=== PATIENT | female | born 1955 | race Caucasian/White ===

== ENCOUNTER 2017-02-08 18:44 | Emergency (ER) | payer OTHER ==
--- NOTE | 2017-02-08 19:00 | ED ---
Lower Extremity Injury HPI - General Chief Complaint: Extremity Injury, Lower Stated Complaint: fall,leg pain Time Seen by Provider: 02/08/17 18:51 Source: patient, EMS, RN notes reviewed Mode of arrival: EMS Limitations: no limitations - History of Present Illness Initial Comments: 61-year-old female presents emergency Department chief complaint of right knee pain. Patient states that she currently states that [facility] and states that 5 days ago she felt 2 pops in her knee and states that she fell her slid down to the ground onto the knee. She states she's been unable to bear any weight on her right knee. Recent did have x-rays that [facility] which showed no acute abnormality. There has been moderate swelling no redness to the site. She states that it felt warm to her left she's had no fever no chills. 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 Patient denies any paresthesias. - Related Data Home Medications Medication Instructions Recorded Confirmed Insulin Glargine [Lantus] 6 unit SQ HS 11/15/14 02/08/17 Calcium Acetate [PhosLo] 667 mg PO DAILY@17011/10/15 02/08/17 Cranberry 425mg 425 mg PO BID 11/10/15 02/08/17 Ferrous Sulfate [Iron (65 MG 325 mg PO DAILY@1700 11/10/15 02/08/17 Elemental)] INSULIN LISPRO (HumaLOG) [humaLOG] 5 units SQ AC-BID@1130,1630 11/10/15 02/08/17 Pravastatin Sodium [Pravachol] 10 mg PO DAILY@199911/10/15 02/08/17 buPROPion SR [Wellbutrin SR] 150 mg PO DAILY 11/10/15 02/08/17 hydrALAZINE HCL [Apresoline] 50 mg PO TID@0500,1300,2100 11/10/15 02/08/17 Estrogens, Conjugated [Premarin] 1.25 mg PO DAILY@199911/19/15 02/08/17 Cholecalciferol [Vitamin D3] 2,000 unit PO DAILY 05/25/16 02/08/17 Escitalopram [Lexapro] 20 mg PO HS 06/17/16 02/08/17 Acetaminophen-Codeine 300-30mg 1 tab PO Q4H PRN 02/08/17 02/08/17 [Tylenol w/codeine #3] Epoetin Jc [Epogen] 2,000 units SQ FR 02/08/17 02/08/17 Estrogens, Conjugated [Premarin] 1.25 mg PO HS 02/08/17 02/08/17 Gabapentin [Neurontin] 300 mg PO DAILY 02/08/17 02/08/17 Loperamide [Imodium] 2 mg PO TID PRN 02/08/17 02/08/17 Melatonin 5 mg PO HS 02/08/17 02/08/17 Nicotine 7Mg/24Hr Patch [Habitrol 1 patch TRANSDERM DAILY 02/08/17 02/08/17 7Mg/24Hr Patch] Ondansetron [Zofran] 4 mg PO Q8H PRN 02/08/17 02/08/17 Previous Rx's Medication Instructions Recorded Clopidogrel [Plavix] 75 mg PO DAILY #30 tab 05/27/14 Metoprolol Tartrate [Lopressor] 50 mg PO BID #60 tab 05/27/14 Isosorbide Mononitrate ER [Imdur] 60 mg PO DAILY #1 tab 11/21/15 Nitroglycerin Sl Tabs [Nitrostat] 0.4 mg SUBLINGUAL Q5M PRN #0 tab 11/21/15 amLODIPine [Norvasc] 5 mg PO DAILY #30 tab 05/26/16 LORazepam [Ativan] 0.5 mg PO Q8H PRN #14 tab 06/25/16 Allergies Allergy/AdvReac Type Severity Reaction Status Date / Time doxycycline calcium Allergy Rash/Hives Verified 02/08/17 19:02 [From Vibramycin] doxycycline hyclate Allergy Rash/Hives Verified 02/08/17 19:02 [From Vibramycin] doxycycline monohydrate Allergy Rash/Hives Verified 02/08/17 19:02 [From Vibramycin] nalbuphine HCl [From Nubain] Allergy Rash/Hives Verified 02/08/17 19:02 oxycodone HCl [From Tylox] Allergy Rash/Hives Verified 02/08/17 19:02 Tetracyclines Allergy Rash/Hives Verified 02/08/17 19:02 Review of Systems ROS Statement: Those systems with pertinent positive or pertinent negative responses have been documented in the HPI. ROS Other: All systems not noted in ROS Statement are negative. Past Medical History Past Medical History: Coronary Artery Disease (CAD), Heart Failure, COPD, CVA/ TIA, Dementia, Diabetes Mellitus, Eye Disorder, Hyperlipidemia, Hypertension, Myocardial Infarction (ND), Osteoarthritis (OA), Renal Disease, Rheumatoid Arthritis (RA), Skin Disorder, Vascular Disorder Additional Past Medical History / Comment(s): UTI/pyelonephritis with sepsis, IDDM type II, CKD stage III, PAD, wound left foot prior to amputation, R foot neuropathy. Last Myocardial Infarction Date:: 1987 History of Any Multi-Drug Resistant Organisms: None Reported Past Surgical History: Cholecystectomy, Heart Catheterization With Stent, Hernia Repair, Hysterectomy, Tubal Ligation Additional Past Surgical History / Comment(s): Abdominal SX. RT EYE REMOVED 2 YEAR AGO, 05-25-14 LT BELOW KNEE AMP Past Anesthesia/Blood Transfusion Reactions: No Reported Reaction Date of Last Stent Placement:: 04/2014 Past Psychological History: Anxiety, Depression Smoking Status: Former smoker Past Alcohol Use History: None Reported Past Drug Use History: None Reported - Past Family History Father Family Medical History: CVA/TIA Mother Family Medical History: COPD General Exam Limitations: no limitations General appearance: alert, in no apparent distress Respiratory exam: Present: normal lung sounds bilaterally. Absent: respiratory distress, wheezes, rales, rhonchi, stridor Cardiovascular Exam: Present: regular rate, normal rhythm, normal heart sounds. Absent: systolic murmur, diastolic murmur, rubs, gallop, clicks Extremities exam: Present: other (Right knee there is moderate swelling no erythema no open lesions or sores. There is no obvious deformity there is a moderate joint effusion noted, no laxity pain with range of motion minimal warmth) Skin exam: Present: warm, dry, intact, normal color. Absent: rash Course Vital Signs 02/08/17 18:47 Temperature 97.3 F L Pulse Rate 53 L Respiratory 20 Rate Blood Pressure 148/64 O2 Sat by Pulse 94 L Oximetry Medical Decision Making - Medical Decision Making 61-year-old female presents emergency department for right knee pain. Patient has joint effusion this may related to a strain or contusion. Patient will be discharged back to [facility] and advised to follow-up with orthopedics for further care. There is no evidence of infection this time. Patient agrees this plan. Disposition Clinical Impression: Right knee pain, Effusion of right knee joint Disposition: HOME SELF-CARE Condition: Stable Instructions: Knee Pain (ED) Additional Instructions: Please return to the Emergency Department if symptoms worsen or any other concerns. Referrals: Jose Nobles DO [Primary Care Provider] - 1-2 days Yasir Yuan MD [STAFF PHYSICIAN] - 1-2 days Time of Disposition: 19:58
--- NOTE | 2017-02-08 19:55 | XR ---
EXAMINATION TYPE: XR knee complete RT DATE OF EXAM: 02/08/2017 COMPARISON: NONE HISTORY: Pain TECHNIQUE: 4 views FINDINGS: The bone mineralization pattern shows evidence of generalized osteopenia and prominent hete rogeneity of attenuation. No focal destructive lesions evident. No fracture or malalignment. The soft tissues reveal fluid in the suprapatellar bursa. In addition, atherosclerotic calcifications are noted throughout the visualized arterial anatomy. IMPRESSION: 1. Skeletal structures: No definite acute bone process, but generalized bone findings. 2. Joints and soft tissues: Suprapatellar effusion and atherosclerosis findings.
[2017-02-08] MEDS ORDERED: HYDROcodone/APAP 7.5-325MG 1 EACH TAB PO ONE (20:01)
[2017-02-08 20:35] VITALS: BP 156/75; PULSE 59; RESP 18; TEMP 97.8
== END 2017-02-08 20:44 | disposition home or self-care (01) ==
LOC: EC 18:44
DX: M25.461 Effusion, right knee (principal); I12.9 Hypertensive chronic kidney disease with stage 1 through stage 4 chronic kidney disease, or unspecified chronic kidney disease; I11.0 Hypertensive heart disease with heart failure; I50.9 Heart failure, unspecified; N18.3 Chronic kidney disease, stage 3 (moderate); E78.5 Hyperlipidemia, unspecified; E11.22 Type 2 diabetes mellitus with diabetic chronic kidney disease; I73.9 Peripheral vascular disease, unspecified; F32.9 Major depressive disorder, single episode, unspecified; F41.9 Anxiety disorder, unspecified; Z87.891 Personal history of nicotine dependence; Z79.4 Long term (current) use of insulin; Z79.899 Other long term (current) drug therapy; Z88.1 Allergy status to other antibiotic agents; Z88.5 Allergy status to narcotic agent; Z88.6 Allergy status to analgesic agent; W01.0XXA Fall on same level from slipping, tripping and stumbling without subsequent striking against object, initial encounter; Y92.121 Bathroom in nursing home as the place of occurrence of the external cause
CPT/HCPCS: 99284

== ENCOUNTER 2017-12-08 19:24 | Emergency (ER) | payer OTHER ==
[2017-12-08 19:28] VITALS: RESP 16; TEMP 98.5
--- NOTE | 2017-12-08 19:43 | ED ---
Chest Pain HPI - General Chief Complaint: Chest Pain Stated Complaint: chest pain Time Seen by Provider: 12/08/17 19:26 Source: patient Mode of arrival: EMS Limitations: no limitations - History of Present Illness Initial Comments: This patient is a 62-year-old woman, with history of previous angina, presenting with chest pain that came on tonight. The patient is resident of [facility]. EMS was called and the patient did receive aspirin and 2 nitroglycerin. The symptoms have resolved by her arrival here and she states she is feeling well. The patient did not have any other anginal type symptoms. MD Complaint: chest pain Onset/Timin -: hour(s) Onset: during rest Pain Location: substernal Pain Radiation: none Severity: moderate Quality: heaviness Consistency: now resolved Improves With: nitroglycerin Worsens With: nothing Treatments Prior to Arrival: aspirin, nitroglycerin - Related Data Home Medications Medication Instructions Recorded Confirmed Insulin Glargine [Lantus] 6 unit SQ HS 11/15/14 12/08/17 Calcium Acetate [PhosLo] 667 mg PO DAILY@17011/10/15 12/08/17 Ferrous Sulfate [Iron (65 MG 325 mg PO DAILY@1700 11/10/15 12/08/17 Elemental)] INSULIN LISPRO (HumaLOG) [humaLOG] 5 units SQ AC-BID@1130,1630 11/10/15 12/08/17 Pravastatin Sodium [Pravachol] 10 mg PO DAILY@199911/10/15 12/08/17 buPROPion SR [Wellbutrin SR] 150 mg PO DAILY 11/10/15 12/08/17 hydrALAZINE HCL [Apresoline] 50 mg PO TID@0500,1300,2100 11/10/15 12/08/17 Cholecalciferol [Vitamin D3] 2,000 unit PO DAILY 05/25/16 12/08/17 Escitalopram [Lexapro] 20 mg PO HS 06/17/16 12/08/17 Acetaminophen-Codeine 300-30mg 1 tab PO Q4H PRN 02/08/17 12/08/17 [Tylenol w/codeine #3] Gabapentin [Neurontin] 300 mg PO DAILY 02/08/17 12/08/17 Loperamide [Imodium] 2 mg PO TID PRN 02/08/17 12/08/17 Melatonin 5 mg PO HS 02/08/17 12/08/17 Ondansetron [Zofran] 4 mg PO Q8H PRN 02/08/17 12/08/17 Cranberry Fruit Extract [Cranberry] 450 mg PO DAILY 12/08/17 12/08/17 Docusate [Colace] 100 mg PO HS 12/08/17 12/08/17 Epoetin Jc [Epogen] 2,000 unit SQ WEEKLY 12/08/17 12/08/17 HYDROmorphone [Dilaudid] 2 mg PO Q6H PRN 12/08/17 12/08/17 LORazepam [Ativan] 0.5 mg PO DAILY 12/08/17 12/08/17 Magnesium Hydroxide [Milk of 400 mg PO 12/08/17 Magnesia] Sennosides [Senna] 8.6 mg PO Q2D 12/08/17 12/08/17 Previous Rx's Medication Instructions Recorded Clopidogrel [Plavix] 75 mg PO DAILY #30 tab 05/27/14 Metoprolol Tartrate [Lopressor] 50 mg PO BID #60 tab 05/27/14 Isosorbide Mononitrate ER [Imdur] 60 mg PO DAILY #1 tab 11/21/15 Nitroglycerin Sl Tabs [Nitrostat] 0.4 mg SUBLINGUAL Q5M PRN #0 tab 11/21/15 amLODIPine [Norvasc] 5 mg PO DAILY #30 tab 05/26/16 Allergies Allergy/AdvReac Type Severity Reaction Status Date / Time doxycycline calcium Allergy Rash/Hives Verified 12/08/17 19:30 [From Vibramycin] doxycycline hyclate Allergy Rash/Hives Verified 12/08/17 19:30 [From Vibramycin] doxycycline monohydrate Allergy Rash/Hives Verified 12/08/17 19:30 [From Vibramycin] nalbuphine HCl [From Nubain] Allergy Rash/Hives Verified 12/08/17 19:30 oxycodone HCl [From Tylox] Allergy Rash/Hives Verified 12/08/17 19:30 Tetracyclines Allergy Rash/Hives Verified 12/08/17 19:30 Review of Systems ROS Statement: Those systems with pertinent positive or pertinent negative responses have been documented in the HPI. ROS Other: All systems not noted in ROS Statement are negative. Constitutional: Denies: fever Respiratory: Denies: cough, dyspnea, wheezes Cardiovascular: Reports: chest pain. Denies: palpitations, orthopnea, edema, syncope Gastrointestinal: Denies: abdominal pain, vomiting Musculoskeletal: Denies: back pain Skin: Denies: rash Neurological: Denies: headache, weakness EKG Findings - EKG Results: EKG: interpreted by ERMD, sinus rhythm (Rate 61 bpm), normal axis, normal QRS, normal ST/T, no acute changes Past Medical History Past Medical History: Coronary Artery Disease (CAD), Heart Failure, COPD, CVA/ TIA, Dementia, Diabetes Mellitus, Eye Disorder, Hyperlipidemia, Hypertension, Myocardial Infarction (MS), Osteoarthritis (OA), Renal Disease, Rheumatoid Arthritis (RA), Skin Disorder, Vascular Disorder Additional Past Medical History / Comment(s): UTI/pyelonephritis with sepsis, IDDM type II, CKD stage III, PAD, wound left foot prior to amputation, R foot neuropathy. Last Myocardial Infarction Date:: 1987 History of Any Multi-Drug Resistant Organisms: None Reported Past Surgical History: Cholecystectomy, Heart Catheterization With Stent, Hernia Repair, Hysterectomy, Tubal Ligation Additional Past Surgical History / Comment(s): Abdominal SX. RT EYE REMOVED 2 YEAR AGO, 05-25-14 LT BELOW KNEE AMP Past Anesthesia/Blood Transfusion Reactions: No Reported Reaction Date of Last Stent Placement:: 04/2014 Past Psychological History: Anxiety, Depression Smoking Status: Former smoker Past Alcohol Use History: None Reported Past Drug Use History: None Reported - Past Family History Father Family Medical History: CVA/TIA Mother Family Medical History: COPD General Exam Limitations: no limitations General appearance: alert, in no apparent distress Head exam: Present: atraumatic, normocephalic ENT exam: Present: normal oropharynx Respiratory exam: Present: normal lung sounds bilaterally. Absent: respiratory distress, wheezes, rales, rhonchi, stridor Cardiovascular Exam: Present: regular rate, normal rhythm, normal heart sounds. Absent: systolic murmur, diastolic murmur, rubs, gallop GI/Abdominal exam: Present: soft. Absent: distended, tenderness, guarding, rebound, mass Extremities exam: Present: normal inspection, normal capillary refill, other ( Below knee amputation ). Absent: pedal edema, calf tenderness Neurological exam: Present: alert, motor sensory deficit Skin exam: Present: warm, dry, intact, normal color. Absent: rash Course Vital Signs 12/08/17 12/08/17 19:25 20:37 Temperature 98.5 F Pulse Rate 61 60 Respiratory 16 16 Rate Blood Pressure 155/72 150/67 O2 Sat by Pulse 96 96 Oximetry Disposition Clinical Impression: Stable angina, Acute renal failure superimposed on stage 3 chronic kidney disease Disposition: HOME SELF-CARE Condition: Fair Instructions: Angina (ED) Additional Instructions: As discussed, your kidney tests must be repeated in 48-72 hours to ensure that there is not any worsening. Is patient prescribed a controlled substance at d/c from ED?: No Referrals: Jose Nobles DO [Primary Care Provider] - 1-2 days
[2017-12-08 19:58] LABS: Basophils % (A) 1 %; Eosinophils # (A) 0.1 k/uL (0-0.7); Eosinophils % (A) 2 %; HCT 28.6 % (34.0-46.0); HGB 9.2 gm/dL (11.4-16.0); Hypochromasia Slight; Lymphocytes # (A) 0.9 k/uL (1.0-4.8); Lymphocytes % (A) 17 %; MCH 27.9 pg (25.0-35.0); MCHC 32.2 g/dL (31.0-37.0); MCV 86.6 fL (80.0-100.0); Mean Platelet Volume 6.7; Monocytes # (A) 0.4 k/uL (0-1.0); Monocytes % (A) 8 %; Neutrophils # (A) 3.7 k/uL (1.3-7.7); Neutrophils % (A) 71 %; Platelet Count 305 k/uL (150-450); Poikilocytosis Slight; RBC 3.31 m/uL (3.80-5.40); RDW 14.8 % (11.5-15.5); WBC 5.2 k/uL (3.8-10.6)
[2017-12-08 20:06] LABS: Partial Thromboplastin Time 24.4 sec (22.0-30.0); Prothrombin Time 9.6 sec (9.0-12.0)
[2017-12-08 20:07] LABS: Albumin 2.9 g/dL (3.5-5.0); Calcium 8.2 mg/dL (8.4-10.2); Magnesium 1.7 mg/dL (1.6-2.3); Total Bilirubin 0.1 mg/dL (0.2-1.3); Total Protein 6.2 g/dL (6.3-8.2)
--- NOTE | 2017-12-08 20:20 | XR ---
EXAMINATION TYPE: XR chest 1V portable DATE OF EXAM: 12/08/2017 COMPARISON: 05/25/2016 HISTORY: Chest pain TECHNIQUE: Single frontal view of the chest is obtained. FINDINGS: There is no focal air space opacity, pleural effusion, or pneumothorax seen. The cardiac silhouette size is enlarged as seen on the prior. The osseous structures are intact. IMPRESSION: No acute cardiopulmonary process.
[2017-12-08] MEDS ORDERED: SODIUM CHLORIDE 0.9% 500 ML IV STA (20:48)
[2017-12-08 21:30] VITALS: BP 147/69; PULSE 63
== END 2017-12-08 21:30 | disposition home or self-care (01) ==
LOC: EC 19:24
DX: I25.119 Atherosclerotic heart disease of native coronary artery with unspecified angina pectoris (principal); I13.0 Hypertensive heart and chronic kidney disease with heart failure and stage 1 through stage 4 chronic kidney disease, or unspecified chronic kidney disease; N18.3 Chronic kidney disease, stage 3 (moderate); I50.9 Heart failure, unspecified; E11.22 Type 2 diabetes mellitus with diabetic chronic kidney disease; E78.5 Hyperlipidemia, unspecified; M06.9 Rheumatoid arthritis, unspecified; E11.40 Type 2 diabetes mellitus with diabetic neuropathy, unspecified; F32.9 Major depressive disorder, single episode, unspecified; F41.9 Anxiety disorder, unspecified; Z87.891 Personal history of nicotine dependence; Z79.4 Long term (current) use of insulin; Z79.899 Other long term (current) drug therapy; Z88.1 Allergy status to other antibiotic agents; Z88.8 Allergy status to other drugs, medicaments and biological substances; Z95.5 Presence of coronary angioplasty implant and graft
CPT/HCPCS: 36415; 71045; 80053; 83735; 84484; 85025; 85610; 85730; 93005; 99285

== ENCOUNTER 2017-12-26 14:36 | Inpatient (IN) | payer OTHER ==
--- NOTE | 2017-12-26 14:56 | ED ---
Recheck HPI - General Chief Complaint: Recheck/Abnormal Lab/Rx Stated Complaint: ABNORMAL LABS Time Seen by Provider: 12/26/17 14:36 Source: patient, RN notes reviewed Mode of arrival: EMS Limitations: no limitations - History of Present Illness Initial Comments: This is a 62-year-old female with a history of multiple medical problems including diabetes depression who apparently has had recent renal insufficiency and was sent in now for markedly elevated BUN and creatinine. BUN was 114 creatinine 6.2. Patient apparently had been off her dialysis and up to this point had refused. She now apparently will get dialysis. No fevers chills nausea vomiting sweats reported the patient's mental status is unknown she is somewhat confused to time she believes is winter and she believes [place] is the Pres. at this time. - Related Data Home Medications Medication Instructions Recorded Confirmed Insulin Glargine [Lantus] 6 unit SQ HS 11/15/14 12/26/17 Calcium Acetate [PhosLo] 667 mg PO DAILY@1700 11/10/15 12/26/17 Ferrous Sulfate [Iron (65 MG 325 mg PO DAILY@1700 11/10/15 12/26/17 Elemental)] INSULIN LISPRO (HumaLOG) [humaLOG] 5 units SQ AC-BID@1130,1630 11/10/15 12/26/17 Pravastatin Sodium [Pravachol] 10 mg PO HS 11/10/15 12/26/17 buPROPion SR [Wellbutrin SR] 150 mg PO DAILY 11/10/15 12/26/17 hydrALAZINE HCL [Apresoline] 50 mg PO TID@0500,1300,2100 11/10/15 12/26/17 Cholecalciferol [Vitamin D3] 2,000 unit PO DAILY 05/25/16 12/26/17 Escitalopram [Lexapro] 20 mg PO HS 06/17/16 12/26/17 Acetaminophen-Codeine 300-30mg 1 tab PO Q4H PRN 02/08/17 12/26/17 [Tylenol w/codeine #3] Gabapentin [Neurontin] 300 mg PO DAILY 02/08/17 12/26/17 Loperamide [Imodium] 2 mg PO TID PRN 02/08/17 12/26/17 Melatonin 5 mg PO HS 02/08/17 12/26/17 Ondansetron [Zofran] 4 mg PO Q8H PRN 02/08/17 12/26/17 Cranberry Fruit Extract [Cranberry] 450 mg PO BID 12/08/17 12/26/17 Docusate [Colace] 100 mg PO HS 12/08/17 12/26/17 Epoetin Jc [Epogen] 2,000 unit SQ FR 12/08/17 12/26/17 HYDROmorphone [Dilaudid] 2 mg PO Q6H PRN 12/08/17 12/26/17 LORazepam [Ativan] 0.5 mg PO DAILY@1600 12/08/17 12/26/17 Magnesium Hydroxide [Milk of 2,400 mg PO DAILY PRN 12/08/17 12/26/17 Magnesia] Sennosides [Senna] 8.6 mg PO Q2D 12/08/17 12/26/17 Cefuroxime Axetil [Ceftin] 500 mg PO DAILY 12/26/17 12/26/17 Promethazine Suppository 12.5 mg RECTAL Q6H PRN 12/26/17 12/26/17 [Phenergan] Previous Rx's Medication Instructions Recorded Clopidogrel [Plavix] 75 mg PO DAILY #30 tab 05/27/14 Metoprolol Tartrate [Lopressor] 50 mg PO BID #60 tab 05/27/14 Isosorbide Mononitrate ER [Imdur] 60 mg PO DAILY #1 tab 11/21/15 Nitroglycerin Sl Tabs [Nitrostat] 0.4 mg SUBLINGUAL Q5M PRN #0 tab 11/21/15 amLODIPine [Norvasc] 5 mg PO DAILY #30 tab 05/26/16 Allergies Allergy/AdvReac Type Severity Reaction Status Date / Time doxycycline calcium Allergy Rash/Hives Verified 12/26/17 14:48 [From Vibramycin] doxycycline hyclate Allergy Rash/Hives Verified 12/26/17 14:48 [From Vibramycin] doxycycline monohydrate Allergy Rash/Hives Verified 12/26/17 14:48 [From Vibramycin] nalbuphine HCl [From Nubain] Allergy Rash/Hives Verified 12/26/17 14:48 oxycodone HCl [From Tylox] Allergy Rash/Hives Verified 12/26/17 14:48 Tetracyclines Allergy Rash/Hives Verified 12/26/17 14:48 Review of Systems ROS Statement: Those systems with pertinent positive or pertinent negative responses have been documented in the HPI. ROS Other: All systems not noted in ROS Statement are negative. Past Medical History Past Medical History: Coronary Artery Disease (CAD), Heart Failure, COPD, CVA/ TIA, Dementia, Diabetes Mellitus, Eye Disorder, Hyperlipidemia, Hypertension, Myocardial Infarction (MS), Osteoarthritis (OA), Renal Disease, Rheumatoid Arthritis (RA), Skin Disorder, Vascular Disorder Additional Past Medical History / Comment(s): UTI/pyelonephritis with sepsis, IDDM type II, CKD stage III, PAD, wound left foot prior to amputation, R foot neuropathy. Last Myocardial Infarction Date:: 1987 History of Any Multi-Drug Resistant Organisms: None Reported Past Surgical History: Cholecystectomy, Heart Catheterization With Stent, Hernia Repair, Hysterectomy, Tubal Ligation Additional Past Surgical History / Comment(s): Abdominal SX. RT EYE REMOVED 2 YEAR AGO, 05-25-14 LT BELOW KNEE AMP Past Anesthesia/Blood Transfusion Reactions: No Reported Reaction Date of Last Stent Placement:: 04/2014 Past Psychological History: Anxiety, Depression Smoking Status: Former smoker Past Alcohol Use History: None Reported Past Drug Use History: None Reported - Past Family History Father Family Medical History: CVA/TIA Mother Family Medical History: COPD General Exam - General Exam Comments Initial Comments: This is a well-developed well-nourished awake alert but confused female Limitations: no limitations General appearance: alert, anxious Eye exam: Present: EOMI, other (Prior to ablation of the right eye) ENT exam: Present: mucous membranes dry Neck exam: Present: normal inspection. Absent: tenderness, meningismus, lymphadenopathy Respiratory exam: Present: normal lung sounds bilaterally. Absent: respiratory distress, wheezes, rales, rhonchi, stridor Cardiovascular Exam: Present: regular rate, normal rhythm, normal heart sounds. Absent: systolic murmur, diastolic murmur, rubs, gallop, clicks GI/Abdominal exam: Present: soft, normal bowel sounds. Absent: distended, tenderness, guarding, rebound, rigid Rectal exam: Present: deferred Extremities exam: Present: full ROM, normal capillary refill, other (Left below the knee amputation is noted). Absent: tenderness Neurological exam: Present: alert, altered, CN II-XII intact Skin exam: Present: warm, dry, intact, normal color Course Vital Signs 12/26/17 14:38 Temperature 97.1 F L Pulse Rate 60 Respiratory 18 Rate Blood Pressure 145/68 O2 Sat by Pulse 96 Oximetry Medical Decision Making - Medical Decision Making I did discuss case Dr. Bailey patient will be admitted for evaluation for dialysis a consult for nephrology as well as for vascular surgery - Lab Data Result diagrams: 12/26/17 14:55 12/26/17 14:55 Lab Results 12/26/17 12/26/17 12/26/17 Range/Units 14:30 14:55 14:55 WBC (3.8-10.6) k/uL RBC (3.80-5.40) m/uL Hgb (11.4-16.0) gm/dL Hct (34.0-46.0) % MCV (80.0-100.0) fL MCH (25.0-35.0) pg MCHC (31.0-37.0) g/dL RDW (11.5-15.5) % Plt Count (150-450) k/uL Neutrophils % % Lymphocytes % % Monocytes % % Eosinophils % % Basophils % % Neutrophils # (1.3-7.7) k/uL Lymphocytes # (1.0-4.8) k/uL Monocytes # (0-1.0) k/uL Eosinophils # (0-0.7) k/uL Basophils # (0-0.2) k/uL Hypochromasia Sodium (137-145) mmol/L Potassium (3.5-5.1) mmol/L Chloride (98-107) mmol/L Carbon Dioxide (22-30) mmol/L Anion Gap mmol/L BUN (7-17) mg/dL Creatinine (0.52-1.04) mg/dL Est GFR (CKD-EPI)AfAm (>60 ml/min/1.73 sqM) Est GFR (CKD-EPI)NonAf (>60 ml/min/1.73 sqM) Glucose (74-99) mg/dL Osmolality 325 H* (280-301) mosm/kg Calcium (8.4-10.2) mg/dL Magnesium (1.6-2.3) mg/dL Total Bilirubin (0.2-1.3) mg/dL AST (14-36) U/L ALT (9-52) U/L Alkaline Phosphatase (38-126) U/L Ammonia 24 (<30) umol/L Total Creatine Kinase (30-135) U/L CK-MB (CK-2) (0.0-2.4) ng/mL CK-MB (CK-2) Rel Index Troponin I (0.000-0.034) ng/mL Total Protein (6.3-8.2) g/dL Albumin (3.5-5.0) g/dL Amylase (30-110) U/L Lipase (23-300) U/L Urine Color Yellow Urine Appearance Turbid H (Clear) Urine pH 6.5 (5.0-8.0) Ur Specific [place] >1.050 H (1.001-1.035) Urine Protein 2+ H (Negative) Urine Glucose (UA) Trace H (Negative) Urine Ketones Negative (Negative) Urine Blood Moderate H (Negative) Urine Nitrite Negative (Negative) Urine Bilirubin Negative (Negative) Urine Urobilinogen <2.0 (<2.0) mg/dL Ur Leukocyte Esterase Large H (Negative) Urine RBC 137 H (0-5) /hpf Urine WBC >182 H (0-5) /hpf Urine WBC Clumps Many H (None) /hpf Ur Squamous Epith Cells 32 H (0-4) /hpf Urine Bacteria Many H (None) /hpf Urine Mucus Many H (None) /hpf 12/26/17 12/26/17 12/26/17 Range/Units 14:55 14:55 14:55 WBC 4.6 (3.8-10.6) k/uL RBC 3.34 L (3.80-5.40) m/uL Hgb 9.2 L (11.4-16.0) gm/dL Hct 28.9 L (34.0-46.0) % MCV 86.5 (80.0-100.0) fL MCH 27.5 (25.0-35.0) pg MCHC 31.7 (31.0-37.0) g/dL RDW 16.0 H (11.5-15.5) % Plt Count 374 (150-450) k/uL Neutrophils % 73 % Lymphocytes % 15 % Monocytes % 7 % Eosinophils % 2 % Basophils % 1 % Neutrophils # 3.3 (1.3-7.7) k/uL Lymphocytes # 0.7 L (1.0-4.8) k/uL Monocytes # 0.3 (0-1.0) k/uL Eosinophils # 0.1 (0-0.7) k/uL Basophils # 0.0 (0-0.2) k/uL Hypochromasia Slight Sodium 137 (137-145) mmol/L Potassium 4.6 (3.5-5.1) mmol/L Chloride 109 H (98-107) mmol/L Carbon Dioxide 12 L (22-30) mmol/L Anion Gap 16 mmol/L BUN 117 H* (7-17) mg/dL Creatinine 5.53 H* (0.52-1.04) mg/dL Est GFR (CKD-EPI)AfAm 9 (>60 ml/min/1.73 sqM) Est GFR (CKD-EPI)NonAf 8 (>60 ml/min/1.73 sqM) Glucose 133 H (74-99) mg/dL Osmolality (280-301) mosm/kg Calcium 8.0 L (8.4-10.2) mg/dL Magnesium 1.8 (1.6-2.3) mg/dL Total Bilirubin 0.2 (0.2-1.3) mg/dL AST 35 (14-36) U/L ALT 37 (9-52) U/L Alkaline Phosphatase 91 (38-126) U/L Ammonia (<30) umol/L Total Creatine Kinase 33 (30-135) U/L CK-MB (CK-2) 0.6 (0.0-2.4) ng/mL CK-MB (CK-2) Rel Index 1.8 Troponin I <0.012 (0.000-0.034) ng/mL Total Protein 5.7 L (6.3-8.2) g/dL Albumin 2.8 L (3.5-5.0) g/dL Amylase 67 (30-110) U/L Lipase 164 (23-300) U/L Urine Color Urine Appearance (Clear) Urine pH (5.0-8.0) Ur Specific [place] (1.001-1.035) Urine Protein (Negative) Urine Glucose (UA) (Negative) Urine Ketones (Negative) Urine Blood (Negative) Urine Nitrite (Negative) Urine Bilirubin (Negative) Urine Urobilinogen (<2.0) mg/dL Ur Leukocyte Esterase (Negative) Urine RBC (0-5) /hpf Urine WBC (0-5) /hpf Urine WBC Clumps (None) /hpf Ur Squamous Epith Cells (0-4) /hpf Urine Bacteria (None) /hpf Urine Mucus (None) /hpf - EKG Data -: EKG Interpreted by Me (Sinus bradycardia rate of 59. Interval 198 QRS duration 94 QT since QTC 47) - Radiology Data Radiology results: report reviewed (I did review the imaging and reports no acute findings.), image reviewed Disposition Clinical Impression: Acute renal failure (ARF), Anemia Disposition: ADMITTED IP TO THIS HOSP Condition: Stable Referrals: Jose Nobles DO [Primary Care Provider] - 1-2 days
[2017-12-26 15:00] LABS: Basophils % (A) 1 %; Eosinophils # (A) 0.1 k/uL (0-0.7); Eosinophils % (A) 2 %; HCT 28.9 % (34.0-46.0); HGB 9.2 gm/dL (11.4-16.0); Hypochromasia Slight; Lymphocytes # (A) 0.7 k/uL (1.0-4.8); Lymphocytes % (A) 15 %; MCH 27.5 pg (25.0-35.0); MCHC 31.7 g/dL (31.0-37.0); MCV 86.5 fL (80.0-100.0); Mean Platelet Volume 6.7; Monocytes # (A) 0.3 k/uL (0-1.0); Monocytes % (A) 7 %; Neutrophils # (A) 3.3 k/uL (1.3-7.7); Neutrophils % (A) 73 %; Platelet Count 374 k/uL (150-450); RBC 3.34 m/uL (3.80-5.40); WBC 4.6 k/uL (3.8-10.6)
[2017-12-26 15:12] LABS: Appearance,Urine Turbid (Clear); Bacteria,Urine Many /hpf; Bilirubin,Urine Negative (Negative); Blood,Urine Moderate (Negative); Color,Urine Yellow; Glucose,Urine (UA) Trace (Negative); Ketones,Urine Negative (Negative); Leukocyte Esterase,Urine Large (Negative); Mucus,Urine Many /hpf; Nitrite,Urine Negative (Negative); PH, Urine 6.5 (5.0-8.0); Protein,Urine 2+ (Negative); RBC,Urine 137 /hpf (0-5); Squamous Epithelial Cell,Urine 32 /hpf (0-4); Urobilinogen,Urine <2.0 mg/dL (<2.0); WBC,Urine >182 /hpf (0-5)
[2017-12-26 15:15] LABS: Specific Gravity,Urine >1.050 (1.001-1.035)
[2017-12-26 15:17] LABS: Albumin 2.8 g/dL (3.5-5.0); Magnesium 1.8 mg/dL (1.6-2.3); Potassium 4.6 mmol/L (3.5-5.1); Total Bilirubin 0.2 mg/dL (0.2-1.3); Total Protein 5.7 g/dL (6.3-8.2)
[2017-12-26 15:25] LABS: Creatine Kinase 33 U/L (30-135)
--- NOTE | 2017-12-26 15:31 | XR ---
EXAMINATION TYPE: XR chest 2V DATE OF EXAM: 12/26/2017 COMPARISON: 12/08/2017 HISTORY: Cough TECHNIQUE: Frontal and lateral views of the chest are obtained. FINDINGS: There is a retrocardiac opacity that is not well visualized on the frontal view. This coul d be exaggerated due to low lung volumes. Chronic right hemidiaphragm elevation is seen. Cardia mucin ous fluid is again enlarged. Mild multilevel degenerative changes of the thoracic spine and acromiocl avicular joints are present. No sizable pneumothorax or pleural effusion. IMPRESSION: Retrocardiac airspace disease that may represent early developing pneumonia although thi s is likely exacerbated by low lung volumes.
[2017-12-26 15:38] LABS: Creatine Kinase MB 0.6 ng/mL (0.0-2.4); Troponin I <0.012 ng/mL (0.000-0.034)
[2017-12-26] MEDS ORDERED: NALOXONE 0.4 MG/ML 1 ML VIAL IV PRN (16:07)
[2017-12-26] MEDS ORDERED: HYDROmorphone 2 MG TAB PO PRN (16:10)
[2017-12-26] MEDS ORDERED: PROMETHAZINE SUPPOSITORY 12.5 MG SUPP RECTAL PRN (16:10)
[2017-12-26] MEDS ORDERED: ONDANSETRON 4 MG TAB PO PRN (16:10)
[2017-12-26] MEDS ORDERED: LOPERAMIDE 2 MG CAP PO PRN (16:10)
[2017-12-26] MEDS ORDERED: NITROGLYCERIN SL TABS 0.4 MG TAB SUBLINGUAL PRN (16:10)
[2017-12-26] MEDS ORDERED: MAGNESIUM HYDROXIDE 2,400 MG/10 ML CUP PO PRN (16:10)
[2017-12-26] MEDS ORDERED: SODIUM CHLORIDE 0.9% 1,000 ML IV SCH (16:15)
[2017-12-26] MEDS: INSULIN ASPART 100 UNIT/ML 1 ML 10 ML VIAL SQ SCH (19:23)
[2017-12-26] MEDS: CALCIUM ACETATE 667 MG CAP PO SCH ×2 (19:24→19:36)
[2017-12-26] MEDS: FERROUS SULFATE 325 MG TAB PO SCH (19:24)
[2017-12-26] MEDS: PRAVASTATIN SODIUM 20 MG TAB PO SCH (19:34)
[2017-12-26] MEDS: METOPROLOL TARTRATE 50 MG TAB PO SCH (19:34)
[2017-12-26] MEDS: hydrALAZINE HCL 50 MG TAB PO SCH (19:35)
[2017-12-26] MEDS: MELATONIN 5 MG TABLET PO SCH (19:35)
[2017-12-26] MEDS: ESCITALOPRAM 20 MG TAB PO SCH (19:35)
[2017-12-26] MEDS: DOCUSATE 100 MG CAP PO SCH (19:35)
[2017-12-26 20:29] LABS: Glucose,Whole Blood 142 mg/dL (75-99)
[2017-12-26] MEDS ORDERED: CRANBERRY FRUIT EXTRACT PO SCH (21:00)
[2017-12-26] MEDS: INSULIN DETEMIR 100 UNIT/ML 10 ML VIAL SQ SCH ×2 (22:06→23:30)
[2017-12-26] MEDS ORDERED: ALPRAZolam 0.25 MG TAB PO PRN (22:58)
[2017-12-26] MEDS ORDERED: ACETAMINOPHEN TAB 325 MG TAB PO PRN (22:58)
[2017-12-26] MEDS ORDERED: CALCIUM CARBONATE 500 MG CHEWABLE PO PRN (22:58)
[2017-12-26] MEDS ORDERED: LACTULOSE 20 GM/30 ML CUP PO PRN (22:58)
[2017-12-26] MEDS: HEPARIN SODIUM,PORCINE 5,000 UNIT/ML 1 ML VIAL SQ SCH (23:30)
--- NOTE | 2017-12-27 02:56 | HP ---
HISTORY AND PHYSICAL DATE OF ADMISSION: December 26, 2017 DATE OF SERVICE: December 26, 2017. PRESENTING COMPLAINT: Worsening renal function. HISTORY OF PRESENTING COMPLAINT: This is a 62-year-old patient of Dr. Nobles, resident of [facility]. Patient is pretty much wheelchair-bound. Chronic stable medical conditions include diabetes, COPD, CHF, left below-knee amputation, peripheral artery disease, hypertension, osteoarthritis, some dementia, depression, coronary artery disease, no vision in the right eye. The patient was sent in because of worsening renal function. The patient has refused dialysis in the past and not acceptable to the same. Denies any nausea, tired. No fever. Decreased appetite, run down and she has been sent in to Nephrology and Dr. Lopez was consulted from the ER. REVIEW OF SYSTEMS: Constitutional: Tired. HEENT: Decreased vision with no vision in the right eye. Respiratory: Some baseline short of breath. Cardiovascular none. Gastrointestinal none. Genitourinary none. Musculoskeletal: Some pain in the different joints. Dermatological, hematologic and lymphatics none. Psychiatry: None. Neurological: No vision in the right eye. PAST HISTORY: Past history of coronary artery disease with stent, congestive heart failure, COPD, dementia, diabetes, hyperlipidemia, no vision in the right eye, hypertension, osteoarthritis, rheumatoid arthritis, skin disorder, CKD stage 3, peripheral artery disease, wound to left foot prior to amputation, right foot neuropathy. PAST SURGICAL HISTORY: Cholecystectomy, cardiac cath with stent, hernia repair, hysterectomy, tubal ligation, right eye removed 2 years ago, left below-knee amputation. PSYCH HISTORY: Anxiety and depression. SOCIAL HISTORY: Lives at [facility]. Uses a wheelchair. The patient smoked 2 packs a day since she was the age of 17 and quit at age of 51, that is 42 years. No alcohol. FAMILY HISTORY: Stroke. HOME MEDICATIONS: 1. Phenergan 12.5 p.o. q.6 p.r.n. 2. Zofran 4 mg q.8h p.r.n. 3. Epogen 2000 units on Fridays. 4. Tylenol 3 one tab q.4h p.r.n. 5. Nitrostat 0.4 sublingual q.5 p.r.n. 6. Milk of magnesia 2500 mg p.o. daily p.r.n. 7. Imodium 2 mg p.o. t.i.d. p.r.n. 8. Dilaudid 2 mg p.o. q.6h p.r.n. 9. Ceftin 500 mg p.o. daily. 10.Hydralazine 50 mg p.o. t.i.d. 11.Lopressor 50 mg p.o. b.i.d. 12.Wellbutrin XR 150 mg p.o. daily. 13.Humalog 5 units subcu a.c. b.i.d. 14.Iron 325 p.o. daily. 15.Cranberry 450 mg p.o. b.i.d. 16.Senna 8.6 p.o. Q 2 days. 17.Pravachol 10 mg q.h.s. 18.Plavix 75 mg p.o. daily. 19.Vitamin D3 2000 units p.o. daily. 20.PhosLo 667 mg p.o. daily 5:00 pm. 21.Melatonin 5 mg q.h.s. 22.Imdur ER 60 mg p.o. daily. 23.Lantus 6 units subcu q.h.s. 24.Lexapro 20 mg q.h.s. 25.Ativan 0.5 p.o. daily 4:00 pm. 26.Neurontin 300 mg p.o. daily. 27.Colace 100 mg p.o. q.h.s. 28.Norvasc 5 mg p.o. daily. ALLERGIES: TO DOXYCYCLINE, NUBAIN, OXYCONTIN, TETRACYCLINE. PHYSICAL EXAMINATION: Temperature 97.3, pulse 63, respirations 16, blood pressure 162/74, pulse ox 96% on room air. GENERAL APPEARANCE: Thin build, lying in bed. EYES: Missing right eye. HEENT: External appearance of nose and ears normal. Oral cavity normal. NECK: JVD not raised. Mass not palpable. RESPIRATORY: Effort normal. LUNGS: Diminished breath sounds. CARDIOVASCULAR: 1st and second sounds normal. No edema. ABDOMEN: Soft, nontender. Liver and spleen not palpable. LYMPHATIC: No lymph nodes palpable in the neck and axilla. PSYCHIATRY: Alert and oriented times three. Mood and affect normal. NEUROLOGICAL: Pupils equal. Cranial nerves grossly intact. Power and sensation grossly intact. INVESTIGATIONS: White count 4.6, hemoglobin 9.2, potassium 4.6, BUN 117, creatinine 5.53. Chest x-ray questionable pneumonia. EKG sinus bradycardia. ASSESSMENT: 1. Acute on chronic kidney disease stage 4, likely from diabetic nephropathy and hypertensive nephrosclerosis worsening, the patient started to get uremic. 2. Diabetes mellitus type 2, chronically on insulin. 3. Chronic obstructive pulmonary disease in an ex-smoker. 4. Congestive heart failure, ejection fraction not known. 5. Left below-knee amputation. 6. Peripheral artery disease. 7. Essential hypertension. 8. Primary osteoarthritis. 9. Mild cognitive impairment from early Alzheimer's dementia. 10.Depression, not otherwise specified. 11.Coronary artery disease, prior history of stent. 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 PLAN: Home medications are resumed. Consultation made to Nephrology and vascular surgery in case an access to be obtained. Care was discussed with the patient. Questions were answered. I did talk to the patient. She does not want to go on to hemodialysis. Copy to Dr. Nobles. WHIT / JEREMYN: [id number] /
[2017-12-27] MEDS: hydrALAZINE HCL 50 MG TAB PO SCH ×3 (05:41→21:32)
[2017-12-27 06:39] LABS: Glucose,Whole Blood 142 mg/dL (75-99)
--- NOTE | 2017-12-27 08:12 | P.NPCON ---
History of Present Illness - Reason for Consult acute renal failure, chronic renal failure - History of Present Illness Reason for consultation: Acute kidney injury on chronic kidney disease History of present illness: Patient is a 62-year-old female seen in renal consultation for acute kidney injury on chronic kidney disease. Patient has chronic kidney disease stage IV secondary to diabetic kidney disease with baseline creatinine in the range of 2.7-3.5. She has not been seen as an outpatient. However she has been seen in the hospital in the past in 2016. Patient had blood work done as an outpatient and was advised to go to the hospital due to worsening renal function. Apparently she had been refusing any forms of renal replacement therapy in the past but is now agreeable. She denies edema. Currently resting in bed. No vomiting or diarrhea. Denies chest pain or shortness of breath. I don't see any NSAIDs at home medications. BUN was 117 and creatinine was 5.53 as of yesterday evening. However prior to admission her creatinine was noted to be elevated at 6.2 from yesterday morning. She was also noted to be acidotic with a bicarbonate level of 12. Hemodynamically stable. Vital signs are stable. General: The patient appeared well nourished and normally developed. HEENT: Head exam is unremarkable. Neck is without jugular venous distension. LUNGS: Lungs are clear to auscultation and percussion. Breath sounds decreased. HEART: Rate and Rhythm are regular. First and second heart sounds normal. No murmurs, rubs or gallops. ABDOMEN: Abdominal exam reveals normal bowel sounds. Non-tender and non- distended. No evidence of peritonitis. EXTREMITITES: No clubbing, cyanosis, or edema. Left BKA noted. Past Medical History Past Medical History: Coronary Artery Disease (CAD), Heart Failure, COPD, CVA/ TIA, Dementia, Diabetes Mellitus, Eye Disorder, Hyperlipidemia, Hypertension, Myocardial Infarction (NM), Osteoarthritis (OA), Renal Disease, Rheumatoid Arthritis (RA), Skin Disorder, Vascular Disorder Additional Past Medical History / Comment(s): UTI/pyelonephritis with sepsis, IDDM type II, CKD stage III, PAD, wound left foot prior to amputation, R foot neuropathy. Last Myocardial Infarction Date:: 1987 History of Any Multi-Drug Resistant Organisms: Other MDRO Past Surgical History: Cholecystectomy, Heart Catheterization With Stent, Hernia Repair, Hysterectomy, Tubal Ligation Additional Past Surgical History / Comment(s): Abdominal SX. RT EYE REMOVED 2 YEAR AGO, 05-25-14 LT BELOW KNEE AMP Past Anesthesia/Blood Transfusion Reactions: Motion Sickness Additional Past Anesthesia/Blood Transfusion Reaction / Comment(s): stated has had blood transfusion in past-no reaction to it Date of Last Stent Placement:: 04/2014 Smoking Status: Former smoker - Past Family History Father Family Medical History: CVA/TIA Mother Family Medical History: COPD Medications and Allergies Home Medications Medication Instructions Recorded Confirmed Type Clopidogrel [Plavix] 75 mg PO DAILY #30 tab 05/27/14 12/26/17 Rx Metoprolol Tartrate [Lopressor] 50 mg PO BID #60 tab 05/27/14 12/26/17 Rx Insulin Glargine [Lantus] 6 unit SQ HS 11/15/14 12/26/17 History Calcium Acetate [PhosLo] 667 mg PO DAILY@1700 11/10/15 12/26/17 History Ferrous Sulfate [Iron (65 MG 325 mg PO DAILY@1700 11/10/15 12/26/17 History Elemental)] INSULIN LISPRO (HumaLOG) [humaLOG] 5 units SQ AC-BID@1130,1630 11/10/15 History Pravastatin Sodium [Pravachol] 10 mg PO HS 11/10/15 12/26/17 History buPROPion SR [Wellbutrin SR] 150 mg PO DAILY 11/10/15 12/26/17 History hydrALAZINE HCL [Apresoline] 50 mg PO TID@0500,1300,2100 11/10/15 12/26/17 History Isosorbide Mononitrate ER [Imdur] 60 mg PO DAILY #1 tab 11/21/15 12/26/17 Rx Nitroglycerin Sl Tabs [Nitrostat] 0.4 mg SUBLINGUAL Q5M PRN #0 tab 11/21/15 Rx Cholecalciferol [Vitamin D3] 2,000 unit PO DAILY 05/25/16 12/26/17 History amLODIPine [Norvasc] 5 mg PO DAILY #30 tab 05/26/16 12/26/17 Rx Escitalopram [Lexapro] 20 mg PO HS 06/17/16 12/26/17 History Acetaminophen-Codeine 300-30mg 1 tab PO Q4H PRN 02/08/17 12/26/17 History [Tylenol w/codeine #3] Gabapentin [Neurontin] 300 mg PO DAILY 02/08/17 12/26/17 History Loperamide [Imodium] 2 mg PO TID PRN 02/08/17 12/26/17 History Melatonin 5 mg PO HS 02/08/17 12/26/17 History Ondansetron [Zofran] 4 mg PO Q8H PRN 02/08/17 12/26/17 History Cranberry Fruit Extract [Cranberry] 450 mg PO BID 12/08/17 12/26/17 History Docusate [Colace] 100 mg PO HS 12/08/17 12/26/17 History Epoetin Jc [Epogen] 2,000 unit SQ FR 12/08/17 12/26/17 History HYDROmorphone [Dilaudid] 2 mg PO Q6H PRN 12/08/17 12/26/17 History LORazepam [Ativan] 0.5 mg PO DAILY@1600 12/08/17 12/26/17 History Magnesium Hydroxide [Milk of 2,400 mg PO DAILY PRN 12/08/17 12/26/17 History Magnesia] Sennosides [Senna] 8.6 mg PO Q2D 12/08/17 12/26/17 History Cefuroxime Axetil [Ceftin] 500 mg PO DAILY 12/26/17 12/26/17 History Promethazine Suppository 12.5 mg RECTAL Q6H PRN 12/26/17 12/26/17 History [Phenergan] Allergies Allergy/AdvReac Type Severity Reaction Status Date / Time doxycycline calcium Allergy Rash/Hives Verified 12/26/17 14:48 [From Vibramycin] doxycycline hyclate Allergy Rash/Hives Verified 12/26/17 14:48 [From Vibramycin] doxycycline monohydrate Allergy Rash/Hives Verified 12/26/17 14:48 [From Vibramycin] nalbuphine HCl [From Nubain] Allergy Rash/Hives Verified 12/26/17 14:48 oxycodone HCl [From Tylox] Allergy Rash/Hives Verified 12/26/17 14:48 Tetracyclines Allergy Rash/Hives Verified 12/26/17 14:48 Physical Exam Vitals: Vital Signs Temp Pulse Pulse Resp BP BP Pulse Ox 12/27/17 04:00 98.5 F 57 L 18 158/67 98 12/27/17 00:00 97.9 F 62 18 152/67 95 12/26/17 20:00 97.7 F 61 18 160/70 94 L 12/26/17 18:32 97.3 F L 63 16 166/74 96 12/26/17 17:25 98.0 F 59 L 18 137/89 12/26/17 17:20 57 L 18 154/75 96 12/26/17 15:47 57 L 18 145/88 96 12/26/17 14:38 97.1 F L 60 18 145/68 96 Intake and Output 12/26/17 12/27/17 12/27/17 22:59 06:59 14:59 Output Total 0 Balance 0 Output: Urine 0 Other: Weight 97 kg Results - Lab Results Most recent lab results Calcium 8.0 mg/dL (8.4-10.2) L 12/26/17 14:55 Magnesium 1.8 mg/dL (1.6-2.3) 12/26/17 14:55 12/26/17 14:55 12/26/17 14:55 Assessment and Plan Plan: Assessment: 1. Acute kidney injury mostly prerenal and has improved since admission. Creatinine was 6.2 yesterday morning was down to 5.5 yesterday evening. Labs from this morning are pending at this time. There may have also been progression of underlying chronic kidney disease. 2. Chronic kidney disease stage IV with baseline creatinine in the range of 2.7 -3.5. Etiology is diabetic kidney disease. Serologic workup from the past has been negative. 3. Metabolic acidosis secondary to chronic kidney disease. 4. Anemia of chronic kidney disease. Return deficiency. 5. Hypertension with chronic kidney disease. Controlled. 6. Chronic kidney disease mineral bone disease maintained on PhosLo. 7. Insulin-dependent diabetes mellitus. 8. Pyuria. Urine culture pending. Plan: Start isotonic sodium bicarbonate drip to be run at 50 mL an hour. Add oral sodium bicarbonate 1300 mg twice daily. Check iron studies. Check urine culture. Check phosphorus level. Encouraged oral intake. Follow-up morning labs and repeat electrolytes in the morning. I did discuss the potential need for renal replacement therapy in the next 24- 48 hours if no improvement in her renal function. She is now agreeable to proceed with hemodialysis if needed. Thank you for the consultation. I will continue to follow the patient with you during her hospital stay.
[2017-12-27 08:20] LABS: Calcium 8.5 mg/dL (8.4-10.2); Phosphorus 7.6 mg/dL (2.5-4.5); Potassium 4.1 mmol/L (3.5-5.1)
[2017-12-27] MEDS: CLOPIDOGREL 75 MG TAB PO SCH (08:36)
[2017-12-27] MEDS: buPROPion SR 150 MG TABLET.ER PO SCH (08:36)
[2017-12-27] MEDS: CHOLECALCIFEROL 1,000 UNIT TAB PO SCH (08:36)
[2017-12-27] MEDS: ISOSORBIDE MONONITRATE ER 60 MG TAB.ER.24H PO SCH (08:36)
[2017-12-27] MEDS: GABAPENTIN 300 MG CAP PO SCH (08:36)
[2017-12-27] MEDS: METOPROLOL TARTRATE 50 MG TAB PO SCH ×2 (08:36→21:32)
[2017-12-27] MEDS: SENNOSIDES 8.6 MG TAB PO SCH (08:36)
[2017-12-27] MEDS: SODIUM BICARBONATE TAB 650 MG TAB PO SCH ×2 (08:37→21:32)
[2017-12-27] MEDS: CEFUROXIME 250 MG TAB PO SCH (08:37)
[2017-12-27] MEDS: HEPARIN SODIUM,PORCINE 5,000 UNIT/ML 1 ML VIAL SQ SCH ×3 (08:37→23:03)
[2017-12-27] MEDS: amLODIPine 5 MG TAB PO SCH (08:37)
[2017-12-27] MEDS ORDERED: DARBEPOETIN ALFA 25 MCG/ML 1 ML VIAL SQ SCH (09:00)
[2017-12-27] MEDS: DEXTROSE 5% IN WATER 1,000 ML with SODIUM BICARB (1 MEQ/ML) 150 ML IV SCH (09:21)
[2017-12-27 11:23] LABS: Glucose,Whole Blood 160 mg/dL (75-99)
[2017-12-27 11:40] LABS: Partial Thromboplastin Time 25.3 sec (22.0-30.0); Prothrombin Time 9.8 sec (9.0-12.0)
[2017-12-27] MEDS ORDERED: IV FLUID CONTINUATION 900 ML IV ONE (12:35)
[2017-12-27] MEDS ORDERED: LIDOCAINE 2% INJ 20 MG/ML (20 ML MDV) ONE (12:37)
[2017-12-27] MEDS ORDERED: MIDAZOLAM 2 MG/2 ML VIAL ONE (12:40)
[2017-12-27] MEDS ORDERED: MIDAZOLAM 2 MG/2 ML VIAL IVP ONE (12:42)
[2017-12-27] MEDS: LIDOCAINE 2% INJ 20 MG/ML SQ ONE ×2 (12:42→12:53)
[2017-12-27] MEDS ORDERED: HEPARIN SODIUM 1,000 UN/ML (10ML VL) ONE (12:56)
[2017-12-27] MEDS ORDERED: HEPARIN SODIUM 1,000 UN/ML (10ML VL) IV ONE (13:08)
[2017-12-27] MEDS: INSULIN ASPART 100 UNIT/ML 1 ML 10 ML VIAL SQ SCH ×2 (15:40→17:09)
[2017-12-27 15:51] LABS: Iron Saturation 17.91 (12.00-45.00)
[2017-12-27 16:45] LABS: Glucose,Whole Blood 126 mg/dL (75-99)
[2017-12-27] MEDS: LORazepam 0.5 MG TAB PO SCH (17:08)
[2017-12-27] MEDS: CALCIUM ACETATE 667 MG CAP PO SCH (17:08)
[2017-12-27] MEDS: FERROUS SULFATE 325 MG TAB PO SCH (17:08)
[2017-12-27 20:50] LABS: Glucose,Whole Blood 139 mg/dL (75-99)
[2017-12-27] MEDS: DOCUSATE 100 MG CAP PO SCH (21:30)
[2017-12-27] MEDS: MELATONIN 5 MG TABLET PO SCH (21:32)
[2017-12-27] MEDS: ESCITALOPRAM 20 MG TAB PO SCH (21:32)
[2017-12-27] MEDS: PRAVASTATIN SODIUM 20 MG TAB PO SCH (21:32)
[2017-12-27] MEDS: INSULIN DETEMIR 100 UNIT/ML 10 ML VIAL SQ SCH (21:34)
[2017-12-27] MEDS: Acetaminophen-Codeine 300-30mg TAB PO PRN (23:07)
--- NOTE | 2017-12-27 23:31 | PN ---
PROGRESS NOTE DATE OF SERVICE: 12/27/2017 PRESENTING COMPLAINT: Worsening renal function. INTERVAL HISTORY: This patient has multiple medical problems, admitted with worsening renal function, today and had a hemodialysis catheter placed in the upper chest wall. Tired. REVIEW OF SYSTEMS: Done for constitutional, cardiovascular, GI, pulmonary; relevant findings as above. CURRENT MEDICATIONS: Reviewed. EXAMINATION: Temperature 98.8, pulse 60, respirations 16, blood pressure 145/67, pulse ox 94% on room air. GENERAL APPEARANCE: Lying in bed, tired-appearing. EYES: Right eye is missing. Left eye is normal. HEENT: External nose and ears normal. Oral cavity normal. NECK: JVD is not raised. Mass not palpable. RESPIRATORY: Effort normal. LUNGS: Decreased breath sounds. CARDIOVASCULAR: First and second sounds normal. No edema. ABDOMEN: Soft, nontender. Liver and spleen not palpable. PSYCHIATRY: Alert and oriented x3. Mood and affect normal. CHEST WALL: Right-sided hemodialysis catheter. INVESTIGATIONS: Potassium 4.1, creatinine 5.82. Accu-Cheks are noted. Iron 36, TIBC 201, ferritin 159. ASSESSMENT: 1. Acute on chronic kidney disease stage 4 from diabetic nephropathy and hypertensive nephrosclerosis, worsening. Patient getting uremic. 2. Placement of right chest wall dialysis catheter. 3. Diabetes mellitus type 2, chronically on insulin. 4. Chronic obstructive pulmonary disease in an ex-smoker. 5. Congestive heart failure, ejection fraction not known. 6. Left below-knee amputation. 7. Peripheral artery disease. 8. Essential hypertension. 9. Primary osteoarthritis. 10.Mild cognitive impairment from early Alzheimer dementia. 11.Depression, not otherwise specified. 12.Coronary artery disease with prior history of stent. 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 14.Severe metabolic acidosis from renal failure. PLAN: Continue medication and treatment plan. Hemodialysis to be commenced as per Nephrology. Bicarb has been added. Other medication and treatment plan is to continue. The patient will be starting dialysis soon. MMODL / IJN: [id number] /
[2017-12-28] MEDS: hydrALAZINE HCL 50 MG TAB PO SCH ×3 (06:05→19:31)
[2017-12-28 06:16] LABS: Glucose,Whole Blood 123 mg/dL (75-99)
[2017-12-28 06:48] LABS: Calcium 8.2 mg/dL (8.4-10.2); Potassium 3.4 mmol/L (3.5-5.1)
[2017-12-28] MEDS: DEXTROSE 5% IN WATER 1,000 ML with SODIUM BICARB (1 MEQ/ML) 150 ML IV SCH (08:18)
[2017-12-28] MEDS: GABAPENTIN 300 MG CAP PO SCH (08:23)
[2017-12-28] MEDS: SODIUM BICARBONATE TAB 650 MG TAB PO SCH ×2 (08:23→19:32)
[2017-12-28] MEDS: amLODIPine 5 MG TAB PO SCH (08:24)
[2017-12-28] MEDS: HEPARIN SODIUM,PORCINE 5,000 UNIT/ML 1 ML VIAL SQ SCH ×3 (08:24→23:55)
[2017-12-28] MEDS: CEFUROXIME 250 MG TAB PO SCH (08:25)
[2017-12-28] MEDS: buPROPion SR 150 MG TABLET.ER PO SCH (08:25)
[2017-12-28] MEDS: CLOPIDOGREL 75 MG TAB PO SCH (08:25)
[2017-12-28] MEDS: METOPROLOL TARTRATE 50 MG TAB PO SCH ×2 (08:26→19:31)
[2017-12-28] MEDS: CHOLECALCIFEROL 1,000 UNIT TAB PO SCH (08:26)
[2017-12-28] MEDS ORDERED: POTASSIUM CHLORIDE ER 20 MEQ TAB.ER PO STA (10:39)
[2017-12-28 11:49] LABS: Glucose,Whole Blood 194 mg/dL (75-99)
[2017-12-28] MEDS: INSULIN ASPART 100 UNIT/ML 1 ML 10 ML VIAL SQ SCH ×2 (12:00→17:33)
[2017-12-28] MEDS: ISOSORBIDE MONONITRATE ER 60 MG TAB.ER.24H PO SCH (12:02)
--- NOTE | 2017-12-28 12:44 | PN ---
PROGRESS NOTE Patient is seen for followup for end-stage renal disease. She is currently seen on dialysis. Patient has been having a lot of urinary incontinence. She has currently had a bowel movement, too, which appears to be loose and watery. PHYSICAL EXAMINATION: On examination, blood pressure was 168/70, heart rate 54 per minute. She is afebrile. EXAMINATION OF THE HEART: S1, S2. EXAMINATION OF LUNGS: Bilateral breath sounds are heard. ABDOMEN: Soft, non-tender. Examination of lower extremities shows left BKA. No edema is noted. DIE POLISHER exam is grossly intact. LABS: Sodium 140, potassium 3.4, BUN 117, serum creatinine 5.6. Iron saturation was at 17.9. ASSESSMENT: 1. Chronic kidney disease, stage IV to V, with element of acute kidney injury, currently on hemodialysis. Patient has good urine output. I am not sure if she will be able to come off of dialysis. She may very well need to continue with renal replacement therapy post discharge. We will assess on a daily basis. She will not be dialyzed tomorrow and we will repeat labs and reassess her on Saturday. 2. Metabolic acidosis secondary to chronic kidney disease and possibly from diarrhea. 3. Hypertension. Blood pressure is slightly elevated. Will reassess after dialysis. 4. Chronic kidney disease mineral bone disease, maintained on PhosLo. 5. Pyuria. Urine culture is pending. Maintained on oral Ceftin. 6. Metabolic acidosis. Expect improvement post dialysis. Continue with the bicarb drip for now. We can likely discontinue that tomorrow. 7. Hypokalemia. Will replace. PLAN: Hemodialysis today. Hold dialysis tomorrow. Repeat labs. Replace potassium. Will likely discontinue the sodium bicarb drip tomorrow. MMODL / IJN: [id number] /
[2017-12-28] MEDS: DOCUSATE 100 MG CAP PO SCH (15:13)
[2017-12-28] MEDS: FERROUS SULFATE 325 MG TAB PO SCH (15:17)
[2017-12-28] MEDS: LORazepam 0.5 MG TAB PO SCH (15:18)
[2017-12-28] MEDS: CALCIUM ACETATE 667 MG CAP PO SCH (15:18)
[2017-12-28 16:52] LABS: Glucose,Whole Blood 156 mg/dL (75-99)
[2017-12-28] MEDS: MELATONIN 5 MG TABLET PO SCH (19:31)
[2017-12-28] MEDS: ESCITALOPRAM 20 MG TAB PO SCH (19:31)
[2017-12-28] MEDS: PRAVASTATIN SODIUM 20 MG TAB PO SCH (19:32)
[2017-12-28] MEDS: Acetaminophen-Codeine 300-30mg TAB PO PRN (19:39)
[2017-12-28] MEDS: ONDANSETRON 4 MG/2 ML VIAL IVP PRN (20:29)
[2017-12-28 21:04] LABS: Glucose,Whole Blood 171 mg/dL (75-99)
[2017-12-28] MEDS: INSULIN DETEMIR 100 UNIT/ML 10 ML VIAL SQ SCH (21:07)
[2017-12-29] MEDS: ONDANSETRON 4 MG/2 ML VIAL IVP PRN ×2 (03:33→23:06)
[2017-12-29] MEDS: hydrALAZINE HCL 50 MG TAB PO SCH ×3 (05:17→19:49)
[2017-12-29] MEDS: DEXTROSE 5% IN WATER 1,000 ML with SODIUM BICARB (1 MEQ/ML) 150 ML IV SCH (05:19)
[2017-12-29 06:06] LABS: Glucose,Whole Blood 165 mg/dL (75-99)
[2017-12-29 06:23] LABS: Albumin 2.9 g/dL (3.5-5.0); Calcium 8.1 mg/dL (8.4-10.2); Potassium 3.8 mmol/L (3.5-5.1); Total Bilirubin 0.2 mg/dL (0.2-1.3)
[2017-12-29] MEDS: DOCUSATE 100 MG CAP PO SCH (08:35)
[2017-12-29] MEDS: SENNOSIDES 8.6 MG TAB PO SCH (08:35)
[2017-12-29] MEDS: HEPARIN SODIUM,PORCINE 5,000 UNIT/ML 1 ML VIAL SQ SCH ×3 (08:44→23:06)
[2017-12-29] MEDS: CEFUROXIME 250 MG TAB PO SCH (08:44)
[2017-12-29] MEDS: ISOSORBIDE MONONITRATE ER 60 MG TAB.ER.24H PO SCH (08:44)
[2017-12-29] MEDS: SODIUM BICARBONATE TAB 650 MG TAB PO SCH ×2 (08:45→21:04)
[2017-12-29] MEDS: FERROUS SULFATE 325 MG TAB PO SCH (08:45)
[2017-12-29] MEDS: CLOPIDOGREL 75 MG TAB PO SCH (08:45)
[2017-12-29] MEDS: buPROPion SR 150 MG TABLET.ER PO SCH (08:46)
[2017-12-29] MEDS: amLODIPine 5 MG TAB PO SCH (08:46)
[2017-12-29] MEDS: CHOLECALCIFEROL 1,000 UNIT TAB PO SCH (08:46)
[2017-12-29] MEDS: GABAPENTIN 300 MG CAP PO SCH (08:46)
[2017-12-29] MEDS: METOPROLOL TARTRATE 50 MG TAB PO SCH ×2 (08:47→19:49)
[2017-12-29 10:21] VITALS: RESP 18
[2017-12-29 12:07] LABS: Glucose,Whole Blood 185 mg/dL (75-99)
[2017-12-29] MEDS: INSULIN ASPART 100 UNIT/ML 1 ML 10 ML VIAL SQ SCH ×2 (12:21→17:13)
--- NOTE | 2017-12-29 14:31 | PN ---
PROGRESS NOTE DATE OF SURGERY: 12/28/17 PRESENTING COMPLAINT: Renal failure. INTERVAL HISTORY: The patient is seen by me yesterday. Admitted with severe renal failure, dialysis catheter was placed. Patient was hemodialyzed. The patient is feeling better. Breathing is stable. Did tolerate some diet. Does feel tired. REVIEW OF SYSTEMS: Done for constitutional, cardiovascular, GI, pulmonary, relevant findings as above. CURRENT MEDICATIONS: Reviewed. EXAMINATION: Temperature 97.9, pulse 62, respiration 16, blood pressure 135/61, pulse ox 93% on room air. GENERAL APPEARANCE: Sitting up in bed, awake. EYES: Right eye is missing. Left eye is normal. HEENT: External appearance of nose and ears normal. Oral cavity normal. NECK: JVD unable to assess. Mass not palpable. RESPIRATORY: Effort normal. LUNGS: Decreased breath sounds. CARDIOVASCULAR: 1st and second sounds normal. No edema. ABDOMEN: Soft, nontender. Liver and spleen not palpable. PSYCHIATRY: Alert and oriented x3. Mood and affect normal. CHEST: Wall right chest wall upper dialysis catheter in place. INVESTIGATIONS: Potassium 3.4, BUN 117, creatinine 5.60. ASSESSMENT: 1. Acute on chronic kidney disease stage 4 from diabetic nephropathy and hypertensive nephrosclerosis, worsening. The patient's uric symptoms started on hemodialysis. 2. Right chest wall hemodialysis catheter. 3. Diabetes mellitus type 2, chronically on insulin. 4. Chronic obstructive pulmonary disease in an ex-smoker. 5. Congestive heart failure, chronic. Ejection fraction not known. 6. Left below-knee amputation. 7. Peripheral artery disease chronic. 8. Essential hypertension. 9. Primary osteoarthritis. 10.Mild cognitive impairment from early Alzheimer's dementia. 11.Depression, not otherwise specified. 12.Coronary artery disease with prior history of stent. 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 14.Severe metabolic acidosis renal failure. PLAN: Patient was dialyzed again today, possibly not tomorrow. May get dialyzed on Saturday. Care was discussed the patient. MMODL / IJN: [id number] /
--- NOTE | 2017-12-29 14:40 | PN ---
PROGRESS NOTE DATE OF SERVICE: December 29, 2017. PRESENTING COMPLAINT: Renal failure. INTERVAL HISTORY: Patient presented with worsening renal failure, started on hemodialysis, was dialyzed yesterday. Breathing is stable. Tolerating a diet. Resting in bed. REVIEW OF SYSTEMS: Done for constitutional, cardiovascular, GI, pulmonary, relevant findings as above. CURRENT MEDICATIONS: Reviewed. PHYSICAL EXAMINATION: On examination temperature 97.5, pulse 72, respiratory 18, blood pressure 115/69, pulse ox 94% on room air. GENERAL APPEARANCE: Lying in bed comfortable. EYES: Right eye is missing. Left eye is normal. HEENT: External appearance of nose and ears normal. Oral cavity normal. NECK: JVD not raised. Mass not palpable. RESPIRATORY: Effort normal. LUNGS: Decreased breath sounds. CARDIOVASCULAR: 1st and 2nd sounds normal. No edema. ABDOMEN: Soft, nontender. Liver and spleen not palpable. PSYCHIATRY: Alert and oriented times three. Mood and affect normal. EXTREMITIES: Left below-knee amputation. INVESTIGATIONS: Potassium 3.2, BUN 75, creatinine 3.60. Accu-Cheks are noted. ASSESSMENT: 1. Acute on chronic congestive heart failure. Stage IV from diabetic nephropathy and hypertensive nephrosclerosis, worsening. The patient is started on hemodialysis. 2. Right chest wall hemodialysis catheter. 3. Diabetes mellitus type 2, chronically on insulin. 4. Chronic obstructive pulmonary disease in an ex-smoker. 5. Congestive heart failure, ejection fraction not known. 6. Left below-knee amputation. 7. Peripheral artery disease. 8. Essential hypertension. 9. Primary osteoarthritis. 10.Mild cognitive impairment from early Alzheimer's dementia. 11.Depression, not otherwise specified. 12.Coronary artery disease with prior history of stent. 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 14.Severe metabolic acidosis from renal failure. PLAN: Continue current medication and treatment plan. The patient can go back to rehab when okay with Nephrology. MMODL / IJN: [id number] /
--- NOTE | 2017-12-29 15:13 | PN ---
PROGRESS NOTE Patient is seen for followup for acute kidney injury on top of chronic kidney disease. The patient had her first treatment of hemodialysis yesterday which she tolerated well. She continues to have good urine output. Her creatinine remains elevated, it is at 3.6, which is better than 5.53 on initial admission. Previously her creatinine in September was about 3.5-3.3 mg/dL. No significant complaints today. PHYSICAL EXAMINATION: Blood pressure is 146/62 this morning, heart rate 71 per minute. Patient is afebrile. Examination of the heart: S1, S2. Examination lungs: Bilateral breath sounds are heard. Abdomen is soft, nontender. Examination lower extremities shows no evidence of edema. MANAGER PRODUCTION exam is grossly intact. LABS SHOW: Sodium 143, potassium 3.8, chloride 104, BUN 75, serum creatinine 3.6 mg/dL. Albumin 2.9. ASSESSMENT: 1. Acute kidney injury on top of chronic kidney disease, started on hemodialysis. We will repeat renal profile again tomorrow and we need to decide if the patient will need to continue with dialysis or she can come off. 2. Intravascular volume depletion, currently improved. 3. Metabolic acidosis, now resolved. I will discontinue the IV sodium bicarb. 4. Urinary tract infection with urine culture growing gram-negative bacilli, maintained on Ceftin. 5. Hypertension, currently controlled. 6. Chronic kidney disease bone mineral disorder maintained on PhosLo. Plan is DC IV bicarb. Encourage increased oral intake. Continue with the Procrit and repeat labs in a.m. to decide if the patient will need to continue with dialysis or she can come off. MMODL / IJN: [id number] /
[2017-12-29] MEDS: SODIUM CHLORIDE 0.9% 1,000 ML IV SCH (15:27)
[2017-12-29] MEDS: CALCIUM ACETATE 667 MG CAP PO SCH (15:28)
[2017-12-29] MEDS: LORazepam 0.5 MG TAB PO SCH (15:31)
[2017-12-29 17:03] LABS: Glucose,Whole Blood 112 mg/dL (75-99)
[2017-12-29] MEDS: PRAVASTATIN SODIUM 20 MG TAB PO SCH (19:49)
[2017-12-29] MEDS: MELATONIN 5 MG TABLET PO SCH (19:49)
[2017-12-29] MEDS: Acetaminophen-Codeine 300-30mg TAB PO PRN (19:49)
[2017-12-29] MEDS: ESCITALOPRAM 20 MG TAB PO SCH (19:49)
[2017-12-29 20:43] LABS: Glucose,Whole Blood 154 mg/dL (75-99)
[2017-12-29] MEDS: INSULIN DETEMIR 100 UNIT/ML 10 ML VIAL SQ SCH (21:05)
[2017-12-30] MEDS: hydrALAZINE HCL 50 MG TAB PO SCH ×3 (04:54→21:29)
[2017-12-30 05:54] LABS: Glucose,Whole Blood 136 mg/dL (75-99)
[2017-12-30 06:35] LABS: Calcium 8.3 mg/dL (8.4-10.2); Potassium 3.8 mmol/L (3.5-5.1)
[2017-12-30] MEDS: SODIUM BICARBONATE TAB 650 MG TAB PO SCH ×2 (07:58→21:31)
[2017-12-30] MEDS: METOPROLOL TARTRATE 50 MG TAB PO SCH ×2 (07:58→21:30)
[2017-12-30] MEDS: CLOPIDOGREL 75 MG TAB PO SCH (07:58)
[2017-12-30] MEDS: HEPARIN SODIUM,PORCINE 5,000 UNIT/ML 1 ML VIAL SQ SCH ×3 (07:58→22:59)
[2017-12-30] MEDS: GABAPENTIN 300 MG CAP PO SCH (07:59)
[2017-12-30] MEDS: CEFUROXIME 250 MG TAB PO SCH (07:59)
[2017-12-30] MEDS: buPROPion SR 150 MG TABLET.ER PO SCH (07:59)
[2017-12-30] MEDS: CHOLECALCIFEROL 1,000 UNIT TAB PO SCH (07:59)
[2017-12-30] MEDS: amLODIPine 5 MG TAB PO SCH (07:59)
[2017-12-30] MEDS: ISOSORBIDE MONONITRATE ER 60 MG TAB.ER.24H PO SCH (07:59)
[2017-12-30] MEDS: SODIUM CHLORIDE 0.9% 1,000 ML IV SCH (11:08)
[2017-12-30 11:34] LABS: Glucose,Whole Blood 163 mg/dL (75-99)
[2017-12-30] MEDS: INSULIN ASPART 100 UNIT/ML 1 ML 10 ML VIAL SQ SCH ×2 (11:57→16:47)
--- NOTE | 2017-12-30 15:44 | PN ---
PROGRESS NOTE Patient is seen for followup for CKD. Currently she has end-stage renal disease. Patient received her first treatment of hemodialysis on Saturday. She did quite well. Her serum creatinine has improved but remains at about 3.6. Given the patient's history of noncompliance and significant uremia and metabolic acidosis at the time of admission, patient will continue with hemodialysis for now. We can monitor her renal function as outpatient in case there is further recovery. On examination today, blood pressure was 154/67, heart rate 72 per minute. Patient is afebrile. EXAMINATION OF THE HEART: S1, S2. EXAMINATION OF LUNGS: Bilateral breath sounds are heard. ABDOMEN: Soft, non-tender. Examination of lower extremities shows no evidence of edema. FILM AND VIDEO GRAPHICS DESIGNER exam is grossly intact. Labs show sodium 141, potassium 3.8, BUN 72, serum creatinine 3.6. ASSESSMENT: 1. Chronic kidney disease, currently hemodialysis-dependent. Patient has actually end- stage renal disease, as we will continue with renal replacement therapy. Her creatinine remains at 3.6. However, given her history of noncompliance and significant deterioration recently, it is advisable that she continues with renal replacement therapy. Patient will be scheduled for hemodialysis today and she will be set up for outpatient dialysis. 2. Severe metabolic acidosis, currently improved. 3. Intravascular volume depletion, also now improved. 4. Pseudomonas urinary tract infection, also with methicillin-resistant Staphylococcus aeruginosa urinary tract infection, maintained on oral Ceftin. Patient will need a few doses of vancomycin for the MRSA urinary tract infection. Both the organisms are more than 100,000 colonies. MMODL / IJN: [id number] /
[2017-12-30 16:08] LABS: Glucose,Whole Blood 160 mg/dL (75-99)
[2017-12-30] MEDS: FERROUS SULFATE 325 MG TAB PO SCH (16:47)
[2017-12-30] MEDS: LORazepam 0.5 MG TAB PO SCH (16:47)
--- NOTE | 2017-12-30 17:50 | PN ---
PROGRESS NOTE DATE OF SERVICE: December 30, 2017. PRESENTING COMPLAINT: Renal failure. INTERVAL HISTORY: This patient presented with worsening renal failure, started on hemodialysis. Continues to improve. Patient due for dialysis today. Tolerating a diet. Patient is blind in the right eye. REVIEW OF SYSTEMS: Done for constitutional, cardiovascular, GI, pulmonary and relevant findings as above. CURRENT MEDICATIONS: Reviewed. EXAMINATION: Temperature 97.4, pulse 72, respirations 18, blood pressure 174/77, pulse ox 98% on room air. GENERAL APPEARANCE: Lying in bed awake. EYES: Right eye is missing. Left eye is normal. HEENT: External appearance of nose and ears normal. Oral cavity normal. NECK: JVD not raised. Mass not palpable. RESPIRATORY: Effort increased. LUNGS: Decreased breath sounds. CARDIOVASCULAR: 1st and second sounds normal. No edema. ABDOMEN: Soft, nontender. Liver and spleen not palpable. PSYCHIATRY: Alert and oriented x3. Mood and affect normal. EXTREMITIES: Left below-knee amputation. INVESTIGATIONS: BUN 32, creatinine 3.6. ASSESSMENT: 1. Acute on chronic renal renal failure stage 4 from diabetic nephropathy and hypertensive nephrosclerosis. The patient is now started on hemodialysis. 2. Right chest wall hemodialysis catheter placed. 3. Diabetes mellitus type 2, chronically on insulin. 4. Chronic obstructive pulmonary disease in an ex-smoker. 5. Congestive heart failure ejection fraction not known. 6. Left below-knee amputation. 7. Peripheral artery disease. 8. Essential hypertension. 9. Primary osteoarthritis. 10.Mild cognitive impairment from early Alzheimer's dementia. 11.Depression, not otherwise specified. 12.Coronary artery disease with prior history of stent. 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 14.Severe metabolic acidosis from renal failure. PLAN: Discussed with Dr. Wilkerson. The patient is doing better. Continue with dialysis treatment. They are looking for placement. Other medications to continue. MMODL / IJN: [id number] /
[2017-12-30 20:43] LABS: Hepatitis A Antibody IgM Non-Reactive (Non-Reactive); Hepatitis B Core IgM Non-Reactive (Non-Reactive)
[2017-12-30 21:05] LABS: Glucose,Whole Blood 142 mg/dL (75-99)
[2017-12-30] MEDS: CALCIUM ACETATE 667 MG CAP PO SCH (21:29)
[2017-12-30] MEDS: ESCITALOPRAM 20 MG TAB PO SCH (21:29)
[2017-12-30] MEDS: DOCUSATE 100 MG CAP PO SCH ×2 (21:29→21:35)
[2017-12-30] MEDS: PRAVASTATIN SODIUM 20 MG TAB PO SCH (21:30)
[2017-12-30] MEDS: MELATONIN 5 MG TABLET PO SCH (21:30)
[2017-12-30] MEDS: INSULIN DETEMIR 100 UNIT/ML 10 ML VIAL SQ SCH (21:31)
[2017-12-30] MEDS: Acetaminophen-Codeine 300-30mg TAB PO PRN (21:32)
[2017-12-31] MEDS: hydrALAZINE HCL 50 MG TAB PO SCH ×2 (05:39→12:29)
[2017-12-31] MEDS: SODIUM CHLORIDE 0.9% 1,000 ML IV SCH (05:40)
[2017-12-31 06:16] LABS: Glucose,Whole Blood 146 mg/dL (75-99)
[2017-12-31] MEDS: SODIUM BICARBONATE TAB 650 MG TAB PO SCH (08:21)
[2017-12-31] MEDS: METOPROLOL TARTRATE 50 MG TAB PO SCH (08:21)
[2017-12-31] MEDS: ISOSORBIDE MONONITRATE ER 60 MG TAB.ER.24H PO SCH (08:21)
[2017-12-31] MEDS: GABAPENTIN 300 MG CAP PO SCH (08:21)
[2017-12-31] MEDS: CLOPIDOGREL 75 MG TAB PO SCH (08:21)
[2017-12-31] MEDS: buPROPion SR 150 MG TABLET.ER PO SCH (08:22)
[2017-12-31] MEDS: amLODIPine 5 MG TAB PO SCH (08:22)
[2017-12-31] MEDS: SENNOSIDES 8.6 MG TAB PO SCH (08:22)
[2017-12-31] MEDS: CEFUROXIME 250 MG TAB PO SCH (08:22)
[2017-12-31] MEDS: CHOLECALCIFEROL 1,000 UNIT TAB PO SCH (08:22)
[2017-12-31] MEDS: HEPARIN SODIUM,PORCINE 5,000 UNIT/ML 1 ML VIAL SQ SCH ×2 (08:22→16:35)
[2017-12-31 08:33] VITALS: PULSE 63
[2017-12-31 12:07] LABS: Glucose,Whole Blood 211 mg/dL (75-99)
[2017-12-31] MEDS: INSULIN ASPART 100 UNIT/ML 1 ML 10 ML VIAL SQ SCH ×2 (12:29→16:35)
[2017-12-31 13:09] LABS: Hepatitis B Surface AB- Quant 3.5 mIU/mL
[2017-12-31 13:29] VITALS: BP 134/68; TEMP 98.9
[2017-12-31] MEDS ORDERED: LEVOFLOXACIN 500 MG TAB PO SCH (14:00)
[2017-12-31] MEDS ORDERED: VANCOMYCIN 1,500 MG in SODIUM CHLORIDE 0.9% 250 ML IVPB STA (14:04)
--- NOTE | 2017-12-31 14:42 | DS ---
DISCHARGE SUMMARY DATE OF ADMISSION: 12/26/17 DATE OF DISCHARGE: 12/31/17. FINAL DIAGNOSES: 1. Acute on chronic renal failure stage IV from diabetic nephropathy and hypertensive nephrosclerosis, started on hemodialysis. 2. Right chest wall hemodialysis catheter placed by Dr. Lopez. 3. Diabetes mellitus type 2, chronically on insulin. 4. Chronic obstructive pulmonary disease in an ex-smoker. 5. Chronic congestive heart failure. Ejection fraction not known. 6. Left below-knee amputation. 7. Peripheral artery disease. 8. Essential hypertension. 9. Primary osteoarthritis. 10.Mild cognitive impairment from Alzheimer's dementia, early. 11.Depression, not otherwise specified. 12.Coronary artery disease with prior history of stent. 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 14.Severe metabolic acidosis from renal failure. 15.Acute urinary tract infection from Pseudomonas aeruginosa and possible MRSA. HOSPITAL COURSE: This patient not did not want dialysis before presented with worsening uremic symptoms of renal failure. Finally agreed for hemodialysis. Right upper chest wall dialysis catheter was placed. Patient was started on hemodialysis. Further vein mapping will be done by Dr. Lopez as an outpatient. The patient's urine did grow Pseudomonas and MRSA for which patient be given will be getting a 2 week course of vancomycin and Levaquin. The patient's vancomycin can be dosed with hemodialysis. I discussed with Dr. Wilkerson today and discussed with the patient. On examination, patient is blind in the right eye. Lungs: Decreased breath sounds. Abdomen: Soft, nontender. Psych: Patient is able to carryout a conversation. DISCHARGE MEDICATIONS: 1. Plavix 75 mg a day. 2. Lopressor 50 mg p.o. b.i.d. 3. Lantus 60 units subcu q.h.s. 4. PhosLo 667 mg p.o. daily at 5:00 pm. 5. Iron 325 p.o. daily. 6. Humalog 5 units subcu a.c. b.i.d. 7. Pravachol 10 mg p.o. q.h.s. 8. Wellbutrin SR 150 mg p.o. daily. 9. Hydralazine 50 mg p.o. t.i.d. 10.Imdur ER 60 mg p.o. daily. 11.Nitrostat 0.4 sublingual q.5 p.r.n. 12.Vitamin D3 2000 units p.o. daily. 13.Norvasc 5 mg p.o. daily. 14.Lexapro 20 mg p.o. at bedtime. 15.Neurontin 300 mg p.o. daily. 16.Imodium 2 mg p.o. t.i.d. p.r.n. 17.Melatonin 5 mg p.o. q.h.s. 18.Zofran 4 mg q.8h p.r.n. 19.Cranberry 450 mg p.o. b.i.d. 20.Epogen 2000 units every Saturday subcu. 21.Milk of magnesia 2400 mg p.o. daily p.r.n. 22.Senna 8.6 mg p.o. 2 days. 23.Phenergan 12.5 rectal q.6h p.r.n. 24.Dilaudid 2 mg q.6h p.r.n. 25.Ativan 0.5 p.o. daily at 4:00 pm. 26.Levaquin 500 mg p.o. every 48 hours for a total of 14 days, that is 7 tablets. 27.Sodium bicarb 30 mg p.o. b.i.d. 28.Vancomycin, 1st dose given today to be PE given with each hemodialysis. Vancomycin for a total of 2 weeks. DISPOSITION: [facility]. FOLLOWUP: Follow up with Dr. Lopez on 01/16/[address] Nobles/Dr. Yoon at [facility] and patient to be on a hemodialysis schedule Saturday, Saturday and Saturday. Discharge planning more than 35 minutes. MMODL / IJN: [id number] /
[2017-12-31 16:32] LABS: Glucose,Whole Blood 162 mg/dL (75-99)
[2017-12-31] MEDS: LORazepam 0.5 MG TAB PO SCH (16:35)
[2017-12-31] MEDS: FERROUS SULFATE 325 MG TAB PO SCH (16:35)
[2017-12-31] MEDS: CALCIUM ACETATE 667 MG CAP PO SCH (16:35)
--- NOTE | 2017-12-31 19:15 | DS ---
DISCHARGE SUMMARY DATE OF ADMISSION: 12/26/2017. DATE OF DISCHARGE: 12/31/2017 ADDENDUM: The patient's antibiotics have been adjusted to as follows: Vancomycin 1 g with hemodialysis Saturday, Saturday and Saturday for a total of 2 weeks and Fortaz 1 g with hemodialysis Saturday, Saturday and Saturday for next 2 weeks. MMODL / IJN: [id number] /
--- NOTE | 2017-12-31 22:45 | PN ---
PROGRESS NOTE Patient is seen for followup for end-stage renal disease. Urine culture came back positive for MRSA and pseudomonas. Patient is currently receiving antibiotics. She has a chair time at the [facility]. On examination, patient is comfortable. Blood pressure is this morning 124/74, heart rate 63 per minute. Patient is afebrile. EXAMINATION OF THE HEART: S1, S2. EXAMINATION OF LUNGS: Bilateral breath sounds are heard. ABDOMEN: Soft, non-tender. Examination of lower extremities shows no evidence of edema. MOLECULAR PHYSICIST exam is grossly intact. Patient is moving all 4 extremities. Labs show sodium of 141, potassium 3.8, chloride 101, BUN 72, serum creatinine 3.6. ASSESSMENT: 1. Chronic kidney disease, stage IV to V, currently end-stage renal disease, started on hemodialysis. Patient will start at the [facility] from tomorrow. She needs to have an appointment for vein mapping set prior to discharge. 2. Methicillin-resistant Staphylococcus aeruginosa and pseudomonas urinary tract infection, maintained on antibiotics. Patient will receive antibiotics as outpatient if it can be arranged through the [facility]. 3. Anemia of chronic disease, maintained on Aranesp. PLAN: Continue hemodialysis as outpatient. Will monitor patient's renal function as outpatient for any significant recovery. However, I doubt it. MMODL / IJN: [id number] /
--- NOTE | 2018-01-09 17:33 | PCN ---
PROCEDURE NOTE PREOP DIAGNOSIS: Acute on chronic failure. PROCEDURE PERFORMED: Ultrasound-guided 23 cm dialysis catheter. ANESTHESIA: Under conscious sedation. SEDATION: Sedation time is 29 minutes. DESCRIPTION OF PROCEDURE: The patient was brought to the laborer powerhouse. Right side of the neck and chest was prepped and drapes applied in the usual sterile manner. 1% lidocaine was infiltrated into the neck and chest area. Ultrasound-guided micropuncture into the right internal jugular vein. Micropuncture guide was passed and 4-[place] dilator passed on the top of the guidewire. Then a tunnel was created. Through the tunnel we brought 23 cm dialysis catheter. guide was passed under fluoroscopy control, which was parked in the inferior vena cava. The dilator was advanced on the top of the guidewire. Then, sheath was advanced. Through the sheath, we introduced the dialysis catheter. Tip of the catheter in superior vena cava atrium, flushed with heparin saline and hep-locked. Incision was closed with Vicryl and nylon. Dressing applied. Patient tolerated the procedure well. MMODL / IJN: [id number] /
--- NOTE | 2018-01-09 17:39 | CONS ---
CONSULTATION The patient was seen on consultation. 1. History of acute chronic kidney disease, stage IV. 2. Diabetes mellitus on insulin. 3. Chronic obstructive pulmonary disease. 4. Congestive heart failure. 5. Left below-knee amputation. 6. Essential hypertension. I was consulted for placement of the dialysis catheter. PAST HISTORY: History of coronary artery disease with stent, congestive heart failure, COPD, dementia, diabetes mellitus, hyperlipidemia. SOCIAL HISTORY: Lives at [facility]. SURGICAL HISTORY: Cholecystectomy, cardiac cath with stent placement, hernia repair, hysterectomy, left below knee amputation. EXAMINATION: Patient was seen. Neck is supple. Trachea central. Chest with a few crackles at lung bases. First and second sounds normal. Abdomen is soft. Femorals are 1+. Amputation site is healing. PLAN: Placement of the dialysis catheter. Risks and complications of bleeding, infection and thrombosis have been discussed. MMODL / JEREMYN: [id number] /
== END 2017-12-31 18:13 | DRG 674 ==
LOC: EC 14:36 → 6SEL 16:07
PROVIDERS: ADMIT Hospitalist; ATTEND Hospitalist
PROC: 0JHD3XZ Insertion of Tunneled Vascular Access Device into Right Upper Arm Subcutaneous Tissue and Fascia, Percutaneous Approach (ICD-10-PCS; 2017-12-26)
PROC: 02HV33Z Insertion of Infusion Device into Superior Vena Cava, Percutaneous Approach (ICD-10-PCS; 2017-12-26)
PROC: 5A1D70Z Performance of Urinary Filtration, Intermittent, Less than 6 Hours Per Day (ICD-10-PCS; principal; 2017-12-28)
DX: N17.9 Acute kidney failure, unspecified (principal); E87.2 Acidosis; I13.2 Hypertensive heart and chronic kidney disease with heart failure and with stage 5 chronic kidney disease, or end stage renal disease; N39.0 Urinary tract infection, site not specified; E11.22 Type 2 diabetes mellitus with diabetic chronic kidney disease; E11.51 Type 2 diabetes mellitus with diabetic peripheral angiopathy without gangrene; I50.9 Heart failure, unspecified; E11.41 Type 2 diabetes mellitus with diabetic mononeuropathy; F02.80 Dementia in other diseases classified elsewhere, unspecified severity, without behavioral disturbance, psychotic disturbance, mood disturbance, and anxiety; G30.9 Alzheimer's disease, unspecified; B96.5 Pseudomonas (aeruginosa) (mallei) (pseudomallei) as the cause of diseases classified elsewhere; D63.1 Anemia in chronic kidney disease; E78.5 Hyperlipidemia, unspecified; E86.9 Volume depletion, unspecified; E87.6 Hypokalemia; F32.9 Major depressive disorder, single episode, unspecified; H54.61 Unqualified visual loss, right eye, normal vision left eye; I25.10 Atherosclerotic heart disease of native coronary artery without angina pectoris; I25.2 Old myocardial infarction; J44.9 Chronic obstructive pulmonary disease, unspecified; M06.9 Rheumatoid arthritis, unspecified; M19.91 Primary osteoarthritis, unspecified site; N18.6 End stage renal disease; R32 Unspecified urinary incontinence; F41.9 Anxiety disorder, unspecified; B95.62 Methicillin resistant Staphylococcus aureus infection as the cause of diseases classified elsewhere; Z79.02 Long term (current) use of antithrombotics/antiplatelets; Z79.4 Long term (current) use of insulin; Z79.899 Other long term (current) drug therapy; Z88.1 Allergy status to other antibiotic agents; Z88.5 Allergy status to narcotic agent; Z88.8 Allergy status to other drugs, medicaments and biological substances; Z99.3 Dependence on wheelchair; Z91.19 Patient's noncompliance with other medical treatment and regimen; Z90.710 Acquired absence of both cervix and uterus; Z90.01 Acquired absence of eye; Z89.512 Acquired absence of left leg below knee; Z87.891 Personal history of nicotine dependence; Z86.73 Personal history of transient ischemic attack (TIA), and cerebral infarction without residual deficits; Z87.440 Personal history of urinary (tract) infections; Z95.5 Presence of coronary angioplasty implant and graft; Z90.49 Acquired absence of other specified parts of digestive tract; Z82.3 Family history of stroke; Z82.5 Family history of asthma and other chronic lower respiratory diseases
CPT/HCPCS: 36415; 36558; 71046; 76937; 77001; 80048; 80053; 80074; 81001; 82140; 82150; 82550; 82553; 82728; 83540; 83550; 83690; 83735; 83930; 84100; 84484; 85025; 85610; 85730; 86706; 87077; 87086; 87186; 90935; 93005; 99285

== ENCOUNTER 2017-12-31 19:48 | Emergency (ER) | payer OTHER ==
[2017-12-31 19:56] VITALS: BP 154/73; PULSE 65; RESP 18; TEMP 98.1
--- NOTE | 2017-12-31 20:25 | ED ---
Wound/Laceration HPI - General Chief Complaint: Wound/Laceration Stated Complaint: LAC Time Seen by Provider: 12/31/17 20:16 Source: EMS Mode of arrival: EMS Limitations: no limitations - History of Present Illness Initial Comments: This is a 62-year-old female who presents to the emergency department with chief complaint of right foot laceration. Patient was recently brought back to [facility] after being hospitalized. She states that she was being helped into bed and hit her right foot on something. She sustained lacerations to the bottom of her foot. She denies any other injuries or trauma. Denies fevers or chills, chest pain or shortness of breath, numbness or tingling. - Related Data Home Medications Medication Instructions Recorded Confirmed Insulin Glargine [Lantus] 6 unit SQ HS 11/15/14 12/26/17 Calcium Acetate [PhosLo] 667 mg PO DAILY@1700 11/10/15 12/26/17 Ferrous Sulfate [Iron (65 MG 325 mg PO DAILY@1700 11/10/15 12/26/17 Elemental)] INSULIN LISPRO (HumaLOG) [humaLOG] 5 units SQ AC-BID@1130,1630 11/10/15 12/26/17 Pravastatin Sodium [Pravachol] 10 mg PO HS 11/10/15 12/26/17 buPROPion SR [Wellbutrin SR] 150 mg PO DAILY 11/10/15 12/26/17 hydrALAZINE HCL [Apresoline] 50 mg PO TID@0500,1300,2100 11/10/15 12/26/17 Cholecalciferol [Vitamin D3] 2,000 unit PO DAILY 05/25/16 12/26/17 Escitalopram [Lexapro] 20 mg PO HS 06/17/16 12/26/17 Gabapentin [Neurontin] 300 mg PO DAILY 02/08/17 12/26/17 Loperamide [Imodium] 2 mg PO TID PRN 02/08/17 12/26/17 Melatonin 5 mg PO HS 02/08/17 12/26/17 Ondansetron [Zofran] 4 mg PO Q8H PRN 02/08/17 12/26/17 Cranberry Fruit Extract [Cranberry] 450 mg PO BID 12/08/17 12/26/17 Epoetin Jc [Epogen] 2,000 unit SQ FR 12/08/17 12/26/17 Magnesium Hydroxide [Milk of 2,400 mg PO DAILY PRN 12/08/17 12/26/17 Magnesia] Sennosides [Senna] 8.6 mg PO Q2D 12/08/17 12/26/17 Promethazine Suppository 12.5 mg RECTAL Q6H PRN 12/26/17 12/26/17 [Phenergan] Previous Rx's Medication Instructions Recorded Clopidogrel [Plavix] 75 mg PO DAILY #30 tab 05/27/14 Metoprolol Tartrate [Lopressor] 50 mg PO BID #60 tab 05/27/14 Isosorbide Mononitrate ER [Imdur] 60 mg PO DAILY #1 tab 11/21/15 Nitroglycerin Sl Tabs [Nitrostat] 0.4 mg SUBLINGUAL Q5M PRN #0 tab 11/21/15 amLODIPine [Norvasc] 5 mg PO DAILY #30 tab 05/26/16 Acetaminophen-Codeine 300-30mg 1 tab PO Q4H PRN #10 tab 12/31/17 [Tylenol w/codeine #3] Cephalexin [Keflex] 500 mg PO Q12HR #20 cap 12/31/17 HYDROmorphone [Dilaudid] 2 mg PO Q6H PRN #10 tab 12/31/17 LORazepam [Ativan] 0.5 mg PO DAILY@1600 #3 tab 12/31/17 Sodium Bicarbonate Tab 1,300 mg PO BID tab 12/31/17 Allergies Allergy/AdvReac Type Severity Reaction Status Date / Time doxycycline calcium Allergy Rash/Hives Verified 12/31/17 19:56 [From Vibramycin] doxycycline hyclate Allergy Rash/Hives Verified 12/31/17 19:56 [From Vibramycin] doxycycline monohydrate Allergy Rash/Hives Verified 12/31/17 19:56 [From Vibramycin] nalbuphine HCl [From Nubain] Allergy Rash/Hives Verified 12/31/17 19:56 oxycodone HCl [From Tylox] Allergy Rash/Hives Verified 12/31/17 19:56 Tetracyclines Allergy Rash/Hives Verified 12/31/17 19:56 Review of Systems ROS Statement: Those systems with pertinent positive or pertinent negative responses have been documented in the HPI. ROS Other: All systems not noted in ROS Statement are negative. Past Medical History Past Medical History: Coronary Artery Disease (CAD), Heart Failure, COPD, CVA/ TIA, Dementia, Diabetes Mellitus, Eye Disorder, Hyperlipidemia, Hypertension, Myocardial Infarction (SD), Osteoarthritis (OA), Renal Disease, Rheumatoid Arthritis (RA), Skin Disorder, Vascular Disorder Additional Past Medical History / Comment(s): UTI/pyelonephritis with sepsis, IDDM type II, CKD stage III, PAD, wound left foot prior to amputation, R foot neuropathy. Last Myocardial Infarction Date:: 1987 History of Any Multi-Drug Resistant Organisms: MRSA, Other MDRO Date of last positivie culture/infection: 12/26/17 MDRO Source:: MRSA URINE Past Surgical History: Cholecystectomy, Heart Catheterization With Stent, Hernia Repair, Hysterectomy, Tubal Ligation Additional Past Surgical History / Comment(s): Abdominal SX. RT EYE REMOVED 2 YEAR AGO, 10--14 LT BELOW KNEE AMP Past Anesthesia/Blood Transfusion Reactions: Motion Sickness Additional Past Anesthesia/Blood Transfusion Reaction / Comment(s): stated has had blood transfusion in past-no reaction to it Date of Last Stent Placement:: 04/2014 Past Psychological History: Anxiety, Depression Smoking Status: Former smoker Past Alcohol Use History: None Reported Past Drug Use History: None Reported - Past Family History Father Family Medical History: CVA/TIA Mother Family Medical History: COPD General Exam - General Exam Comments Initial Comments: General: Awake and alert, well-developed; in no apparent distress. Lying comfortably on ED stretcher. HEENT: Head atraumatic, normocephalic. Pupils are equal, round and reactive to light. Extraocular movements intact. Oropharynx moist without erythema or exudate. Neck: Supple. Normal ROM. Cardiovascular: Regular rate and rhythm. No murmurs, rubs or gallops. Chest symmetrical. Respiratory: Lungs clear to auscultation bilaterally. No wheezes, rales or rhonchi. Normal respiratory effort with no use of accessory muscles. Musculoskeletal: Normal range of motion toes of the right foot. Sensation is intact. Pedal pulses are 2+ equal and palpable bilaterally. Skin: [place], warm and dry. Approximately 2 cm linear laceration at the base plantar surface right fifth toe. Approximately 1 cm linear laceration at the base plantar surface of the right fourth toe. Neurological: Alert and oriented x3. CN II-XII grossly intact. Speech is fluent and answers are appropriate. No focal neuro deficits. Psychiatric: Normal mood and affect. No overt signs of depression or anxiety noted. Limitations: no limitations Course Vital Signs 12/31/17 19:53 Temperature 98.1 F Pulse Rate 65 Respiratory 18 Rate Blood Pressure 154/73 O2 Sat by Pulse 95 Oximetry Procedures - Laceration Laceration #1 Consent Obtained: verbal consent Indication: laceration Site: foot (right 5th toe) Size (cm): 2 Description: linear Anesthetic Used: lidocaine 1% Anesthesia Technique: local infiltration Amount (mls): 1 Pre-repair: wound explored, irrigated extensively, deep structures intact Type of Sutures: nylon Size of Sutures: 5-0 Number of Sutures: 5 Technique: simple, interrupted Patient Tolerated Procedure: well, no complications Laceration #2 Consent Obtained: verbal consent Indication: laceration Site: foot (right 4th toe) Size (cm): 1 Description: linear Depth: simple, single layer Anesthetic Used: lidocaine 1% Anesthesia Technique: local infiltration Amount (mls): 1 Pre-repair: wound explored, irrigated extensively, deep structures intact Type of Sutures: nylon Size of Sutures: 5-0 Number of Sutures: 3 Technique: simple, interrupted Patient Tolerated Procedure: well, no complications Medical Decision Making - Medical Decision Making This is a 62-year-old female who presents to the emergency department with chief complaint of right foot injury. Patient sustained 2 lacerations to the base of toes 4 and 5 on her right foot. X-ray was obtained which revealed no acute osseous abnormalities. Wounds were thoroughly cleansed with Betadine and sterile water. 8 sutures were placed in total and patient tolerated well without complication. She is neurovascularly intact. Recommended daily wound checks and dressing changes. She will be started on Keflex. Patient is in no acute distress and will be discharged home at this time. All questions answered. Recommended removal of sutures in 14 days. - Radiology Data Radiology results: report reviewed, image reviewed X-ray right foot impression: No acute osseous abnormality is identified, diffuse soft tissue swelling greater at the third and fourth digits. Osteopenia. Disposition Clinical Impression: Laceration Disposition: HOME SELF-CARE Condition: Good Instructions: Laceration (ED) Additional Instructions: Please have sutures removed in 10-14 days. Please take medications as prescribed. Please do daily wound checks and dressing changes. Please follow up with primary care provider within 1-2 days. Return to emergency department if symptoms should worsen or any concerns arise. Prescriptions: Cephalexin [Keflex] 500 mg PO Q12HR #20 cap Is patient prescribed a controlled substance at d/c from ED?: No Referrals: Jose Nobles DO [Primary Care Provider] - 1-2 days Time of Disposition: 21:28
--- NOTE | 2017-12-31 20:45 | XR ---
EXAMINATION TYPE: XR foot limited RT DATE OF EXAM: 12/31/2017 COMPARISON: NONE HISTORY: Laceration base of toes TECHNIQUE: 2 view right foot FINDINGS: Structures are osteopenic. There are hammertoes present. Mild hallux valgus deformity is pr esent. No acute osseous abnormality is evident. Soft tissue swelling appears to be over the the distal digit s predominantly at the third and fourth digits. IMPRESSION: 1. No acute osseous abnormality is identified. 2. Diffuse soft tissue swelling greater at the third and fourth digits. 3. Osteopenia
== END 2017-12-31 22:20 | disposition home or self-care (01) ==
LOC: EEVIPCON 19:48 → EC 19:48
DX: S91.114A Laceration without foreign body of right lesser toe(s) without damage to nail, initial encounter (principal); M85.871 Other specified disorders of bone density and structure, right ankle and foot; E78.5 Hyperlipidemia, unspecified; I11.0 Hypertensive heart disease with heart failure; I50.9 Heart failure, unspecified; I25.10 Atherosclerotic heart disease of native coronary artery without angina pectoris; E11.42 Type 2 diabetes mellitus with diabetic polyneuropathy; F32.9 Major depressive disorder, single episode, unspecified; F41.9 Anxiety disorder, unspecified; Z87.891 Personal history of nicotine dependence; Z79.4 Long term (current) use of insulin; Z79.899 Other long term (current) drug therapy; Z88.1 Allergy status to other antibiotic agents; Z88.5 Allergy status to narcotic agent; Z86.14 Personal history of Methicillin resistant Staphylococcus aureus infection
CPT/HCPCS: 12002; 36415; 86701; 86704; 86803; 99283

== ENCOUNTER 2018-01-27 06:48 | Inpatient (IN) | payer OTHER ==
[2018-01-27] MEDS ORDERED: SODIUM CHLORIDE 0.9% 1,000 ML IV ONE (06:55)
[2018-01-27] MEDS ORDERED: METOCLOPRAMIDE 5 MG/ML 2 ML VIAL IVP STA (07:16)
--- NOTE | 2018-01-27 07:23 | ED ---
Altered Mental Status HPI - General Stated Complaint: Altered Mental Status Time Seen by Provider: 01/27/18 07:00 Source: EMS, RN notes reviewed, old records reviewed Mode of arrival: EMS - History of Present Illness Initial Comments: This is a 62-year-old female with a history of multiple medical problems including hypertension dialysis renal failure with dialysis UTI anemia COPD who was sent in from a local [facility] because of altered mental status. She was found apparently to have a glucose of 40 this morning when she was being picked up for dialysis and she was given glucose as well as Zofran due to episodes of retching. Patient normally apparently is awake alert oriented 4 she was minimally responsive except to physical stimulus initially. She was brought to the emergency department she continues to have retching she had multiple doses of Zofran. Patient herself is a poor historian. Report is limited at this time. She did seem more arousable after IV glucose. She was incontinent of stool shortly after arrival. MD Complaint: altered mental status, other - Related Data Home Medications Medication Instructions Recorded Confirmed Insulin Glargine [Lantus] 50 unit SQ HS 11/15/14 01/27/18 Calcium Acetate [PhosLo] 667 mg PO DAILY 11/10/15 01/27/18 INSULIN LISPRO (HumaLOG) [humaLOG] 5 units SQ AC-BID 11/10/15 01/27/18 Pravastatin Sodium [Pravachol] 10 mg PO HS 11/10/15 01/27/18 hydrALAZINE HCL [Apresoline] 50 mg PO TID 11/10/15 01/27/18 Cholecalciferol [Vitamin D3] 2,000 unit PO DAILY 05/25/16 01/27/18 Escitalopram [Lexapro] 20 mg PO DAILY 06/17/16 01/27/18 Gabapentin [Neurontin] 300 mg PO TID 02/08/17 01/27/18 Loperamide [Imodium] 2 mg PO TID PRN 02/08/17 01/27/18 Melatonin 5 mg PO HS 02/08/17 01/27/18 Ondansetron [Zofran] 4 mg PO Q8H PRN 02/08/17 01/27/18 Magnesium Hydroxide [Milk of 2,400 mg PO DAILY PRN 12/08/17 01/27/18 Magnesia] Sennosides [Senna] 8.6 mg PO Q48H 12/08/17 01/27/18 Acetaminophen-Codeine 300-30mg 1 tab PO Q4-6H PRN 01/27/18 01/27/18 [Tylenol w/codeine #3] Clopidogrel [Plavix] 75 mg PO HS 01/27/18 01/27/18 Cranberry Fruit Concentrate 450 mg PO HS 01/27/18 01/27/18 [Cranberry] Docusate [Colace] 100 mg PO DAILY PRN 01/27/18 01/27/18 Menthol [Biofreeze] 1 applic TOPICAL Q8H PRN 01/27/18 01/27/18 Promethazine HCl 12.5 mg PO Q6H PRN 01/27/18 01/27/18 Sodium Bicarbonate Tab 650 mg PO BID 01/27/18 01/27/18 buPROPion [Wellbutrin] 150 mg PO DAILY 01/27/18 01/27/18 Previous Rx's Medication Instructions Recorded Metoprolol Tartrate [Lopressor] 50 mg PO BID #60 tab 05/27/14 Isosorbide Mononitrate ER [Imdur] 60 mg PO DAILY #1 tab 11/21/15 Nitroglycerin Sl Tabs [Nitrostat] 0.4 mg SUBLINGUAL Q5M PRN #0 tab 11/21/15 amLODIPine [Norvasc] 5 mg PO DAILY #30 tab 05/26/16 HYDROmorphone [Dilaudid] 2 mg PO Q6H PRN #10 tab 12/31/17 Allergies Allergy/AdvReac Type Severity Reaction Status Date / Time doxycycline calcium Allergy Rash/Hives Verified 01/27/18 08:02 [From Vibramycin] doxycycline hyclate Allergy Rash/Hives Verified 01/27/18 08:02 [From Vibramycin] doxycycline monohydrate Allergy Rash/Hives Verified 01/27/18 08:02 [From Vibramycin] nalbuphine HCl [From Nubain] Allergy Rash/Hives Verified 01/27/18 08:02 oxycodone HCl [From Tylox] Allergy Rash/Hives Verified 01/27/18 08:02 Tetracyclines Allergy Rash/Hives Verified 01/27/18 08:02 Review of Systems ROS Statement: Those systems with pertinent positive or pertinent negative responses have been documented in the HPI. ROS Other: All systems not noted in ROS Statement are negative. 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 Last Myocardial Infarction Date:: 1987 History of Any Multi-Drug Resistant Organisms: ESBL, MRSA Date of last positivie culture/infection: 01/09/18 ESBL 12/26/17 MRSA MDRO Source:: ESBL URINE/ MRSA URINE Past Surgical History: Cholecystectomy, Heart Catheterization With Stent, Hernia Repair, Hysterectomy, Tubal Ligation Additional Past Surgical History / Comment(s): Abdominal SX. RT EYE REMOVED 2 YEAR AGO, 05-25-14 LT BELOW KNEE AMP Past Anesthesia/Blood Transfusion Reactions: Motion Sickness Additional Past Anesthesia/Blood Transfusion Reaction / Comment(s): stated has had blood transfusion in past-no reaction to it Date of Last Stent Placement:: 04/2014 Past Psychological History: Anxiety, Depression Smoking Status: Former smoker Past Alcohol Use History: None Reported Past Drug Use History: None Reported - Past Family History Father Family Medical History: CVA/TIA Mother Family Medical History: COPD General Exam - General Exam Comments Initial Comments: This is a well-developed elderly-appearing female who was only verbal and active with physical stimulation she does voice "help me" Limitations: altered mental status, physical limitation General appearance: lethargic Head exam: Present: atraumatic, normocephalic, normal inspection Eye exam: Present: normal appearance, PERRL, EOMI. Absent: scleral icterus, conjunctival injection, periorbital swelling ENT exam: Present: mucous membranes dry Neck exam: Present: normal inspection. Absent: tenderness, meningismus, lymphadenopathy Respiratory exam: Present: decreased breath sounds, other (Dialysis catheter noted in the right upper chest) Cardiovascular Exam: Present: regular rate, normal rhythm, normal heart sounds. Absent: systolic murmur, diastolic murmur, rubs, gallop, clicks GI/Abdominal exam: Present: distended, other (Distended firm abdomen no overt tenderness palpation.) Rectal exam: Present: normal inspection, other (Brown stool present it was tested for heme and that test is pending) External exam: Present: normal external exam Extremities exam: Present: full ROM, normal capillary refill, other ((Below-the- knee amputation) Back exam: Present: normal inspection Neurological exam: Present: altered, CN II-XII intact Psychiatric exam: Present: anxious Skin exam: Present: dry, intact Course Vital Signs 01/27/18 01/27/18 01/27/18 07:01 07:38 07:39 Temperature 94.6 F L Pulse Rate 61 68 65 Respiratory 18 26 H Rate Blood Pressure 161/79 150/88 O2 Sat by Pulse 93 L 88 L Oximetry 01/27/18 01/27/18 01/27/18 07:49 08:10 09:04 Temperature 97.3 F L Pulse Rate 68 73 74 Respiratory 24 18 Rate Blood Pressure 171/99 163/95 O2 Sat by Pulse 93 L 94 L Oximetry - Reevaluation(s) Reevaluation #1: 01/27/18 09:33 The patient did respond favorably with the updraft treatment she still has some nausea and vomiting which did improve after emesis and switching to Reglan. Medical Decision Making - Medical Decision Making Patient did require supplemental oxygen as well as updraft treatment. She will be admitted her blood sugar has min maintaining an adequate range at this time. - Lab Data Result diagrams: 01/27/18 06:56 01/27/18 06:56 Lab Results 01/27/18 01/27/18 01/27/18 Range/Units 06:54 06:56 06:56 WBC (3.8-10.6) k/uL RBC (3.80-5.40) m/uL Hgb (11.4-16.0) gm/dL Hct (34.0-46.0) % MCV (80.0-100.0) fL MCH (25.0-35.0) pg MCHC (31.0-37.0) g/dL RDW (11.5-15.5) % Plt Count (150-450) k/uL Neutrophils % % Lymphocytes % % Monocytes % % Eosinophils % % Basophils % % Neutrophils # (1.3-7.7) k/uL Lymphocytes # (1.0-4.8) k/uL Monocytes # (0-1.0) k/uL Eosinophils # (0-0.7) k/uL Basophils # (0-0.2) k/uL Hypochromasia PT (9.0-12.0) sec INR (<1.2) APTT (22.0-30.0) sec Sodium (137-145) mmol/L Potassium (3.5-5.1) mmol/L Chloride (98-107) mmol/L Carbon Dioxide (22-30) mmol/L Anion Gap mmol/L BUN (7-17) mg/dL Creatinine (0.52-1.04) mg/dL Est GFR (CKD-EPI)AfAm (>60 ml/min/1.73 sqM) Est GFR (CKD-EPI)NonAf (>60 ml/min/1.73 sqM) Glucose (74-99) mg/dL POC Glucose (mg/dL) 61 L (75-99) mg/dL POC Glu Balance Wheel Facer ID Beatrice, Janae Calcium (8.4-10.2) mg/dL Magnesium (1.6-2.3) mg/dL Total Bilirubin (0.2-1.3) mg/dL AST (14-36) U/L ALT (9-52) U/L Alkaline Phosphatase (38-126) U/L Total Creatine Kinase 59 (30-135) U/L CK-MB (CK-2) 0.7 (0.0-2.4) ng/mL CK-MB (CK-2) Rel Index 1.2 Troponin I <0.012 (0.000-0.034) ng/mL Total Protein (6.3-8.2) g/dL Albumin (3.5-5.0) g/dL Urine Color Urine Appearance (Clear) Urine pH (5.0-8.0) Ur Specific Point Clear (1.001-1.035) Urine Protein (Negative) Urine Glucose (UA) (Negative) Urine Ketones (Negative) Urine Blood (Negative) Urine Nitrite (Negative) Urine Bilirubin (Negative) Urine Urobilinogen (<2.0) mg/dL Ur Leukocyte Esterase (Negative) Urine RBC (0-5) /hpf Urine WBC (0-5) /hpf Urine WBC Clumps (None) /hpf Ur Squamous Epith Cells (0-4) /hpf Ur Transition Epith Cell (0-1) /hpf Amorphous Sediment (None) /hpf Urine Bacteria (None) /hpf Hyaline Casts (0-2) /lpf Stool Occult Blood (Negative) Urine Opiates Screen (NotDetected) Ur Oxycodone Screen (NotDetected) Urine Methadone Screen (NotDetected) Ur Propoxyphene Screen (NotDetected) Ur Barbiturates Screen (NotDetected) U Tricyclic Antidepress (NotDetected) Ur Phencyclidine Scrn (NotDetected) Ur Amphetamines Screen (NotDetected) U Methamphetamines Scrn (NotDetected) U Benzodiazepines Scrn (NotDetected) Urine Cocaine Screen (NotDetected) U Marijuana (THC) Screen (NotDetected) Blood Type A Positive Blood Type Recheck No Antibody Screen NEGATIVE Spec Expiration Date 01/30/2018 - 235501/27/18 01/27/18 01/27/18 Range/Units 06:56 06:56 06:56 WBC 9.4 (3.8-10.6) k/uL RBC 3.57 L (3.80-5.40) m/uL Hgb 10.1 L (11.4-16.0) gm/dL Hct 32.4 L (34.0-46.0) % MCV 90.7 (80.0-100.0) fL MCH 28.3 (25.0-35.0) pg MCHC 31.2 (31.0-37.0) g/dL RDW 15.7 H (11.5-15.5) % Plt Count 287 (150-450) k/uL Neutrophils % 84 % Lymphocytes % 10 % Monocytes % 4 % Eosinophils % 0 % Basophils % 0 % Neutrophils # 7.9 H (1.3-7.7) k/uL Lymphocytes # 0.9 L (1.0-4.8) k/uL Monocytes # 0.4 (0-1.0) k/uL Eosinophils # 0.0 (0-0.7) k/uL Basophils # 0.0 (0-0.2) k/uL Hypochromasia Slight PT 9.5 (9.0-12.0) sec INR 1.0 (<1.2) APTT 22.0 (22.0-30.0) sec Sodium 143 (137-145) mmol/L Potassium 5.0 (3.5-5.1) mmol/L Chloride 105 (98-107) mmol/L Carbon Dioxide 25 (22-30) mmol/L Anion Gap 13 mmol/L BUN 66 H (7-17) mg/dL Creatinine 3.61 H (0.52-1.04) mg/dL Est GFR (CKD-EPI)AfAm 15 (>60 ml/min/1.73 sqM) Est GFR (CKD-EPI)NonAf 13 (>60 ml/min/1.73 sqM) Glucose 66 L (74-99) mg/dL POC Glucose (mg/dL) (75-99) mg/dL POC Glu Balance Wheel Facer ID Calcium 9.2 (8.4-10.2) mg/dL Magnesium 2.2 (1.6-2.3) mg/dL Total Bilirubin 0.3 (0.2-1.3) mg/dL AST 34 (14-36) U/L ALT 34 (9-52) U/L Alkaline Phosphatase 65 (38-126) U/L Total Creatine Kinase (30-135) U/L CK-MB (CK-2) (0.0-2.4) ng/mL CK-MB (CK-2) Rel Index Troponin I (0.000-0.034) ng/mL Total Protein 6.6 (6.3-8.2) g/dL Albumin 3.4 L (3.5-5.0) g/dL Urine Color Urine Appearance (Clear) Urine pH (5.0-8.0) Ur Specific Point Clear (1.001-1.035) Urine Protein (Negative) Urine Glucose (UA) (Negative) Urine Ketones (Negative) Urine Blood (Negative) Urine Nitrite (Negative) Urine Bilirubin (Negative) Urine Urobilinogen (<2.0) mg/dL Ur Leukocyte Esterase (Negative) Urine RBC (0-5) /hpf Urine WBC (0-5) /hpf Urine WBC Clumps (None) /hpf Ur Squamous Epith Cells (0-4) /hpf Ur Transition Epith Cell (0-1) /hpf Amorphous Sediment (None) /hpf Urine Bacteria (None) /hpf Hyaline Casts (0-2) /lpf Stool Occult Blood (Negative) Urine Opiates Screen (NotDetected) Ur Oxycodone Screen (NotDetected) Urine Methadone Screen (NotDetected) Ur Propoxyphene Screen (NotDetected) Ur Barbiturates Screen (NotDetected) U Tricyclic Antidepress (NotDetected) Ur Phencyclidine Scrn (NotDetected) Ur Amphetamines Screen (NotDetected) U Methamphetamines Scrn (NotDetected) U Benzodiazepines Scrn (NotDetected) Urine Cocaine Screen (NotDetected) U Marijuana (THC) Screen (NotDetected) Blood Type Blood Type Recheck Antibody Screen Spec Expiration Date 01/27/18 01/27/18 01/27/18 Range/Units 07:09 08:08 08:31 WBC (3.8-10.6) k/uL RBC (3.80-5.40) m/uL Hgb (11.4-16.0) gm/dL Hct (34.0-46.0) % MCV (80.0-100.0) fL MCH (25.0-35.0) pg MCHC (31.0-37.0) g/dL RDW (11.5-15.5) % Plt Count (150-450) k/uL Neutrophils % % Lymphocytes % % Monocytes % % Eosinophils % % Basophils % % Neutrophils # (1.3-7.7) k/uL Lymphocytes # (1.0-4.8) k/uL Monocytes # (0-1.0) k/uL Eosinophils # (0-0.7) k/uL Basophils # (0-0.2) k/uL Hypochromasia PT (9.0-12.0) sec INR (<1.2) APTT (22.0-30.0) sec Sodium (137-145) mmol/L Potassium (3.5-5.1) mmol/L Chloride (98-107) mmol/L Carbon Dioxide (22-30) mmol/L Anion Gap mmol/L BUN (7-17) mg/dL Creatinine (0.52-1.04) mg/dL Est GFR (CKD-EPI)AfAm (>60 ml/min/1.73 sqM) Est GFR (CKD-EPI)NonAf (>60 ml/min/1.73 sqM) Glucose (74-99) mg/dL POC Glucose (mg/dL) 147 H 98 (75-99) mg/dL POC Glu Balance Wheel Facer ID Janae Barron Katie Calcium (8.4-10.2) mg/dL Magnesium (1.6-2.3) mg/dL Total Bilirubin (0.2-1.3) mg/dL AST (14-36) U/L ALT (9-52) U/L Alkaline Phosphatase (38-126) U/L Total Creatine Kinase (30-135) U/L CK-MB (CK-2) (0.0-2.4) ng/mL CK-MB (CK-2) Rel Index Troponin I (0.000-0.034) ng/mL Total Protein (6.3-8.2) g/dL Albumin (3.5-5.0) g/dL Urine Color Yellow Urine Appearance Turbid H (Clear) Urine pH 8.0 (5.0-8.0) Ur Specific [place] 1.009 (1.001-1.035) Urine Protein 3+ H (Negative) Urine Glucose (UA) Trace H (Negative) Urine Ketones Negative (Negative) Urine Blood Small H (Negative) Urine Nitrite Negative (Negative) Urine Bilirubin Negative (Negative) Urine Urobilinogen <2.0 (<2.0) mg/dL Ur Leukocyte Esterase Large H (Negative) Urine RBC 49 H (0-5) /hpf Urine WBC >182 H (0-5) /hpf Urine WBC Clumps Occasional H (None) /hpf Ur Squamous Epith Cells 8 H (0-4) /hpf Ur Transition Epith Cell 1 (0-1) /hpf Amorphous Sediment Occasional H (None) /hpf Urine Bacteria Rare H (None) /hpf Hyaline Casts 17 H (0-2) /lpf Stool Occult Blood (Negative) Urine Opiates Screen Not Detected (NotDetected) Ur Oxycodone Screen Not Detected (NotDetected) Urine Methadone Screen Not Detected (NotDetected) Ur Propoxyphene Screen Not Detected (NotDetected) Ur Barbiturates Screen Not Detected (NotDetected) U Tricyclic Antidepress Not Detected (NotDetected) Ur Phencyclidine Scrn Not Detected (NotDetected) Ur Amphetamines Screen Not Detected (NotDetected) U Methamphetamines Scrn Not Detected (NotDetected) U Benzodiazepines Scrn Not Detected (NotDetected) Urine Cocaine Screen Not Detected (NotDetected) U Marijuana (THC) Screen Not Detected (NotDetected) Blood Type Blood Type Recheck Antibody Screen Spec Expiration Date 01/27/18 01/27/18 Range/Units 08:56 Unknown WBC (3.8-10.6) k/uL RBC (3.80-5.40) m/uL Hgb (11.4-16.0) gm/dL Hct (34.0-46.0) % MCV (80.0-100.0) fL MCH (25.0-35.0) pg MCHC (31.0-37.0) g/dL RDW (11.5-15.5) % Plt Count (150-450) k/uL Neutrophils % % Lymphocytes % % Monocytes % % Eosinophils % % Basophils % % Neutrophils # (1.3-7.7) k/uL Lymphocytes # (1.0-4.8) k/uL Monocytes # (0-1.0) k/uL Eosinophils # (0-0.7) k/uL Basophils # (0-0.2) k/uL Hypochromasia PT (9.0-12.0) sec INR (<1.2) APTT (22.0-30.0) sec Sodium (137-145) mmol/L Potassium (3.5-5.1) mmol/L Chloride (98-107) mmol/L Carbon Dioxide (22-30) mmol/L Anion Gap mmol/L BUN (7-17) mg/dL Creatinine (0.52-1.04) mg/dL Est GFR (CKD-EPI)AfAm (>60 ml/min/1.73 sqM) Est GFR (CKD-EPI)NonAf (>60 ml/min/1.73 sqM) Glucose (74-99) mg/dL POC Glucose (mg/dL) 80 (75-99) mg/dL POC Glu Balance Wheel Facer ID JhonathanAnai castano Calcium (8.4-10.2) mg/dL Magnesium (1.6-2.3) mg/dL Total Bilirubin (0.2-1.3) mg/dL AST (14-36) U/L ALT (9-52) U/L Alkaline Phosphatase (38-126) U/L Total Creatine Kinase (30-135) U/L CK-MB (CK-2) (0.0-2.4) ng/mL CK-MB (CK-2) Rel Index Troponin I (0.000-0.034) ng/mL Total Protein (6.3-8.2) g/dL Albumin (3.5-5.0) g/dL Urine Color Urine Appearance (Clear) Urine pH (5.0-8.0) Ur Specific Point Clear (1.001-1.035) Urine Protein (Negative) Urine Glucose (UA) (Negative) Urine Ketones (Negative) Urine Blood (Negative) Urine Nitrite (Negative) Urine Bilirubin (Negative) Urine Urobilinogen (<2.0) mg/dL Ur Leukocyte Esterase (Negative) Urine RBC (0-5) /hpf Urine WBC (0-5) /hpf Urine WBC Clumps (None) /hpf Ur Squamous Epith Cells (0-4) /hpf Ur Transition Epith Cell (0-1) /hpf Amorphous Sediment (None) /hpf Urine Bacteria (None) /hpf Hyaline Casts (0-2) /lpf Stool Occult Blood Negative (Negative) Urine Opiates Screen (NotDetected) Ur Oxycodone Screen (NotDetected) Urine Methadone Screen (NotDetected) Ur Propoxyphene Screen (NotDetected) Ur Barbiturates Screen (NotDetected) U Tricyclic Antidepress (NotDetected) Ur Phencyclidine Scrn (NotDetected) Ur Amphetamines Screen (NotDetected) U Methamphetamines Scrn (NotDetected) U Benzodiazepines Scrn (NotDetected) Urine Cocaine Screen (NotDetected) U Marijuana (THC) Screen (NotDetected) Blood Type Blood Type Recheck Antibody Screen Spec Expiration Date - EKG Data -: EKG Interpreted by Me EKG shows normal: sinus rhythm (Sinus rhythm rate 60. A 190 QRS duration 88 QT since QTC 51/5 way prolonged QT and some artifact is present) - Radiology Data Radiology results: report reviewed (I did review the imaging and reports. X- ray showed evidence of interval pulmonary vascular congestion and early interstitial edema CT the brain showed atrophy and left maxillary sinusitis findings CT abdomen pelvis showed pulmonary edema and chronic pneumonia also evidence of cystitis UTI findings also some evidence of enteritis.), image reviewed Critical Care Time Critical Care Time: Yes Critical Care Time: 35 minutes of critical care time which includes initial history physical labs x- rays review of old charting. Multiple re-evaluations patient response to therapy discussion with the admitting physician admission orders documentation the above Disposition Clinical Impression: Pulmonary edema, Chronic renal failure syndrome, Hypoglycemia, Hypoxemia, COPD exacerbation Disposition: ADMITTED IP TO THIS HOSP Condition: Stable Referrals: Jose Nobles DO [Primary Care Provider] - 1-2 days
[2018-01-27] MEDS ORDERED: IPRATROPIUM-ALBUTEROL 3 ML NEB INHALATION STA (07:34)
[2018-01-27 07:35] LABS: Glucose,Whole Blood 147 mg/dL (75-99)
[2018-01-27 07:35] LABS: Glucose,Whole Blood 61 mg/dL (75-99)
[2018-01-27 07:48] LABS: Basophils % (A) 0 %; Eosinophils % (A) 0 %; HCT 32.4 % (34.0-46.0); HGB 10.1 gm/dL (11.4-16.0); Hypochromasia Slight; Lymphocytes # (A) 0.9 k/uL (1.0-4.8); Lymphocytes % (A) 10 %; MCH 28.3 pg (25.0-35.0); MCHC 31.2 g/dL (31.0-37.0); MCV 90.7 fL (80.0-100.0); Mean Platelet Volume 6.6; Monocytes # (A) 0.4 k/uL (0-1.0); Monocytes % (A) 4 %; Neutrophils # (A) 7.9 k/uL (1.3-7.7); Neutrophils % (A) 84 %; Platelet Count 287 k/uL (150-450); RBC 3.57 m/uL (3.80-5.40); RDW 15.7 % (11.5-15.5); WBC 9.4 k/uL (3.8-10.6)
[2018-01-27 07:53] LABS: Albumin 3.4 g/dL (3.5-5.0); Calcium 9.2 mg/dL (8.4-10.2); Magnesium 2.2 mg/dL (1.6-2.3); Total Bilirubin 0.3 mg/dL (0.2-1.3); Total Protein 6.6 g/dL (6.3-8.2)
[2018-01-27 07:58] LABS: Prothrombin Time 9.5 sec (9.0-12.0)
[2018-01-27 08:10] LABS: Glucose,Whole Blood 98 mg/dL (75-99)
[2018-01-27 08:12] LABS: Creatine Kinase 59 U/L (30-135)
--- NOTE | 2018-01-27 08:23 | CT ---
EXAMINATION TYPE: CT brain wo con DATE OF EXAM: 01/27/2018 COMPARISON: Prior CT brain 04/12/2014 HISTORY: altered mental status CT DLP: 1177 mGycm Automated exposure control for dose reduction was used. Helical acquisition through the brain FINDINGS: Periventricular white matter shows patchy low attenuation, evidence of chronic ischemic change again noted. There is no hemorrhage or hydrocephalus. Cerebral vascular calcifications are present. Cortica l atrophy. Prosthesis present in the right orbit. The calvarium is intact. Air-fluid level present in the left maxillary sinus. IMPRESSION: AGE-RELATED CHANGES OF ATROPHY AND PROBABLE CHRONIC SMALL VESSEL ISCHEMIA. CORRELATE FOR LEFT MAXILLA RY SINUSITIS.
--- NOTE | 2018-01-27 08:23 | XR ---
EXAMINATION TYPE: XR chest 1V DATE OF EXAM: 01/27/2018 COMPARISON: 12/27/2019 HISTORY: 62 year-old female altered mental status, confusion TECHNIQUE: Single frontal view of the chest is obtained. FINDINGS: Heart borderline to mildly enlarged. Low lung volumes. Diffuse interstitial densities are present thr oughout with a patchy appearance right mid and lower lung. No significant pleural effusion on the fro ntal view. Right-sided double-lumen hemodialysis catheter with tips in the upper right atrium. IMPRESSION: Interval development of pulmonary vascular congestion and early interstitial edema.
[2018-01-27 08:24] LABS: Creatine Kinase MB 0.7 ng/mL (0.0-2.4); Troponin I <0.012 ng/mL (0.000-0.034)
[2018-01-27 08:43] LABS: Amorphous Sediment,Urine Occasional /hpf; Appearance,Urine Turbid (Clear); Bacteria,Urine Rare /hpf; Bilirubin,Urine Negative (Negative); Blood,Urine Small (Negative); Color,Urine Yellow; Glucose,Urine (UA) Trace (Negative); Hyaline Casts,Urine 17 /lpf (0-2); Ketones,Urine Negative (Negative); Leukocyte Esterase,Urine Large (Negative); Nitrite,Urine Negative (Negative); Protein,Urine 3+ (Negative); RBC,Urine 49 /hpf (0-5); Specific Gravity,Urine 1.009 (1.001-1.035); Squamous Epithelial Cell,Urine 8 /hpf (0-4); Transitional Epi Cells,Urine 1 /hpf (0-1); Urobilinogen,Urine <2.0 mg/dL (<2.0); WBC,Urine >182 /hpf (0-5)
[2018-01-27 08:50] LABS: Amphetamine Screen,Urine Not Detected (NotDetected); Benzodiazepines Screen,Urine Not Detected (NotDetected); Cocaine Screen,Urine Not Detected (NotDetected); Methadone Screen, Urine Not Detected (NotDetected); Opiate Screen,Urine Not Detected (NotDetected); Phencyclidine Screen,Urine Not Detected (NotDetected); Tricyclic Antidepressant,Urine Not Detected (NotDetected); Urn Cannabinoid Scrn Not Detected (NotDetected)
[2018-01-27 08:51] LABS: Barbiturate Screen,Urine Not Detected (NotDetected); Oxycodone Screen, Urine Not Detected (NotDetected)
--- NOTE | 2018-01-27 08:53 | CT ---
EXAMINATION TYPE: CT abdomen pelvis wo con DATE OF EXAM: 01/27/2018 COMPARISON: CT 11/13/2015 and chest x-ray 01/27/2018 HISTORY: nausea, vomiting CT DLP: 1382 mGycm Automated exposure control for dose reduction was used. TECHNIQUE: Helical acquisition of images from the lung bases through the pelvis. FINDINGS: Lack of intravenous contrast could compromise sensitivity. LUNG BASES: There are groundglass opacity, air bronchograms present at the lung bases, correlate for possible pneumonia, pulmonary edema. AORTA: No significant abnormality is evident, the heart is enlarged, there are coronary artery calci fications. LIVER/GB: No evident liver mass on this noncontrast exam, gallbladder is not seen, prominence of the biliary system likely due to postcholecystectomy change PANCREAS: No significant abnormality is seen. SPLEEN: Extensive splenic artery calcifications are present. ADRENALS: Small nodular density associated with the left adrenal gland measures 12 mm and may represe nt adenoma, stable and likely benign. KIDNEYS: There are vascular calcifications present bilaterally, suspect cortical thinning compatible with medical renal disease, extrarenal pelves are present bilaterally, there is perirenal, periureter al stranding present possibly due to patient's underlying renal failure. REPRODUCTIVE ORGANS: Uterus and ovaries are not seen.. URINARY BLADDER: Bladder wall thickening is noted, correlate for possible cystitis. BOWEL: No evident bowel obstruction. There are some air-filled loops of small bowel present, some qu estionable small bowel wall thickening, correlate for possible enteritis. FREE AIR: No Free Air is visible. ASCITES: None visible. PELVIC ADENOPATHY: None visualized. RETROPERITONEAL ADENOPATHY: No Retroperitoneal Adenopathy visible. OSSEOUS STRUCTURES: Bilateral spondylolysis at L5 with anterolisthesis grade 1 L5-S1 noted. There is loss of disc height, associated spondylosis.. IMPRESSION: CORRELATE FOR PULMONARY EDEMA, PNEUMONIA, CYSTITIS AND URINARY TRACT INFECTION. POSTOP CHANGES. FINDI NGS COMPATIBLE WITH RENAL FAILURE. CONSIDER ENTERITIS. NONCONTRAST EXAM.
[2018-01-27 08:59] LABS: Glucose,Whole Blood 80 mg/dL (75-99)
[2018-01-27] MEDS ORDERED: NITROGLYCERIN SL TABS 0.4 MG TAB SUBLINGUAL PRN (09:38)
[2018-01-27] MEDS ORDERED: cefTRIAXone IN SWFI 1,000 MG/10 ML SYRINGE IVP STA (09:38)
[2018-01-27] MEDS ORDERED: FUROSEMIDE 10 MG/ML 4 ML VIAL IV STA (09:40)
--- NOTE | 2018-01-27 09:41 | ED ---
Medical Decision Making - Lab Data Result diagrams: 01/27/18 06:56 01/27/18 06:56 Lab Results 01/27/18 01/27/18 01/27/18 Range/Units 06:54 06:56 06:56 WBC (3.8-10.6) k/uL RBC (3.80-5.40) m/uL Hgb (11.4-16.0) gm/dL Hct (34.0-46.0) % MCV (80.0-100.0) fL MCH (25.0-35.0) pg MCHC (31.0-37.0) g/dL RDW (11.5-15.5) % Plt Count (150-450) k/uL Neutrophils % % Lymphocytes % % Monocytes % % Eosinophils % % Basophils % % Neutrophils # (1.3-7.7) k/uL Lymphocytes # (1.0-4.8) k/uL Monocytes # (0-1.0) k/uL Eosinophils # (0-0.7) k/uL Basophils # (0-0.2) k/uL Hypochromasia PT (9.0-12.0) sec INR (<1.2) APTT (22.0-30.0) sec Sodium (137-145) mmol/L Potassium (3.5-5.1) mmol/L Chloride (98-107) mmol/L Carbon Dioxide (22-30) mmol/L Anion Gap mmol/L BUN (7-17) mg/dL Creatinine (0.52-1.04) mg/dL Est GFR (CKD-EPI)AfAm (>60 ml/min/1.73 sqM) Est GFR (CKD-EPI)NonAf (>60 ml/min/1.73 sqM) Glucose (74-99) mg/dL POC Glucose (mg/dL) 61 L (75-99) mg/dL POC Glu Machine Rigger ID Janae Barron Calcium (8.4-10.2) mg/dL Magnesium (1.6-2.3) mg/dL Total Bilirubin (0.2-1.3) mg/dL AST (14-36) U/L ALT (9-52) U/L Alkaline Phosphatase (38-126) U/L Total Creatine Kinase 59 (30-135) U/L CK-MB (CK-2) 0.7 (0.0-2.4) ng/mL CK-MB (CK-2) Rel Index 1.2 Troponin I <0.012 (0.000-0.034) ng/mL Total Protein (6.3-8.2) g/dL Albumin (3.5-5.0) g/dL Urine Color Urine Appearance (Clear) Urine pH (5.0-8.0) Ur Specific [place] (1.001-1.035) Urine Protein (Negative) Urine Glucose (UA) (Negative) Urine Ketones (Negative) Urine Blood (Negative) Urine Nitrite (Negative) Urine Bilirubin (Negative) Urine Urobilinogen (<2.0) mg/dL Ur Leukocyte Esterase (Negative) Urine RBC (0-5) /hpf Urine WBC (0-5) /hpf Urine WBC Clumps (None) /hpf Ur Squamous Epith Cells (0-4) /hpf Ur Transition Epith Cell (0-1) /hpf Amorphous Sediment (None) /hpf Urine Bacteria (None) /hpf Hyaline Casts (0-2) /lpf Stool Occult Blood (Negative) Urine Opiates Screen (NotDetected) Ur Oxycodone Screen (NotDetected) Urine Methadone Screen (NotDetected) Ur Propoxyphene Screen (NotDetected) Ur Barbiturates Screen (NotDetected) U Tricyclic Antidepress (NotDetected) Ur Phencyclidine Scrn (NotDetected) Ur Amphetamines Screen (NotDetected) U Methamphetamines Scrn (NotDetected) U Benzodiazepines Scrn (NotDetected) Urine Cocaine Screen (NotDetected) U Marijuana (THC) Screen (NotDetected) Blood Type A Positive Blood Type Recheck No Antibody Screen NEGATIVE Spec Expiration Date 01/30/2018 - 235501/27/18 01/27/18 01/27/18 Range/Units 06:56 06:56 06:56 WBC 9.4 (3.8-10.6) k/uL RBC 3.57 L (3.80-5.40) m/uL Hgb 10.1 L (11.4-16.0) gm/dL Hct 32.4 L (34.0-46.0) % MCV 90.7 (80.0-100.0) fL MCH 28.3 (25.0-35.0) pg MCHC 31.2 (31.0-37.0) g/dL RDW 15.7 H (11.5-15.5) % Plt Count 287 (150-450) k/uL Neutrophils % 84 % Lymphocytes % 10 % Monocytes % 4 % Eosinophils % 0 % Basophils % 0 % Neutrophils # 7.9 H (1.3-7.7) k/uL Lymphocytes # 0.9 L (1.0-4.8) k/uL Monocytes # 0.4 (0-1.0) k/uL Eosinophils # 0.0 (0-0.7) k/uL Basophils # 0.0 (0-0.2) k/uL Hypochromasia Slight PT 9.5 (9.0-12.0) sec INR 1.0 (<1.2) APTT 22.0 (22.0-30.0) sec Sodium 143 (137-145) mmol/L Potassium 5.0 (3.5-5.1) mmol/L Chloride 105 (98-107) mmol/L Carbon Dioxide 25 (22-30) mmol/L Anion Gap 13 mmol/L BUN 66 H (7-17) mg/dL Creatinine 3.61 H (0.52-1.04) mg/dL Est GFR (CKD-EPI)AfAm 15 (>60 ml/min/1.73 sqM) Est GFR (CKD-EPI)NonAf 13 (>60 ml/min/1.73 sqM) Glucose 66 L (74-99) mg/dL POC Glucose (mg/dL) (75-99) mg/dL POC Glu Machine Rigger ID Calcium 9.2 (8.4-10.2) mg/dL Magnesium 2.2 (1.6-2.3) mg/dL Total Bilirubin 0.3 (0.2-1.3) mg/dL AST 34 (14-36) U/L ALT 34 (9-52) U/L Alkaline Phosphatase 65 (38-126) U/L Total Creatine Kinase (30-135) U/L CK-MB (CK-2) (0.0-2.4) ng/mL CK-MB (CK-2) Rel Index Troponin I (0.000-0.034) ng/mL Total Protein 6.6 (6.3-8.2) g/dL Albumin 3.4 L (3.5-5.0) g/dL Urine Color Urine Appearance (Clear) Urine pH (5.0-8.0) Ur Specific [place] (1.001-1.035) Urine Protein (Negative) Urine Glucose (UA) (Negative) Urine Ketones (Negative) Urine Blood (Negative) Urine Nitrite (Negative) Urine Bilirubin (Negative) Urine Urobilinogen (<2.0) mg/dL Ur Leukocyte Esterase (Negative) Urine RBC (0-5) /hpf Urine WBC (0-5) /hpf Urine WBC Clumps (None) /hpf Ur Squamous Epith Cells (0-4) /hpf Ur Transition Epith Cell (0-1) /hpf Amorphous Sediment (None) /hpf Urine Bacteria (None) /hpf Hyaline Casts (0-2) /lpf Stool Occult Blood (Negative) Urine Opiates Screen (NotDetected) Ur Oxycodone Screen (NotDetected) Urine Methadone Screen (NotDetected) Ur Propoxyphene Screen (NotDetected) Ur Barbiturates Screen (NotDetected) U Tricyclic Antidepress (NotDetected) Ur Phencyclidine Scrn (NotDetected) Ur Amphetamines Screen (NotDetected) U Methamphetamines Scrn (NotDetected) U Benzodiazepines Scrn (NotDetected) Urine Cocaine Screen (NotDetected) U Marijuana (THC) Screen (NotDetected) Blood Type Blood Type Recheck Antibody Screen Spec Expiration Date 01/27/18 01/27/18 01/27/18 Range/Units 07:09 08:08 08:31 WBC (3.8-10.6) k/uL RBC (3.80-5.40) m/uL Hgb (11.4-16.0) gm/dL Hct (34.0-46.0) % MCV (80.0-100.0) fL MCH (25.0-35.0) pg MCHC (31.0-37.0) g/dL RDW (11.5-15.5) % Plt Count (150-450) k/uL Neutrophils % % Lymphocytes % % Monocytes % % Eosinophils % % Basophils % % Neutrophils # (1.3-7.7) k/uL Lymphocytes # (1.0-4.8) k/uL Monocytes # (0-1.0) k/uL Eosinophils # (0-0.7) k/uL Basophils # (0-0.2) k/uL Hypochromasia PT (9.0-12.0) sec INR (<1.2) APTT (22.0-30.0) sec Sodium (137-145) mmol/L Potassium (3.5-5.1) mmol/L Chloride (98-107) mmol/L Carbon Dioxide (22-30) mmol/L Anion Gap mmol/L BUN (7-17) mg/dL Creatinine (0.52-1.04) mg/dL Est GFR (CKD-EPI)AfAm (>60 ml/min/1.73 sqM) Est GFR (CKD-EPI)NonAf (>60 ml/min/1.73 sqM) Glucose (74-99) mg/dL POC Glucose (mg/dL) 147 H 98 (75-99) mg/dL POC Glu Machine Rigger ID Beatrice Janaehussein Cotter Anai Calcium (8.4-10.2) mg/dL Magnesium (1.6-2.3) mg/dL Total Bilirubin (0.2-1.3) mg/dL AST (14-36) U/L ALT (9-52) U/L Alkaline Phosphatase (38-126) U/L Total Creatine Kinase (30-135) U/L CK-MB (CK-2) (0.0-2.4) ng/mL CK-MB (CK-2) Rel Index Troponin I (0.000-0.034) ng/mL Total Protein (6.3-8.2) g/dL Albumin (3.5-5.0) g/dL Urine Color Yellow Urine Appearance Turbid H (Clear) Urine pH 8.0 (5.0-8.0) Ur Specific [place] 1.009 (1.001-1.035) Urine Protein 3+ H (Negative) Urine Glucose (UA) Trace H (Negative) Urine Ketones Negative (Negative) Urine Blood Small H (Negative) Urine Nitrite Negative (Negative) Urine Bilirubin Negative (Negative) Urine Urobilinogen <2.0 (<2.0) mg/dL Ur Leukocyte Esterase Large H (Negative) Urine RBC 49 H (0-5) /hpf Urine WBC >182 H (0-5) /hpf Urine WBC Clumps Occasional H (None) /hpf Ur Squamous Epith Cells 8 H (0-4) /hpf Ur Transition Epith Cell 1 (0-1) /hpf Amorphous Sediment Occasional H (None) /hpf Urine Bacteria Rare H (None) /hpf Hyaline Casts 17 H (0-2) /lpf Stool Occult Blood (Negative) Urine Opiates Screen Not Detected (NotDetected) Ur Oxycodone Screen Not Detected (NotDetected) Urine Methadone Screen Not Detected (NotDetected) Ur Propoxyphene Screen Not Detected (NotDetected) Ur Barbiturates Screen Not Detected (NotDetected) U Tricyclic Antidepress Not Detected (NotDetected) Ur Phencyclidine Scrn Not Detected (NotDetected) Ur Amphetamines Screen Not Detected (NotDetected) U Methamphetamines Scrn Not Detected (NotDetected) U Benzodiazepines Scrn Not Detected (NotDetected) Urine Cocaine Screen Not Detected (NotDetected) U Marijuana (THC) Screen Not Detected (NotDetected) Blood Type Blood Type Recheck Antibody Screen Spec Expiration Date 01/27/18 01/27/18 Range/Units 08:56 Unknown WBC (3.8-10.6) k/uL RBC (3.80-5.40) m/uL Hgb (11.4-16.0) gm/dL Hct (34.0-46.0) % MCV (80.0-100.0) fL MCH (25.0-35.0) pg MCHC (31.0-37.0) g/dL RDW (11.5-15.5) % Plt Count (150-450) k/uL Neutrophils % % Lymphocytes % % Monocytes % % Eosinophils % % Basophils % % Neutrophils # (1.3-7.7) k/uL Lymphocytes # (1.0-4.8) k/uL Monocytes # (0-1.0) k/uL Eosinophils # (0-0.7) k/uL Basophils # (0-0.2) k/uL Hypochromasia PT (9.0-12.0) sec INR (<1.2) APTT (22.0-30.0) sec Sodium (137-145) mmol/L Potassium (3.5-5.1) mmol/L Chloride (98-107) mmol/L Carbon Dioxide (22-30) mmol/L Anion Gap mmol/L BUN (7-17) mg/dL Creatinine (0.52-1.04) mg/dL Est GFR (CKD-EPI)AfAm (>60 ml/min/1.73 sqM) Est GFR (CKD-EPI)NonAf (>60 ml/min/1.73 sqM) Glucose (74-99) mg/dL POC Glucose (mg/dL) 80 (75-99) mg/dL POC Glu Machine Rigger ID Anai Cotter Calcium (8.4-10.2) mg/dL Magnesium (1.6-2.3) mg/dL Total Bilirubin (0.2-1.3) mg/dL AST (14-36) U/L ALT (9-52) U/L Alkaline Phosphatase (38-126) U/L Total Creatine Kinase (30-135) U/L CK-MB (CK-2) (0.0-2.4) ng/mL CK-MB (CK-2) Rel Index Troponin I (0.000-0.034) ng/mL Total Protein (6.3-8.2) g/dL Albumin (3.5-5.0) g/dL Urine Color Urine Appearance (Clear) Urine pH (5.0-8.0) Ur Specific [place] (1.001-1.035) Urine Protein (Negative) Urine Glucose (UA) (Negative) Urine Ketones (Negative) Urine Blood (Negative) Urine Nitrite (Negative) Urine Bilirubin (Negative) Urine Urobilinogen (<2.0) mg/dL Ur Leukocyte Esterase (Negative) Urine RBC (0-5) /hpf Urine WBC (0-5) /hpf Urine WBC Clumps (None) /hpf Ur Squamous Epith Cells (0-4) /hpf Ur Transition Epith Cell (0-1) /hpf Amorphous Sediment (None) /hpf Urine Bacteria (None) /hpf Hyaline Casts (0-2) /lpf Stool Occult Blood Negative (Negative) Urine Opiates Screen (NotDetected) Ur Oxycodone Screen (NotDetected) Urine Methadone Screen (NotDetected) Ur Propoxyphene Screen (NotDetected) Ur Barbiturates Screen (NotDetected) U Tricyclic Antidepress (NotDetected) Ur Phencyclidine Scrn (NotDetected) Ur Amphetamines Screen (NotDetected) U Methamphetamines Scrn (NotDetected) U Benzodiazepines Scrn (NotDetected) Urine Cocaine Screen (NotDetected) U Marijuana (THC) Screen (NotDetected) Blood Type Blood Type Recheck Antibody Screen Spec Expiration Date Disposition Clinical Impression: Pulmonary edema, Chronic renal failure syndrome, Hypoglycemia, Hypoxemia, COPD exacerbation, Enteritis, Cystitis Disposition: ADMITTED IP TO THIS [facility] Condition: Stable Referrals: Jose Nobles DO [Primary Care Provider] - 1-2 days
[2018-01-27 10:55] LABS: Glucose,Whole Blood 66 mg/dL (75-99)
[2018-01-27] MEDS ORDERED: DEXTROSE 10% IN WATER 1,000 ML with SODIUM CHLORIDE 2.5MEQ/ML VIAL 77 MEQ IV ONE (10:59)
[2018-01-27] MEDS ORDERED: DEXTROSE 50%-WATER 50 ML SYRINGE IVP STA (11:03)
[2018-01-27 11:52] LABS: Glucose,Whole Blood 118 mg/dL (75-99)
[2018-01-27] MEDS: SODIUM CHLORIDE 0.9% 1,000 ML IV SCH ×2 (13:17→21:01)
[2018-01-27] MEDS ORDERED: ACETAMINOPHEN IV (For NPO) 1,000 MG in EMPTY BAG 1 BAG IVPB STA (13:18)
[2018-01-27 13:27] LABS: Glucose,Whole Blood 82 mg/dL (75-99)
[2018-01-27] MEDS ORDERED: fentaNYL (PF) 50 MCG/ML 2 ML AMP IV STA (15:16)
[2018-01-27 16:07] LABS: Glucose,Whole Blood 81 mg/dL (75-99)
[2018-01-27] MEDS: FUROSEMIDE 40 MG TAB PO SCH ×2 (16:33→23:09)
[2018-01-27] MEDS: HEPARIN SODIUM,PORCINE 5,000 UNIT/ML 1 ML VIAL SQ SCH ×2 (17:01→23:09)
[2018-01-27 18:23] LABS: Glucose,Whole Blood 117 mg/dL (75-99)
[2018-01-27 20:38] LABS: Glucose,Whole Blood 134 mg/dL (75-99)
[2018-01-27] MEDS ORDERED: LOPERAMIDE 2 MG CAP PO PRN (23:08)
[2018-01-27] MEDS ORDERED: PROMETHAZINE 25 MG TAB PO PRN (23:08)
[2018-01-27] MEDS: Acetaminophen-Codeine 300-30mg TAB PO PRN (23:25)
[2018-01-27] MEDS: CLOPIDOGREL 75 MG TAB PO SCH (23:25)
[2018-01-27] MEDS: SENNOSIDES 8.6 MG TAB PO SCH (23:30)
[2018-01-27] MEDS: METOPROLOL TARTRATE 50 MG TAB PO SCH (23:31)
[2018-01-27 23:43] LABS: Glucose,Whole Blood 116 mg/dL (75-99)
[2018-01-28] MEDS: MELATONIN 5 MG TABLET PO SCH ×2 (00:21→21:18)
[2018-01-28 02:40] LABS: Glucose,Whole Blood 105 mg/dL (75-99)
[2018-01-28 04:05] LABS: Glucose,Whole Blood 116 mg/dL (75-99)
[2018-01-28] MEDS: INSULIN ASPART 100 UNIT/ML 1 ML 10 ML VIAL SQ SCH ×2 (04:41→17:26)
[2018-01-28] MEDS: SODIUM CHLORIDE 0.9% 1,000 ML IV SCH (04:41)
[2018-01-28] MEDS: Acetaminophen-Codeine 300-30mg TAB PO PRN ×2 (04:53→21:20)
--- NOTE | 2018-01-28 05:50 | HP ---
HISTORY AND PHYSICAL DATE OF ADMISSION: 01/27/2018 PRESENTING COMPLAINT: Lethargic. HISTORY OF PRESENTING COMPLAINT: This is a 62-year-old patient, well known to me from prior admissions. Patient's chronic stable medical conditions include end-stage kidney disease on hemodialysis, COPD, chronic congestive heart failure, EF not known, left below-knee amputation, peripheral arterial disease, hypertension, osteoarthritis, mild cognitive impairment, depression, coronary artery disease, absent right eye. The patient is brought into the ER feeling tired, lethargic. The patient's sugars was down to 40. The patient was started on a D10 drip. The patient did have dialysis yesterday. The patient really refused to eat any food. When I interviewed the patient this evening, the patient is following commands but not really answering questions. She did speak a bit with nurse earlier today, but refused any food. Denies any pain. Just seems rather tired. REVIEW OF SYSTEMS: Review of systems unable to obtain as the patient is not really answering questions. PAST MEDICAL HISTORY: Coronary artery disease with stent, congestive heart failure, COPD, dementia, diabetes, hyperlipidemia, absent right eye, hypertension, osteoarthritis, rheumatoid arthritis, skin disorder, end-stage kidney disease on hemodialysis, peripheral arterial disease, left below-knee amputation, right foot neuropathy. PAST SURGICAL HISTORY: Cholecystectomy, cardiac cath with stent, hernia repair, hysterectomy, tubal ligation, right eye removed 2 years ago, left below-knee amputation. PSYCH HISTORY: Anxiety, depression. SOCIAL HISTORY: The patient is a resident of [facility]. Baseline uses a wheelchair. The patient smoked for about 42 years, 2 packs a day, stopped about 11 years ago. ALLERGIES: Allergies to DOXYCYCLINE, NUBAIN, OXYCODONE, TETRACYCLINE. PHYSICAL EXAMINATION: On examination vital signs: Temperature 101.1, pulse 77, respiration 20, blood pressure 159/79, pulse ox 98% on partial non-rebreather. GENERAL APPEARANCE: Lying in bed, does follow commands, but keeps her eyes closed. HEENT: Absent right eye. Normal left eye. HENT: External appearance of nose and ears normal. Oral cavity dry mucous membrane. NECK: JVD unable to assess. Mass not palpable. RESPIRATORY: Effort normal. LUNGS: Diminished breath sounds. CARDIOVASCULAR: First and second sounds normal. No edema. ABDOMEN: Slightly distended, soft. Liver and spleen not palpable. LYMPHATIC: No lymph node palpable in the neck or axillae. PSYCHIATRY: Patient does follow some commands, but not really answering questions. NEUROLOGICAL: Absent right eye. No facial asymmetry. Did follow some simple commands. EXTREMITIES: Left below-knee amputation. INVESTIGATIONS: UA positive for leukocyte esterase. White count 9.4, hemoglobin 10.1. Potassium 5. BUN 66, creatinine 3.61. Accu-Cheks on the blood meter was 66. ASSESSMENT: 1. Severe hypoglycemic in a patient who is on insulin, given that patient recently went on hemodialysis maybe the insulin requirement has gone down. 2. End-stage kidney disease on hemodialysis. 3. Diabetes mellitus type 2, chronically on insulin. 4. Chronic obstructive pulmonary disease in an ex-smoker. 5. Chronic congestive heart failure, ejection fraction not known. 6. Left below-knee amputation. 7. Peripheral arterial disease. 8. Essential hypertension. 9. Primary osteoarthritis. 10.Mild cognitive impairment from Alzheimer's dementia early. 11.Acute metabolic encephalopathy from hypoglycemia. 12.Depression, not otherwise specified. 13.Coronary artery disease with prior history of stent. 14.Absent right eye. 15.Possible pneumonia suspect gram-negative for organism. The patient did have fever that could be precipitating her admission. PLAN: Nephrology was consulted. To continue with hemodialysis. Patient was put on hypoglycemic protocol including a D10. Hence because patient is not eating got to keep a close eye on the sugars. The patient's Lantus supposed to be held off for right now. Other home medications will be resumed. Will maintain aspiration precautions. The patient did have a chest x-ray that did show some pulmonary edema. CT scan of the brain showed some age-related atrophic changes and CT scan of the abdomen and pelvis showed questionable pneumonia. Will add ceftriaxone. Prognosis is guarded. The patient has got multiple medical problems. MMODL / IJN: [id number] /
[2018-01-28 06:00] LABS: Glucose,Whole Blood 106 mg/dL (75-99)
[2018-01-28 06:39] LABS: Potassium 4.2 mmol/L (3.5-5.1)
[2018-01-28 07:53] LABS: Basophils % (A) 0 %; Eosinophils # (A) 0.1 k/uL (0-0.7); Eosinophils % (A) 1 %; HCT 24.8 % (34.0-46.0); Hypochromasia Moderate; Lymphocytes # (A) 1.5 k/uL (1.0-4.8); Lymphocytes % (A) 12 %; MCH 28.5 pg (25.0-35.0); MCHC 31.3 g/dL (31.0-37.0); Mean Platelet Volume 7.1; Monocytes # (A) 0.5 k/uL (0-1.0); Monocytes % (A) 4 %; Neutrophils # (A) 10.3 k/uL (1.3-7.7); Neutrophils % (A) 83 %; Platelet Count 200 k/uL (150-450); RBC 2.73 m/uL (3.80-5.40); RDW 15.8 % (11.5-15.5); WBC 12.4 k/uL (3.8-10.6)
[2018-01-28 08:08] LABS: HGB 7.8 gm/dL (11.4-16.0)
[2018-01-28] MEDS: HEPARIN SODIUM,PORCINE 5,000 UNIT/ML 1 ML VIAL SQ SCH ×3 (08:55→23:02)
[2018-01-28] MEDS: GABAPENTIN 300 MG CAP PO SCH ×3 (08:55→21:19)
[2018-01-28] MEDS: buPROPion 75 MG TAB PO SCH (08:55)
[2018-01-28] MEDS: SODIUM BICARBONATE TAB 650 MG TAB PO SCH ×2 (08:55→21:19)
[2018-01-28] MEDS: hydrALAZINE HCL 50 MG TAB PO SCH ×3 (08:55→21:19)
[2018-01-28] MEDS: ESCITALOPRAM 20 MG TAB PO SCH (08:56)
[2018-01-28] MEDS: amLODIPine 5 MG TAB PO SCH (08:56)
[2018-01-28] MEDS: FUROSEMIDE 40 MG TAB PO SCH ×2 (08:56→16:45)
[2018-01-28] MEDS: ISOSORBIDE MONONITRATE ER 60 MG TAB.ER.24H PO SCH (08:56)
[2018-01-28] MEDS: METOPROLOL TARTRATE 50 MG TAB PO SCH ×2 (08:56→21:16)
[2018-01-28] MEDS: cefTRIAXone IN SWFI 1,000 MG/10 ML SYRINGE IVP SCH (08:57)
[2018-01-28] MEDS ORDERED: CALCIUM ACETATE 667 MG CAP PO SCH (09:00)
[2018-01-28 11:26] VITALS: BMI 35.3
[2018-01-28 11:35] LABS: Glucose,Whole Blood 163 mg/dL (75-99)
[2018-01-28] MEDS ORDERED: SODIUM FERRIC GLUCONAT-SUCROSE 125 MG in SODIUM CHLORIDE 0.9% 100 ML IVPB ONE (11:47)
[2018-01-28] MEDS ORDERED: DARBEPOETIN ALFA 40 MCG/0.4 ML SYRINGE SQ SCH (12:00)
--- NOTE | 2018-01-28 13:03 | CONS ---
CONSULTATION DATE OF SERVICE: 01/28/2018. REASON FOR CONSULT: End-stage renal disease. HISTORY OF PRESENT ILLNESS: The patient is a 62-year-old female who was admitted to the hospital with complaints of shortness of breath and weakness. She was found to be in CHF and pulmonary edema. The patient was dialyzed last night. She is currently feeling better. She was also found to be hypoglycemic with blood sugar of around 40. The patient has been maintained on D10. She is currently eating and her blood sugars have improved. PAST MEDICAL HISTORY: End-stage renal disease recently started on hemodialysis currently on a Saturday, Saturday, Saturday schedule, hypertension, type 2 diabetes, osteoarthritis, diabetic neuropathy, COPD, history of CVA/TIA. History of dementia, coronary artery disease, hyperlipidemia, history of [place], history of rheumatoid arthritis, pyelonephritis, peripheral vascular disease. PAST SURGICAL HISTORY: Wound of left foot on the left side, cardiac catheterization, hernia repair, cholecystectomy, tubal ligation, hysterectomy, right eye was removed, the patient has had abdominal surgery. SOCIAL HISTORY: The patient is a former smoker. No history of drug abuse or alcohol abuse. MEDICATIONS: Medications at home prior to admission include: 1. Wellbutrin. 2. Sodium bicarb. 3. Biofreeze. 4. Plavix. 5. Magnesium. 6. Zofran. 7. Imodium. 8. Neurontin. 9. Lexapro. 10.Vitamin D3. 11.Insulin. 12.PhosLo. 13.Pravachol. 14.Hydralazine. EXAMINATION: Patient is comfortable, awake, not in any acute distress. Blood pressure is 109/49, heart rate 69 per minute. She is afebrile. Examination of the heart S1, S2. Examination lungs, bilateral breath sounds are heard. Abdomen is soft, nontender. Exam of lower extremities shows no significant edema. PHARMACEUTICAL LABORATORY TECHNICIAN exam is grossly intact. LABS: Sodium of 138, potassium 4.2, chloride 100, CO2 of 27. Hemoglobin was 7.8 g/dL. Occult blood in the stool was negative. ASSESSMENT: 1. End-stage renal disease, on hemodialysis on a Saturday, Saturday, Saturday schedule. The patient was dialyzed last night. We will dialyze her again tomorrow. 2. Anemia with no active bleeding noted. Stool for occult blood was negative. Patient is maintained on Aranesp. She did have iron studies done on 12/27/2017, which not did not reveal severe iron deficiency. Iron saturation was at 17%. I will give her 1 dose of IV iron as well. 3. Fluid overload, currently improved post dialysis. PLAN: IV iron x1. Start Aranesp and hemodialysis in a.m. Thank you for this consultation. We will continue to follow the patient with you during the hospitalization. MMODL / IJN: [id number] /
[2018-01-28 16:37] LABS: Glucose,Whole Blood 150 mg/dL (75-99)
[2018-01-28] MEDS ORDERED: LACTULOSE 20 GM/30 ML CUP PO ONE (18:27)
[2018-01-28 20:08] VITALS: RESP 18
[2018-01-28] MEDS ORDERED: INSULIN DETEMIR 100 UNIT/ML 10 ML VIAL SQ SCH (21:00)
[2018-01-28 21:06] LABS: Glucose,Whole Blood 199 mg/dL (75-99)
[2018-01-28] MEDS: CLOPIDOGREL 75 MG TAB PO SCH (21:16)
[2018-01-28] MEDS: PRAVASTATIN SODIUM 20 MG TAB PO SCH (21:16)
--- NOTE | 2018-01-28 21:48 | PN ---
PROGRESS NOTE DATE OF SERVICE: 01/28/2018 PRESENTING COMPLAINT: Tired. INTERVAL HISTORY: This patient presented with fluid overload and severe hypoglycemia. The patient is doing much better, awake, did tolerate her meals. Hemodialysis per Nephrology. Has not had a bowel movement in 3-4 days. REVIEW OF SYSTEMS: Done for constitutional, cardiovascular, GI, pulmonary; relevant findings as above. CURRENT MEDICATIONS: Reviewed. The patient's Lantus had been held off. EXAMINATION: Temperature 98.9, pulse 80, respirations 18, blood pressure 141/71, pulse ox 100% on oxygen. GENERAL APPEARANCE: Lying in bed, awake. EYES: Right eye is absent. Left pupil is normal. HEENT: External nose and ears normal. Oral cavity normal. NECK: JVD unable to assess. Mass not palpable. RESPIRATORY: Effort increased. LUNGS: Decreased breath sounds. CARDIOVASCULAR: First and second sounds normal. No edema. ABDOMEN: Slightly distended, soft. Liver, spleen not palpable. PSYCHIATRY: Alert, oriented x3. Mood and affect normal. NEUROLOGICAL: Absent right eye. Otherwise, grossly intact. EXTREMITIES: Left below-knee amputation. INVESTIGATIONS: White count 12.4, hemoglobin 7.8. Potassium 4.2. Accu-Cheks are noted. ASSESSMENT: 1. Severe hypoglycemia in a patient who is on insulin, may have decreased requirement because of hemodialysis. 2. End-stage kidney disease on hemodialysis. 3. Diabetes mellitus type 2, uncontrolled from hypoglycemia, chronically on insulin. 4. Chronic obstructive pulmonary disease in an ex-smoker. 5. Chronic congestive heart failure, EF not known. 6. Left below-knee amputation. 7. Peripheral artery disease. 8. Essential hypertension. 9. Primary osteoarthritis. 10.Mild cognitive impairment from Alzheimer dementia, early. 11.Acute metabolic encephalopathy, multifactorial. 12.Depression, not otherwise specified. 13.Coronary artery disease with prior history of stent. 14.Absent right eye. 15.Possible pneumonia, suspect gram-negative organism. PLAN: Patient critically overall doing better. The patient is status post hypoglycemic protocol. Sugars are doing much better. Will decrease patient's Lantus to 20 units and will continue with sliding scale dialysis schedule per Dr. Wilkerson. The patient to be continued on ceftriaxone for 1 more day. MMODL / IJN: [id number] /
[2018-01-29 02:37] LABS: Glucose,Whole Blood 176 mg/dL (75-99)
[2018-01-29 06:19] LABS: Glucose,Whole Blood 158 mg/dL (75-99)
[2018-01-29] MEDS: INSULIN ASPART 100 UNIT/ML 1 ML 10 ML VIAL SQ SCH ×2 (07:00→17:46)
[2018-01-29 11:56] LABS: Glucose,Whole Blood 117 mg/dL (75-99)
--- NOTE | 2018-01-29 12:22 | PN ---
PROGRESS NOTE Patient is seen for followup for end-stage renal disease. She was admitted to the hospital with fluid overload and hypoglycemia. The patient will be dialyzed today. EXAMINATION: Blood pressure is 136/66, heart rate 67 per minute. She is afebrile. HEART: S1, S2. LUNGS: Bilateral breath sounds are heard. Abdomen is soft, nontender. Lower extremities show trace edema bilaterally. MEDICAL STAFF SERVICES COORDINATOR is grossly intact. LABS: Not available from today. Yesterday, potassium was 4.2. Hemoglobin 7.8 g/dL. ASSESSMENT: 1. End-stage renal disease, on hemodialysis on a Saturday, Saturday, Saturday schedule. The patient will be dialyzed today. 2. Fluid overload, currently improved since admission. We will try again for about 3 L today. 3. Anemia with no active bleeding noted. The patient is maintained on Aranesp. 4. Hypoglycemia on initial admission, currently improved. 5. Hypertension. Continue current antihypertensive medications. Plan is to discontinue oral sodium bicarb. Continue with Aranesp and hemodialysis today. Patient can possibly be discharged today after dialysis. MMODL / IJN: [id number] /
[2018-01-29] MEDS: ISOSORBIDE MONONITRATE ER 60 MG TAB.ER.24H PO SCH (12:37)
[2018-01-29] MEDS: HEPARIN SODIUM,PORCINE 5,000 UNIT/ML 1 ML VIAL SQ SCH ×3 (12:37→23:43)
[2018-01-29] MEDS: buPROPion 75 MG TAB PO SCH (12:38)
[2018-01-29] MEDS: hydrALAZINE HCL 50 MG TAB PO SCH ×3 (12:39→20:19)
[2018-01-29] MEDS: METOPROLOL TARTRATE 50 MG TAB PO SCH ×2 (12:40→20:18)
[2018-01-29] MEDS: CALCIUM ACETATE 667 MG CAP PO SCH ×2 (12:40→17:45)
[2018-01-29] MEDS: GABAPENTIN 300 MG CAP PO SCH ×3 (12:41→20:19)
[2018-01-29] MEDS: ESCITALOPRAM 20 MG TAB PO SCH (12:41)
[2018-01-29] MEDS: amLODIPine 5 MG TAB PO SCH (12:41)
[2018-01-29] MEDS: Acetaminophen-Codeine 300-30mg TAB PO PRN (12:46)
[2018-01-29] MEDS: cefTRIAXone IN SWFI 1,000 MG/10 ML SYRINGE IVP SCH (12:50)
[2018-01-29] MEDS ORDERED: MAGNESIUM CITRATE 296 ML BOTTLE PO ONE (15:37)
[2018-01-29 16:51] LABS: Glucose,Whole Blood 177 mg/dL (75-99)
--- NOTE | 2018-01-29 19:40 | PN ---
PROGRESS NOTE DATE OF SERVICE: 01/29/18. PRESENTING COMPLAINT: Tired. INTERVAL HISTORY: This patient presented with fluid overloaded and severe hypoglycemia. Doing much better. Tolerating a diet. Hemodialysis today. The patient did not respond to the laxative yesterday. REVIEW OF SYSTEMS: Done for constitutional, cardiovascular, GI, pulmonary; relevant findings as above. CURRENT MEDICATIONS: Reviewed. EXAMINATION: Temperature 98.8, pulse 65, respiratory 18, blood pressure 160/82, pulse ox 100% on 5 L. GENERAL APPEARANCE: Lying in bed, awake. EYES: Right eye is absent. Left pupil is normal. HEENT: External appearance of nose and ears normal. Oral cavity normal. NECK: JVD not raised. Mass not palpable. RESPIRATORY: Effort normal. Lungs, decreased breath sounds. CARDIOVASCULAR: First and second sounds, no edema. ABDOMEN: Soft, nontender. Liver and spleen not palpable. PSYCHIATRY: Alert and oriented x3. Mood and affect normal. INVESTIGATIONS: Accu-Cheks are noted. ASSESSMENT: 1. Severe hypoglycemia in patient on insulin, has decreased requirement because of hemodialysis. 2. End-stage kidney disease on hemodialysis to be done today. 3. Diabetes mellitus type 2, uncontrolled from hypoglycemia chronically on insulin. 4. Chronic obstructive pulmonary disease in an ex-smoker. 5. Chronic congestive heart failure, EF not known. 6. Left below-knee amputation. 7. Peripheral artery disease. 8. Essential hypertension. 9. Primary osteoarthritis. 10.Mild cognitive impairment from Alzheimer's dementia early. 11.Acute metabolic encephalopathy, multifactorial, resolved. 12.Depression, not otherwise specified. 13.Coronary artery disease with a history of stent. 14.Absent right eye. 15.Possible pneumonia suspect gram-negative organism, doing better. PLAN: Will give the patient an enema today. The patient is doing better on the reduced dose of Lantus. Will add some with Humalog with meals. The patient's NovoLog with meals will be continued. Care was discussed with the patient. MMODL / IJN: [id number] /
[2018-01-29] MEDS: MELATONIN 5 MG TABLET PO SCH (20:18)
[2018-01-29] MEDS: PRAVASTATIN SODIUM 20 MG TAB PO SCH (20:19)
[2018-01-29] MEDS: CLOPIDOGREL 75 MG TAB PO SCH (20:19)
[2018-01-29] MEDS ORDERED: INSULIN DETEMIR 100 UNIT/ML 10 ML VIAL SQ SCH (21:00)
[2018-01-29 21:03] LABS: Glucose,Whole Blood 165 mg/dL (75-99)
[2018-01-29] MEDS: SENNOSIDES 8.6 MG TAB PO SCH (21:22)
[2018-01-30 04:00] LABS: Glucose,Whole Blood 160 mg/dL (75-99)
[2018-01-30 06:31] LABS: Glucose,Whole Blood 157 mg/dL (75-99)
[2018-01-30] MEDS: CALCIUM ACETATE 667 MG CAP PO SCH ×2 (06:32→12:41)
[2018-01-30] MEDS: INSULIN ASPART 100 UNIT/ML 1 ML 10 ML VIAL SQ SCH ×2 (06:56→12:40)
[2018-01-30] MEDS: GABAPENTIN 300 MG CAP PO SCH (08:38)
[2018-01-30] MEDS: METOPROLOL TARTRATE 50 MG TAB PO SCH (08:38)
[2018-01-30] MEDS: buPROPion 75 MG TAB PO SCH (08:38)
[2018-01-30] MEDS: HEPARIN SODIUM,PORCINE 5,000 UNIT/ML 1 ML VIAL SQ SCH (08:38)
[2018-01-30] MEDS: ESCITALOPRAM 20 MG TAB PO SCH (08:39)
[2018-01-30] MEDS: ISOSORBIDE MONONITRATE ER 60 MG TAB.ER.24H PO SCH (08:40)
[2018-01-30] MEDS: hydrALAZINE HCL 50 MG TAB PO SCH (08:40)
[2018-01-30] MEDS: amLODIPine 5 MG TAB PO SCH (08:40)
--- NOTE | 2018-01-30 09:44 | P.PN ---
Subjective Patient is seen in follow-up for end-stage renal disease. She is maintained on hemodialysis on a Saturday schedule via right chest permacath. Patient tolerated hemodialysis well yesterday. Her blood sugars are stable. Currently resting in bed. No active complaints at this time. Vital signs are stable. General: The patient appeared well nourished and normally developed. HEENT: Head exam is unremarkable. Neck is without jugular venous distension. LUNGS: Lungs are clear to auscultation and percussion. Breath sounds decreased. HEART: Rate and Rhythm are regular. First and second heart sounds normal. No murmurs, rubs or gallops. ABDOMEN: Abdominal exam reveals normal bowel sounds. Non-tender and non- distended. No evidence of peritonitis. EXTREMITITES: No clubbing, cyanosis, or edema. Left [id number] habitation noted. Objective - Vital Signs Vital signs: Vital Signs Temp 98.5 F 01/30/18 04:00 Pulse 70 01/30/18 04:00 Resp 18 01/30/18 04:00 BP 132/77 01/30/18 04:00 Pulse Ox 95 01/30/18 04:00 Intake & Output 01/29/18 01/30/18 01/30/18 18:59 06:59 18:59 Intake Total 900 Output Total 500 775 Balance 400 -775 Weight 93 kg Intake: Oral 900 Output: Urine 500 775 Other: Voiding Method Indwelling Catheter Indwelling Catheter - Labs CBC & Chem 7: 01/28/18 05:52 01/28/18 05:52 Labs: Abnormal Lab Results - Last 24 Hours (Table) 01/29/18 01/29/18 01/29/18 Range/Units 11:54 16:26 21:00 POC Glucose (mg/dL) 117 H 177 H 165 H (75-99) mg/dL 01/30/18 01/30/18 Range/Units 03:59 06:30 POC Glucose (mg/dL) 160 H 157 H (75-99) mg/dL Microbiology - Last 24 Hours (Table) 01/27/18 13:38 Blood Culture - Preliminary Blood No Growth after 48 hours Assessment and Plan Plan: Assessment: 1. End-stage renal disease maintained on hemodialysis on a Saturday schedule via right chest permacath. 2. Volume overload. Improved postdialysis. 3. Anemia of chronic kidney disease maintained on Aranesp. 4. Hypoglycemia, resolved. Insulin dose adjusted. 5. Insulin-dependent diabetes mellitus. 6. Chronic kidney disease mineral bone disease maintained on PhosLo. 7. Hypertension with chronic kidney disease. Controlled. Plan: Hemodialysis tomorrow. Anticipate discharge soon.
[2018-01-30 11:46] LABS: Glucose,Whole Blood 191 mg/dL (75-99)
[2018-01-30] MEDS: cefTRIAXone IN SWFI 1,000 MG/10 ML SYRINGE IVP SCH (12:44)
--- NOTE | 2018-01-30 15:29 | DS ---
DISCHARGE SUMMARY DATE OF ADMISSION: 01/27/2018 DATE OF DISCHARGE: 01/30/2018 FINAL DIAGNOSES: 1. Possible pneumonia, suspect gram-negative organism present on admission. 2. Severe hypoglycemia secondary to insulin in the patient with renal disease. 3. End-stage kidney disease, on hemodialysis. 4. Diabetes mellitus type 2, uncontrolled from hypoglycemia chronically on insulin. 5. Chronic obstructive pulmonary disease in an ex-smoker. 6. Chronic congestive heart failure, ejection fraction not known. 7. Left below-knee amputation. 8. Peripheral artery disease. 9. Essential hypertension. 10.Primary osteoarthritis. 11.Mild cognitive impairment from Alzheimer's dementia, early. 12.Acute metabolic encephalopathy, multifactorial, resolved. 13.Depression, not otherwise specified. 14.Coronary artery disease with a history of stent. 15.Absent right eye next. 16.Patient has a legal guardian, Chanel. CONSULTATION: Dr. Wilkerson from Nephrology. HOSPITAL COURSE: This patient appeared tired, lethargic, short of breath, found to be in fluid overload, did respond to hemodialysis. Also found to have pneumonia, given IV antibiotics, now switched to Ceftin. Patient is also on hemodialysis on hefty dose of Neurontin, the dose has been cut back. Patient doing really well. Patient has been given an enema this afternoon to have a bowel movement. On examination: PSYCH: AO x3. Patient has got an absent right eye. Decreased breath sounds. ABDOMEN: Soft, nontender. I discussed with the case manger today. DISCHARGE MEDICATIONS: 1. Lopressor 50 mg p.o. b.i.d. 2. PhosLo 667 mg p.o. daily. 3. Pravachol 10 mg p.o. q.h.s. 4. Hydralazine 50 mg t.i.d. 5. Imdur ER 60 mg a day. 6. Nitrostat 0.4 sublingual q.5 p.r.n. 7. Vitamin D3 two thousand units p.o. daily. 8. Norvasc 5 mg p.o. daily. 9. Lexapro 20 mg p.o. daily. 10.Melatonin 5 mg q.h.s. 11.Zofran 4 mg q.8 hours p.r.n. 12.Milk of magnesia 2400 mg p.o. daily p.r.n. 13.Senna 8.6 mg p.o. q.48 hours. 14.Plavix 75 mg q.h.s. 15.Cranberry 450 mg q.h.s. 16.Biofreeze 1 application topical q.8 p.r.n. 17.Promethazine 12.5 p.o. q.6 p.r.n. 18.Sodium bicarb 650 mg p.o. b.i.d. 19.Wellbutrin 150 mg p.o. daily. 20.Tylenol No. 3 one tab q.4 to 6 p.r.n. 21.Ceftin 500 mg q.48 hours, total of 3 tablets given after next hemodialysis. 22. 40 mcg subcu every 7 days. 23.Neurontin 300 mg q.h.s., new dose. 24.Dilaudid 2 mg q.6 p.r.n. 25.Humalog 6 units subcu a.c. t.i.d., new dose. 26.Lantus 26 units subcu q.h.s., new dose. 27.Accu-Cheks q.a.c. and at bedtime. 28.Metamucil 1 packet daily. 29.Discontinued medications include Imodium and Colace. [facility] planning more than 35 minutes including discussion with the patient. MMMINE / TYLOR: [id number] /
[2018-01-30 15:35] VITALS: BP 165/72; PULSE 65; TEMP 98.9
== END 2018-01-30 17:00 | DRG 637 ==
LOC: EC 06:48 → 6SEL 09:37
PROVIDERS: ADMIT Hospitalist; ATTEND Hospitalist
PROC: 5A1D70Z Performance of Urinary Filtration, Intermittent, Less than 6 Hours Per Day (ICD-10-PCS; principal; 2018-01-28)
DX: E11.649 Type 2 diabetes mellitus with hypoglycemia without coma (principal); G93.41 Metabolic encephalopathy; J15.6 Pneumonia due to other Gram-negative bacteria; I13.2 Hypertensive heart and chronic kidney disease with heart failure and with stage 5 chronic kidney disease, or end stage renal disease; J44.0 Chronic obstructive pulmonary disease with (acute) lower respiratory infection; E11.22 Type 2 diabetes mellitus with diabetic chronic kidney disease; N18.6 End stage renal disease; I50.9 Heart failure, unspecified; G30.9 Alzheimer's disease, unspecified; F02.80 Dementia in other diseases classified elsewhere, unspecified severity, without behavioral disturbance, psychotic disturbance, mood disturbance, and anxiety; F32.9 Major depressive disorder, single episode, unspecified; I25.10 Atherosclerotic heart disease of native coronary artery without angina pectoris; E11.40 Type 2 diabetes mellitus with diabetic neuropathy, unspecified; M06.9 Rheumatoid arthritis, unspecified; M19.91 Primary osteoarthritis, unspecified site; E11.41 Type 2 diabetes mellitus with diabetic mononeuropathy; D63.1 Anemia in chronic kidney disease; E11.51 Type 2 diabetes mellitus with diabetic peripheral angiopathy without gangrene; E16.0 Drug-induced hypoglycemia without coma; T38.3X5A Adverse effect of insulin and oral hypoglycemic [antidiabetic] drugs, initial encounter; E78.5 Hyperlipidemia, unspecified; Z99.2 Dependence on renal dialysis; Z79.4 Long term (current) use of insulin; Z89.512 Acquired absence of left leg below knee; Z95.5 Presence of coronary angioplasty implant and graft; I25.2 Old myocardial infarction; Z90.710 Acquired absence of both cervix and uterus; Z90.01 Acquired absence of eye; Z87.891 Personal history of nicotine dependence; Z86.73 Personal history of transient ischemic attack (TIA), and cerebral infarction without residual deficits; Z82.5 Family history of asthma and other chronic lower respiratory diseases
CPT/HCPCS: 36415; 70450; 71045; 74176; 80048; 80053; 80306; 81001; 82272; 82550; 82553; 83036; 83605; 83735; 84484; 85025; 85610; 85730; 86850; 86900; 86901; 87040; 90935; 93005; 94640; 94760; 96361; 96365; 96372; 96375; 99291

== ENCOUNTER 2018-02-21 09:37 | Observation (INO) | payer OTHER ==
[2018-02-21 10:18] LABS: Anisocytosis Slight; Basophils % (A) 1 %; Eosinophils # (A) 0.1 k/uL (0-0.7); Eosinophils % (A) 2 %; HCT 30.8 % (34.0-46.0); Hypochromasia Slight; Lymphocytes # (A) 0.9 k/uL (1.0-4.8); Lymphocytes % (A) 20 %; MCH 27.9 pg (25.0-35.0); MCV 89.9 fL (80.0-100.0); Mean Platelet Volume 6.4; Monocytes # (A) 0.3 k/uL (0-1.0); Monocytes % (A) 7 %; Neutrophils # (A) 2.9 k/uL (1.3-7.7); Neutrophils % (A) 69 %; Platelet Count 289 k/uL (150-450); RBC 3.43 m/uL (3.80-5.40); RDW 16.1 % (11.5-15.5); WBC 4.3 k/uL (3.8-10.6)
--- NOTE | 2018-02-21 10:18 | ED ---
General Adult HPI - General Chief complaint: Chest Pain Stated complaint: Chest Pain Time Seen by Provider: 02/21/18 09:40 Source: patient, RN notes reviewed, old records reviewed Mode of arrival: EMS Limitations: no limitations - History of Present Illness Initial comments: 62-year-old female presented for evaluation of chest pain. Patient has history of diabetes, end-stage renal disease currently on hemodialysis through a right chest wall permacath. She was at dialysis this morning when her chest pain developed. Describes it as central chest pressure. This is resolved at the time my evaluation. Patient denies nausea or vomiting. Denies diaphoresis. Denies any radiating symptoms. Patient has right BKA, she has lost her right eye secondary to diabetes. - Related Data Home Medications Medication Instructions Recorded Confirmed Calcium Acetate [PhosLo] 667 mg PO DAILY 11/10/15 02/21/18 Pravastatin Sodium [Pravachol] 10 mg PO HS 11/10/15 02/21/18 hydrALAZINE HCL [Apresoline] 50 mg PO TID 11/10/15 02/21/18 Cholecalciferol [Vitamin D3] 2,000 unit PO DAILY 05/25/16 02/21/18 Escitalopram [Lexapro] 20 mg PO DAILY 06/17/16 02/21/18 Melatonin 5 mg PO HS 02/08/17 02/21/18 Ondansetron [Zofran] 4 mg PO Q8H PRN 02/08/17 02/21/18 Sennosides [Senna] 8.6 mg PO Q48H 12/08/17 02/21/18 Clopidogrel [Plavix] 75 mg PO HS 01/27/18 02/21/18 Cranberry Fruit Concentrate 450 mg PO HS 01/27/18 02/21/18 [Cranberry] Menthol [Biofreeze] 1 applic TOPICAL Q8H PRN 01/27/18 02/21/18 Promethazine HCl 12.5 mg PO Q6H PRN 01/27/18 02/21/18 Sodium Bicarbonate Tab 650 mg PO BID 01/27/18 02/21/18 buPROPion [Wellbutrin] 150 mg PO DAILY 01/27/18 02/21/18 Magnesium Hydroxide [Milk of 2,400 mg PO HS PRN 02/21/18 02/21/18 Magnesia] Yuclexbx-Qkttbdlylf-Diyb Oint 1 applic TOPICAL BID 02/21/18 02/21/18 [Triple Antibiotic Ointment] Previous Rx's Medication Instructions Recorded Metoprolol Tartrate [Lopressor] 50 mg PO BID #60 tab 05/27/14 Isosorbide Mononitrate ER [Imdur] 60 mg PO DAILY #1 tab 11/21/15 Nitroglycerin Sl Tabs [Nitrostat] 0.4 mg SUBLINGUAL Q5M PRN #0 tab 11/21/15 amLODIPine [Norvasc] 5 mg PO DAILY #30 tab 05/26/16 Acetaminophen-Codeine 300-30mg 1 tab PO Q4-6H PRN #10 tab 01/30/18 [Tylenol w/codeine #3] Darbepoetin Jc [Aranesp] 40 mcg SQ Q7D syringe 01/30/18 Gabapentin [Neurontin] 300 mg PO HS #0 01/30/18 HYDROmorphone [Dilaudid] 2 mg PO Q6H PRN #10 tab 01/30/18 INSULIN LISPRO (HumaLOG) [humaLOG] 6 units SQ AC-TID #0 01/30/18 Insulin Glargine [Lantus] 26 unit SQ HS #0 01/30/18 Allergies Allergy/AdvReac Type Severity Reaction Status Date / Time doxycycline calcium Allergy Rash/Hives Verified 02/21/18 10:24 [From Vibramycin] doxycycline hyclate Allergy Rash/Hives Verified 01/27/18 08:02 [From Vibramycin] doxycycline monohydrate Allergy Rash/Hives Verified 02/21/18 10:24 [From Vibramycin] nalbuphine HCl [From Nubain] Allergy Rash/Hives Verified 02/21/18 10:24 oxycodone HCl [From Tylox] Allergy Rash/Hives Verified 02/21/18 10:24 Tetracyclines Allergy Rash/Hives Verified 02/21/18 10:24 Review of Systems ROS Statement: Those systems with pertinent positive or pertinent negative responses have been documented in the HPI. ROS Other: All systems not noted in ROS Statement are negative. Past Medical History Past Medical History: Coronary Artery Disease (CAD), Heart Failure, COPD, CVA/ TIA, Dementia, Diabetes Mellitus, Eye Disorder, Hyperlipidemia, Hypertension, Myocardial Infarction ([place]), Osteoarthritis (OA), Renal Disease, Rheumatoid Arthritis (RA), Skin Disorder, Vascular Disorder Additional Past Medical History / Comment(s): UTI/pyelonephritis with sepsis, IDDM type II,hx of falls CKD stage III, PAD, 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 Last Myocardial Infarction Date:: 1987 History of Any Multi-Drug Resistant Organisms: ESBL, MRSA Date of last positivie culture/infection: 01/09/18 ESBL 12/26/17 MRSA MDRO Source:: ESBL URINE/ MRSA URINE Past Surgical History: Cholecystectomy, Heart Catheterization With Stent, Hernia Repair, Hysterectomy, Tubal Ligation Additional Past Surgical History / Comment(s): Abdominal SX. RT EYE REMOVED 2 YEAR AGO, 05-25-14 LT BELOW KNEE AMP Past Anesthesia/Blood Transfusion Reactions: Motion Sickness Additional Past Anesthesia/Blood Transfusion Reaction / Comment(s): stated has had blood transfusion in past-no reaction to it Date of Last Stent Placement:: 04/2014 Past Psychological History: Anxiety, Depression Smoking Status: Former smoker - Past Family History Father Family Medical History: CVA/TIA Mother Family Medical History: COPD General Exam Limitations: no limitations General appearance: alert, in no apparent distress Head exam: Present: atraumatic, normocephalic Eye exam: Present: other (Left eye normal limits, right eye absent) Neck exam: Present: normal inspection. Absent: tenderness Respiratory exam: Present: normal lung sounds bilaterally. Absent: respiratory distress, wheezes Cardiovascular Exam: Present: regular rate, normal rhythm GI/Abdominal exam: Present: soft. Absent: distended, tenderness Extremities exam: Present: other (Left BKA) Neurological exam: Present: alert, oriented X3 Psychiatric exam: Present: normal affect, normal mood Skin exam: Present: warm, dry, intact. Absent: cyanosis, diaphoretic Course Vital Signs 02/21/18 02/21/18 02/21/18 09:47 10:54 12:23 Temperature 98.0 F 97.9 F Pulse Rate 59 L 60 59 L Respiratory 18 16 18 Rate Blood Pressure 142/64 181/73 176/78 O2 Sat by Pulse 98 99 98 Oximetry - Reevaluation(s) Reevaluation #1: 02/21/18 13:01 Patient remains chest pain-free while in the emergency department. EKG Findings - EKG Comments: EKG Findings:: EKG: Sinus bradycardia, prolonged QT, rate of 59, TN interval 180 , QRS duration 100, QTC 508, there is no ST segment elevation or depression Medical Decision Making - Medical Decision Making 62-year-old female presenting with chest pain while at dialysis. Patient is chest pain-free at the time my evaluation. EKG shows no definitive signs of ischemia, there is prolonged QT. Chest x-ray negative for acute cardiopulmonary disease, there is improved aeration compared to previous chest x -ray. Hemoglobin stable and improved from previous at 9.6. Creatinine 1.83, troponin is negative. Patient will be placed in observation for serial cardiac enzymes and cardiology consultation. - Lab Data Result diagrams: 02/21/18 09:55 02/21/18 09:55 Lab Results 02/21/18 02/21/18 02/21/18 Range/Units 09:55 09:55 09:55 WBC 4.3 (3.8-10.6) k/uL RBC 3.43 L (3.80-5.40) m/uL Hgb 9.6 L D (11.4-16.0) gm/dL Hct 30.8 L (34.0-46.0) % MCV 89.9 (80.0-100.0) fL MCH 27.9 (25.0-35.0) pg MCHC 31.0 (31.0-37.0) g/dL RDW 16.1 H (11.5-15.5) % Plt Count 289 (150-450) k/uL Neutrophils % 69 % Lymphocytes % 20 % Monocytes % 7 % Eosinophils % 2 % Basophils % 1 % Neutrophils # 2.9 (1.3-7.7) k/uL Lymphocytes # 0.9 L (1.0-4.8) k/uL Monocytes # 0.3 (0-1.0) k/uL Eosinophils # 0.1 (0-0.7) k/uL Basophils # 0.0 (0-0.2) k/uL Hypochromasia Slight Anisocytosis Slight PT (9.0-12.0) sec INR (<1.2) APTT (22.0-30.0) sec Sodium 136 L (137-145) mmol/L Potassium 4.0 (3.5-5.1) mmol/L Chloride 97 L (98-107) mmol/L Carbon Dioxide 27 (22-30) mmol/L Anion Gap 12 mmol/L BUN 23 H (7-17) mg/dL Creatinine 1.83 H (0.52-1.04) mg/dL Est GFR (CKD-EPI)AfAm 34 (>60 ml/min/1.73 sqM) Est GFR (CKD-EPI)NonAf 29 (>60 ml/min/1.73 sqM) Glucose 155 H (74-99) mg/dL Calcium 8.6 (8.4-10.2) mg/dL Magnesium 2.0 (1.6-2.3) mg/dL Total Bilirubin 0.5 (0.2-1.3) mg/dL AST 30 (14-36) U/L ALT 26 (9-52) U/L Alkaline Phosphatase 91 (38-126) U/L Total Creatine Kinase 40 (30-135) U/L CK-MB (CK-2) 0.5 (0.0-2.4) ng/mL CK-MB (CK-2) Rel Index 1.3 Troponin I <0.012 (0.000-0.034) ng/mL Total Protein 6.8 (6.3-8.2) g/dL Albumin 3.6 (3.5-5.0) g/dL 02/21/18 Range/Units 09:55 WBC (3.8-10.6) k/uL RBC (3.80-5.40) m/uL Hgb (11.4-16.0) gm/dL Hct (34.0-46.0) % MCV (80.0-100.0) fL MCH (25.0-35.0) pg MCHC (31.0-37.0) g/dL RDW (11.5-15.5) % Plt Count (150-450) k/uL Neutrophils % % Lymphocytes % % Monocytes % % Eosinophils % % Basophils % % Neutrophils # (1.3-7.7) k/uL Lymphocytes # (1.0-4.8) k/uL Monocytes # (0-1.0) k/uL Eosinophils # (0-0.7) k/uL Basophils # (0-0.2) k/uL Hypochromasia Anisocytosis PT 9.9 (9.0-12.0) sec INR 1.0 (<1.2) APTT 61.2 H (22.0-30.0) sec Sodium (137-145) mmol/L Potassium (3.5-5.1) mmol/L Chloride (98-107) mmol/L Carbon Dioxide (22-30) mmol/L Anion Gap mmol/L BUN (7-17) mg/dL Creatinine (0.52-1.04) mg/dL Est GFR (CKD-EPI)AfAm (>60 ml/min/1.73 sqM) Est GFR (CKD-EPI)NonAf (>60 ml/min/1.73 sqM) Glucose (74-99) mg/dL Calcium (8.4-10.2) mg/dL Magnesium (1.6-2.3) mg/dL Total Bilirubin (0.2-1.3) mg/dL AST (14-36) U/L ALT (9-52) U/L Alkaline Phosphatase (38-126) U/L Total Creatine Kinase (30-135) U/L CK-MB (CK-2) (0.0-2.4) ng/mL CK-MB (CK-2) Rel Index Troponin I (0.000-0.034) ng/mL Total Protein (6.3-8.2) g/dL Albumin (3.5-5.0) g/dL Disposition Clinical Impression: Chest pain Disposition: ADMITTED IP TO THIS [facility] Condition: Stable Is patient prescribed a controlled substance at d/c from ED?: No Referrals: Jose Nobles DO [Primary Care Provider] - 1-2 days Decision to Admit Reason: Admit from EC Decision Date: 02/21/18 Decision Time: 12:30
[2018-02-21 10:27] LABS: HGB 9.6 gm/dL (11.4-16.0)
--- NOTE | 2018-02-21 10:30 | XR ---
EXAMINATION TYPE: XR chest 2V DATE OF EXAM: 02/21/2018 COMPARISON: 01/27/2018 HISTORY: Midsternal chest pain TECHNIQUE: Frontal and lateral views of the chest are obtained. FINDINGS: There is improved aeration of the lungs in comparison to the prior exam. Dual-lumen right-s ided hemodialysis catheter terminates in the high right atrium. There is chronic elevation of the rig ht hemidiaphragm. There is no focal air space opacity, pleural effusion, or pneumothorax seen. The c ardiac silhouette size is within normal limits. The osseous structures are intact. There is mild os seous demineralization and acromioclavicular arthropathy. IMPRESSION: No acute cardiopulmonary process. Improved aeration of the chest in comparison to the pr ior. Chronic right hemidiaphragm elevation.
[2018-02-21 10:36] LABS: Albumin 3.6 g/dL (3.5-5.0); Calcium 8.6 mg/dL (8.4-10.2); Total Bilirubin 0.5 mg/dL (0.2-1.3); Total Protein 6.8 g/dL (6.3-8.2)
[2018-02-21 10:38] LABS: Prothrombin Time 9.9 sec (9.0-12.0)
[2018-02-21 10:46] LABS: Creatine Kinase 40 U/L (30-135)
[2018-02-21 10:59] LABS: Creatine Kinase MB 0.5 ng/mL (0.0-2.4); Troponin I <0.012 ng/mL (0.000-0.034)
[2018-02-21] MEDS ORDERED: ASPIRIN 325 MG TAB PO STA (12:24)
[2018-02-21 12:38] LABS: Partial Thromboplastin Time 61.2 sec (22.0-30.0)
[2018-02-21] MEDS ORDERED: NALOXONE 0.4 MG/ML 1 ML VIAL IV PRN (12:58)
[2018-02-21] MEDS ORDERED: ACETAMINOPHEN TAB 325 MG TAB PO PRN (12:58)
[2018-02-21] MEDS ORDERED: HYDROmorphone 2 MG TAB PO PRN (12:59)
[2018-02-21] MEDS ORDERED: NITROGLYCERIN SL TABS 0.4 MG TAB SUBLINGUAL PRN (12:59)
--- NOTE | 2018-02-21 14:28 | CONS ---
CONSULTATION Mrs. Delgadillo is a 62-year-old female with known history of end-stage renal disease, on hemodialysis for the last month or so, history of diabetes, below left knee amputation who presented with symptoms of chest discomfort. The discomfort occurred in dialysis. She is pain-free at the time of my evaluation. The patient is not sure if she had any prior cardiac history. Reviewing the old records, she was in the hospital in 2016. At that time had a stress echocardiogram that revealed no evidence of inducible ischemia. There is a questionable history of prior stent, although I am not quite sure when and the patient could not tell me. 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 She denies any change in her breathing. She denies any dizziness or palpitation. No syncope. She has stopped smoking 6 months ago. Her coronary risk factors are remarkable for the prior history of smoking. She is hypertensive, hyperlipidemic and diabetic. MEDICATION: Her medications at home include hydralazine 50 mg 3 times a day, amlodipine 5 mg daily, sodium bicarb, pravastatin 10 mg daily, metoprolol tartrate 50 mg twice a day, isosorbide mononitrate 60 mg daily, insulin, Plavix 75 mg daily. REVIEW OF SYSTEMS: RESPIRATORY SYSTEM: She has no recent wheezing. She has history of bronchitis. Prior history of smoking. GI SYSTEM: No recent GI bleed. No peptic ulcer disease. SYSTEM: She is status post dialysis. NERVOUS SYSTEM: No history of seizure. She has lost her right eye for diabetes. PHYSICAL EXAMINATION: A 62-year-old female who appears older than stated age. No apparent distress. Blood pressure 156/60 with the heart rate in the 60s. HEAD: Normocephalic. With loss of the right eye. NECK: Good carotid upstroke. No bruit. LUNGS: Clear to auscultation. HEART: Regular rate and rhythm. S1, S2. No S3 with systolic ejection murmur, no diastolic murmur. ABDOMEN: Soft, nontender. Positive bowel sounds. No organomegaly. EXTREMITIES: Status post left BKA and no edema on the right side. Decreased distal pulses. LAB DATA: Lab data revealed a hemoglobin 9.6. BUN and creatinine 23 and 1.83. Troponin of less than 0.012. EKG reveals sinus mechanism, rate 59, normal axis and intervals. No acute changes. IMPRESSION: 1. Chest discomfort of unclear etiology. On examination, patient had some reproducible chest pain by palpation which is suggestive of a noncardiac etiology. 2. History of end-stage renal disease, on hemodialysis. 3. Hypertension. 4. Hyperlipidemia. 5. Diabetes mellitus. 6. Peripheral vascular disease. 7. Prior history of smoking. RECOMMENDATION: From the cardiac standpoint, we will obtain echocardiogram with Doppler. We will follow her cardiac enzymes and depending on her findings, further recommendation will be made. Thank you for this consult. We will follow with you. MMODL / IJN: [id number] /
[2018-02-21] MEDS ORDERED: Acetaminophen-Codeine 300-30mg TAB PO PRN (15:42)
[2018-02-21] MEDS ORDERED: PROMETHAZINE 25 MG TAB PO PRN (15:42)
[2018-02-21] MEDS ORDERED: ONDANSETRON 4 MG TAB PO PRN (15:42)
[2018-02-21] MEDS ORDERED: MAGNESIUM HYDROXIDE 2,400 MG/10 ML CUP PO PRN (15:42)
[2018-02-21] MEDS ORDERED: TEMAZEPAM 15 MG CAP PO PRN (15:43)
[2018-02-21] MEDS ORDERED: ALPRAZolam 0.25 MG TAB PO PRN (15:43)
[2018-02-21] MEDS ORDERED: SENNOSIDES 8.6 MG TAB PO SCH (16:00)
[2018-02-21] MEDS ORDERED: METHYL SALICYLATE/MENTHOL CREAM 5 OZ TOPICAL PRN (16:00)
[2018-02-21] MEDS ORDERED: DARBEPOETIN ALFA 40 MCG/0.4 ML SYRINGE SQ SCH (16:00)
[2018-02-21 16:53] LABS: Glucose,Whole Blood 217 mg/dL (75-99)
[2018-02-21] MEDS: hydrALAZINE HCL 50 MG TAB PO SCH ×2 (17:05→20:40)
[2018-02-21] MEDS: ATORVASTATIN 40 MG TAB PO SCH (17:05)
[2018-02-21] MEDS: INSULIN ASPART 100 UNIT/ML 1 ML 10 ML VIAL SQ SCH ×2 (17:45→22:18)
--- NOTE | 2018-02-21 17:45 | ECHOF ---
Referral Reason:cp MEASUREMENTS -------- HEIGHT: 180.3 cm WEIGHT: 90.7 kg BP: 156/68 RVIDd: 2.8 cm (< 3.3) IVSd: 1.4 cm (0.6 - 1.1) LVIDd: 4.5 cm (3.9 - 5.3) LVPWd: 1.4 cm (0.6 - 1.1) IVSs: 2.0 cm LVIDs: 3.1 cm LVPWs: 1.8 cm LA Diam: 4.1 cm (2.7 - 3.8) LAESV Index (A-L): 28.69 ml/m Ao Diam: 3.0 cm (2.0 - 3.7) AV Cusp: 2.1 cm (1.5 - 2.6) MV EXCURSION: 13.189 mm (> 18.000) MV EF SLOPE: 25 mm/s (70 - 150) EPSS: 0.8 cm MV E Ino: 0.96 m/s MV DecT: 317 ms MV A Ino: 1.18 m/s MV E/A Ratio: 0.82 FINDINGS -------- Sinus rhythm. This was a technically adequate study. The left ventricular size is normal. There is moderate concentric left ventricular hypertrophy. O verall left ventricular systolic function is mild-moderately impaired with, an EF between 40 - 45 %. The right ventricle is normal in size. The right atrium is normal in size. There is mild aortic valve sclerosis. The mitral valve leaflets are mildly thickened. Mild mitral annular calcification present. The tricuspid valve appears structurally normal. There is no pulmonic regurgitation present. The aortic root size is normal. IVC Not well visulized. There is a moderate pericardial effusion located near the left ventricle. CONCLUSIONS -------- 1. Sinus rhythm. 2. This was a technically adequate study. 3. The left ventricular size is normal. 4. There is moderate concentric left ventricular hypertrophy. 5. Overall left ventricular systolic function is mild-moderately impaired with, an EF between 40 - 45 %. 6. The right ventricle is normal in size. 7. The right atrium is normal in size. 8. There is mild aortic valve sclerosis. 9. The mitral valve leaflets are mildly thickened. 10. Mild mitral annular calcification present. 11. The tricuspid valve appears structurally normal. 12. There is no pulmonic regurgitation present. 13. The aortic root size is normal. 14. IVC Not well visulized. 15. There is a moderate pericardial effusion located near the left ventricle. SINGLE RESOURCE BOSS: Micaela Chung RDCS
[2018-02-21 19:25] LABS: Creatine Kinase 35 U/L (30-135)
[2018-02-21 19:37] LABS: Creatine Kinase MB 0.5 ng/mL (0.0-2.4); Troponin I <0.012 ng/mL (0.000-0.034)
--- NOTE | 2018-02-21 20:10 | HP ---
HISTORY AND PHYSICAL CHIEF COMPLAINT: Chest pain. HISTORY OF PRESENT ILLNESS: This 62-year-old woman with a past medical history of multiple medical problems including CAD, COPD, CHF, dementia, hemodialysis, chronic renal failure, rheumatoid arthritis being followed by Dr. Nobles in the outpatient setting recently admitted with pneumonia and multiple other complications. Currently the patient is complaining of chest pain which is situated in the left-side of the chest, sharp in character. The patient came to [facility] and admitted for further evaluation and treatment. There is no history of any fever, rigors or chills. No history of headache, loss of consciousness, seizures. Patient unable to remember whether the patient had a recent stress test. PAST MEDICAL HISTORY: CAD, COPD, CVA, dementia, diabetes, chronic renal failure, on hemodialysis. MEDICATIONS: Prior to admission include home medications are: 1. Wellbutrin 150 mg p.o. daily. 2. Zofran 4 mg q.8h p.r.n. 3. Triple antibiotic b.i.d. 4. Norvasc 5 mg p.o. daily. 5. Sodium bicarb 650 p.o. b.i.d. 6. Senna 8.6 p.o. q48 hours. 7. Promethazine 12.5 mg daily p.r.n. 8. Pravachol 10 mg q.h.s. 9. Plavix 75 mg q.h.s. 10.PhosLo 667 p.o. daily. 11.Nitrostat 0.4 mg sublingual p.r.n. 12.Milk of magnesia 2.4 g q.h.s. 13.Neurontin 300 mg q.h.s. 14.Lopressor 50 mg p.o. b.i.d. 15.Melatonin 5 mg p.o. q.h.s. 16.Imdur 60 mg p.o. daily. 17.Lantus 26 units subcu q.h.s. 18.Lexapro 20 mg p.o. daily. 19.Apresoline 50 mg p.o. t.i.d. 20.1 application q.8h p.r.n. 21.Humalog 6 units t.i.d. 22.Dilaudid 2 mg q.6h p.r.n. 23.Cranberry 450 mg q.h.s. 24.Vitamin D3 2000 daily. 26.Tylenol #3 1 tablet q.4h 6 p.r.n. ALLERGIES: DOXYCYCLINE, NUBAIN, OXYCODONE, TETRACYCLINE AND WOOL. FAMILY HISTORY: History of CVA, TIA in the family. SOCIAL HISTORY: Previous history of smoking. No history of current smoking or alcohol intake. REVIEW OF SYSTEMS: ENT: No diminished hearing. No diminished vision. Cardiovascular as mentioned earlier. RESPIRATORY: As mentioned earlier. GI: No nausea or vomiting. : As mentioned earlier. Nervous system: No numbness or weakness. Allergy/Immunology: No asthma or hayfever. Hematology/Oncology: As mentioned earlier. Endocrine: As mentioned earlier. Constitutional: As mentioned earlier. Dermatology: Negative. Rheumatology: Negative. Psychiatry: As mentioned earlier. PHYSICAL EXAMINATION: Alert, oriented x3. Pulse 65. Blood pressure 140/50, respiration 16, temperature 98.2, pulse ox 98% on room air. HEENT: Conjunctivae normal. Oral mucosa moist. Neck is no jugular venous distention. No carotid bruit. No lymph node enlargement. Cardiovascular system: S1, S2 muffled. No N3, no S4. Respiratory: Breath sounds diminished in the bases. No rhonchi. No crackles. ABDOMEN: Soft, nontender. No mass palpable. Legs: No edema and no swelling. NERVOUS SYSTEM: Higher functions as mentioned earlier. Moves all 4 limbs. No focal deficits. Lymphatics: No lymph nodes palpable in the neck, axillae or groin. Skin: No ulcer, rash or bleeding. LABS: WBC 4.5, hemoglobin 10.8. Troponin is negative. ASSESSMENT: 1. Chest pain possible unstable angina. 2. Chronic renal failure, end stage renal disease, on hemodialysis. 3. Anemia of chronic disease. 4. Coronary artery disease. 5. History of congestive heart failure. 6. History of chronic obstructive pulmonary disease. 7. Cerebrovascular accident/transient ischemic attack. 8. Dementia. 9. Diabetes type 2. 10.Hypertension. 11.Hyperlipidemia. 12.History of degenerative joint disease. 13.History of rheumatoid arthritis. 14.Urinary tract infection. 15.History of ESBL E coli. 16.History of anxiety, depression. RECOMMENDATIONS AND DISCUSSION: In this 62-year-old woman who presented with multiple complex medical issues, we will monitor the patient closely. Continue the current medications, continue symptomatic treatment. Otherwise rule out myocardial infarction. Cardiology consultation. Symptomatic treatment will be provided. Antiplatelet agents. Otherwise monitor blood sugars closely. We will consult Nephrology as well. Otherwise, followup labs have been recommended. The home medications are reordered. I would also recommend insulin to scale also. The prognosis guarded because of multiple complex medical issues and further recommendations to follow. Copy of dictation being forwarded to Dr. Nobles, who is the primary care physician. MMMEÑOL / IJN: [id number] / KATERYNA
[2018-02-21] MEDS: METOPROLOL TARTRATE 50 MG TAB PO SCH (20:39)
[2018-02-21] MEDS: SODIUM BICARBONATE TAB 650 MG TAB PO SCH (20:40)
[2018-02-21] MEDS: NEOMYCIN-BACITRACIN-POLY OINT 14 GM TUBE TOPICAL SCH (20:41)
[2018-02-21] MEDS ORDERED: INSULIN DETEMIR 100 UNIT/ML 10 ML VIAL SQ SCH (21:00)
[2018-02-21] MEDS ORDERED: GABAPENTIN 300 MG CAP PO SCH (21:00)
[2018-02-21] MEDS ORDERED: CLOPIDOGREL 75 MG TAB PO SCH (21:00)
[2018-02-21] MEDS ORDERED: PRAVASTATIN SODIUM 20 MG TAB PO SCH (21:00)
[2018-02-21] MEDS ORDERED: NON-FORMULARY DRUG (Cranberry Fruit Concentrate [Cranberry] 450 MG) PO SCH (21:00)
[2018-02-21] MEDS ORDERED: MELATONIN 5 MG TABLET PO SCH (21:00)
[2018-02-21 21:16] LABS: Glucose,Whole Blood 168 mg/dL (75-99)
[2018-02-22 01:22] LABS: Creatine Kinase 33 U/L (30-135)
[2018-02-22 01:35] LABS: Creatine Kinase MB 0.4 ng/mL (0.0-2.4); Troponin I <0.012 ng/mL (0.000-0.034)
[2018-02-22] MEDS: INSULIN ASPART 100 UNIT/ML 1 ML 10 ML VIAL SQ SCH ×4 (06:09→12:13)
[2018-02-22 06:10] LABS: Glucose,Whole Blood 92 mg/dL (75-99)
[2018-02-22 06:35] LABS: Basophils % (A) 1 %; Eosinophils # (A) 0.1 k/uL (0-0.7); Eosinophils % (A) 3 %; HCT 32.4 % (34.0-46.0); HGB 9.7 gm/dL (11.4-16.0); Hypochromasia Slight; Lymphocytes # (A) 1.2 k/uL (1.0-4.8); Lymphocytes % (A) 32 %; MCH 27.4 pg (25.0-35.0); MCHC 29.9 g/dL (31.0-37.0); MCV 91.5 fL (80.0-100.0); Mean Platelet Volume 6.5; Monocytes # (A) 0.4 k/uL (0-1.0); Monocytes % (A) 10 %; Neutrophils % (A) 52 %; Platelet Count 267 k/uL (150-450); RBC 3.54 m/uL (3.80-5.40); RDW 15.8 % (11.5-15.5); WBC 3.8 k/uL (3.8-10.6)
[2018-02-22 06:53] LABS: Calcium 8.8 mg/dL (8.4-10.2); Potassium 4.6 mmol/L (3.5-5.1)
[2018-02-22] MEDS ORDERED: buPROPion XL 150 MG TAB.ER.24H PO SCH (09:00)
[2018-02-22] MEDS ORDERED: CHOLECALCIFEROL 1,000 UNIT TAB PO SCH (09:00)
[2018-02-22] MEDS ORDERED: ISOSORBIDE MONONITRATE ER 60 MG TAB.ER.24H PO SCH (09:00)
[2018-02-22] MEDS ORDERED: CALCIUM ACETATE 667 MG CAP PO SCH (09:00)
[2018-02-22] MEDS ORDERED: amLODIPine 5 MG TAB PO SCH (09:00)
[2018-02-22] MEDS ORDERED: ESCITALOPRAM 20 MG TAB PO SCH (09:00)
[2018-02-22] MEDS: SODIUM BICARBONATE TAB 650 MG TAB PO SCH (09:31)
[2018-02-22] MEDS: METOPROLOL TARTRATE 50 MG TAB PO SCH (09:31)
[2018-02-22] MEDS: ATORVASTATIN 40 MG TAB PO SCH (09:31)
[2018-02-22] MEDS: hydrALAZINE HCL 50 MG TAB PO SCH ×2 (09:31→15:29)
[2018-02-22] MEDS: NEOMYCIN-BACITRACIN-POLY OINT 14 GM TUBE TOPICAL SCH (09:31)
[2018-02-22 09:47] VITALS: RESP 16
--- NOTE | 2018-02-22 10:21 | P.NPCON ---
History of Present Illness - Reason for Consult Consult date: 02/22/18 - Chief Complaint Chest pain - History of Present Illness This is a 62-year-old female known to us with ESRD on dialysis Saturday with a permacath on the right neck. She was admitted with chest pain while on dialysis yesterday Saturday. She gets dialyzed 4 hours. Dialysis started about a month ago. She is known diabetic since age 17 supposedly type II. She has BKA on the left and is unable to ambulate. This morning since admission the chest pain is resolved it lasted about maybe 2- 3 hours was in the retrosternal area. She says she hasn't had heart attack in the past. Currently she is asymptomatic fairly comfortable no chest pain shortness of breath dizziness. No fever chills cough. Good appetite. He does have a prosthesis but is barely able to stand up with some help at home at baseline. She is in isolation because of history of ESBL and MRSA supposedly. She's had cholecystectomy heart catheterization with stent hernia repair hysterectomy and tubal ligation in the past and her right eyes has been removed 2 years ago. Past Medical History Past Medical History: Coronary Artery Disease (CAD), Heart Failure, COPD, CVA/ TIA, Dementia, Diabetes Mellitus, Eye Disorder, Hyperlipidemia, Hypertension, Myocardial Infarction ([place]), Osteoarthritis (OA), Renal Disease, Rheumatoid Arthritis (RA), Skin Disorder, Vascular Disorder Additional Past Medical History / Comment(s): UTI/pyelonephritis with sepsis, IDDM type II,hx of falls CKD stage III, PAD, 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 Last Myocardial Infarction Date:: 1987 History of Any Multi-Drug Resistant Organisms: ESBL, MRSA Date of last positivie culture/infection: 01/09/18 ESBL 12/26/17 MRSA MDRO Source:: ESBL URINE/ MRSA URINE Past Surgical History: Cholecystectomy, Heart Catheterization With Stent, Hernia Repair, Hysterectomy, Tubal Ligation Additional Past Surgical History / Comment(s): Abdominal SX. RT EYE REMOVED 2 YEAR AGO, 05-25-14 LT BELOW KNEE AMP, rt chest wall hemodualysis cath Past Anesthesia/Blood Transfusion Reactions: Motion Sickness Additional Past Anesthesia/Blood Transfusion Reaction / Comment(s): stated has had blood transfusion in past-no reaction to it Date of Last Stent Placement:: 04/2014 Smoking Status: Former smoker - Past Family History Father Family Medical History: CVA/TIA Mother Family Medical History: COPD Medications and Allergies Home Medications Medication Instructions Recorded Confirmed Type Metoprolol Tartrate [Lopressor] 50 mg PO BID #60 tab 05/27/14 02/21/18 Rx Calcium Acetate [PhosLo] 667 mg PO DAILY 11/10/15 02/21/18 History Pravastatin Sodium [Pravachol] 10 mg PO HS 11/10/15 02/21/18 History hydrALAZINE HCL [Apresoline] 50 mg PO TID 11/10/15 02/21/18 History Isosorbide Mononitrate ER [Imdur] 60 mg PO DAILY #1 tab 11/21/15 02/21/18 Rx Nitroglycerin Sl Tabs [Nitrostat] 0.4 mg SUBLINGUAL Q5M PRN #0 tab 11/21/15 Rx Cholecalciferol [Vitamin D3] 2,000 unit PO DAILY 05/25/16 02/21/18 History amLODIPine [Norvasc] 5 mg PO DAILY #30 tab 05/26/16 02/21/18 Rx Escitalopram [Lexapro] 20 mg PO DAILY 06/17/16 02/21/18 History Melatonin 5 mg PO HS 02/08/17 02/21/18 History Ondansetron [Zofran] 4 mg PO Q8H PRN 02/08/17 02/21/18 History Sennosides [Senna] 8.6 mg PO Q48H 12/08/17 02/21/18 History Clopidogrel [Plavix] 75 mg PO HS 01/27/18 02/21/18 History Cranberry Fruit Concentrate 450 mg PO HS 01/27/18 02/21/18 History [Cranberry] Menthol [Biofreeze] 1 applic TOPICAL Q8H PRN 01/27/18 02/21/18 History Promethazine HCl 12.5 mg PO Q6H PRN 01/27/18 02/21/18 History Sodium Bicarbonate Tab 650 mg PO BID 01/27/18 02/21/18 History buPROPion [Wellbutrin] 150 mg PO DAILY 01/27/18 02/21/18 History Acetaminophen-Codeine 300-30mg 1 tab PO Q4-6H PRN #10 tab 01/30/18 02/21/18 Rx [Tylenol w/codeine #3] Darbepoetin Jc [Aranesp] 40 mcg SQ Q7D syringe 01/30/18 02/21/18 Rx Gabapentin [Neurontin] 300 mg PO HS #0 01/30/18 02/21/18 Rx HYDROmorphone [Dilaudid] 2 mg PO Q6H PRN #10 tab 01/30/18 02/21/18 Rx INSULIN LISPRO (HumaLOG) [humaLOG] 6 units SQ AC-TID #0 01/30/18 02/21/18 Rx Insulin Glargine [Lantus] 26 unit SQ HS #0 01/30/18 02/21/18 Rx Magnesium Hydroxide [Milk of 2,400 mg PO HS PRN 02/21/18 02/21/18 History Magnesia] Sbnsikwa-Tideugufyt-Vsmj Oint 1 applic TOPICAL BID 02/21/18 02/21/18 History [Triple Antibiotic Ointment] Allergies Allergy/AdvReac Type Severity Reaction Status Date / Time doxycycline calcium Allergy Rash/Hives Verified 02/21/18 10:24 [From Vibramycin] doxycycline hyclate Allergy Rash/Hives Verified 01/27/18 08:02 [From Vibramycin] doxycycline monohydrate Allergy Rash/Hives Verified 02/21/18 10:24 [From Vibramycin] nalbuphine HCl [From Nubain] Allergy Rash/Hives Verified 02/21/18 10:24 oxycodone HCl [From Tylox] Allergy Rash/Hives Verified 02/21/18 10:24 Tetracyclines Allergy Rash/Hives Verified 02/21/18 10:24 wool Allergy Rash/Hives Verified 02/21/18 16:00 Physical Exam Vitals: Vital Signs Temp Pulse Pulse Resp BP BP Pulse Ox 02/22/18 08:00 98.1 F 66 16 144/73 98 02/22/18 04:00 98.6 F 79 18 141/70 96 02/21/18 23:27 71 18 02/21/18 23:26 98.0 F 71 18 134/62 96 02/21/18 20:00 98.4 F 69 18 146/96 97 02/21/18 16:00 98.1 F 65 16 143/58 93 L 02/21/18 15:19 97.7 F 61 18 181/79 98 02/21/18 14:40 59 L 184/88 02/21/18 13:40 59 L 16 156/68 96 02/21/18 12:23 97.9 F 59 L 18 176/78 98 02/21/18 10:54 60 16 181/73 99 Intake and Output 02/21/18 02/22/18 02/22/18 22:59 06:59 14:59 Intake Total 360 240 Balance 360 240 Intake: Oral 360 240 Other: Voiding Method Diaper Incontinent # Voids 2 Weight 91.5 kg On examination she is awake alert oriented comfortable HEENT exam no JVP neck is supple no facial asymmetry Lungs are clear to auscultation fair air entry bilaterally Heart sounds are unremarkable for any murmur rub gallop Abdomen soft nontender obese no masses felt Extremity exam reveals BKA on the left no edema Neurologically awake alert oriented comfortable. Results - Lab Results Most recent lab results Calcium 8.8 mg/dL (8.4-10.2) 02/22/18 05:41 Magnesium 2.0 mg/dL (1.6-2.3) 02/21/18 09:55 02/22/18 05:41 02/22/18 05:41 Assessment and Plan Assessment: Impression 1. ESRD on dialysis Saturday 4 hours with a permacath on the right chest. Dialysis started a month ago supposedly. Etiology is diabetic nephropathy most likely. 2. Admitted with chest pain lasted to 3 hours resolved. Past history of heart attack in the past with stent supposedly. Troponins or negative at 0.0122 3. Peripheral vascular disease with remote left BKA. 4. History of enucleation right eye approximately 2015. 5. Anemia of ESRD hemoglobin is 9.7. Rule out an deficiency 6. Mineral bone disease of ESRD calcium is normal at 8.8 phosphorus not available. Recommendation 1. Maintain dialysis schedule on Saturday. 2. Check iron saturation. 3. Maintain Aranesp, started 40 mics every week. 4. Check phosphorus. 5. Blood pressure goal is 120-140 in ESRD patients. Thank you for this consultation. We will continue Continue to follow
[2018-02-22 11:04] VITALS: BMI 28.1
--- NOTE | 2018-02-22 11:14 | PN ---
PROGRESS NOTE Mrs. Delgadillo is a 62-year-old female with history of end-stage renal disease, on hemodialysis, prior history of smoking, who presented with symptoms of chest discomfort while in the dialysis. She is feeling well. This morning she is denying any chest pain. She denies any dizziness or palpitation. She denies any nausea. She is feeling well. She continues to be at this time on amlodipine 5 mg daily, Lipitor 40 mg daily, Plavix 75 mg daily, Lexapro 20 mg daily, hydralazine 50 mg 3 times a day, insulin, metoprolol tartrate 50 mg twice a day. PHYSICAL EXAMINATION: Blood pressure 140/70 with a heart rate in the 60s. LUNGS: Clear. HEART: Regular rate and rhythm. S1, S2. No S3. No rub. ABDOMEN: Soft, nontender. Right lower extremity, no edema. Status post amputation on the left side. LAB DATA: Her troponin less than 0.012. BUN and creatinine 45 and 3.3, potassium 4.6, hemoglobin of 9.7 Her echocardiogram revealed ejection fraction of 45%. IMPRESSION: 1. Chest discomfort with no evidence for acute coronary artery syndrome. 2. History of end-stage renal disease, on hemodialysis. 3. Hypertension. 4. Hyperlipidemia. 5. Diabetes mellitus. RECOMMENDATION: From the cardiac standpoint, will continue present therapy her. At this time, she should be able to be discharged home and can be followed as an outpatient to see if any further cardiac workup will be needed. MMODL / IJN: [id number] /
[2018-02-22 11:19] VITALS: BP 139/70; PULSE 63; TEMP 97.2
[2018-02-22 11:58] LABS: Glucose,Whole Blood 158 mg/dL (75-99)
[2018-02-22 14:24] LABS: Hemoglobin A1C 4.8 % (4.0-6.0)
--- NOTE | 2018-02-22 15:14 | DS ---
DISCHARGE SUMMARY DATE OF ADMISSION: 02/21/18 DATE OF DISCHARGE: 02/22/18 FINAL DIAGNOSES: 1. Left anterior chest wall pain possibly musculoskeletal. 2. End-stage kidney disease on hemodialysis. 3. Diabetes mellitus type 2, chronically on insulin. 4. Chronic obstructive pulmonary disease in an ex-smoker. 5. Chronic congestive heart failure from systolic dysfunction EF 40-45% from underlying coronary artery disease. 6. Hypertensive heart disease. 7. Left below-knee amputation. 8. Peripheral artery disease. 9. Essential hypertension. 10.Primary osteoarthritis. 11.Mild cognitive impairment from Alzheimer's dementia. 12.Depression, not otherwise specified. 13.Coronary artery disease, prior history of stent. 14.Absent right eye. 15.The patient has a legal guardian, Chanel. 16.Moderate pericardial effusion, asymptomatic. HOSPITAL COURSE: This patient presented with left anterior chest wall pain. Troponins were negative. The patient was seen by Dr. Guardado from Cardiology. 2D echo was done. That did not show any wall motion abnormality. EF is 40-45%. The patient was cleared to [facility]. The patient had no further cardiac symptoms. On examination, Lungs: Slightly decreased breath sounds. Cardiovascular: First and second sounds normal. Psych: AO x3. Absent right eye. CONSULTATION: 1. Dr. Newell from Nephrology. 2. Dr. Guardado from Cardiology. DISCHARGE MEDICATIONS: 1. Lopressor 50 mg p.o. b.i.d. 2. PhosLo 667 mg p.o. daily. 3. Pravachol 10 mg at bedtime. 4. Hydralazine 50 mg p.o. t.i.d. 5. Imdur ER 60 mg a day. 6. Nitrostat 0.4 sublingual q.5 p.r.n. 7. Vitamin D3 2000 units p.o. daily. 8. Norvasc 5 mg p.o. daily. 9. Lexapro 20 mg p.o. daily. 10.Melatonin 5 mg p.o. q.h.s. 11.Zofran 4 mg p.o. q.8 hours p.r.n. 12.Senna 8.6 mg q.48 hours. 13.Plavix 75 mg q.h.s. 14.Cranberry 450 mg p.o. q.h.s. 15.Biofreeze topical q.8h p.r.n. 16.Promethazine 12.5 p.o. q.6h p.r.n. 17.Sodium bicarb 650 mg p.o. b.i.d. 18.Wellbutrin 150 mg p.o. daily. 19.Aranesp 40 mcg subcu 7 days. 20.Neurontin 300 mg q.h.s. 21.Humalog 6 units subcu a.c. t.i.d. 22.Lantus 26 units subcu q.h.s. 23.Milk of Magnesia 2400 mg q.h.s. p.r.n. 24.Triple antibiotic topical b.i.d. 25.Tylenol 3 one tablet q.4 to 6 p.r.n., 10 tablets. 26.Dilaudid 2 mg q.6 p.r.n., 10 tablets. DISPOSITION: [facility]. The patient is to maintain hemodialysis schedule. [facility]. Follow with Dr. Guardado in 3 weeks. MMODL / IJN: [id number] /
[2018-02-22 16:38] LABS: Glucose,Whole Blood 147 mg/dL (75-99)
[2018-02-22 17:01] LABS: Iron Saturation 23.33 (12.00-45.00)
[2018-02-27] MEDS ORDERED: DARBEPOETIN ALFA 40 MCG/0.4 ML SYRINGE SQ SCH ×2 (16:00)
== END 2018-02-22 17:37 ==
LOC: EC 09:37 → 6SEL 12:58
PROVIDERS: ADMIT Hospitalist; ATTEND Hospitalist
DX: R07.89 Other chest pain (principal); I13.2 Hypertensive heart and chronic kidney disease with heart failure and with stage 5 chronic kidney disease, or end stage renal disease; N18.6 End stage renal disease; Z99.2 Dependence on renal dialysis; E11.22 Type 2 diabetes mellitus with diabetic chronic kidney disease; I50.22 Chronic systolic (congestive) heart failure; E11.51 Type 2 diabetes mellitus with diabetic peripheral angiopathy without gangrene; E78.5 Hyperlipidemia, unspecified; J44.9 Chronic obstructive pulmonary disease, unspecified; I25.10 Atherosclerotic heart disease of native coronary artery without angina pectoris; G30.9 Alzheimer's disease, unspecified; F02.80 Dementia in other diseases classified elsewhere, unspecified severity, without behavioral disturbance, psychotic disturbance, mood disturbance, and anxiety; E11.41 Type 2 diabetes mellitus with diabetic mononeuropathy; D63.1 Anemia in chronic kidney disease; M19.91 Primary osteoarthritis, unspecified site; F32.9 Major depressive disorder, single episode, unspecified; M06.9 Rheumatoid arthritis, unspecified; Z16.12 Extended spectrum beta lactamase (ESBL) resistance; Z79.4 Long term (current) use of insulin; Z79.02 Long term (current) use of antithrombotics/antiplatelets; Z79.899 Other long term (current) drug therapy; Z89.512 Acquired absence of left leg below knee; Z90.01 Acquired absence of eye; Z90.710 Acquired absence of both cervix and uterus; Z87.891 Personal history of nicotine dependence; Z86.73 Personal history of transient ischemic attack (TIA), and cerebral infarction without residual deficits; Z95.5 Presence of coronary angioplasty implant and graft; Z88.1 Allergy status to other antibiotic agents; Z88.5 Allergy status to narcotic agent; Z88.8 Allergy status to other drugs, medicaments and biological substances; Z91.048 Other nonmedicinal substance allergy status; Z87.440 Personal history of urinary (tract) infections; Z86.19 Personal history of other infectious and parasitic diseases; Z87.01 Personal history of pneumonia (recurrent); Z86.14 Personal history of Methicillin resistant Staphylococcus aureus infection; Z82.3 Family history of stroke; Z82.5 Family history of asthma and other chronic lower respiratory diseases
CPT/HCPCS: 99285 ×2; 36415; 93005; 93306; 80053; 80048; 82550 ×2; 82553 ×2; 83540; 83550; 83735; 84100; 84484 ×2; 85025 ×2; 85610; 85730; 83036; 71046; G0378 ×2

== ENCOUNTER 2018-05-02 09:56 | Observation (INO) | payer OTHER ==
[2018-05-02 10:36] LABS: Basophils % (A) 1 %; Eosinophils # (A) 0.1 k/uL (0-0.7); Eosinophils % (A) 3 %; HCT 35.3 % (34.0-46.0); HGB 10.8 gm/dL (11.4-16.0); Hypochromasia Slight; Lymphocytes # (A) 0.6 k/uL (1.0-4.8); Lymphocytes % (A) 14 %; MCH 28.4 pg (25.0-35.0); MCHC 30.6 g/dL (31.0-37.0); MCV 92.8 fL (80.0-100.0); Mean Platelet Volume 6.6; Monocytes # (A) 0.3 k/uL (0-1.0); Monocytes % (A) 7 %; Neutrophils # (A) 3.3 k/uL (1.3-7.7); Neutrophils % (A) 75 %; Platelet Count 301 k/uL (150-450); RDW 15.9 % (11.5-15.5); WBC 4.4 k/uL (3.8-10.6)
[2018-05-02 10:43] LABS: Prothrombin Time 9.7 sec (9.0-12.0)
--- NOTE | 2018-05-02 10:43 | ED ---
Chest Pain HPI - General Chief Complaint: Chest Pain Stated Complaint: Chest Pain Time Seen by Provider: 05/02/18 10:00 Source: patient, EMS, RN notes reviewed Mode of arrival: EMS Limitations: physical limitation - History of Present Illness Initial Comments: This is a 62-year-old female with a history of kidney failure with dialysis history of heart disease multiple medical issues who came in from dialysis with complaints of chest pain is started about 45 minutes ago. It was 8/10 severity severe nonradiating. It happened during dialysis she was about 3 hours into a 4 hour dialysis. Patient now down to about a 3 had nausea with that shortness of breath blood pressure was 85/35 and dialysis she did get a little bit of fluids and it improved the. No reports of fevers chills nausea vomiting sweats. MD Complaint: chest pain - Related Data Home Medications Medication Instructions Recorded Confirmed Calcium Acetate [PhosLo] 667 mg PO DAILY 11/10/15 05/02/18 Pravastatin Sodium [Pravachol] 10 mg PO HS 11/10/15 05/02/18 hydrALAZINE HCL [Apresoline] 50 mg PO TID 11/10/15 05/02/18 Cholecalciferol [Vitamin D3] 2,000 unit PO DAILY 05/25/16 05/02/18 Escitalopram [Lexapro] 20 mg PO DAILY 06/17/16 05/02/18 Melatonin 5 mg PO HS 02/08/17 05/02/18 Ondansetron [Zofran] 4 mg PO Q8H PRN 02/08/17 05/02/18 Sennosides [Senna] 8.6 mg PO Q48H 12/08/17 05/02/18 Clopidogrel [Plavix] 75 mg PO HS 01/27/18 05/02/18 Cranberry Fruit Concentrate 450 mg PO HS 01/27/18 05/02/18 [Cranberry] Menthol [Biofreeze] 1 applic TOPICAL Q8H PRN 01/27/18 05/02/18 Promethazine HCl 12.5 mg PO Q6H PRN 01/27/18 05/02/18 Sodium Bicarbonate Tab 650 mg PO BID 01/27/18 05/02/18 buPROPion [Wellbutrin] 150 mg PO DAILY 01/27/18 05/02/18 Magnesium Hydroxide [Milk of 2,400 mg PO HS PRN 02/21/18 05/02/18 Magnesia] Vlupigfp-Akbadyvlal-Baah Oint 1 applic TOPICAL BID 02/21/18 05/02/18 [Triple Antibiotic Ointment] Previous Rx's Medication Instructions Recorded Metoprolol Tartrate [Lopressor] 50 mg PO BID #60 tab 05/27/14 Isosorbide Mononitrate ER [Imdur] 60 mg PO DAILY #1 tab 11/21/15 Nitroglycerin Sl Tabs [Nitrostat] 0.4 mg SUBLINGUAL Q5M PRN #0 tab 11/21/15 amLODIPine [Norvasc] 5 mg PO DAILY #30 tab 05/26/16 Darbepoetin Jc [Aranesp] 40 mcg SQ Q7D syringe 01/30/18 Gabapentin [Neurontin] 300 mg PO HS #0 01/30/18 INSULIN LISPRO (HumaLOG) [humaLOG] 6 units SQ AC-TID #0 01/30/18 Insulin Glargine [Lantus] 26 unit SQ HS #0 01/30/18 Acetaminophen-Codeine 300-30mg 1 tab PO Q4-6H PRN #10 tab 02/22/18 [Tylenol w/codeine #3] HYDROmorphone [Dilaudid] 2 mg PO Q6H PRN #10 tab 02/22/18 Allergies Allergy/AdvReac Type Severity Reaction Status Date / Time doxycycline calcium Allergy Rash/Hives Verified 05/02/18 10:33 [From Vibramycin] doxycycline hyclate Allergy Rash/Hives Verified 05/02/18 10:33 [From Vibramycin] doxycycline monohydrate Allergy Rash/Hives Verified 05/02/18 10:33 [From Vibramycin] nalbuphine HCl [From Nubain] Allergy Rash/Hives Verified 05/02/18 10:33 oxycodone HCl [From Tylox] Allergy Rash/Hives Verified 05/02/18 10:33 Tetracyclines Allergy Rash/Hives Verified 05/02/18 10:33 wool Allergy Rash/Hives Verified 05/02/18 10:33 Review of Systems ROS Statement: Those systems with pertinent positive or pertinent negative responses have been documented in the HPI. ROS Other: All systems not noted in ROS Statement are negative. Past Medical History Past Medical History: Coronary Artery Disease (CAD), Heart Failure, COPD, CVA/ TIA, Dementia, Diabetes Mellitus, Eye Disorder, Hyperlipidemia, Hypertension, Myocardial Infarction ([place]), Osteoarthritis ([place]), Renal Disease, Rheumatoid Arthritis ([place]), Skin Disorder, Vascular Disorder Additional Past Medical History / Comment(s): UTI/pyelonephritis with sepsis, IDDM type II,hx of falls CKD stage III, PAD, 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 Last Myocardial Infarction Date:: 1987 History of Any Multi-Drug Resistant Organisms: ESBL, MRSA Date of last positivie culture/infection: 01/09/18 ESBL 12/26/17 MRSA MDRO Source:: ESBL URINE/ MRSA URINE Past Surgical History: Cholecystectomy, Heart Catheterization With Stent, Hernia Repair, Hysterectomy, Tubal Ligation Additional Past Surgical History / Comment(s): Abdominal SX. RT EYE REMOVED 2 YEAR AGO, 05-25-14 LT BELOW KNEE AMP, rt chest wall hemodualysis cath Past Anesthesia/Blood Transfusion Reactions: Motion Sickness Additional Past Anesthesia/Blood Transfusion Reaction / Comment(s): stated has had blood transfusion in past-no reaction to it Date of Last Stent Placement:: 04/2014 Past Psychological History: Anxiety, Depression Smoking Status: Current every day smoker Past Alcohol Use History: None Reported Past Drug Use History: None Reported - Past Family History Father Family Medical History: CVA/TIA Mother Family Medical History: COPD General Exam - General Exam Comments Initial Comments: This a well-developed obese female who is awake and alert. Limitations: physical limitation General appearance: alert, in no apparent distress Head exam: Present: atraumatic, normocephalic, normal inspection Eye exam: Present: other (Right eye is enucleated left eye appears be within normal limits) ENT exam: Present: normal exam, mucous membranes moist Neck exam: Present: normal inspection. Absent: tenderness, meningismus, lymphadenopathy Respiratory exam: Present: normal lung sounds bilaterally, other (Dialysis catheter right upper chest wall). Absent: respiratory distress, wheezes, rales , rhonchi, stridor, chest wall tenderness Cardiovascular Exam: Present: regular rate, normal rhythm, normal heart sounds. Absent: systolic murmur, diastolic murmur, rubs, gallop, clicks GI/Abdominal exam: Present: soft, normal bowel sounds. Absent: distended, tenderness, guarding, rebound, rigid Rectal exam: Present: deferred Extremities exam: Present: full ROM, normal capillary refill, other ((Below the knee amputation). Absent: tenderness Back exam: Present: normal inspection Neurological exam: Present: alert, oriented X3, CN II-XII intact Psychiatric exam: Present: normal affect, normal mood Skin exam: Present: warm, dry, intact, normal color. Absent: rash Course Vital Signs 05/02/18 05/02/18 10:03 13:30 Temperature 98.3 F Pulse Rate 66 63 Respiratory 18 17 Rate Blood Pressure 156/70 117/62 O2 Sat by Pulse 96 97 Oximetry Chest Pain MDM - MDM I did review the imaging no definite acute findings. Patient will be admitted I discuss case with her and with Dr. Bailey. Disposition Clinical Impression: Chest pain, Chronic renal failure syndrome Disposition: ADMITTED IP TO THIS HOSP Condition: Stable Referrals: Jose Nobles DO [Primary Care Provider] - 1-2 days
[2018-05-02 10:47] LABS: Albumin 3.3 g/dL (3.5-5.0); Calcium 8.5 mg/dL (8.4-10.2); Magnesium 1.9 mg/dL (1.6-2.3); Potassium 4.2 mmol/L (3.5-5.1); Total Bilirubin 0.4 mg/dL (0.2-1.3); Total Protein 6.9 g/dL (6.3-8.2)
--- NOTE | 2018-05-02 10:50 | XR ---
EXAMINATION TYPE: XR chest 2V DATE OF EXAM: 05/02/2018 COMPARISON: 02/21/2018 TECHNIQUE: PA and lateral views submitted. HISTORY: Chest pain FINDINGS: Dialysis catheter seen the tip overlying the right atrium. There is bilateral consolidation and small effusion with diffuse interstitial pattern. Size stable. Arthropathy of the shoulders. IMPRESSION: 1. Bilateral infiltrate correlate for CHF.
[2018-05-02 10:58] LABS: Creatine Kinase 36 U/L (30-135)
[2018-05-02 11:11] LABS: Creatine Kinase MB 0.5 ng/mL (0.0-2.4); Troponin I <0.012 ng/mL (0.000-0.034)
[2018-05-02] MEDS ORDERED: NITROGLYCERIN SL TABS 0.4 MG TAB SUBLINGUAL PRN ×2 (15:27→15:30)
[2018-05-02] MEDS ORDERED: MAGNESIUM HYDROXIDE 2,400 MG/10 ML CUP PO PRN (15:30)
[2018-05-02] MEDS ORDERED: PROMETHAZINE 25 MG TAB PO PRN (15:30)
[2018-05-02] MEDS ORDERED: METHYL SALICYLATE/MENTHOL CREAM 5 OZ TOPICAL PRN (15:30)
[2018-05-02] MEDS ORDERED: ONDANSETRON 4 MG TAB PO PRN (15:30)
[2018-05-02] MEDS ORDERED: HYDROmorphone 2 MG TAB PO PRN (15:30)
[2018-05-02 17:36] LABS: Creatine Kinase 29 U/L (30-135)
[2018-05-02 17:49] LABS: Creatine Kinase MB 0.4 ng/mL (0.0-2.4); Troponin I <0.012 ng/mL (0.000-0.034)
[2018-05-02 19:56] VITALS: BMI 26.7
[2018-05-02] MEDS ORDERED: NON-FORMULARY DRUG (Cranberry Fruit Concentrate [Cranberry] 450 MG) PO SCH (21:00)
[2018-05-02] MEDS: INSULIN ASPART 100 UNIT/ML 1 ML 10 ML VIAL SQ SCH (21:28)
[2018-05-02 21:29] LABS: Glucose,Whole Blood 179 mg/dL (75-99)
[2018-05-02] MEDS ORDERED: ALPRAZolam 0.25 MG TAB PO PRN (22:27)
[2018-05-02] MEDS ORDERED: NA PHOS,M-B/NA PHOS,DI-BA 133 ML ENEMA RECTAL PRN (22:27)
[2018-05-02] MEDS ORDERED: LACTULOSE 20 GM/30 ML CUP PO PRN (22:27)
[2018-05-02] MEDS ORDERED: ONDANSETRON 4 MG/2 ML VIAL IVP PRN (22:27)
[2018-05-02] MEDS ORDERED: NALOXONE 0.4 MG/ML 1 ML VIAL IV PRN (22:27)
[2018-05-02] MEDS ORDERED: CALCIUM CARBONATE 500 MG CHEWABLE PO PRN (22:27)
[2018-05-02] MEDS: SODIUM BICARBONATE TAB 650 MG TAB PO SCH (22:38)
[2018-05-02] MEDS: CLOPIDOGREL 75 MG TAB PO SCH (22:39)
[2018-05-02] MEDS: SENNOSIDES 8.6 MG TAB PO SCH (22:39)
[2018-05-02] MEDS: GABAPENTIN 300 MG CAP PO SCH (22:39)
[2018-05-02] MEDS: METOPROLOL TARTRATE 50 MG TAB PO SCH (22:39)
[2018-05-02] MEDS: MELATONIN 5 MG TABLET PO SCH (22:39)
[2018-05-02] MEDS: hydrALAZINE HCL 50 MG TAB PO SCH ×2 (22:39→22:46)
[2018-05-02] MEDS: PRAVASTATIN SODIUM 20 MG TAB PO SCH (22:40)
[2018-05-02 22:42] LABS: Creatine Kinase 30 U/L (30-135)
[2018-05-02] MEDS: NEOMYCIN-BACITRACIN-POLY OINT 14 GM TUBE TOPICAL SCH (22:49)
[2018-05-02 22:56] LABS: Creatine Kinase MB 0.4 ng/mL (0.0-2.4); Troponin I <0.012 ng/mL (0.000-0.034)
[2018-05-02] MEDS: INSULIN DETEMIR 100 UNIT/ML 10 ML VIAL SQ SCH (23:27)
[2018-05-02] MEDS: ACETAMINOPHEN TAB 325 MG TAB PO PRN (23:28)
--- NOTE | 2018-05-02 23:50 | HP ---
HISTORY AND PHYSICAL DATE OF ADMISSION: 05/02/2018. DATE OF SERVICE: 05/02/2018. PRESENTING COMPLAINT: Chest pain. HISTORY OF PRESENTING COMPLAINT: This is a pleasant 62-year-old patient who is a resident of [facility]. Chronic stable medical conditions include end-stage kidney disease on hemodialysis, COPD, chronic congestive heart failure, left below-knee amputation, peripheral artery disease, hypertension, osteoarthritis, mild cognitive impairment, depression, coronary artery disease, absent right eye. The patient was brought in from the [facility] when patient developed chest pain going across the chest, felt a pressure-like present for several hours, did go up to the neck and jaw with which no shortness of breath. She did break out in a sweat and she feel dizzy. She was admitted to rule out a cardiac cause. REVIEW OF SYSTEMS: CONSTITUTIONAL: Tired. HEENT: Absent right eye. RESPIRATORY: None. CARDIOVASCULAR: As above. GASTROINTESTINAL none. GENITOURINARY none. MUSCULOSKELETAL: Some pain in joints. DERMATOLOGICAL: None. PSYCHIATRY: Slightly forgetful. NEUROLOGICAL none. PAST MEDICAL HISTORY: Coronary artery disease with stent, congestive heart failure, COPD, some dementia, diabetes, hyperlipidemia, absent right eye, hypertension, osteoarthritis, rheumatoid arthritis, skin disorder, end-stage kidney disease on hemodialysis, peripheral arterial disease, left below-knee amputation, right foot neuropathy. PAST SURGICAL HISTORY: Cholecystectomy, cardiac cath with stent, hernia repair, hysterectomy, tubal ligation, right eye removed 2 years ago, left below-knee amputation. PSYCH HISTORY: Anxiety and depression. SOCIAL HISTORY: Patient is a resident of [facility], is transferred from bed to the wheelchair with a Marquis lift. The patient smoked for 42 years, 2 packs a day, stopped smoking 11 years ago. ALLERGIES: TO DOXYCYCLINE NUBAIN, OXYCODONE., TETRACYCLINE. PHYSICAL EXAMINATION: VITAL SIGNS: Vital signs on presentation, temperature 98.3, pulse 66, respiratory 18, blood pressure 153/70, pulse ox 96% on 2 L. GENERAL APPEARANCE: Average build, lying in bed, awake. EYES: Absent right eye. Normal left eye. HEENT: External appearance of nose and ears normal. Oral cavity normal. NECK: JVD unable to assess. Mass not palpable. RESPIRATORY effort normal. LUNGS: Diminished breath sounds. CARDIOVASCULAR: 1st and 2nd sounds no edema. ABDOMEN: Soft, nontender. Liver and spleen not palpable. LYMPHATICS: No lymph nodes palpable in the neck and axilla. PSYCHIATRY: The patient is able to answer simple questions. Mood and affect slightly anxious. NEUROLOGICAL: Absent right eye. No facial asymmetry. Power and sensation grossly intact. EXTREMITIES: Left below-knee amputation. Chest wall: Right chest wall infraclavically has a hemodialysis catheter. INVESTIGATIONS: White count 4.4, hemoglobin 10.8, potassium 4.2, BUN 28, creatinine 2.85. Troponin less than 0.12. EKG tracing personally reviewed by me shows normal sinus rhythm. Some ST-segment depression in the inferolateral leads. Chest x-ray film, personally reviewed by me shows an expiratory film with some venous prominence. ASSESSMENT: 1. Anterior chest wall pain in a patient with known coronary artery disease with negative troponin, could be unstable angina. 2. End-stage kidney disease on hemodialysis with the right chest wall hemodialysis catheter. 3. Diabetes mellitus type 2, chronically on insulin. 4. Chronic obstructive pulmonary disease in an ex-smoker. 5. Chronic congestive heart failure from systolic dysfunction. Ejection fraction 40 to 45% from underlying coronary artery disease. 6. Hypertensive heart disease. 7. Primary osteoarthritis. 8. Mild cognitive impairment from Alzheimer's dementia. 9. Depression, not otherwise specified. 10.Coronary artery disease with history of prior stent. 11.Absent right eye. 12.Medical debility. Patient needs to be transferred with a Marquis left. PLAN: Home medications resumed. Serial cardiac enzymes are done. Cardiology was consulted. Accu-Cheks will be closely followed. Care was discussed with the patient. Serial cardiac enzymes are ordered though in the setting of renal failure. Also Nephrology is consulted to maintain hemodialysis. Copy to Dr. Nobles. MMODL / IJN: [id number] /
[2018-05-03 04:47] LABS: Cholesterol 136 mg/dL (<200); HDL Cholesterol 44 mg/dL (40-60); LDL Cholesterol,Calculated 54 mg/dL (0-99); Triglycerides 190 mg/dL (<150)
[2018-05-03 06:03] LABS: Glucose,Whole Blood 99 mg/dL (75-99)
[2018-05-03] MEDS: INSULIN ASPART 100 UNIT/ML 1 ML 10 ML VIAL SQ SCH ×3 (06:12→16:38)
[2018-05-03] MEDS: ASPIRIN 325 MG TAB PO SCH (10:02)
[2018-05-03] MEDS: CALCIUM ACETATE 667 MG CAP PO SCH (10:02)
[2018-05-03] MEDS: amLODIPine 5 MG TAB PO SCH (10:02)
[2018-05-03] MEDS: buPROPion 75 MG TAB PO SCH (10:02)
[2018-05-03] MEDS: ESCITALOPRAM 20 MG TAB PO SCH (10:03)
[2018-05-03] MEDS: CHOLECALCIFEROL 1,000 UNIT TAB PO SCH (10:03)
[2018-05-03] MEDS: ISOSORBIDE MONONITRATE ER 60 MG TAB.ER.24H PO SCH (10:03)
[2018-05-03] MEDS: hydrALAZINE HCL 50 MG TAB PO SCH ×3 (10:03→20:10)
[2018-05-03] MEDS: METOPROLOL TARTRATE 50 MG TAB PO SCH ×2 (10:03→20:11)
[2018-05-03] MEDS: NEOMYCIN-BACITRACIN-POLY OINT 14 GM TUBE TOPICAL SCH ×2 (10:04→20:11)
[2018-05-03 11:56] LABS: Glucose,Whole Blood 72 mg/dL (75-99)
[2018-05-03 12:17] LABS: Glucose,Whole Blood 65 mg/dL (75-99)
--- NOTE | 2018-05-03 14:48 | CONS ---
CONSULTATION REASON FOR CONSULT: End-stage renal disease. HISTORY OF PRESENT ILLNESS: Patient is a 62-year-old female who was admitted to the hospital with complaints of chest pain. Patient has end-stage renal disease and is maintained on a Saturday, Saturday, Saturday schedule for dialysis at the [facility]. Patient states she did have her regular treatment yesterday and she had developed chest pain later on that day. At this time patient is not sure if it came on during dialysis, but it appears that her blood pressure had dropped yesterday towards the end of treatment. No abdominal pain, nausea, vomiting, diarrhea, fevers or chills. PAST MEDICAL HISTORY: 1. End-stage renal disease. 2. COPD. 3. History of CVA/TIA. 4. Dementia. 5. Type 2 diabetes. 6. Coronary artery disease. 7. History of [place]. 8. Rheumatoid arthritis. 9. Peripheral vascular disease. PAST SURGICAL HISTORY: 1. Cholecystectomy. 2. Cardiac catheterization. 3. Coronary stent placement. 4. Hernia repair. 5. Hysterectomy. 6. Tubal ligation. 7. Enucleation of the right eye. 8. Left below-knee amputation. 9. Right IJ PermCath. SOCIAL HISTORY: Positive for smoking. No history of drug abuse or alcohol abuse. MEDICATIONS: Medications prior to admission included: 1. PhosLo. 2. Pravachol. 3. Hydralazine. 4. Vitamin D3. 5. Lexapro. 6. Zofran. 7. Plavix. 8. Wellbutrin. 9. Lopressor. 10.Imdur. 11.Nitrostat. 12.Norvasc. 13.Aranesp. 14.Neurontin. 15.Insulin. 16.Dilaudid. ALLERGIES: ALLERGIES INCLUDE: 1. DOXYCYCLINE. 2. NUBAIN. 3. TETRACYCLINES. 4. TYLOX. REVIEW OF SYSTEMS: As per HPI. Other systems negative. PHYSICAL EXAMINATION: Patient is comfortable, awake. She is not in any acute distress. Blood pressure 127/63, heart rate 57 per minute. She is afebrile. EXAMINATION OF THE HEART: S1, S2. EXAMINATION OF LUNGS: Bilateral breath sounds are heard. ABDOMEN: Soft, non-tender. Examination of lower extremities shows no significant edema. Patient has left BKA. LIFE MANAGER exam is grossly intact. LABS: Sodium 138, potassium 4.2, chloride 99, BUN 28, serum creatinine 2.85, hemoglobin 10.8 g/dL. ASSESSMENT: 1. End-stage renal disease, currently on hemodialysis on a Saturday, Saturday, Saturday schedule at the [facility]. Patient did have her dialysis on Saturday. 2. Hypotension towards the end of dialysis. Currently blood pressure is not low. We will continue to monitor. Adjust her dry weight and ultrafiltration with hemodialysis on Saturday. 3. Chest pain, currently resolved. Troponin is not elevated. 4. Hypertension. 5. Chronic kidney disease mineral bone disorder. 6. Anemia of chronic disease. PLAN: Continue current medications. Continue with Aranesp. Decrease UF on Saturday. MMODL / IJN: [id number] /
[2018-05-03 16:40] LABS: Glucose,Whole Blood 102 mg/dL (75-99)
--- NOTE | 2018-05-03 17:24 | CONS ---
ANDREW San is a 62-year-old lady with history of end-stage renal disease, on hemodialysis, diabetes, status post left below-knee amputation, hypertension, dyslipidemia, who presents to hospital complaining of chest discomfort. This chest pain happened during dialysis. It is very similar to the chest pain that she had at her last admission in January of 2018. It is unclear if the patient had coronary artery disease and had a prior stent. Her chest discomfort sounds atypical and non-cardiac. She has had 3 sets of troponins that are all unremarkable. EKG shows sinus rhythm with nonspecific ST-T wave changes. Patient had an echocardiogram at her last visit that showed mild to moderate LV dysfunction with an ejection fraction of 40% to 45%. Patient had a negative stress test in October of 2015. PAST MEDICAL HISTORY: Significant for: 1. End-stage renal disease, on hemodialysis. 2. Status post left below-knee amputation. 3. Possible coronary artery disease. 4. Hypertension. 5. Dyslipidemia. HOME MEDICATIONS: 1. Hydralazine. 2. Sodium bicarbonate. 3. Pravachol. 4. Sublingual nitroglycerin. 5. Lopressor 50 b.i.d. 6. Imdur. 7. Insulin. 8. Neurontin. 9. Plavix. 10.Norvasc. ALLERGIES: MULTIPLE DRUG ALLERGIES, including DOXYCYCLINE, TETRACYCLINE. FAMILY HISTORY: Negative for premature coronary artery disease. SOCIAL HISTORY: Negative for current smoking, EtOH abuse or drug abuse. REVIEW OF SYSTEMS: HEENT is unremarkable. CARDIAC: As described above. RESPIRATORY: Negative. GI: Negative. GENITOURINARY: Significant for renal failure. MUSCULOSKELETAL: Significant for left below-knee amputation. PSYCHOSOCIAL: Negative. ENDOCRINE: Negative. DERMATOLOGICAL: Negative. CONSTITUTIONAL: Negative. ONCOLOGICAL: Negative. Rest of the system review is not relevant. PHYSICAL EXAMINATION: Patient is comfortable at rest. Afebrile. Heart rate is 60 beats per minute, blood pressure 147/68, respiratory rate 18. Chest exam reveals good air entry bilaterally. Heart exam reveals first and second heart sounds. Systolic murmur at the left lower sternal border. Abdomen is soft. Examination of extremities reveals diminished pulse over the right leg. LABS: Hemoglobin 10.8, potassium 4.2. BUN is 28, creatinine 2.8. Three sets of troponins are negative. LDL cholesterol is 54. ASSESSMENT: 1. Precordial chest pain. 2. End-stage renal disease, on hemodialysis. 3. Hypertension. 4. Dyslipidemia. PLAN: Patient's chest discomfort sounds atypical. However, she had been admitted to hospital with the same symptoms 2 months ago. I am going to obtain a Lexiscan on her on Saturday, and if this is abnormal consider cardiac catheterization. If not, continue with optimal medical therapy. Thank you for allowing us to participate in the care of this pleasant lady. WHIT / JEREMYN: [id number] /
[2018-05-03] MEDS: SODIUM BICARBONATE TAB 650 MG TAB PO SCH (18:06)
[2018-05-03] MEDS: GABAPENTIN 300 MG CAP PO SCH (20:10)
[2018-05-03] MEDS: PRAVASTATIN SODIUM 20 MG TAB PO SCH (20:10)
[2018-05-03] MEDS: MELATONIN 5 MG TABLET PO SCH (20:11)
[2018-05-03] MEDS: CLOPIDOGREL 75 MG TAB PO SCH (20:11)
[2018-05-03] MEDS: INSULIN DETEMIR 100 UNIT/ML 10 ML VIAL SQ SCH (21:08)
[2018-05-03 21:29] LABS: Glucose,Whole Blood 222 mg/dL (75-99)
[2018-05-04 06:10] LABS: Glucose,Whole Blood 113 mg/dL (75-99)
[2018-05-04] MEDS: INSULIN ASPART 100 UNIT/ML 1 ML 10 ML VIAL SQ SCH ×3 (06:30→18:52)
[2018-05-04] MEDS: buPROPion 75 MG TAB PO SCH (10:10)
[2018-05-04] MEDS: ISOSORBIDE MONONITRATE ER 60 MG TAB.ER.24H PO SCH (10:10)
[2018-05-04] MEDS: ASPIRIN 325 MG TAB PO SCH (10:11)
[2018-05-04] MEDS: amLODIPine 5 MG TAB PO SCH (10:11)
[2018-05-04] MEDS: CHOLECALCIFEROL 1,000 UNIT TAB PO SCH (10:11)
[2018-05-04] MEDS: hydrALAZINE HCL 50 MG TAB PO SCH ×3 (10:11→20:15)
[2018-05-04] MEDS: CALCIUM ACETATE 667 MG CAP PO SCH (10:11)
[2018-05-04] MEDS: METOPROLOL TARTRATE 50 MG TAB PO SCH ×2 (10:11→20:15)
[2018-05-04] MEDS: ESCITALOPRAM 20 MG TAB PO SCH (10:11)
[2018-05-04] MEDS: NEOMYCIN-BACITRACIN-POLY OINT 14 GM TUBE TOPICAL SCH ×2 (10:12→20:15)
[2018-05-04 11:43] LABS: Glucose,Whole Blood 162 mg/dL (75-99)
--- NOTE | 2018-05-04 13:56 | P.PN ---
Subjective Progress Note Date: 05/04/18 This is a 62-year-old female patient who presented to the hospital with chest discomfort while at the dialysis center. Patient had serial troponins drawn which were unremarkable. EKG did not show any ST or T-wave abnormalities. Previous echocardiogram showed [id number] LV dysfunction with EF of 40-45%. The patient has not had any chest discomfort overnight. She is able to lie flat in bed without any difficulties. She is scheduled for Lexiscan stress test tomorrow will be nothing by mouth after midnight. I didn' t describe the procedure to her and she is in agreement to this treatment plan. Objective - Vital Signs Vital signs: Vital Signs Temp 99 F 05/04/18 08:00 Pulse 66 05/04/18 08:00 Resp 18 05/04/18 08:00 BP 158/70 05/04/18 08:00 Pulse Ox 96 05/04/18 08:00 Intake & Output 05/03/18 05/04/18 05/04/18 18:59 06:59 18:59 Intake Total 480 250 480 Balance 480 250 480 Weight 59 kg Intake: IV 10 .9 10 Oral 480 240 480 Other: Voiding Method Diaper Diaper Diaper Incontinent Incontinent Incontinent # Voids 0 2 - Exam Gen.: Patient is alert and oriented seen lying in bed in no acute distress Lungs: Clear to auscultation, no wheezes rales or rhonchi appreciated Heart: Regular rate and rhythm, no murmur, S1 and S2 are heard Abdomen: Soft, nontender, nondistended. Bowel sounds positive Extremities: No lower extremity edema noted to the right leg, left BKA is noted Neuro: Patient is alert and oriented 3, no tremors noted - Labs CBC & Chem 7: 05/02/18 10:14 05/02/18 10:14 Labs: Abnormal Lab Results - Last 24 Hours (Table) 05/03/18 05/03/18 05/04/18 Range/Units 16:36 21:08 06:06 POC Glucose (mg/dL) 102 H 222 H 113 H (75-99) mg/dL 05/04/18 Range/Units 11:33 POC Glucose (mg/dL) 162 H (75-99) mg/dL Assessment and Plan Assessment: Atypical chest pain End-stage renal disease on hemodialysis Hypertension Hyperlipidemia Plan: Patient has been chest pain-free. Echocardiogram remains pending. She has been scheduled for Lexiscan stress test tomorrow and if this is abnormal we will consider cardiac catheterization. The rationale, risks and benefits have been discussed with the patient and she is in agreement this treatment plan. Continue to monitor her on telemetry. We will follow her closely.
--- NOTE | 2018-05-04 15:28 | PN ---
PROGRESS NOTE Patient is seen for followup for end-stage renal disease. She is maintained on a Saturday, Saturday, Saturday schedule for hemodialysis. The patient currently denies any chest pain. She is scheduled for a stress test tomorrow. PHYSICAL EXAMINATION: Blood pressure is 158/70, heart rate 66 per minute. She is afebrile. Examination of the heart S1, S2. Examination of the lungs bilateral breath sounds are heard. Abdomen is soft, nontender. Examination of lower extremities shows no significant edema. Left BKA. The STAGE ELECTRICIAN HELPER exam is grossly intact. Patient does not have right eye. LABS SHOW: Sodium 138, potassium 4.2, BUN 28, serum creatinine 2.85 from 05/02/2018. Hemoglobin was 10.8. ASSESSMENT: 1. End-stage renal disease, on hemodialysis on a Saturday, Saturday, Saturday schedule via [facility]. The patient will be scheduled for hemodialysis tomorrow. 2. Chest pain with the negative troponins scheduled for stress test tomorrow. 3. Anemia of chronic disease. PLAN: Hemodialysis in a.m.. MMODL / IJN: [id number] /
[2018-05-04 17:27] LABS: Glucose,Whole Blood 101 mg/dL (75-99)
[2018-05-04] MEDS: SENNOSIDES 8.6 MG TAB PO SCH (18:53)
[2018-05-04] MEDS: PRAVASTATIN SODIUM 20 MG TAB PO SCH (20:15)
[2018-05-04] MEDS: MELATONIN 5 MG TABLET PO SCH (20:15)
[2018-05-04] MEDS: GABAPENTIN 300 MG CAP PO SCH (20:15)
[2018-05-04] MEDS: CLOPIDOGREL 75 MG TAB PO SCH (20:15)
[2018-05-04 20:51] LABS: Glucose,Whole Blood 162 mg/dL (75-99)
--- NOTE | 2018-05-04 21:04 | PN ---
PROGRESS NOTE DATE OF SERVICE: 05/03/2018. PRESENTING COMPLAINT: Chest pain. INTERVAL HISTORY: This patient was seen by me yesterday. I do not see my note transcribed so I am dictating another one. The patient admitted with chest pain, felt to be unstable angina. No further chest pain. Stress test has been ordered by Cardiology. Otherwise, tolerating a diet. Lying in bed, comfortable. REVIEW OF SYSTEMS: Done for constitutional, cardiovascular, GI, pulmonary and relevant findings as above. CURRENT MEDICATIONS: Reviewed. PHYSICAL EXAMINATION: VITAL SIGNS: Temperature 98.5, pulse 69, respiratory rate 18, blood pressure 114/66, pulse ox 95% on room air. GENERAL APPEARANCE: Lying in bed, awake. EYES: Absent right eye. Normal left eye. HEENT: External appearance of nose and ears normal. Oral cavity normal. NECK JVD unable to assess. Mass not palpable. RESPIRATORY effort normal. LUNGS decreased breath sounds. CARDIOVASCULAR: 1st and 2nd sounds normal. No edema. ABDOMEN: Soft, nontender. Liver and spleen not palpable. PSYCHIATRY: Awake, answering questions appropriately. INVESTIGATIONS: Accu-Cheks noted. ASSESSMENT: 1. Anterior chest wall pain in a patient with known coronary disease with negative troponin, could be unstable angina pending stress test. 2. End-stage kidney disease on hemodialysis with right chest wall hemodialysis catheter. 3. Diabetes mellitus type 2, chronically on insulin. 4. Chronic obstructive pulmonary disease in an ex-smoker. 5. Chronic congestive heart failure from systolic dysfunction EF 40 to 45% from underlying coronary artery disease. 6. Hypertensive heart disease. 7. Primary osteoarthritis. 8. Mild cognitive impairment from Alzheimer's dementia. 9. Depression not otherwise specified. 10.Coronary artery disease with history of prior stent. 11.Absent right eye. 12.Medical debility, patient at baseline needs to be transferred with a Marquis lift. PLAN: Continue current medication and treatment plan. Cardiology will be doing a stress test. Care was discussed with the patient. MMODL / IJN: [id number] /
[2018-05-04] MEDS: INSULIN DETEMIR 100 UNIT/ML 10 ML VIAL SQ SCH (21:24)
--- NOTE | 2018-05-04 21:31 | PN ---
PROGRESS NOTE DATE OF SERVICE: May 04, 2018. PRESENTING COMPLAINT: Chest pain. INTERVAL HISTORY: This patient presented with chest pain, now resolved, underlying coronary artery disease, awaiting a stress test. Otherwise patient is comfortable. REVIEW OF SYSTEMS: Done for constitutional, cardiovascular, GI, pulmonary and relevant findings as above. CURRENT MEDICATIONS: Reviewed. PHYSICAL EXAMINATION: VITAL SIGNS: Temperature 99, pulse 69, respiratory 18, blood pressure 146/76, pulse ox 96% on room air. GENERAL APPEARANCE: Lying in bed, comfortable. EYES: Absent right eye. Normal left eye. NECK JVD not raised. Mass not palpable RESPIRATORY effort normal. LUNGS: Diminished breath sounds. CARDIOVASCULAR: 1st and second sounds are normal. No edema. ABDOMEN: Soft, nontender. Liver and spleen not palpable. PSYCHIATRY: Awake, answering questions appropriately. INVESTIGATIONS: Accu-Cheks are noted. ASSESSMENT: 1. Anterior chest wall pain in a patient with known coronary artery disease with negative troponin, could be unstable angina pending a stress test. 2. End-stage kidney disease on hemodialysis, right chest wall hemodialysis catheter. 3. Diabetes mellitus type 2, chronically on insulin. 4. Chronic obstructive pulmonary disease in an ex-smoker. 5. Chronic congestive heart failure from systolic dysfunction, ejection fraction 40 to 45% from underlying coronary artery disease. 6. Hypertensive heart disease. 7. Primary osteoarthritis. 8. Mild cognitive impairment from Alzheimer's dementia. 9. Depression not otherwise specified. 10.Coronary artery disease, history of prior stent. 11.Absent right eye. 12.Medical debility, patient needs to transfer with a Marquis lift. PLAN: Continue current medication and treatment plan. Awaiting stress test tomorrow. Care was discussed with the patient. MMODL / IJN: [id number] /
[2018-05-05] MEDS: INSULIN ASPART 100 UNIT/ML 1 ML 10 ML VIAL SQ SCH ×3 (05:59→17:19)
[2018-05-05] MEDS ORDERED: REGADENOSON 0.4 MG/5 ML SYRINGE IV ONE (06:00)
[2018-05-05] MEDS ORDERED: CAFFEINE CITRATE 60 MG/3 ML VIAL IV PRN (06:00)
[2018-05-05 06:04] LABS: Glucose,Whole Blood 82 mg/dL (75-99)
--- NOTE | 2018-05-05 08:47 | PN ---
PROGRESS NOTE DATE OF SERVICE: 05/03/2018. PRESENTING COMPLAINT: Chest pain. INTERVAL HISTORY: This patient presented with an unstable angina with multiple medical problems. No further episodes. Seen by Cardiology for a stress test on Saturday. Tolerating a diet. REVIEW OF SYSTEMS: Done for constitutional, cardiovascular, GI, pulmonary; findings as above. CURRENT MEDICATIONS: Reviewed. EXAMINATION: VITAL SIGNS: Afebrile, pulse 60, respiratory 18, blood pressure 138/65, pulse ox 95% on room air. GENERAL APPEARANCE: Sitting up, comfortable. EYES: Absent right eye. Normal left eye. NECK JVD not raised. Mass not palpable. RESPIRATORY effort normal. LUNGS: Diminished breath sounds. CARDIOVASCULAR: 1st and 2nd sounds normal. No edema. ABDOMEN: Soft, nontender. Liver and spleen not palpable. PSYCHIATRY: Answering simple questions. EXTREMITIES left below-knee amputation. Chest wall: Right infraclavicular hemodialysis catheter. INVESTIGATIONS: Accu-Cheks are noted. ASSESSMENT: 1. Anterior chest wall pain in a patient with known coronary artery disease pending nuclear stress test on Saturday. 2. End-stage kidney disease on hemodialysis, right chest wall hemodialysis catheter. 3. Diabetes mellitus type 2, chronically on insulin. 4. Chronic obstructive pulmonary disease in an ex-smoker. 5. Chronic congestive heart failure from systolic dysfunction, EF 40-45 percent, underlying coronary artery disease. 6. Hypertensive heart disease. 7. Primary osteoarthritis. 8. Mild cognitive impairment from Alzheimer's dementia. 9. Depression not otherwise specified. 10.Coronary artery disease by history of prior stent. 11.Absent right eye. 12.Medical debility. Patient needs a Marquis lift to be transferred. PLAN: Continue current medication and treatment plan. Care was discussed with the patient. Awaiting a stress test on Saturday. MMODL / IJN: [id number] /
--- NOTE | 2018-05-05 10:52 | P.STRESS ---
- Stress Test Note Stress Test Results/Findings: Exam Performed: NM stress lexiscan cardiolite Exam Date: 05/05/18 Reason for Exam: CHEST PAIN Height: 5 ft 11 in Weight: 85.5 kg Protocol: LEXISCAN CARDIOLITE Stage: Duration of Exercise: 5:00 Resting Heart Rate: 60 Resting Blood Pressure: 148/71 Maximum Achieved Heart Rate: 67 Maximum Achieved Blood Pressure: 149/61 85% PMHR: 100% PMHR: METS: Technologist Comment: Stress Test Results/Findings: This is a 62-year-old female with history of hypertension, diabetes, hypercholesterolemia, being evaluated for chest pain and also shortness of breath. Stress data: Baseline EKG showed sinus rhythm with diffuse nonspecific ST-T abnormalities. Blood pressure at rest is 148/71 with pulse rate of 60. A standard dose of Lexiscan was infused. EKGs taken during and after the infusion did not reveal any significant deviation from the baseline. Final impression: #1. Nondiagnostic legs and stress test. Because of baseline EKG changes #2. Report on the nuclear images to be given by the radiologist
[2018-05-05] MEDS: amLODIPine 5 MG TAB PO SCH (12:08)
[2018-05-05] MEDS: ASPIRIN 325 MG TAB PO SCH (12:08)
[2018-05-05] MEDS: CALCIUM ACETATE 667 MG CAP PO SCH (12:09)
[2018-05-05] MEDS: ESCITALOPRAM 20 MG TAB PO SCH (12:09)
[2018-05-05] MEDS: CHOLECALCIFEROL 1,000 UNIT TAB PO SCH (12:09)
[2018-05-05] MEDS: buPROPion 75 MG TAB PO SCH (12:09)
[2018-05-05] MEDS: hydrALAZINE HCL 50 MG TAB PO SCH ×2 (12:10→17:19)
[2018-05-05] MEDS: ISOSORBIDE MONONITRATE ER 60 MG TAB.ER.24H PO SCH (12:10)
[2018-05-05] MEDS: METOPROLOL TARTRATE 50 MG TAB PO SCH (12:10)
[2018-05-05] MEDS: NEOMYCIN-BACITRACIN-POLY OINT 14 GM TUBE TOPICAL SCH (12:11)
--- NOTE | 2018-05-05 12:14 | NM ---
EXAMINATION TYPE: NM stress lexiscan cardiolite DATE OF EXAM: 05/05/2018 COMPARISON: NONE HISTORY: Chest pain, shortness of breath, palpitations, prior tobacco abuse, diabetes, hyperlipidemia , and hypertension. TECHNIQUE: After the intravenous administration of 10.59 mCi Tc 99m Sestamibi - Cardiolite resting S PECT images acquired 45 minutes post injection. The patient received 0.4mg Lexiscan, 27.8 mCi Tc 99m Sestamibi - Stress images obtained [address] injection FINDINGS: Review of stress and rest SPECT images demonstrates no reversible perfusion abnormality. A moderate f ixed defect is seen of the inferoseptal wall in the apical and mid segments from prior injury. Gated analysis shows dyskinesia of the inferior septal wall with an estimated left ventricular ejection fr action of 46 %. TID is within normal limits calculated at 1.1. IMPRESSION: 1. No scintigraphic evidence for reversible ischemia. 2. Moderate fixed defect in the distribution of the right coronary artery from prior infarct with cor responding dyskinesia. 3. Abnormal left ventricular ejection fraction of 46%.
[2018-05-05] MEDS: ACETAMINOPHEN TAB 325 MG TAB PO PRN (12:17)
--- NOTE | 2018-05-05 12:40 | P.PN ---
Subjective Progress Note Date: 05/05/18 This is a 62-year-old female who was experiencing chest discomfort while undergoing dialysis at the dialysis center. For this reason she came to the hospital. She was seen in consultation by Dr. Rizvi. Troponins came back to be unremarkable, EKG showed normal sinus rhythm with no ST-T wave changes. She underwent a Lexiscan stress test today that came back negative for any reversible ischemia. Objective - Vital Signs Vital signs: Vital Signs Temp 98.9 F 05/05/18 08:00 Pulse 61 05/05/18 08:00 Resp 18 05/05/18 08:00 BP 137/69 05/05/18 08:00 Pulse Ox 96 05/05/18 08:00 Intake & Output 05/04/18 05/05/18 05/05/18 18:59 06:59 18:59 Intake Total 720 10 Balance 720 10 Weight 85.5 kg Intake: IV 10 .9 10 Oral 720 Other: Voiding Method Diaper Diaper Diaper Incontinent Incontinent Incontinent # Voids 1 - Exam PHYSICAL EXAMINATION: GENERAL: 62-year-old female in no acute distress at the time of my examination HEENT: Head is atraumatic, normocephalic. Pupils equal, round. Sclera anicteric. Conjunctiva are clear. Mucous membranes of the mouth are moist. Neck is supple. There is no elevated jugular venous pressure. No carotid bruit is heard. HEART EXAMINATION: Heart S1, S2 normal. No murmur or gallop heard. CHEST EXAMINATION: Lungs are clear to auscultation and precussion. No chest wall tenderness is noted on palpation or with deep breathing. ABDOMEN: Soft, nontender. Bowel sounds are heard. No organomegaly noted. EXTREMITIES:[ 1+ peripheral pulses the right lower extremity, left BKA is noted NEUROLOGIC patient is awake, alert and oriented X3.] . - Labs CBC & Chem 7: 05/02/18 10:14 05/02/18 10:14 Labs: Abnormal Lab Results - Last 24 Hours (Table) 05/04/18 05/04/18 Range/Units 16:57 20:50 POC Glucose (mg/dL) 101 H 162 H (75-99) mg/dL Assessment and Plan Plan: Assessment and plan #1 atypical chest pain with negative troponins, no EKG changes. Lexiscan stress test of today negative for any reversible ischemia. #2 end-stage renal disease on hemodialysis #3 hypertension #4 hyperlipidemia Plan From cardiology's perspective, patient may be able to be discharged home today follow-up appointment in the office post discharge. DNP note has been reviewed, I agree with a documented findings and plan of care. Patient was seen and examined.
[2018-05-05 13:07] VITALS: TEMP 98.6
[2018-05-05 17:21] LABS: Glucose,Whole Blood 151 mg/dL (75-99)
--- NOTE | 2018-05-05 17:29 | DS ---
DISCHARGE SUMMARY DATE OF ADMISSION: 05/02/2018 DATE OF DISCHARGE: 05/05/2018. FINAL DIAGNOSES: 1. Left anterior chest wall pain could be musculoskeletal. 2. End-stage kidney disease on hemodialysis, right chest wall hemodialysis catheter. 3. Diabetes mellitus type 2, chronically on insulin. 4. Chronic obstructive pulmonary disease in an ex-smoker. 5. Chronic congestive heart failure from systolic dysfunction, EF 40-45 percent, underlying coronary artery disease. 6. Hypertensive heart disease. 7. Primary osteoarthritis. 8. Mild cognitive impairment from Alzheimer's dementia. 9. Depression, not otherwise specified. 10.Coronary artery disease, history of prior stent. 11.Absent right eye. 12.Medical debility. Patient needs to transfer with a [facility] left. HOSPITAL COURSE: This patient presented with anterior chest wall pain. Troponins were negative. Underwent a nuclear stress test that was negative showing a fixed defect. The patient is seen by david Robertson to be discharged. The patient does get hemodialysis. The patient had no further episodes. EXAMINATION: Temp 98.6, pulse 64, respiratory 18, blood pressure 153/73. Pulse ox 96% on room air. Lungs decreased breath sounds. Cardiovascular 1st and 2nd sounds normal. The patient has a left below-knee amputation. The patient also got absent right eye. DISCHARGE MEDICATIONS: 1. Lopressor 50 mg b.i.d. 2. PhosLo 667 mg p.o. daily. 3. Pravachol 10 mg p.o. q.h.s. 4. Hydralazine 50 mg p.o. t.i.d. 5. Imdur ER 60 mg p.o. daily. 6. Nitrostat 0.4 sublingual q.5 p.r.n. 7. Vitamin D3 2000 units p.o. daily. 8. Norvasc 5 mg p.o. daily. 9. Lexapro 20 mg p.o. daily. 10.Melatonin 5 mg p.o. q.h.s. 11.Zofran 4 mg p.o. q.8h p.r.n. 12.Senna 8.6 mg q.48 hours. 13.Plavix 75 mg p.o. q.h.s. 14.Cranberry 450 mg p.o. q.h.s. 15.Biofreeze topical q.8h p.r.n. 16.Promethazine 12.5 p.o. q.6h p.r.n. 17.Sodium bicarb 650 mg p.o. b.i.d. 18.Wellbutrin 150 mg p.o. daily. 19. 40 mcg subcu 7 days. 20.Neurontin 300 mg q.h.s. 21.Humalog 6 units subcu a.c. t.i.d. 22.Lantus 26 units subcu q.h.s. 23.Milk of magnesia 25 mg p.o. q.h.s. p.r.n. 24.Triple antibiotic topical b.i.d. 25.Tylenol 3 one tablet q.4h to 6 p.r.n. 26.Dilaudid 2 mg q.6h p.r.n. DISPOSITION: [facility]. FOLLOWUP: Follow up with Dr. Nobles at the [facility]. Follow up with Cardiology in [address] Nobles. MMMEÑOL / IJN: [id number] /
[2018-05-05 20:28] LABS: Glucose,Whole Blood 179 mg/dL (75-99)
[2018-05-05 20:47] VITALS: BP 126/55; PULSE 55; RESP 18
[2018-05-05 20:56] LABS: Hepatitis B Surface AB- Quant 3.5 mIU/mL
[2018-05-08] MEDS ORDERED: DARBEPOETIN ALFA 40 MCG/0.4 ML SYRINGE SQ SCH (09:00)
== END 2018-05-05 21:05 ==
LOC: EC 09:56 → 3OBS 15:28 → 6SEL 18:33
PROVIDERS: ADMIT Hospitalist; ATTEND Hospitalist
DX: R07.89 Other chest pain (principal); I13.2 Hypertensive heart and chronic kidney disease with heart failure and with stage 5 chronic kidney disease, or end stage renal disease; N18.6 End stage renal disease; I50.22 Chronic systolic (congestive) heart failure; E11.22 Type 2 diabetes mellitus with diabetic chronic kidney disease; I95.9 Hypotension, unspecified; Z99.2 Dependence on renal dialysis; I25.10 Atherosclerotic heart disease of native coronary artery without angina pectoris; J44.9 Chronic obstructive pulmonary disease, unspecified; I73.9 Peripheral vascular disease, unspecified; R61 Generalized hyperhidrosis; M89.9 Disorder of bone, unspecified; D63.8 Anemia in other chronic diseases classified elsewhere; R32 Unspecified urinary incontinence; G30.9 Alzheimer's disease, unspecified; F02.80 Dementia in other diseases classified elsewhere, unspecified severity, without behavioral disturbance, psychotic disturbance, mood disturbance, and anxiety; F32.9 Major depressive disorder, single episode, unspecified; L98.9 Disorder of the skin and subcutaneous tissue, unspecified; H57.9 Unspecified disorder of eye and adnexa; F41.9 Anxiety disorder, unspecified; R53.81 Other malaise; M19.91 Primary osteoarthritis, unspecified site; M06.9 Rheumatoid arthritis, unspecified; E78.5 Hyperlipidemia, unspecified; E11.51 Type 2 diabetes mellitus with diabetic peripheral angiopathy without gangrene; Z16.12 Extended spectrum beta lactamase (ESBL) resistance; Z79.02 Long term (current) use of antithrombotics/antiplatelets; Z79.899 Other long term (current) drug therapy; Z79.4 Long term (current) use of insulin; Z88.1 Allergy status to other antibiotic agents; Z91.048 Other nonmedicinal substance allergy status; Z88.5 Allergy status to narcotic agent; Z95.5 Presence of coronary angioplasty implant and graft; Z89.512 Acquired absence of left leg below knee; Z90.01 Acquired absence of eye; Z86.73 Personal history of transient ischemic attack (TIA), and cerebral infarction without residual deficits; I25.2 Old myocardial infarction; Z87.440 Personal history of urinary (tract) infections; Z86.14 Personal history of Methicillin resistant Staphylococcus aureus infection; Z87.891 Personal history of nicotine dependence; Z86.19 Personal history of other infectious and parasitic diseases; Z90.710 Acquired absence of both cervix and uterus; Z90.49 Acquired absence of other specified parts of digestive tract; Z82.5 Family history of asthma and other chronic lower respiratory diseases; Z82.3 Family history of stroke
CPT/HCPCS: 99285; 36415; 93005; 93017; 83880; 80061; 80053; 82150; 82550; 82553; 83690; 83735; 84484; 85025; 85610; 85730; 86706; 87340; 86704; 71046; 78452; G0378 ×5; A9500; J2785

== ENCOUNTER 2018-05-17 05:08 | Inpatient (IN) | payer OTHER ==
--- NOTE | 2018-05-17 05:29 | ED ---
Weakness HPI - General Chief complaint: Weakness Stated complaint: Weakness Time Seen by Provider: 05/17/18 05:23 Source: patient, EMS Mode of arrival: EMS - History of Present Illness Initial comments: Marilu is a 62-year-old female with very complex medical history most significant for end-stage renal disease on hemodialysis. Patient is brought to the emergency department this morning via EMS from her residential facility for evaluation of generalized malaise. Patient reports that she's not been feeling well all week, due to this she did not attend dialysis on Saturday, and she only attended 2 hours of her four-hour dialysis on Saturday. Patient reports she's not been feeling well, she's had a sore throat and nursing staff has noted a nonproductive cough. Patient was treated overnight with cough suppressants and Tylenol with codeine, this improved her cough and sore throat however she was noted to become hypoxic with oxygen saturations of 88-89% on room air and continued to complain of generalized malaise. Patient stated that she didn't feel well and she would not be attending her Session of dialysis today because she doesn't feel well. Patient denies any fevers though she was noted to have a oral temperature of 99.1, she denies any chills, nausea, vomiting, chest pain, palpitations or shortness of breath. She reports she's had a sore throat since Saturday or Saturday and that she's had a nonproductive cough. She denies any nasal congestion or rhinorrhea. - Related Data Home Medications Medication Instructions Recorded Confirmed Calcium Acetate [PhosLo] 667 mg PO DAILY 11/10/15 05/02/18 Pravastatin Sodium [Pravachol] 10 mg PO HS 11/10/15 05/02/18 hydrALAZINE HCL [Apresoline] 50 mg PO TID 11/10/15 05/02/18 Cholecalciferol [Vitamin D3] 2,000 unit PO DAILY 05/25/16 05/02/18 Escitalopram [Lexapro] 20 mg PO DAILY 06/17/16 05/02/18 Melatonin 5 mg PO HS 02/08/17 05/02/18 Ondansetron [Zofran] 4 mg PO Q8H PRN 02/08/17 05/02/18 Sennosides [Senna] 8.6 mg PO Q48H 12/08/17 05/02/18 Clopidogrel [Plavix] 75 mg PO HS 01/27/18 05/02/18 Cranberry Fruit Concentrate 450 mg PO HS 01/27/18 05/02/18 [Cranberry] Menthol [Biofreeze] 1 applic TOPICAL Q8H PRN 01/27/18 05/02/18 Promethazine HCl 12.5 mg PO Q6H PRN 01/27/18 05/02/18 Sodium Bicarbonate Tab 650 mg PO BID 01/27/18 05/02/18 buPROPion [Wellbutrin] 150 mg PO DAILY 01/27/18 05/02/18 Magnesium Hydroxide [Milk of 2,400 mg PO HS PRN 02/21/18 05/02/18 Magnesia] Yvbirarf-Jvyvqiqxsf-Qovt Oint 1 applic TOPICAL BID 02/21/18 05/02/18 [Triple Antibiotic Ointment] Previous Rx's Medication Instructions Recorded Metoprolol Tartrate [Lopressor] 50 mg PO BID #60 tab 05/27/14 Isosorbide Mononitrate ER [Imdur] 60 mg PO DAILY #1 tab 11/21/15 Nitroglycerin Sl Tabs [Nitrostat] 0.4 mg SUBLINGUAL Q5M PRN #0 tab 11/21/15 amLODIPine [Norvasc] 5 mg PO DAILY #30 tab 05/26/16 Darbepoetin Jc [Aranesp] 40 mcg SQ Q7D syringe 01/30/18 Gabapentin [Neurontin] 300 mg PO HS #0 01/30/18 INSULIN LISPRO (HumaLOG) [humaLOG] 6 units SQ AC-TID #0 01/30/18 Insulin Glargine [Lantus] 26 unit SQ HS #0 01/30/18 Acetaminophen-Codeine 300-30mg 1 tab PO Q4-6H PRN #10 tab 05/05/18 [Tylenol w/codeine #3] HYDROmorphone [Dilaudid] 2 mg PO Q6H PRN #10 tab 05/05/18 Allergies Allergy/AdvReac Type Severity Reaction Status Date / Time doxycycline calcium Allergy Rash/Hives Verified 05/17/18 07:11 [From Vibramycin] doxycycline hyclate Allergy Rash/Hives Verified 05/17/18 07:11 [From Vibramycin] doxycycline monohydrate Allergy Rash/Hives Verified 05/17/18 07:11 [From Vibramycin] nalbuphine HCl [From Nubain] Allergy Rash/Hives Verified 05/17/18 07:11 oxycodone HCl [From Tylox] Allergy Rash/Hives Verified 05/17/18 07:11 Tetracyclines Allergy Rash/Hives Verified 05/17/18 07:11 wool Allergy Rash/Hives Verified 05/17/18 07:11 Review of Systems ROS Statement: Those systems with pertinent positive or pertinent negative responses have been documented in the HPI. ROS Other: All systems not noted in ROS Statement are negative. Past Medical History Past Medical History: Coronary Artery Disease (CAD), Heart Failure, COPD, CVA/ TIA, Dementia, Diabetes Mellitus, Eye Disorder, Hyperlipidemia, Hypertension, Myocardial Infarction ([place]), Osteoarthritis (OA), Renal Disease, Rheumatoid Arthritis (RA), Skin Disorder, Vascular Disorder Additional Past Medical History / Comment(s): UTI/pyelonephritis with sepsis, IDDM type II,hx of falls CKD stage III, PAD, 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 Last Myocardial Infarction Date:: 1987 History of Any Multi-Drug Resistant Organisms: ESBL, MRSA Date of last positivie culture/infection: 01/09/18 ESBL 12/26/17 MRSA MDRO Source:: ESBL URINE/ MRSA URINE Past Surgical History: Cholecystectomy, Heart Catheterization With Stent, Hernia Repair, Hysterectomy, Tubal Ligation Additional Past Surgical History / Comment(s): Abdominal SX. RT EYE REMOVED 2 YEAR AGO, 05-25-14 LT BELOW KNEE AMP, rt chest wall hemodualysis cath Past Anesthesia/Blood Transfusion Reactions: Motion Sickness Additional Past Anesthesia/Blood Transfusion Reaction / Comment(s): stated has had blood transfusion in past-no reaction to it Date of Last Stent Placement:: 04/2014 Past Psychological History: Anxiety, Depression Smoking Status: Former smoker Past Alcohol Use History: None Reported Past Drug Use History: None Reported - Past Family History Father Family Medical History: CVA/TIA Mother Family Medical History: COPD General Exam - General Exam Comments Initial Comments: GENERAL: Chronically ill appearing debilitated, orbital he obese female HENT: Normocephalic, Atraumatic. EYES: Purulent discharge from right eye PULMONARY: Decreased breath sounds at bilateral bases, decreased respiratory effort CARDIOVASCULAR: There is a regular rate and rhythm without any murmurs gallops or rubs. ABDOMEN: Soft and nontender with normal bowel sounds. SKIN: Skin is clear with no lesions or rashes and otherwise unremarkable. NEUROLOGIC: Alert and oriented to person and place MUSCULOSKELETAL: Lower extremity amputation LYMPHATICS: No significant lymphadenopathy is noted PSYCHIATRIC: Flat affect Limitations: patient is poor historian Course Vital Signs 05/17/18 05/17/18 05/17/18 05:10 06:52 07:05 Temperature 98.8 F 98.3 F Pulse Rate 72 62 62 Respiratory 18 18 18 Rate Blood Pressure 123/54 125/64 151/70 O2 Sat by Pulse 94 L 98 97 Oximetry EKG Findings - EKG Comments: EKG Findings:: EKG obtained at 6 AM, rate is 61, rhythm is sinus, there is a normal axis, VA is 182, QRS 88, QTC is prolonged at 497. There are no acute ST elevations or depressions, no significant T-wave abnormalities. Medical Decision Making - Medical Decision Making Patient was seen and evaluated, history was obtained from the patient and review of medical record The chronically ill, dialysis dependent female presenting with generalized malaise for 4 days duration, sore throat. Noncompliance with dialysis. Physical exam is significant for apparent conjunctivitis of the right eye, a very chronically ill-appearing female Labs were reviewed, consistent with chronic kidney disease, chronic anemia, noted to have a urinary tract infection Rocephin ordered for UTI Given the patient's multiple comorbidities, fatigue resulting in her not being compliant with dialysis do feel she warrants admission to the hospital for UTI with mental status change. Patient care was discussed with the mid-level provider for [facility] Hospitalist group who agrees with plan for admission with consult to nephrology. - Lab Data Result diagrams: 05/17/18 05:45 05/17/18 05:45 Lab Results 05/17/18 05/17/18 05/17/18 Range/Units 05:45 05:45 05:45 WBC 5.4 (3.8-10.6) k/uL RBC 3.30 L (3.80-5.40) m/uL Hgb 9.9 L (11.4-16.0) gm/dL Hct 30.6 L (34.0-46.0) % MCV 92.8 (80.0-100.0) fL MCH 30.1 (25.0-35.0) pg MCHC 32.5 (31.0-37.0) g/dL RDW 15.6 H (11.5-15.5) % Plt Count 311 (150-450) k/uL Neutrophils % 69 % Lymphocytes % 19 % Monocytes % 9 % Eosinophils % 2 % Basophils % 0 % Neutrophils # 3.7 (1.3-7.7) k/uL Lymphocytes # 1.0 (1.0-4.8) k/uL Monocytes # 0.5 (0-1.0) k/uL Eosinophils # 0.1 (0-0.7) k/uL Basophils # 0.0 (0-0.2) k/uL Hypochromasia Moderate PT (9.0-12.0) sec INR (<1.2) APTT (22.0-30.0) sec Sodium 139 (137-145) mmol/L Potassium 4.3 (3.5-5.1) mmol/L Chloride 103 (98-107) mmol/L Carbon Dioxide 26 (22-30) mmol/L Anion Gap 10 mmol/L BUN 50 H (7-17) mg/dL Creatinine 4.13 H (0.52-1.04) mg/dL Est GFR (CKD-EPI)AfAm 13 (>60 ml/min/1.73 sqM) Est GFR (CKD-EPI)NonAf 11 (>60 ml/min/1.73 sqM) Glucose 146 H (74-99) mg/dL Plasma Lactic Acid Yonis (0.7-2.0) mmol/L Calcium 8.7 (8.4-10.2) mg/dL Phosphorus 4.6 H (2.5-4.5) mg/dL Magnesium 2.1 (1.6-2.3) mg/dL Total Bilirubin 0.4 (0.2-1.3) mg/dL AST 26 (14-36) U/L ALT 24 (9-52) U/L Alkaline Phosphatase 74 (38-126) U/L Total Creatine Kinase 36 (30-135) U/L CK-MB (CK-2) 0.4 (0.0-2.4) ng/mL CK-MB (CK-2) Rel Index 1.1 Troponin I <0.012 (0.000-0.034) ng/mL NT-Pro-B Natriuret Pep pg/mL Total Protein 6.5 (6.3-8.2) g/dL Albumin 3.2 L (3.5-5.0) g/dL Urine Color Urine Appearance (Clear) Urine pH (5.0-8.0) Ur Specific [place] (1.001-1.035) Urine Protein (Negative) Urine Glucose (UA) (Negative) Urine Ketones (Negative) Urine Blood (Negative) Urine Nitrite (Negative) Urine Bilirubin (Negative) Urine Urobilinogen (<2.0) mg/dL Ur Leukocyte Esterase (Negative) Urine RBC (0-5) /hpf Urine WBC (0-5) /hpf Urine WBC Clumps (None) /hpf Urine Bacteria (None) /hpf 05/17/18 05/17/18 05/17/18 Range/Units 05:45 05:45 05:45 WBC (3.8-10.6) k/uL RBC (3.80-5.40) m/uL Hgb (11.4-16.0) gm/dL Hct (34.0-46.0) % MCV (80.0-100.0) fL MCH (25.0-35.0) pg MCHC (31.0-37.0) g/dL RDW (11.5-15.5) % Plt Count (150-450) k/uL Neutrophils % % Lymphocytes % % Monocytes % % Eosinophils % % Basophils % % Neutrophils # (1.3-7.7) k/uL Lymphocytes # (1.0-4.8) k/uL Monocytes # (0-1.0) k/uL Eosinophils # (0-0.7) k/uL Basophils # (0-0.2) k/uL Hypochromasia PT 10.1 (9.0-12.0) sec INR 1.0 (<1.2) APTT 24.0 (22.0-30.0) sec Sodium (137-145) mmol/L Potassium (3.5-5.1) mmol/L Chloride (98-107) mmol/L Carbon Dioxide (22-30) mmol/L Anion Gap mmol/L BUN (7-17) mg/dL Creatinine (0.52-1.04) mg/dL Est GFR (CKD-EPI)AfAm (>60 ml/min/1.73 sqM) Est GFR (CKD-EPI)NonAf (>60 ml/min/1.73 sqM) Glucose (74-99) mg/dL Plasma Lactic Acid Yonis 1.2 (0.7-2.0) mmol/L Calcium (8.4-10.2) mg/dL Phosphorus (2.5-4.5) mg/dL Magnesium (1.6-2.3) mg/dL Total Bilirubin (0.2-1.3) mg/dL AST (14-36) U/L ALT (9-52) U/L Alkaline Phosphatase (38-126) U/L Total Creatine Kinase (30-135) U/L CK-MB (CK-2) (0.0-2.4) ng/mL CK-MB (CK-2) Rel Index Troponin I (0.000-0.034) ng/mL NT-Pro-B Natriuret Pep 9070 pg/mL Total Protein (6.3-8.2) g/dL Albumin (3.5-5.0) g/dL Urine Color Urine Appearance (Clear) Urine pH (5.0-8.0) Ur Specific [place] (1.001-1.035) Urine Protein (Negative) Urine Glucose (UA) (Negative) Urine Ketones (Negative) Urine Blood (Negative) Urine Nitrite (Negative) Urine Bilirubin (Negative) Urine Urobilinogen (<2.0) mg/dL Ur Leukocyte Esterase (Negative) Urine RBC (0-5) /hpf Urine WBC (0-5) /hpf Urine WBC Clumps (None) /hpf Urine Bacteria (None) /hpf 05/17/18 Range/Units 05:54 WBC (3.8-10.6) k/uL RBC (3.80-5.40) m/uL Hgb (11.4-16.0) gm/dL Hct (34.0-46.0) % MCV (80.0-100.0) fL MCH (25.0-35.0) pg MCHC (31.0-37.0) g/dL RDW (11.5-15.5) % Plt Count (150-450) k/uL Neutrophils % % Lymphocytes % % Monocytes % % Eosinophils % % Basophils % % Neutrophils # (1.3-7.7) k/uL Lymphocytes # (1.0-4.8) k/uL Monocytes # (0-1.0) k/uL Eosinophils # (0-0.7) k/uL Basophils # (0-0.2) k/uL Hypochromasia PT (9.0-12.0) sec INR (<1.2) APTT (22.0-30.0) sec Sodium (137-145) mmol/L Potassium (3.5-5.1) mmol/L Chloride (98-107) mmol/L Carbon Dioxide (22-30) mmol/L Anion Gap mmol/L BUN (7-17) mg/dL Creatinine (0.52-1.04) mg/dL Est GFR (CKD-EPI)AfAm (>60 ml/min/1.73 sqM) Est GFR (CKD-EPI)NonAf (>60 ml/min/1.73 sqM) Glucose (74-99) mg/dL Plasma Lactic Acid Yonis (0.7-2.0) mmol/L Calcium (8.4-10.2) mg/dL Phosphorus (2.5-4.5) mg/dL Magnesium (1.6-2.3) mg/dL Total Bilirubin (0.2-1.3) mg/dL AST (14-36) U/L ALT (9-52) U/L Alkaline Phosphatase (38-126) U/L Total Creatine Kinase (30-135) U/L CK-MB (CK-2) (0.0-2.4) ng/mL CK-MB (CK-2) Rel Index Troponin I (0.000-0.034) ng/mL NT-Pro-B Natriuret Pep pg/mL Total Protein (6.3-8.2) g/dL Albumin (3.5-5.0) g/dL Urine Color Yellow Urine Appearance Turbid H (Clear) Urine pH 7.5 (5.0-8.0) Ur Specific [place] 1.011 (1.001-1.035) Urine Protein 3+ H (Negative) Urine Glucose (UA) Negative (Negative) Urine Ketones Negative (Negative) Urine Blood Moderate H (Negative) Urine Nitrite Negative (Negative) Urine Bilirubin Negative (Negative) Urine Urobilinogen <2.0 (<2.0) mg/dL Ur Leukocyte Esterase Large H (Negative) Urine RBC 22 H (0-5) /hpf Urine WBC >182 H (0-5) /hpf Urine WBC Clumps Many H (None) /hpf Urine Bacteria Many H (None) /hpf Disposition Clinical Impression: CKD (chronic kidney disease), Dependence on renal dialysis, UTI (urinary tract infection), Fatigue, Non-compliance with renal dialysis Disposition: ADMITTED IP TO THIS [facility] Condition: Serious Is patient prescribed a controlled substance at d/c from ED?: No Referrals: Jose Nobles DO [Primary Care Provider] - 1-2 days
--- NOTE | 2018-05-17 05:43 | XR ---
EXAMINATION TYPE: XR chest 2V DATE OF EXAM: 05/17/2018 COMPARISON: 05/02/2018 HISTORY: Weakness TECHNIQUE: Frontal and lateral views of the chest are obtained. FINDINGS: There is a dual-lumen right central venous catheter with the tip over the right atrium. Halie ngs are clear. There is no heart failure. Heart size is normal. Costophrenic angles are fairly clear. Bony thorax is intact. IMPRESSION: No active cardiopulmonary disease. Inspiration is improved compared to last exam.
[2018-05-17 06:09] LABS: Basophils % (A) 0 %; Eosinophils # (A) 0.1 k/uL (0-0.7); Eosinophils % (A) 2 %; HCT 30.6 % (34.0-46.0); HGB 9.9 gm/dL (11.4-16.0); Hypochromasia Moderate; Lymphocytes % (A) 19 %; MCH 30.1 pg (25.0-35.0); MCHC 32.5 g/dL (31.0-37.0); MCV 92.8 fL (80.0-100.0); Mean Platelet Volume 6.1; Monocytes # (A) 0.5 k/uL (0-1.0); Monocytes % (A) 9 %; Neutrophils # (A) 3.7 k/uL (1.3-7.7); Neutrophils % (A) 69 %; Platelet Count 311 k/uL (150-450); RDW 15.6 % (11.5-15.5); WBC 5.4 k/uL (3.8-10.6)
[2018-05-17 06:17] LABS: Appearance,Urine Turbid (Clear); Bacteria,Urine Many /hpf; Bilirubin,Urine Negative (Negative); Blood,Urine Moderate (Negative); Color,Urine Yellow; Glucose,Urine (UA) Negative (Negative); Ketones,Urine Negative (Negative); Leukocyte Esterase,Urine Large (Negative); Nitrite,Urine Negative (Negative); PH, Urine 7.5 (5.0-8.0); Protein,Urine 3+ (Negative); RBC,Urine 22 /hpf (0-5); Specific Gravity,Urine 1.011 (1.001-1.035); Urobilinogen,Urine <2.0 mg/dL (<2.0); WBC,Urine >182 /hpf (0-5)
[2018-05-17 06:23] LABS: Prothrombin Time 10.1 sec (9.0-12.0)
[2018-05-17 06:31] LABS: Potassium 4.3 mmol/L (3.5-5.1)
[2018-05-17 06:32] LABS: Albumin 3.2 g/dL (3.5-5.0); Calcium 8.7 mg/dL (8.4-10.2); Magnesium 2.1 mg/dL (1.6-2.3); Phosphorus 4.6 mg/dL (2.5-4.5); Total Bilirubin 0.4 mg/dL (0.2-1.3); Total Protein 6.5 g/dL (6.3-8.2)
[2018-05-17 07:07] LABS: Creatine Kinase 36 U/L (30-135)
[2018-05-17] MEDS ORDERED: NALOXONE 0.4 MG/ML 1 ML VIAL IV PRN (07:15)
[2018-05-17 07:20] LABS: Creatine Kinase MB 0.4 ng/mL (0.0-2.4); Troponin I <0.012 ng/mL (0.000-0.034)
[2018-05-17] MEDS ORDERED: DARBEPOETIN ALFA 40 MCG/0.4 ML SYRINGE SQ SCH (07:30)
[2018-05-17] MEDS: INSULIN ASPART 100 UNIT/ML 1 ML 10 ML VIAL SQ SCH ×5 (08:52→20:53)
[2018-05-17 11:20] LABS: Glucose,Whole Blood 122 mg/dL (75-99)
[2018-05-17] MEDS: CALCIUM ACETATE 667 MG CAP PO SCH (12:01)
[2018-05-17] MEDS: ISOSORBIDE MONONITRATE ER 60 MG TAB.ER.24H PO SCH (12:01)
[2018-05-17] MEDS: SODIUM BICARBONATE TAB 650 MG TAB PO SCH ×2 (12:01→20:10)
[2018-05-17] MEDS: METOPROLOL TARTRATE 50 MG TAB PO SCH ×2 (12:01→20:10)
[2018-05-17] MEDS: hydrALAZINE HCL 50 MG TAB PO SCH ×3 (12:02→21:50)
[2018-05-17] MEDS: SODIUM CHLORIDE 0.9% 1,000 ML IV SCH (12:02)
[2018-05-17] MEDS: amLODIPine 5 MG TAB PO SCH (12:02)
--- NOTE | 2018-05-17 12:26 | P.NPCON ---
History of Present Illness - Reason for Consult end stage renal disease - History of Present Illness Reason for consultation: End-stage renal disease History of present illness: Patient is a 62-year-old female seen in renal consultation for end-stage renal disease. She is maintained on hemodialysis on a Saturday schedule via right chest permacath. Etiology is diabetic kidney disease. Patient missed dialysis on Saturday due to not feeling well. She only completed half of her treatment yesterday. Patient states she developed a cough starting Saturday but is not bringing up anything. She does admit to a fever. Denies any drainage from the catheter site. No chest pain or shortness of breath. Denies nausea vomiting or diarrhea. Urine culture is suggestive of a UTI. Chest x-ray reveals no active cardiopulmonary disease. Hemodynamically stable. Afebrile. No active complaints at this time. Vital signs are stable. General: The patient appeared well nourished and normally developed. HEENT: Head exam is unremarkable. Neck is without jugular venous distension. LUNGS: Lungs are clear to auscultation and percussion. Breath sounds decreased. HEART: Rate and Rhythm are regular. First and second heart sounds normal. No murmurs, rubs or gallops. ABDOMEN: Abdominal exam reveals normal bowel sounds. Non-tender and non- distended. No evidence of peritonitis. EXTREMITITES: No clubbing, cyanosis, or edema. Amputation noted. Past Medical History Past Medical History: Coronary Artery Disease (CAD), Heart Failure, COPD, CVA/ TIA, Dementia, Diabetes Mellitus, Eye Disorder, Hyperlipidemia, Hypertension, Myocardial Infarction ([place]), Osteoarthritis (OA), Renal Disease, Rheumatoid Arthritis (RA), Skin Disorder, Vascular Disorder Additional Past Medical History / Comment(s): UTI/pyelonephritis with sepsis, IDDM type II,hx of falls CKD stage III, PAD, 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 Last Myocardial Infarction Date:: 1987 History of Any Multi-Drug Resistant Organisms: ESBL, MRSA Date of last positivie culture/infection: 01/09/18 ESBL 12/26/17 MRSA MDRO Source:: ESBL URINE/ MRSA URINE Past Surgical History: Cholecystectomy, Heart Catheterization With Stent, Hernia Repair, Hysterectomy, Tubal Ligation Additional Past Surgical History / Comment(s): Abdominal SX. RT EYE REMOVED 2 YEAR AGO, 05-25-14 LT BELOW KNEE AMP, rt chest wall hemodualysis cath Past Anesthesia/Blood Transfusion Reactions: Motion Sickness Additional Past Anesthesia/Blood Transfusion Reaction / Comment(s): stated has had blood transfusion in past-no reaction to it Date of Last Stent Placement:: 04/2014 Past Psychological History: Anxiety, Depression Additional Psychological History / Comment(s): [facility] to w/c Smoking Status: Former smoker Past Alcohol Use History: None Reported Additional Past Alcohol Use History / Comment(s): Patient was a smoker 2 packs per day since the age of 17yrs.stated she quit when she was 59 Past Drug Use History: None Reported - Past Family History Father Family Medical History: CVA/TIA Mother Family Medical History: COPD Medications and Allergies Home Medications Medication Instructions Recorded Confirmed Type Metoprolol Tartrate [Lopressor] 50 mg PO BID #60 tab 05/27/14 05/02/18 Rx Calcium Acetate [PhosLo] 667 mg PO DAILY 11/10/15 05/02/18 History Pravastatin Sodium [Pravachol] 10 mg PO HS 11/10/15 05/02/18 History hydrALAZINE HCL [Apresoline] 50 mg PO TID 11/10/15 05/02/18 History Isosorbide Mononitrate ER [Imdur] 60 mg PO DAILY #1 tab 11/21/15 05/02/18 Rx Nitroglycerin Sl Tabs [Nitrostat] 0.4 mg SUBLINGUAL Q5M PRN #0 tab 11/21/1512/13 Rx Cholecalciferol [Vitamin D3] 2,000 unit PO DAILY 05/25/16 05/02/18 History amLODIPine [Norvasc] 5 mg PO DAILY #30 tab 05/26/16 05/02/18 Rx Escitalopram [Lexapro] 20 mg PO DAILY 06/17/16 05/02/18 History Melatonin 5 mg PO HS 02/08/17 05/02/18 History Ondansetron [Zofran] 4 mg PO Q8H PRN 02/08/17 05/02/18 History Sennosides [Senna] 8.6 mg PO Q48H 12/08/17 05/02/18 History Clopidogrel [Plavix] 75 mg PO HS 01/27/18 05/02/18 History Cranberry Fruit Concentrate 450 mg PO HS 01/27/18 05/02/18 History [Cranberry] Menthol [Biofreeze] 1 applic TOPICAL Q8H PRN 01/27/18 05/02/18 History Promethazine HCl 12.5 mg PO Q6H PRN 01/27/18 05/02/18 History Sodium Bicarbonate Tab 650 mg PO BID 01/27/18 05/02/18 History buPROPion [Wellbutrin] 150 mg PO DAILY 01/27/18 05/02/18 History Darbepoetin Jc [Aranesp] 40 mcg SQ Q7D syringe 01/30/18 05/02/18 Rx Gabapentin [Neurontin] 300 mg PO HS #0 01/30/18 05/02/18 Rx INSULIN LISPRO (HumaLOG) [humaLOG] 6 units SQ AC-TID #0 01/30/18 05/02/18 Rx Insulin Glargine [Lantus] 26 unit SQ HS #0 01/30/18 05/02/18 Rx Magnesium Hydroxide [Milk of 2,400 mg PO HS PRN 02/21/18 05/02/18 History Magnesia] Fkhtbukj-Wvlmkodloj-Drnb Oint 1 applic TOPICAL BID 02/21/18 05/02/18 History [Triple Antibiotic Ointment] Acetaminophen-Codeine 300-30mg 1 tab PO Q4-6H PRN #10 tab 05/05/18 Rx [Tylenol w/codeine #3] HYDROmorphone [Dilaudid] 2 mg PO Q6H PRN #10 tab 05/05/18 Rx Allergies Allergy/AdvReac Type Severity Reaction Status Date / Time doxycycline calcium Allergy Rash/Hives Verified 05/17/18 07:11 [From Vibramycin] doxycycline hyclate Allergy Rash/Hives Verified 05/17/18 07:11 [From Vibramycin] doxycycline monohydrate Allergy Rash/Hives Verified 05/17/18 07:11 [From Vibramycin] nalbuphine HCl [From Nubain] Allergy Rash/Hives Verified 05/17/18 07:11 oxycodone HCl [From Tylox] Allergy Rash/Hives Verified 05/17/18 07:11 Tetracyclines Allergy Rash/Hives Verified 05/17/18 07:11 wool Allergy Rash/Hives Verified 05/17/18 07:11 Physical Exam Vitals: Vital Signs Temp Pulse Pulse Resp BP BP Pulse Ox 05/17/18 10:12 98.7 F 66 16 154/74 98 05/17/18 08:48 98.5 F 64 18 163/86 96 05/17/18 07:30 61 14 151/70 05/17/18 07:05 98.3 F 62 18 151/70 97 05/17/18 07:00 61 19 125/64 05/17/18 06:52 62 18 125/64 98 05/17/18 06:30 61 15 126/64 99 05/17/18 06:00 61 10 L 123/54 05/17/18 05:30 61 15 123/54 98 05/17/18 05:14 64 16 123/54 93 L 05/17/18 05:10 98.8 F 72 18 123/54 94 L Intake and Output 05/16/18 05/17/18 05/17/18 22:59 06:59 14:59 Output Total 250 Balance -250 Output: Urine 250 Uretheral (Knowles) 250 Other: # Voids 1 Weight 96.162 kg Results - Lab Results Most recent lab results Calcium 8.7 mg/dL (8.4-10.2) 05/17/18 05:45 Phosphorus 4.6 mg/dL (2.5-4.5) H 05/17/18 05:45 Magnesium 2.1 mg/dL (1.6-2.3) 05/17/18 05:45 05/17/18 05:45 05/17/18 05:45 Assessment and Plan Plan: Assessment: 1. End-stage renal disease maintained on hemodialysis on a Saturday schedule via right chest permacath. 2. Anemia of chronic kidney disease. 3. Fever and cough. Questionable bronchitis. No pneumonia noted on chest x- ray. 4. UTI. Maintain on Rocephin. 5. Hypertension with chronic kidney disease. 6. Diabetes mellitus. 7. Chronic kidney disease mineral bone disease maintained on PhosLo. Plan: Follow-up cultures. 2 hour hemodialysis treatment today. I will also check cultures from the dialysis catheter. Check iron studies. Check phosphorus level. Maintain normal saline at 50 mL an hour. Maintain Aranesp. Thank you for the consultation. I will continue to follow the patient with you during her hospital stay.
[2018-05-17] MEDS ORDERED: MAGNESIUM HYDROXIDE 2,400 MG/10 ML CUP PO PRN (14:27)
[2018-05-17] MEDS ORDERED: NITROGLYCERIN SL TABS 0.4 MG TAB SUBLINGUAL PRN (14:27)
[2018-05-17] MEDS ORDERED: PROMETHAZINE 25 MG TAB PO PRN (14:27)
[2018-05-17 15:43] VITALS: BMI 29.5
[2018-05-17] MEDS: BENZOCAINE/MENTHOL LOZENG 1 EACH LOZENGE MUCOUS MEM SCH ×2 (16:41→20:09)
[2018-05-17 17:12] LABS: Glucose,Whole Blood 137 mg/dL (75-99)
[2018-05-17] MEDS: ALBUTEROL SULFATE 2 MG PO SCH ×2 (17:56→21:49)
[2018-05-17 19:58] LABS: Hemoglobin A1C 5.6 % (4.0-6.0)
[2018-05-17] MEDS: MELATONIN 5 MG TABLET PO SCH (20:09)
[2018-05-17] MEDS: PRAVASTATIN SODIUM 20 MG TAB PO SCH (20:10)
[2018-05-17] MEDS: GABAPENTIN 300 MG CAP PO SCH (20:10)
[2018-05-17] MEDS: CLOPIDOGREL 75 MG TAB PO SCH (20:10)
[2018-05-17 20:25] LABS: Glucose,Whole Blood 152 mg/dL (75-99)
[2018-05-17] MEDS: INSULIN DETEMIR 100 UNIT/ML 10 ML VIAL SQ SCH (20:53)
[2018-05-17] MEDS ORDERED: SODIUM BICARBONATE 650 MG PO SCH (21:00)
[2018-05-17] MEDS ORDERED: NON-FORMULARY DRUG (Cranberry Fruit Concentrate [Cranberry] 450 MG) PO SCH (21:00)
[2018-05-17 22:58] LABS: Iron Saturation 12.77 (12.00-45.00)
[2018-05-18] MEDS: BENZOCAINE/MENTHOL LOZENG 1 EACH LOZENGE MUCOUS MEM SCH ×7 (01:02→23:38)
[2018-05-18] MEDS: SODIUM CHLORIDE 0.9% 1,000 ML IV SCH (04:14)
[2018-05-18 06:46] LABS: Glucose,Whole Blood 129 mg/dL (75-99)
[2018-05-18] MEDS: INSULIN ASPART 100 UNIT/ML 1 ML 10 ML VIAL SQ SCH ×7 (07:06→20:19)
[2018-05-18] MEDS: METOPROLOL TARTRATE 50 MG TAB PO SCH ×2 (08:40→20:20)
[2018-05-18] MEDS: buPROPion 75 MG TAB PO SCH (08:40)
[2018-05-18] MEDS: ISOSORBIDE MONONITRATE ER 60 MG TAB.ER.24H PO SCH (08:40)
[2018-05-18] MEDS: ESCITALOPRAM 20 MG TAB PO SCH (08:40)
[2018-05-18] MEDS: hydrALAZINE HCL 50 MG TAB PO SCH ×3 (08:40→22:27)
[2018-05-18] MEDS: amLODIPine 5 MG TAB PO SCH (08:40)
[2018-05-18] MEDS: SENNOSIDES 8.6 MG TAB PO SCH (08:41)
[2018-05-18] MEDS: SODIUM BICARBONATE TAB 650 MG TAB PO SCH ×2 (08:41→22:09)
[2018-05-18 09:51] LABS: Basophils % (A) 1 %; Eosinophils # (A) 0.1 k/uL (0-0.7); Eosinophils % (A) 2 %; HCT 31.2 % (34.0-46.0); HGB 9.6 gm/dL (11.4-16.0); Hypochromasia Marked; Lymphocytes # (A) 0.9 k/uL (1.0-4.8); Lymphocytes % (A) 21 %; MCH 29.2 pg (25.0-35.0); MCHC 30.8 g/dL (31.0-37.0); MCV 94.8 fL (80.0-100.0); Mean Platelet Volume 6.6; Monocytes # (A) 0.3 k/uL (0-1.0); Monocytes % (A) 7 %; Neutrophils % (A) 68 %; Platelet Count 295 k/uL (150-450); RBC 3.29 m/uL (3.80-5.40); RDW 15.3 % (11.5-15.5); WBC 4.4 k/uL (3.8-10.6)
[2018-05-18] MEDS ORDERED: hydrALAZINE HCL 20 MG/ML 1 ML VIAL IVP PRN (10:01)
--- NOTE | 2018-05-18 10:03 | P.PN ---
Subjective Patient is seen in follow-up for end-stage renal disease. She is maintained on hemodialysis on a Saturday schedule a permacath. Currently resting in bed. She tolerated hemodialysis well yesterday except the catheter was malfunctioning. Denies chest pain or shortness of breath. Vital signs are stable. General: The patient appeared well nourished and normally developed. HEENT: Head exam is unremarkable. Neck is without jugular venous distension. LUNGS: Lungs are clear to auscultation and percussion. Breath sounds decreased. HEART: Rate and Rhythm are regular. First and second heart sounds normal. No murmurs, rubs or gallops. ABDOMEN: Abdominal exam reveals normal bowel sounds. Non-tender and non- distended. No evidence of peritonitis. EXTREMITITES: No clubbing, cyanosis, or edema. Amputation noted. Objective - Vital Signs Vital signs: Vital Signs Temp 98.6 F 05/18/18 05:00 Pulse 64 05/18/18 05:00 Resp 16 05/18/18 05:00 BP 180/79 05/18/18 05:00 Pulse Ox 92 L 05/18/18 09:36 Intake & Output 05/17/18 05/18/18 05/18/18 18:59 06:59 18:59 Intake Total 1290 Balance 1290 Weight 96.162 kg 96.162 kg Intake: Intake, IV Titration 400 Amount Sodium Chloride 0.9% 1, 400 000 ml @ 50 mls/hr IV . Q20H [facility] Rx#:[id number] Oral 890 Other: Voiding Method Diaper Diaper Diaper Incontinent Incontinent Incontinent # Voids 1 1 1 - Labs CBC & Chem 7: 05/17/18 05:45 05/17/18 05:45 Labs: Abnormal Lab Results - Last 24 Hours (Table) 05/17/18 05/17/18 05/17/18 Range/Units 11:17 15:05 15:05 POC Glucose (mg/dL) 122 H (75-99) mg/dL Phosphorus 4.8 H (2.5-4.5) mg/dL Iron 24 L (50-170) ug/dL TIBC 188 L (228-460) ug/dL Ferritin 943.5 H (10.0-291.0) ng/mL 05/17/18 05/17/18 05/18/18 Range/Units 17:09 20:23 06:43 POC Glucose (mg/dL) 137 H 152 H 129 H (75-99) mg/dL Phosphorus (2.5-4.5) mg/dL Iron (50-170) ug/dL TIBC (228-460) ug/dL Ferritin (10.0-291.0) ng/mL Microbiology - Last 24 Hours (Table) 05/17/18 05:45 Blood Culture - Preliminary Blood No Growth after 24 hours 05/17/18 05:54 Urine Culture - Preliminary Urine,Catheterized Assessment and Plan Plan: Assessment: 1. End-stage renal disease maintained on hemodialysis on a Saturday schedule via right chest permacath. 2. Anemia of chronic kidney disease. Iron deficiency noted. 3. Fever and cough. Questionable bronchitis. No pneumonia noted on chest x- ray. 4. UTI. Maintain on Rocephin. 5. Hypertension with chronic kidney disease. Blood pressures on the higher side. 6. Diabetes mellitus. 7. Chronic kidney disease mineral bone disease maintained on PhosLo. 8. Malfunctioning permacath. Plan: Follow-up cultures. Hemodialysis tomorrow. Ferrlecit 125 mg IV daily for 3 days. First dose today. Hep-Lock IV fluids. Maintain Aranesp. Vascular surgery consulted. Will likely require permacath exchange.
[2018-05-18 10:08] LABS: Calcium 8.3 mg/dL (8.4-10.2); Potassium 4.5 mmol/L (3.5-5.1)
[2018-05-18 11:08] LABS: Glucose,Whole Blood 124 mg/dL (75-99)
[2018-05-18] MEDS: ALBUTEROL SULFATE 2 MG PO SCH ×4 (11:52→22:33)
[2018-05-18] MEDS: CALCIUM ACETATE 667 MG CAP PO SCH (11:59)
[2018-05-18] MEDS: CHOLECALCIFEROL 1,000 UNIT TAB PO SCH (11:59)
--- NOTE | 2018-05-18 12:49 | P.HPIM ---
History of Present Illness H&P Date: 05/17/18 Marilu is a 62-year-old female with very complex medical history most significant for end-stage renal disease on hemodialysis. Patient is brought to the emergency department this morning via EMS from her longterm facility for evaluation of generalized malaise. Patient reports that she's not been feeling well all week, due to this she did not attend dialysis on Saturday, and she only attended 2 hours of her four-hour dialysis on Saturday. Patient reports she's not been feeling well, she's had a sore throat and nursing staff has noted a nonproductive cough. Patient was treated overnight with cough suppressants and Tylenol with codeine, this improved her cough and sore throat however she was noted to become hypoxic with oxygen saturations of 88-89% on room air and continued to complain of generalized malaise. Patient stated that she didn't feel well and she would not be attending her Session of dialysis today because she doesn't feel well. Patient denies any fevers though she was noted to have a oral temperature of 99.1, she denies any chills, nausea, vomiting, chest pain, palpitations or shortness of breath. She reports she's had a sore throat since Saturday or Saturday and that she's had a nonproductive cough. She denies any nasal congestion or rhinorrhea. Review of Systems Constitutional: Reports fatigue, Reports lethargy, Reports poor appetite Eyes: denies blurred vision, denies loss of vision Ears, nose, mouth and throat: Denies dysphagia, Denies mouth pain Cardiovascular: Reports leg edema, Denies chest pain, Denies dyspnea on exertion Respiratory: Denies congestion, Denies cough with sputum, Denies hemoptysis Gastrointestinal: Denies abdominal pain, Denies change in bowel habits, Denies nausea, Denies vomiting Musculoskeletal: Reports gait dysfunction, Reports morning stiffness, Reports muscle weakness, Denies frequent falls Integumentary: Denies depigmentation, Denies unusual bruising Neurological: Reports change in mentation, Reports weakness, Denies aphasia, Denies ataxia Hematologic/Lymphatic: Denies easy bleeding, Denies easy bruising Allergic/Immunologic: Denies seasonal allergies Past Medical History Past Medical History: Coronary Artery Disease (CAD), Heart Failure, COPD, CVA/ TIA, Dementia, Diabetes Mellitus, Eye Disorder, Hyperlipidemia, Hypertension, Myocardial Infarction (NH), Osteoarthritis (OA), Renal Disease, Rheumatoid Arthritis (RA), Skin Disorder, Vascular Disorder Additional Past Medical History / Comment(s): UTI/pyelonephritis with sepsis, IDDM type II,hx of falls CKD stage III, PAD, 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 Last Myocardial Infarction Date:: 1987 History of Any Multi-Drug Resistant Organisms: ESBL, MRSA Date of last positivie culture/infection: 01/09/18 ESBL 12/26/17 MRSA MDRO Source:: ESBL URINE/ MRSA URINE Past Surgical History: Cholecystectomy, Heart Catheterization With Stent, Hernia Repair, Hysterectomy, Tubal Ligation Additional Past Surgical History / Comment(s): Abdominal SX. RT EYE REMOVED 2 YEAR AGO, 05-25-14 LT BELOW KNEE AMP, rt chest wall hemodualysis cath Past Anesthesia/Blood Transfusion Reactions: Motion Sickness Additional Past Anesthesia/Blood Transfusion Reaction / Comment(s): stated has had blood transfusion in past-no reaction to it Date of Last Stent Placement:: 04/2014 Past Psychological History: Anxiety, Depression Additional Psychological History / Comment(s): [facility] lift to w/c Smoking Status: Former smoker Past Alcohol Use History: None Reported Additional Past Alcohol Use History / Comment(s): Patient was a smoker 2 packs per day since the age of 17yrs.stated she quit when she was 59 Past Drug Use History: None Reported - Past Family History Father Family Medical History: CVA/TIA Mother Family Medical History: COPD Medications and Allergies Home Medications Medication Instructions Recorded Confirmed Type Metoprolol Tartrate [Lopressor] 50 mg PO BID #60 tab 05/27/14 05/17/18 Rx Calcium Acetate [PhosLo] 667 mg PO DAILY 11/10/15 05/17/18 History Pravastatin Sodium [Pravachol] 10 mg PO HS 11/10/15 05/17/18 History hydrALAZINE HCL [Apresoline] 50 mg PO TID 11/10/15 05/17/18 History Isosorbide Mononitrate ER [Imdur] 60 mg PO DAILY #1 tab 11/21/15 05/17/18 Rx Nitroglycerin Sl Tabs [Nitrostat] 0.4 mg SUBLINGUAL Q5M PRN #0 tab 11/21/15 Rx Cholecalciferol [Vitamin D3] 2,000 unit PO DAILY 05/25/16 05/17/18 History amLODIPine [Norvasc] 5 mg PO DAILY #30 tab 05/26/16 05/17/18 Rx Escitalopram [Lexapro] 20 mg PO DAILY 06/17/16 05/17/18 History Melatonin 5 mg PO HS 02/08/17 05/17/18 History Sennosides [Senna] 8.6 mg PO Q48H 12/08/17 05/17/18 History Clopidogrel [Plavix] 75 mg PO HS 01/27/18 05/17/18 History Cranberry Fruit Concentrate 450 mg PO HS 01/27/18 05/17/18 History [Cranberry] Promethazine HCl 12.5 mg PO Q6H PRN 01/27/18 05/17/18 History buPROPion [Wellbutrin] 150 mg PO DAILY 01/27/18 05/17/18 History Gabapentin [Neurontin] 300 mg PO HS #0 01/30/18 05/17/18 Rx INSULIN LISPRO (HumaLOG) [humaLOG] 6 units SQ AC-TID #0 01/30/18 05/17/18 Rx Insulin Glargine [Lantus] 26 unit SQ HS #0 01/30/18 05/17/18 Rx Magnesium Hydroxide [Milk of 2,400 mg PO HS PRN 02/21/18 05/17/18 History Magnesia] HYDROmorphone [Dilaudid] 2 mg PO Q6H PRN #10 tab 05/05/18 05/17/18 Rx Acetaminophen-Codeine 300-30mg 1 tab PO Q4H PRN 05/17/18 05/17/18 History [Tylenol w/codeine #3] Albuterol Sulfate 2 mg PO QID 05/17/18 05/17/18 History Cold-Eaze Lozenge 1 tab PO Q4H 05/17/18 05/17/18 History Darbepoetin Jc [Aranesp] 40 mcg SQ FR 05/17/18 05/17/18 History Sodium Bicarbonate 650 mg PO BID 05/17/18 05/17/18 History Allergies Allergy/AdvReac Type Severity Reaction Status Date / Time doxycycline calcium Allergy Rash/Hives Verified 05/17/18 12:40 [From Vibramycin] doxycycline hyclate Allergy Rash/Hives Verified 05/17/18 12:40 [From Vibramycin] doxycycline monohydrate Allergy Rash/Hives Verified 05/17/18 12:40 [From Vibramycin] nalbuphine HCl [From Nubain] Allergy Rash/Hives Verified 05/17/18 12:40 oxycodone HCl [From Tylox] Allergy Rash/Hives Verified 05/17/18 12:40 Tetracyclines Allergy Rash/Hives Verified 05/17/18 12:40 wool Allergy Rash/Hives Verified 05/17/18 12:40 Physical Exam Vitals: Vital Signs Temp Pulse Pulse Resp BP BP Pulse Ox 05/17/18 12:00 99.0 F 70 16 156/75 97 05/17/18 10:12 98.7 F 66 16 154/74 98 05/17/18 08:48 98.5 F 64 18 163/86 96 05/17/18 07:30 61 14 151/70 05/17/18 07:05 98.3 F 62 18 151/70 97 05/17/18 07:00 61 19 125/64 05/17/18 06:52 62 18 125/64 98 05/17/18 06:30 61 15 126/64 99 05/17/18 06:00 61 10 L 123/54 05/17/18 05:30 61 15 123/54 98 05/17/18 05:14 64 16 123/54 93 L 05/17/18 05:10 98.8 F 72 18 123/54 94 L Intake and Output 05/16/18 05/17/18 05/17/18 22:59 06:59 14:59 Output Total 250 Balance -250 Output: Urine 250 Uretheral (Knowles) 250 Other: # Voids 1 Weight 96.162 kg - Constitutional General appearance: Present: average body habitus, cooperative, no acute distress - EENT Eyes: Present: anicteric sclerae, EOMI, PERRLA, normal appearance ENT: Present: hearing grossly normal, normal oropharynx Ears: bilateral: normal - Neck Neck: Present: normal ROM. Absent: lymphadenopathy, rigidity, thyromegaly Carotids: negative: bruit present Thyroid: bilateral: normal size, negative: enlarged, nodule - Respiratory Respiratory: bilateral: CTA, negative: rales, rhonchi, wheezing - Cardiovascular Rhythm: regular Heart sounds: normal: S1, S2 Abnormal Heart Sounds: Absent: systolic murmur, diastolic murmur - Gastrointestinal General gastrointestinal: Present: normal bowel sounds, soft. Absent: distended , organomegaly, tenderness - Genitourinary Genitourinary Comment(s): deferred - Integumentary Integumentary: Present: normal turgor. Absent: jaundiced, rash, ulcer - Neurologic Neurologic: Present: CNII-XII intact. Absent: focal deficits - Musculoskeletal Musculoskeletal: Present: gait normal, strength equal bilaterally - Psychiatric Psychiatric: Present: A&O x's 3, appropriate affect, intact judgment & insight Results CBC & Chem 7: 05/18/18 08:26 05/18/18 08:26 Labs: Abnormal Lab Results - Last 24 Hours (Table) 05/17/18 05/17/18 05/17/18 Range/Units 05:45 05:45 05:54 RBC 3.30 L (3.80-5.40) m/uL Hgb 9.9 L (11.4-16.0) gm/dL Hct 30.6 L (34.0-46.0) % RDW 15.6 H (11.5-15.5) % BUN 50 H (7-17) mg/dL Creatinine 4.13 H (0.52-1.04) mg/dL Glucose 146 H (74-99) mg/dL POC Glucose (mg/dL) (75-99) mg/dL Phosphorus 4.6 H (2.5-4.5) mg/dL Albumin 3.2 L (3.5-5.0) g/dL Urine Appearance Turbid H (Clear) Urine Protein 3+ H (Negative) Urine Blood Moderate H (Negative) Ur Leukocyte Esterase Large H (Negative) Urine RBC 22 H (0-5) /hpf Urine WBC >182 H (0-5) /hpf Urine WBC Clumps Many H (None) /hpf Urine Bacteria Many H (None) /hpf 05/17/18 Range/Units 11:17 RBC (3.80-5.40) m/uL Hgb (11.4-16.0) gm/dL Hct (34.0-46.0) % RDW (11.5-15.5) % BUN (7-17) mg/dL Creatinine (0.52-1.04) mg/dL Glucose (74-99) mg/dL POC Glucose (mg/dL) 122 H (75-99) mg/dL Phosphorus (2.5-4.5) mg/dL Albumin (3.5-5.0) g/dL Urine Appearance (Clear) Urine Protein (Negative) Urine Blood (Negative) Ur Leukocyte Esterase (Negative) Urine RBC (0-5) /hpf Urine WBC (0-5) /hpf Urine WBC Clumps (None) /hpf Urine Bacteria (None) /hpf Microbiology - Last 24 Hours (Table) 05/17/18 05:54 Urine Culture - Preliminary Urine,Catheterized Assessment and Plan Assessment: 1. Altered mental status; metabolic encephalopathy possibly secondary to UTI 2. UTI - Patient started on Rocephin, renally adjusted dose - Urine culture and blood cultures are pending; we'll adjust antibiotics once culture reports are available 3. End-stage renal disease/hemodialysis; noncompliant - Patient is maintained on hemodialysis on Saturday through right chest permacath - Nephrology is following and recommending vascular surgery consult for Estella cath exchange - Hep-Lock IV fluids; hemodialysis tomorrow 4. Anemia of chronic disease/ iron deficiency - Patient started on Ferrlecit 125 mg IV daily for 3 days - Continue with Aranesp as prescribed - We will continue to monitor CBC and iron levels 5. Right eye conjunctivitis; start patient on Garamycin eyedrops 6. Hypertension with chronic kidney disease; - Stable on home dose of Norvasc 5 mg daily along with hydralazine 50 mg 3 times a day and Lopressor 50 mg twice a day - We will continue to monitor blood pressure closely and adjust medications upon discharge if needed 7. Diabetes mellitus - We will continue with Levemir 26 units at bedtime along with NovoLog 6 units every before meals - Continue with insulin sliding scale if needed 8. Chronic kidney disease mineral bone disease; maintained on PhosLo 9. Malfunctioning permacath; vascular surgery consulted for exchange 10. DVT prophylaxis; SCDs only for possible procedure CODE STATUS; full code
[2018-05-18] MEDS: Acetaminophen-Codeine 300-30mg TAB PO PRN ×2 (13:49→19:55)
[2018-05-18] MEDS ORDERED: IV FLUID CONTINUATION 1,000 ML IV ONE (14:25)
[2018-05-18] MEDS: MIDAZOLAM 2 MG/2 ML VIAL IV ONE ×2 (14:30→14:35)
[2018-05-18] MEDS ORDERED: LIDOCAINE 1% INJ 10MG/ML (20 ML MDV) SQ ONE (14:34)
[2018-05-18] MEDS ORDERED: fentaNYL (PF) 50 MCG/ML 2 ML AMP IV ONE (14:45)
[2018-05-18] MEDS ORDERED: ceFAZolin 1,000 MG in DEXTROSE/WATER 1 50ML.BAG IVPB STA (14:59)
[2018-05-18] MEDS: GENTAMICIN 0.3% OPHTH DROPS 5 ML BTL BOTH EYES SCH ×3 (15:44→20:18)
--- NOTE | 2018-05-18 16:16 | XR ---
EXAMINATION TYPE: XR chest 1V portable DATE OF EXAM: 05/18/2018 COMPARISON: 05/17/2018 HISTORY: Catheter placement TECHNIQUE: Single frontal view of the chest is obtained. FINDINGS: There is right-sided central venous catheter with the tip over the right atrium. No pneumo thorax. Lungs are clear. There is no heart failure. Trachea is midline. There is no sign of pleural e ffusion. IMPRESSION: No active cardiopulmonary disease. No change.
[2018-05-18] MEDS ORDERED: BENZONATATE 100 MG CAP PO PRN (16:43)
[2018-05-18 17:12] LABS: Glucose,Whole Blood 211 mg/dL (75-99)
[2018-05-18] MEDS: HYDROmorphone 2 MG TAB PO PRN ×2 (17:54→23:35)
[2018-05-18] MEDS ORDERED: VANCOMYCIN IV PER PHARMACY 1 EACH MISC MISCELLANE PRN (18:02)
[2018-05-18] MEDS ORDERED: VANCOMYCIN 1,500 MG in SODIUM CHLORIDE 0.9% 250 ML IVPB ONE (19:00)
[2018-05-18 20:01] LABS: Glucose,Whole Blood 107 mg/dL (75-99)
[2018-05-18] MEDS: CLOPIDOGREL 75 MG TAB PO SCH (20:18)
[2018-05-18] MEDS: GABAPENTIN 300 MG CAP PO SCH (20:18)
[2018-05-18] MEDS: MELATONIN 5 MG TABLET PO SCH (20:19)
[2018-05-18] MEDS: INSULIN DETEMIR 100 UNIT/ML 10 ML VIAL SQ SCH (20:19)
[2018-05-18] MEDS: PRAVASTATIN SODIUM 20 MG TAB PO SCH (20:21)
[2018-05-18] MEDS ORDERED: DOXYCYCLINE 100 MG CAP PO SCH (21:00)
[2018-05-19 02:33] LABS: Glucose,Whole Blood 95 mg/dL (75-99)
[2018-05-19] MEDS: GENTAMICIN 0.3% OPHTH DROPS 5 ML BTL BOTH EYES SCH ×6 (04:19→20:09)
[2018-05-19] MEDS: BENZOCAINE/MENTHOL LOZENG 1 EACH LOZENGE MUCOUS MEM SCH ×5 (04:30→20:08)
[2018-05-19 07:05] LABS: Glucose,Whole Blood 88 mg/dL (75-99)
[2018-05-19] MEDS: INSULIN ASPART 100 UNIT/ML 1 ML 10 ML VIAL SQ SCH ×7 (07:22→20:24)
[2018-05-19 08:04] LABS: Basophils % (A) 1 %; Eosinophils # (A) 0.1 k/uL (0-0.7); Eosinophils % (A) 3 %; HGB 8.9 gm/dL (11.4-16.0); Hypochromasia Moderate; Lymphocytes # (A) 0.9 k/uL (1.0-4.8); Lymphocytes % (A) 23 %; MCH 28.5 pg (25.0-35.0); MCHC 30.6 g/dL (31.0-37.0); Mean Platelet Volume 6.4; Monocytes # (A) 0.3 k/uL (0-1.0); Monocytes % (A) 8 %; Neutrophils # (A) 2.4 k/uL (1.3-7.7); Neutrophils % (A) 63 %; Platelet Count 278 k/uL (150-450); RBC 3.12 m/uL (3.80-5.40); RDW 15.2 % (11.5-15.5); WBC 3.9 k/uL (3.8-10.6)
[2018-05-19 08:15] LABS: Calcium 8.5 mg/dL (8.4-10.2); Potassium 4.7 mmol/L (3.5-5.1)
[2018-05-19] MEDS: HYDROmorphone 2 MG TAB PO PRN ×3 (08:39→18:25)
[2018-05-19] MEDS ORDERED: ACETAMINOPHEN TAB 325 MG TAB PO PRN (08:49)
[2018-05-19] MEDS: ESCITALOPRAM 20 MG TAB PO SCH (08:50)
[2018-05-19] MEDS: buPROPion 75 MG TAB PO SCH (08:50)
[2018-05-19] MEDS: METOPROLOL TARTRATE 50 MG TAB PO SCH ×2 (08:51→20:25)
[2018-05-19] MEDS: hydrALAZINE HCL 50 MG TAB PO SCH ×3 (08:51→22:36)
[2018-05-19] MEDS: SODIUM BICARBONATE TAB 650 MG TAB PO SCH ×2 (08:51→20:26)
[2018-05-19] MEDS: amLODIPine 5 MG TAB PO SCH (08:51)
[2018-05-19] MEDS: CHOLECALCIFEROL 1,000 UNIT TAB PO SCH (08:51)
[2018-05-19] MEDS: CALCIUM ACETATE 667 MG CAP PO SCH (08:52)
[2018-05-19] MEDS: ISOSORBIDE MONONITRATE ER 60 MG TAB.ER.24H PO SCH (08:52)
[2018-05-19] MEDS ORDERED: VANCOMYCIN 1,500 MG in SODIUM CHLORIDE 0.9% 250 ML IVPB ONE (09:00)
--- NOTE | 2018-05-19 09:24 | P.PN ---
Subjective Patient is seen in follow-up for end-stage renal disease. She is maintained on hemodialysis on a Saturday schedule a permacath. Currently resting in bed. Permacath was malfunctioning and was exchanged on May 18. She is also noted to have MRSA bacteremia and UTI with urine culture positive for gram-negative bacilli. Vital signs are stable. General: The patient appeared well nourished and normally developed. HEENT: Head exam is unremarkable. Neck is without jugular venous distension. LUNGS: Lungs are clear to auscultation and percussion. Breath sounds decreased. HEART: Rate and Rhythm are regular. First and second heart sounds normal. No murmurs, rubs or gallops. ABDOMEN: Abdominal exam reveals normal bowel sounds. Non-tender and non- distended. No evidence of peritonitis. EXTREMITITES: No clubbing, cyanosis, or edema. Amputation noted. Objective - Vital Signs Vital signs: Vital Signs Temp 97.9 F 05/19/18 05:26 Pulse 60 05/19/18 05:26 Resp 16 05/19/18 05:26 BP 143/64 05/19/18 05:26 Pulse Ox 93 L 05/19/18 05:26 Intake & Output 05/18/18 05/19/18 05/19/18 18:59 06:59 18:59 Intake Total 250 780 Balance 250 780 Weight 96.162 kg Intake: IV 50 300 Sodium Chloride 0.9% 1, 300 000 ml @ 50 mls/hr IV . Q20H [facility] Rx#:[id number] Intake, IV Titration 200 Amount Sodium Chloride 0.9% 1, 200 000 ml @ 50 mls/hr IV . Q20H [facility] Rx#:[id number] Oral 480 Other: Voiding Method Diaper Diaper Incontinent Incontinent # Voids 1 1 # Bowel Movements 1 1 - Labs CBC & Chem 7: 05/19/18 07:20 05/19/18 07:20 Labs: Abnormal Lab Results - Last 24 Hours (Table) 05/18/18 05/18/18 05/18/18 Range/Units 08:26 08:26 11:06 RBC 3.29 L (3.80-5.40) m/uL Hgb 9.6 L (11.4-16.0) gm/dL Hct 31.2 L (34.0-46.0) % MCHC 30.8 L (31.0-37.0) g/dL Lymphocytes # 0.9 L (1.0-4.8) k/uL Chloride (98-107) mmol/L BUN 45 H (7-17) mg/dL Creatinine 4.24 H (0.52-1.04) mg/dL Glucose 135 H (74-99) mg/dL POC Glucose (mg/dL) 124 H (75-99) mg/dL Calcium 8.3 L (8.4-10.2) mg/dL 05/18/18 05/18/18 05/19/18 Range/Units 17:10 19:59 07:20 RBC 3.12 L (3.80-5.40) m/uL Hgb 8.9 L (11.4-16.0) gm/dL Hct 29.0 L (34.0-46.0) % MCHC 30.6 L (31.0-37.0) g/dL Lymphocytes # 0.9 L (1.0-4.8) k/uL Chloride (98-107) mmol/L BUN (7-17) mg/dL Creatinine (0.52-1.04) mg/dL Glucose (74-99) mg/dL POC Glucose (mg/dL) 211 H 107 H (75-99) mg/dL Calcium (8.4-10.2) mg/dL 05/19/18 Range/Units 07:20 RBC (3.80-5.40) m/uL Hgb (11.4-16.0) gm/dL Hct (34.0-46.0) % MCHC (31.0-37.0) g/dL Lymphocytes # (1.0-4.8) k/uL Chloride 108 H (98-107) mmol/L BUN 53 H (7-17) mg/dL Creatinine 4.72 H (0.52-1.04) mg/dL Glucose (74-99) mg/dL POC Glucose (mg/dL) (75-99) mg/dL Calcium (8.4-10.2) mg/dL Microbiology - Last 24 Hours (Table) 05/17/18 05:45 Blood Culture - Preliminary Blood No Growth after 48 hours 05/17/18 17:20 Blood Culture Gram Stain - Preliminary Blood Blood Culture - Preliminary Presumptive MRSA 05/17/18 17:20 Blood Culture - Final Blood 05/17/18 05:54 Urine Culture - Preliminary Urine,Catheterized Gram Neg Bacilli Assessment and Plan Plan: Assessment: 1. End-stage renal disease maintained on hemodialysis on a Saturday schedule via right chest permacath. 2. Anemia of chronic kidney disease. Iron deficiency noted. 3. MRSA bacteremia. Possibly the source being permacath which was exchanged on May 18. Currently maintained on IV vancomycin. Infectious disease consulted. 4. UTI. Urine culture positive for gram-negative bacilli. 5. Hypertension with chronic kidney disease. Controlled. 6. Diabetes mellitus. 7. Chronic kidney disease mineral bone disease maintained on PhosLo. 8. Malfunctioning permacath status post exchange in May 18. Plan: Follow-up cultures. Hemodialysis today. Avoid IV iron due to bacteremia. Maintain Aranesp.
--- NOTE | 2018-05-19 09:37 | IR ---
EXAMINATION TYPE: IR cvc replace peripheral DATE OF EXAM: 05/18/2018 COMPARISON: NONE HISTORY: Dialysis catheter. Fluoroscopy was provided to the referring clinician. See dictated report from vascular surgery. 0.9 minutes of fluoroscopy provided.
--- NOTE | 2018-05-19 10:18 | P.CONS ---
History of Present Illness - Reason for Consult Consult date: 05/19/18 - History of Present Illness This is a 58-year-old female known to ID service as she has been seen on previous admission and has history of being treated for peripheral vascular disease and osteomyelitis through [facility] in 2013. She is currently residing at [facility]. Patient apparently has had lethargy and general malaise last week and due to this she did not have hemodialysis treatment on Saturday for her end-stage renal disease normally scheduled Saturday and Saturday. On Saturday she only completed 2 hours of the four-hour dialysis. She has not been feeling well with a sore throat and a nonproductive cough. She was treated with Tylenol with Codeine but she was hypoxic with a pulse ox of 8889% on room air and was then brought into [facility] emergency center for evaluation she has been afebrile with normal white count. Her urinalysis was turbid blood moderate leukoesterase large, RBCs 22 and WBCs greater than 182. Patient denies having any pain or burning with urination. C. diff testing was done which was negative and influenza testing for A and B were negative. Blood culture obtained from the right sided permacath came back positive for MRSA and this permacath has been exchanged by Dr. Lopez as of yesterday. She is scheduled for hemodialysis today. Chest x-ray showed no acute cardio pulmonary findings. Urine culture showing greater than 100,000 colonies gram-negative bacilli repeat blood culture was obtained yesterday and is status received. Patient is complaining of pain to the permacath surgical site. Review of Systems All systems: negative Constitutional: Reports chills, Reports fatigue, Reports fever, Reports lethargy , Reports malaise, Reports weakness, Denies anorexia, Denies poor appetite Eyes: denies blurred vision, denies pain Ears, nose, mouth and throat: Reports sore throat, Denies dental pain, Denies dysphagia, Denies headache, Denies mouth pain Cardiovascular: Denies chest pain, Denies dyspnea on exertion, Denies leg edema , Denies lightheadedness, Denies shortness of breath, Denies syncope Respiratory: Reports cough, Reports cough with sputum, Denies congestion, Denies dyspnea, Denies excessive sputum, Denies hemoptysis, Denies wheezing Gastrointestinal: Denies abdominal pain, Denies diarrhea, Denies nausea, Denies vomiting Genitourinary: Denies dysuria, Denies hematuria, Denies urinary frequency Musculoskeletal: Denies myalgias Integumentary: Denies pruritus, Denies rash, Denies wounds Neurological: Denies numbness, Denies weakness Psychiatric: Denies anxiety, Denies depression Endocrine: Denies fatigue, Denies weight change Past Medical History Past Medical History: Coronary Artery Disease (CAD), Heart Failure, COPD, CVA/ TIA, Dementia, Diabetes Mellitus, Eye Disorder, Hyperlipidemia, Hypertension, Myocardial Infarction (SC), Osteoarthritis (OA), Renal Disease, Rheumatoid Arthritis (RA), Skin Disorder, Vascular Disorder Additional Past Medical History / Comment(s): UTI/pyelonephritis with sepsis, IDDM type II,hx of falls CKD stage III, PAD, 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 Last Myocardial Infarction Date:: 1987 History of Any Multi-Drug Resistant Organisms: ESBL, MRSA Year Discovered:: 01/09/18 ESBL 12/26/17 MRSA MDRO Source:: ESBL URINE/ MRSA URINE Past Surgical History: Cholecystectomy, Heart Catheterization With Stent, Hernia Repair, Hysterectomy, Tubal Ligation Additional Past Surgical History / Comment(s): Abdominal SX. RT EYE REMOVED 2 YEAR AGO, 05-25-14 LT BELOW KNEE AMP, rt chest wall hemodualysis cath Past Anesthesia/Blood Transfusion Reactions: Motion Sickness Additional Past Anesthesia/Blood Transfusion Reaction / Comm: stated has had blood transfusion in past-no reaction to it Date of Last Stent Placement:: 04/2014 Past Psychological History: Anxiety, Depression Additional Psychological History / Comment(s): [facility] w/c Smoking Status: Former smoker Past Alcohol Use History: None Reported Additional Past Alcohol Use History / Comment(s): Patient was a smoker 2 packs per day since the age of 17yrs.stated she quit when she was 59. Patient does have history of marijuana use but none since residing at [facility]. She has been there since at least 2011. She has lived in the past and cocaine [facility] and worked dealing cards in [employer]. Past Drug Use History: None Reported - Past Family History Father Family Medical History: CVA/TIA Mother Family Medical History: COPD Medications and Allergies Home Medications Medication Instructions Recorded Confirmed Type Metoprolol Tartrate [Lopressor] 50 mg PO BID #60 tab 05/27/14 05/17/18 Rx Calcium Acetate [PhosLo] 667 mg PO DAILY 11/10/15 05/17/18 History Pravastatin Sodium [Pravachol] 10 mg PO HS 11/10/15 05/17/18 History hydrALAZINE HCL [Apresoline] 50 mg PO TID 11/10/15 05/17/18 History Isosorbide Mononitrate ER [Imdur] 60 mg PO DAILY #1 tab 11/21/15 05/17/18 Rx Nitroglycerin Sl Tabs [Nitrostat] 0.4 mg SUBLINGUAL Q5M PRN #0 tab 11/21/15 Rx Cholecalciferol [Vitamin D3] 2,000 unit PO DAILY 05/25/16 05/17/18 History amLODIPine [Norvasc] 5 mg PO DAILY #30 tab 05/26/16 05/17/18 Rx Escitalopram [Lexapro] 20 mg PO DAILY 06/17/16 05/17/18 History Melatonin 5 mg PO HS 02/08/17 05/17/18 History Sennosides [Senna] 8.6 mg PO Q48H 12/08/17 05/17/18 History Clopidogrel [Plavix] 75 mg PO HS 01/27/18 05/17/18 History Cranberry Fruit Concentrate 450 mg PO HS 01/27/18 05/17/18 History [Cranberry] Promethazine HCl 12.5 mg PO Q6H PRN 01/27/18 05/17/18 History buPROPion [Wellbutrin] 150 mg PO DAILY 01/27/18 05/17/18 History Gabapentin [Neurontin] 300 mg PO HS #0 01/30/18 05/17/18 Rx INSULIN LISPRO (HumaLOG) [humaLOG] 6 units SQ AC-TID #0 01/30/18 05/17/18 Rx Insulin Glargine [Lantus] 26 unit SQ HS #0 01/30/18 05/17/18 Rx Magnesium Hydroxide [Milk of 2,400 mg PO HS PRN 02/21/18 05/17/18 History Magnesia] HYDROmorphone [Dilaudid] 2 mg PO Q6H PRN #10 tab 05/05/18 05/17/18 Rx Acetaminophen-Codeine 300-30mg 1 tab PO Q4H PRN 05/17/18 05/17/18 History [Tylenol w/codeine #3] Albuterol Sulfate 2 mg PO QID 05/17/18 05/17/18 History Cold-Eaze Lozenge 1 tab PO Q4H 05/17/18 05/17/18 History Darbepoetin Jc [Aranesp] 40 mcg SQ FR 05/17/18 05/17/18 History Sodium Bicarbonate 650 mg PO BID 05/17/18 05/17/18 History Allergies Allergy/AdvReac Type Severity Reaction Status Date / Time doxycycline calcium Allergy Rash/Hives Verified 05/17/18 12:40 [From Vibramycin] doxycycline hyclate Allergy Rash/Hives Verified 05/17/18 12:40 [From Vibramycin] doxycycline monohydrate Allergy Rash/Hives Verified 05/17/18 12:40 [From Vibramycin] nalbuphine HCl [From Nubain] Allergy Rash/Hives Verified 05/17/18 12:40 oxycodone HCl [From Tylox] Allergy Rash/Hives Verified 05/17/18 12:40 Tetracyclines Allergy Rash/Hives Verified 05/17/18 12:40 wool Allergy Rash/Hives Verified 05/17/18 12:40 Physical Exam Vitals: Vital Signs Temp Pulse Pulse Pulse Resp BP Pulse Ox 05/19/18 05:26 97.9 F 60 16 143/64 93 L 05/19/18 00:00 58 L 59 L 16 05/18/18 21:00 98.0 F 59 L 16 132/71 97 05/18/18 16:04 97.0 F L 58 L 16 136/77 97 05/18/18 11:50 99.2 F 61 16 119/72 98 05/18/18 10:32 98.3 F 62 16 140/60 99 Intake and Output 05/18/18 05/19/18 05/19/18 22:59 06:59 14:59 Intake Total 980 Balance 980 Intake: IV 300 Sodium Chloride 0.9% 1, 300 000 ml @ 50 mls/hr IV . Q20H [facility] Rx#:[id number] Intake, IV Titration 200 Amount Sodium Chloride 0.9% 1, 200 000 ml @ 50 mls/hr IV . Q20H [facility] Rx#:[id number] Oral 480 Other: Voiding Method Diaper Incontinent # Voids 1 1 # Bowel Movements 1 1 Weight 96.162 kg Gen: This is a 62-year-old obese 58-year-old female she is awake and alert and appears to be comfortable. She is complaining of pain to the right clavicle area. HEENT: Head is atraumatic, normocephalic. Left pupil is round and reactive to light sclerae and icteric. Right thigh has been removed. Mucous members of the mouth are moist. Patient is edentulous. No lesions noted. NECK: Supple. No JVD. No lymphadenopathy. No thyromegaly. Pressure dressing in place to the right clavicle. This was not removed. No breakthrough bleeding. LUNGS: Clear to auscultation. No wheezes or rhonchi. No intercostal retractions. HEART: Regular rate and rhythm. No murmur. ABDOMEN: Soft. Bowel sounds are present. No masses. No tenderness. No redness under abdominal folds or groins. EXTREMITIES: Left below the knee amputation noted with no wounds to the stump. Dorsalis pedis is +2 on the right. No wounds noted. NEUROLOGICAL: Patient is awake, alert and oriented x3. No focal neural deficits. Results Results: Laboratory Results WBC 3.9 k/uL (3.8-10.6) 05/19/18 07:20 RBC 3.12 m/uL (3.80-5.40) L 05/19/18 07:20 Hgb 8.9 gm/dL (11.4-16.0) L 05/19/18 07:20 Hct 29.0 % (34.0-46.0) L 05/19/18 07:20 MCV 93.0 fL (80.0-100.0) 05/19/18 07:20 MCH 28.5 pg (25.0-35.0) 05/19/18 07:20 MCHC 30.6 g/dL (31.0-37.0) L 05/19/18 07:20 RDW 15.2 % (11.5-15.5) 05/19/18 07:20 Plt Count 278 k/uL (150-450) 05/19/18 07:20 Neutrophils % 63 % 05/19/18 07:20 Lymphocytes % 23 % 05/19/18 07:20 Monocytes % 8 % 05/19/18 07:20 Eosinophils % 3 % 05/19/18 07:20 Basophils % 1 % 05/19/18 07:20 Neutrophils # 2.4 k/uL (1.3-7.7) 05/19/18 07:20 Lymphocytes # 0.9 k/uL (1.0-4.8) L 05/19/18 07:20 Monocytes # 0.3 k/uL (0-1.0) 05/19/18 07:20 Eosinophils # 0.1 k/uL (0-0.7) 05/19/18 07:20 Basophils # 0.0 k/uL (0-0.2) 05/19/18 07:20 Hypochromasia Moderate 05/19/18 07:20 PT 10.1 sec (9.0-12.0) 05/17/18 05:45 INR 1.0 (<1.2) 05/17/18 05:45 APTT 24.0 sec (22.0-30.0) 05/17/18 05:45 Sodium 141 mmol/L (137-145) 05/19/18 07:20 Potassium 4.7 mmol/L (3.5-5.1) 05/19/18 07:20 Chloride 108 mmol/L (98-107) H 05/19/18 07:20 Carbon Dioxide 25 mmol/L (22-30) 05/19/18 07:20 Anion Gap 8 mmol/L 05/19/18 07:20 BUN 53 mg/dL (7-17) H 05/19/18 07:20 Creatinine 4.72 mg/dL (0.52-1.04) H 05/19/18 07:20 Est GFR (CKD-EPI)AfAm 11 (>60 ml/min/1.73 sqM) 05/19/18 07:20 Est GFR (CKD-EPI)NonAf 9 (>60 ml/min/1.73 sqM) 05/19/18 07:20 Glucose 82 mg/dL (74-99) 05/19/18 07:20 POC Glucose (mg/dL) 88 mg/dL (75-99) 05/19/18 07:04 POC Glu Engraver Block ID [place] 05/19/18 07:[address] Glu mg/dL 114 05/17/18 05:45 Hemoglobin A1c 5.6 % (4.0-6.0) 05/17/18 05:45 Plasma Lactic Acid Yonis 1.2 mmol/L (0.7-2.0) 05/17/18 05:45 Calcium 8.5 mg/dL (8.4-10.2) 05/19/18 07:20 Phosphorus 4.8 mg/dL (2.5-4.5) H 05/17/18 15:05 Magnesium 2.1 mg/dL (1.6-2.3) 05/17/18 05:45 Iron 24 ug/dL (50-170) L 05/17/18 15:05 TIBC 188 ug/dL (228-460) L 05/17/18 15:05 Iron Saturation 12.77 (12.00-45.00) 05/17/18 15:05 Ferritin 943.5 ng/mL (10.0-291.0) H 05/17/18 15:05 Total Bilirubin 0.4 mg/dL (0.2-1.3) 05/17/18 05:45 AST 26 U/L (14-36) 05/17/18 05:45 ALT 24 U/L (9-52) 05/17/18 05:45 Alkaline Phosphatase 74 U/L (38-126) 05/17/18 05:45 Total Creatine Kinase 36 U/L (30-135) 05/17/18 05:45 CK-MB (CK-2) 0.4 ng/mL (0.0-2.4) 05/17/18 05:45 CK-MB (CK-2) Rel Index 1.1 05/17/18 05:45 Troponin I <0.012 ng/mL (0.000-0.034) 05/17/18 05:45 NT-Pro-B Natriuret Pep 9070 pg/mL 05/17/18 05:45 Total Protein 6.5 g/dL (6.3-8.2) 05/17/18 05:45 Albumin 3.2 g/dL (3.5-5.0) L 05/17/18 05:45 Urine Color Yellow 05/17/18 05:54 Urine Appearance Turbid (Clear) H 05/17/18 05:54 Urine pH 7.5 (5.0-8.0) 05/17/18 05:54 Ur Specific Bland 1.011 (1.001-1.035) 05/17/18 05:54 Urine Protein 3+ (Negative) H 05/17/18 05:54 Urine Glucose (UA) Negative (Negative) 05/17/18 05:54 Urine Ketones Negative (Negative) 05/17/18 05:54 Urine Blood Moderate (Negative) H 05/17/18 05:54 Urine Nitrite Negative (Negative) 05/17/18 05:54 Urine Bilirubin Negative (Negative) 05/17/18 05:54 Urine Urobilinogen <2.0 mg/dL (<2.0) 05/17/18 05:54 Ur Leukocyte Esterase Large (Negative) H 05/17/18 05:54 Urine RBC 22 /hpf (0-5) H 05/17/18 05:54 Urine WBC >182 /hpf (0-5) H 05/17/18 05:54 Urine WBC Clumps Many /hpf (None) H 05/17/18 05:54 Urine Bacteria Many /hpf (None) H 05/17/18 05:54 C. difficile (EIA) Intrp Negative (Negative) 05/18/18 17:41 Influenza Type A RNA Not Detected (Not Detectd) 05/17/18 12:30 Influenza Type B (PCR) Not Detected (Not Detectd) 05/17/18 12:30 CBC & Chem 7: 05/19/18 07:20 05/19/18 07:20 Labs: Abnormal Lab Results - Last 24 Hours (Table) 05/18/18 05/18/18 05/18/18 Range/Units 08:26 08:26 11:06 RBC 3.29 L (3.80-5.40) m/uL Hgb 9.6 L (11.4-16.0) gm/dL Hct 31.2 L (34.0-46.0) % MCHC 30.8 L (31.0-37.0) g/dL Lymphocytes # 0.9 L (1.0-4.8) k/uL Chloride (98-107) mmol/L BUN 45 H (7-17) mg/dL Creatinine 4.24 H (0.52-1.04) mg/dL Glucose 135 H (74-99) mg/dL POC Glucose (mg/dL) 124 H (75-99) mg/dL Calcium 8.3 L (8.4-10.2) mg/dL 05/18/18 05/18/18 05/19/18 Range/Units 17:10 19:59 07:20 RBC 3.12 L (3.80-5.40) m/uL Hgb 8.9 L (11.4-16.0) gm/dL Hct 29.0 L (34.0-46.0) % MCHC 30.6 L (31.0-37.0) g/dL Lymphocytes # 0.9 L (1.0-4.8) k/uL Chloride (98-107) mmol/L BUN (7-17) mg/dL Creatinine (0.52-1.04) mg/dL Glucose (74-99) mg/dL POC Glucose (mg/dL) 211 H 107 H (75-99) mg/dL Calcium (8.4-10.2) mg/dL 05/19/18 Range/Units 07:20 RBC (3.80-5.40) m/uL Hgb (11.4-16.0) gm/dL Hct (34.0-46.0) % MCHC (31.0-37.0) g/dL Lymphocytes # (1.0-4.8) k/uL Chloride 108 H (98-107) mmol/L BUN 53 H (7-17) mg/dL Creatinine 4.72 H (0.52-1.04) mg/dL Glucose (74-99) mg/dL POC Glucose (mg/dL) (75-99) mg/dL Calcium (8.4-10.2) mg/dL Microbiology - Last 24 Hours (Table) 05/17/18 05:45 Blood Culture - Preliminary Blood No Growth after 48 hours 05/17/18 17:20 Blood Culture Gram Stain - Preliminary Blood Blood Culture - Preliminary Presumptive MRSA 05/17/18 17:20 Blood Culture - Final Blood 05/17/18 05:54 Urine Culture - Preliminary Urine,Catheterized Gram Neg Bacilli Assessment and Plan Plan: This is a 62-year-old female who presented to the hospital with symptoms of general malaise found to be presumptive MRSA bacteremic most likely secondary to dialysis catheter which has been replaced. Patient is currently on vancomycin, pharmacy dosing. Urine culture showing gram-negative bacillus the patient denies dysuria and ceftriaxone added. Repeat blood cultures will be requested. She is scheduled for dialysis treatment today as managed by nephrology. Continue supportive care. Further recommendations as patient progresses. The above dictated assessment and findings were discussed with Dr. Jerez. The impression and plan of care have been directed as dictated. Virgen Miranda nurse practitioner acting as scribe for Dr. Jerez.
--- NOTE | 2018-05-19 11:25 | CONS ---
CONSULTATION The patient is a 62-year-old female. Patient has history of chronic renal failure. She had a dialysis catheter placed right IJ a few months ago. Patient came with some shortness of breath and fatigue and she has been admitted. Patient went for dialysis. They could not dialyze because catheter was occluded. We were consulted for placement of the new dialysis catheter. MEDICAL HISTORY: History of coronary artery disease, history of heart failure, history of COPD, history of CVA in the past, history of dementia, history of diabetes mellitus, history of hypertension, hisstory of HI in the past, chronic renal failure, rheumatoid arthritis. SURGICAL HISTORY: Post left BK amputation. Patient was seen in her room. Neck is supple. Trachea central. Chest has rhonchi bilateral. Abdomen is soft. Femorals are 1+. PLAN: Placement of the new catheter and removal of the old catheter. Risks and complications discussed. MMODL / IJN: [id number] /
[2018-05-19 11:31] LABS: Glucose,Whole Blood 42 mg/dL (75-99)
[2018-05-19 11:57] LABS: Glucose,Whole Blood 50 mg/dL (75-99)
[2018-05-19 12:15] LABS: Glucose,Whole Blood 69 mg/dL (75-99)
[2018-05-19 12:37] LABS: Glucose,Whole Blood 93 mg/dL (75-99)
--- NOTE | 2018-05-19 15:03 | P.PN ---
Subjective Progress Note Date: 05/18/18 Principal diagnosis: Altered mental status; metabolic encephalopathy possibly secondary to UTI 05/18/2018; Patient is seen in the room and follow-up; resting comfortably in bed; patient did have dialysis yesterday but was for short duration secondary to malfunctioning dialysis catheter; patient denies any chest shortness of breath Objective - Vital Signs Vital signs: Vital Signs Temp 99.2 F 05/18/18 11:50 Pulse 61 05/18/18 11:50 Resp 16 05/18/18 11:50 BP 119/72 05/18/18 11:50 Pulse Ox 98 05/18/18 11:50 Intake & Output 05/17/18 05/18/18 05/18/18 18:59 06:59 18:59 Intake Total 1290 Balance 1290 Weight 96.162 kg 96.162 kg Intake: Intake, IV Titration 400 Amount Sodium Chloride 0.9% 1, 400 000 ml @ 50 mls/hr IV . Q20H [facility] Rx#:[id number] Oral 890 Other: Voiding Method Diaper Diaper Diaper Incontinent Incontinent Incontinent # Voids 1 1 1 - Exam - Constitutional General appearance: Present: average body habitus, cooperative, no acute distress - EENT Eyes: Present: anicteric sclerae, EOMI, PERRLA, normal appearance ENT: Present: hearing grossly normal, normal oropharynx Ears: bilateral: normal - Neck Neck: Present: normal ROM. Absent: lymphadenopathy, rigidity, thyromegaly Carotids: negative: bruit present Thyroid: bilateral: normal size, negative: enlarged, nodule - Respiratory Respiratory: bilateral: CTA, negative: rales, rhonchi, wheezing - Cardiovascular Rhythm: regular Heart sounds: normal: S1, S2 Abnormal Heart Sounds: Absent: systolic murmur, diastolic murmur - Gastrointestinal General gastrointestinal: Present: normal bowel sounds, soft. Absent: distended , organomegaly, tenderness - Genitourinary Genitourinary Comment(s): deferred - Integumentary Integumentary: Present: normal turgor. Absent: jaundiced, rash, ulcer - Neurologic Neurologic: Present: CNII-XII intact. Absent: focal deficits - Musculoskeletal Musculoskeletal: Present: gait normal, strength equal bilaterally - Psychiatric Psychiatric: Present: A&O x's 3, appropriate affect, intact judgment & insight - Labs CBC & Chem 7: 10/22/18 07:20 05/19/18 07:20 Labs: Abnormal Lab Results - Last 24 Hours (Table) 05/17/18 05/17/18 05/17/18 Range/Units 15:05 15:05 17:09 RBC (3.80-5.40) m/uL Hgb (11.4-16.0) gm/dL Hct (34.0-46.0) % MCHC (31.0-37.0) g/dL Lymphocytes # (1.0-4.8) k/uL BUN (7-17) mg/dL Creatinine (0.52-1.04) mg/dL Glucose (74-99) mg/dL POC Glucose (mg/dL) 137 H (75-99) mg/dL Calcium (8.4-10.2) mg/dL Phosphorus 4.8 H (2.5-4.5) mg/dL Iron 24 L (50-170) ug/dL TIBC 188 L (228-460) ug/dL Ferritin 943.5 H (10.0-291.0) ng/mL 05/17/18 05/18/18 05/18/18 Range/Units 20:23 06:43 08:26 RBC 3.29 L (3.80-5.40) m/uL Hgb 9.6 L (11.4-16.0) gm/dL Hct 31.2 L (34.0-46.0) % MCHC 30.8 L (31.0-37.0) g/dL Lymphocytes # 0.9 L (1.0-4.8) k/uL BUN (7-17) mg/dL Creatinine (0.52-1.04) mg/dL Glucose (74-99) mg/dL POC Glucose (mg/dL) 152 H 129 H (75-99) mg/dL Calcium (8.4-10.2) mg/dL Phosphorus (2.5-4.5) mg/dL Iron (50-170) ug/dL TIBC (228-460) ug/dL Ferritin (10.0-291.0) ng/mL 05/18/18 05/18/18 Range/Units 08:26 11:06 RBC (3.80-5.40) m/uL Hgb (11.4-16.0) gm/dL Hct (34.0-46.0) % MCHC (31.0-37.0) g/dL Lymphocytes # (1.0-4.8) k/uL BUN 45 H (7-17) mg/dL Creatinine 4.24 H (0.52-1.04) mg/dL Glucose 135 H (74-99) mg/dL POC Glucose (mg/dL) 124 H (75-99) mg/dL Calcium 8.3 L (8.4-10.2) mg/dL Phosphorus (2.5-4.5) mg/dL Iron (50-170) ug/dL TIBC (228-460) ug/dL Ferritin (10.0-291.0) ng/mL Microbiology - Last 24 Hours (Table) 05/17/18 05:45 Blood Culture - Preliminary Blood No Growth after 24 hours 05/17/18 05:54 Urine Culture - Preliminary Urine,Catheterized Assessment and Plan Assessment: 1. Altered mental status; metabolic encephalopathy possibly secondary to UTI 2. UTI - Patient started on Rocephin, renally adjusted dose - Urine culture and blood cultures are pending; we'll adjust antibiotics once culture reports are available 3. End-stage renal disease/hemodialysis; noncompliant - Patient is maintained on hemodialysis on Saturday through right chest permacath - Nephrology is following and recommending vascular surgery consult for Estella cath exchange - Hep-Lock IV fluids; hemodialysis tomorrow 4. Anemia of chronic disease/ iron deficiency - Patient started on Ferrlecit 125 mg IV daily for 3 days - Continue with Aranesp as prescribed - We will continue to monitor CBC and iron levels 5. Right eye conjunctivitis; start patient on Garamycin eyedrops 6. Hypertension with chronic kidney disease; - Stable on home dose of Norvasc 5 mg daily along with hydralazine 50 mg 3 times a day and Lopressor 50 mg twice a day - We will continue to monitor blood pressure closely and adjust medications upon discharge if needed 7. Diabetes mellitus - We will continue with Levemir 26 units at bedtime along with NovoLog 6 units every before meals - Continue with insulin sliding scale if needed 8. Chronic kidney disease mineral bone disease; maintained on PhosLo 9. Malfunctioning permacath; vascular surgery consulted for exchange 10. DVT prophylaxis; SCDs only for possible procedure CODE STATUS; full code Time with Patient: Greater than 30
[2018-05-19 16:44] LABS: Glucose,Whole Blood 176 mg/dL (75-99)
[2018-05-19] MEDS ORDERED: LIDOCAINE 1% INJ 10MG/ML (20 ML MDV) SQ ONE (17:10)
[2018-05-19 20:05] LABS: Glucose,Whole Blood 210 mg/dL (75-99)
[2018-05-19] MEDS: CLOPIDOGREL 75 MG TAB PO SCH (20:24)
[2018-05-19] MEDS: GABAPENTIN 300 MG CAP PO SCH (20:24)
[2018-05-19] MEDS: PRAVASTATIN SODIUM 20 MG TAB PO SCH (20:25)
[2018-05-19] MEDS: MELATONIN 5 MG TABLET PO SCH (20:25)
[2018-05-19] MEDS: INSULIN DETEMIR 100 UNIT/ML 10 ML VIAL SQ SCH (20:25)
[2018-05-19] MEDS ORDERED: INSULIN DETEMIR 100 UNIT/ML 10 ML VIAL SQ SCH (21:30)
--- NOTE | 2018-05-19 21:41 | P.CON ---
Consult Note - . Consult date: 05/19/18 Assessment/Plan:: This is a 58-year-old female known to ID service as she has been seen on previous admission and has history of being treated for peripheral vascular disease and osteomyelitis through [facility] in 2013. She is currently residing at [facility]. Patient apparently has had lethargy and general malaise last week and due to this she did not have hemodialysis treatment on Saturday for her end-stage renal disease normally scheduled Saturday and Saturday. On Saturday she only completed 2 hours of the four-hour dialysis. She has not been feeling well with a sore throat and a nonproductive cough. She was treated with Tylenol with Codeine but she was hypoxic with a pulse ox of 88-89% on room air and was then brought into [facility] emergency center for evaluation she has been afebrile with normal white count. Her urinalysis was turbid blood moderate leukoesterase large, RBCs 22 and WBCs greater than 182. Patient denies having any pain or burning with urination. C. diff testing was done which was negative and influenza testing for A and B were negative. Blood culture obtained from the right sided permacath came back positive for MRSA and this permacath has been exchanged by Dr. Lopez as of yesterday. She is scheduled for hemodialysis today. Chest x-ray showed no acute cardio pulmonary findings. Urine culture showing greater than 100,000 colonies gram-negative bacilli repeat blood culture was obtained yesterday and is status received. Patient is complaining of pain to the permacath surgical site. Please see the consult note is dictated by nurse practitioner Mrs. Virgen Miranda. 58-year-old woman is feeling ill at this point in time. Hemodialysis to improve evidence of volume overload is occurring. As noted there are positive blood cultures with likely MRSA. The patient was having a malfunctioning hemodialysis catheter right IJ. She was not having high-grade fevers or chills. Catheter was replaced. Is now having significant pain at that site and evidence of ongoing bacteremia. Recurrent blood cultures have been requested and if are positive will need to have vascular surgery evaluate the current hemodialysis catheter in likely have it removed, and then once is evidence of negative blood cultures reestablish access in a different area. The patient is having significant pain at that site which was worrisome for the infection at the catheter. She fortunately is not hypotensive in tolerating hemodialysis well. There is evidence of gram- negative bacilli and the urinary culture and Rocephin is added pending further culture data. Vancomycin being utilized for the likely MRSA bacteremia. We'll need to have arrangements made for her to receive at least 4 weeks of vancomycin at hemodialysis at the time of her discharge. I agree with evaluation, assessment and plan as dictated by nurse practitioner Mrs. Virgen Miranda.
[2018-05-19] MEDS: ALBUTEROL SULFATE 2 MG PO SCH ×2 (22:14→22:15)
--- NOTE | 2018-05-19 22:25 | PN ---
PROGRESS NOTE DATE OF SERVICE: May 19, 2018. PRESENTING COMPLAINT: Tired. INTERVAL HISTORY: This patient admitted with metabolic encephalopathy, was found to have a clogged dialysis catheter that was replaced by Dr. Lopez today. The patient also urine culture came back positive for Proteus mirabilis and blood cultures are coming back positive for MRSA. The patient does feel weak and tired. The patient had missed hemodialysis prior to coming in. Had some swelling in lower extremities, which is coming down. Does feel tired and rundown. REVIEW OF SYSTEMS: Done for constitutional, cardiovascular, GI, pulmonary and relevant findings as above. CURRENT MEDICATIONS: Reviewed that include IV ceftriaxone and gentamicin for the right eye and vancomycin. EXAMINATION: VITAL SIGNS: Afebrile, pulse 65, respiratory 18, blood pressure 102/65, pulse ox 92 percent on room air. GENERAL APPEARANCE: Lying in bed awake. EYES: Absent right eye. Normal left eye. NECK: JVD not raised. Mass not palpable. RESPIRATORY: Effort normal. LUNGS: Decreased breath sounds. CARDIOVASCULAR: 1st and 2nd sounds normal. No edema. ABDOMEN: Soft, nontender. Liver and spleen not palpable. PSYCH: Does answer some simple questions. INVESTIGATIONS: Accu-Cheks 50, 69, 93. White count 3.9, hemoglobin 8.9, potassium 4.7, BUN 53, creatinine 4.72. Blood cultures positive with presumptive MRSA from May 17, 2018. Urine culture positive for Proteus mirabilis. ASSESSMENT: 1. Acute metabolic encephalopathy from infection in the blood. 2. MRSA, sepsis source could have been the dialysis catheter. 3. End-stage kidney disease on hemodialysis. 4. Diabetes mellitus type 2, chronically on insulin uncontrolled with hypoglycemia. 5. Chronic obstructive pulmonary disease in an ex-smoker. 6. Chronic congestive heart failure from systolic dysfunction EF 40-45 percent from underlying coronary artery disease. 7. Hypertensive heart disease. 8. Primary osteoarthritis. 9. Mild cognitive impairment from Alzheimer's dementia. 10.Depression, not otherwise specified. 11.Coronary artery disease, history of prior stent. 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 13.Medical debility needs transfer with Marquis lift. 14.Acute urinary tract infection with Proteus mirabilis. PLAN: Continue with IV antibiotics. Other medications to continue. We will cut back on patient's Levemir as her sugars are running low. Scheduled insulin is to be held back. Otherwise patient's appetite is good. Prognosis is guarded. Follow. MMODL / IJN: [id number] /
[2018-05-20 00:05] LABS: Glucose,Whole Blood 123 mg/dL (75-99)
[2018-05-20] MEDS: GENTAMICIN 0.3% OPHTH DROPS 5 ML BTL BOTH EYES SCH ×7 (00:18→23:37)
[2018-05-20] MEDS: BENZOCAINE/MENTHOL LOZENG 1 EACH LOZENGE MUCOUS MEM SCH ×7 (00:18→23:36)
[2018-05-20 01:54] LABS: Glucose,Whole Blood 134 mg/dL (75-99)
[2018-05-20 07:07] LABS: Glucose,Whole Blood 131 mg/dL (75-99)
[2018-05-20] MEDS: INSULIN ASPART 100 UNIT/ML 1 ML 10 ML VIAL SQ SCH ×7 (07:34→21:07)
[2018-05-20] MEDS: CALCIUM ACETATE 667 MG CAP PO SCH (07:35)
[2018-05-20] MEDS: SODIUM BICARBONATE TAB 650 MG TAB PO SCH ×2 (07:35→21:06)
[2018-05-20] MEDS: ESCITALOPRAM 20 MG TAB PO SCH (07:35)
[2018-05-20] MEDS: amLODIPine 5 MG TAB PO SCH (07:36)
[2018-05-20] MEDS: hydrALAZINE HCL 50 MG TAB PO SCH ×3 (07:36→21:05)
[2018-05-20] MEDS: CHOLECALCIFEROL 1,000 UNIT TAB PO SCH (07:36)
[2018-05-20] MEDS: SENNOSIDES 8.6 MG TAB PO SCH (07:36)
[2018-05-20] MEDS: buPROPion 75 MG TAB PO SCH (07:36)
[2018-05-20] MEDS: ISOSORBIDE MONONITRATE ER 60 MG TAB.ER.24H PO SCH (07:36)
[2018-05-20] MEDS: METOPROLOL TARTRATE 50 MG TAB PO SCH ×2 (07:37→21:05)
[2018-05-20 08:20] LABS: Basophils % (A) 1 %; Eosinophils # (A) 0.2 k/uL (0-0.7); Eosinophils % (A) 3 %; HCT 27.9 % (34.0-46.0); HGB 8.7 gm/dL (11.4-16.0); Hypochromasia Moderate; Lymphocytes % (A) 24 %; MCH 28.8 pg (25.0-35.0); MCHC 31.1 g/dL (31.0-37.0); MCV 92.7 fL (80.0-100.0); Mean Platelet Volume 6.7; Monocytes # (A) 0.3 k/uL (0-1.0); Monocytes % (A) 8 %; Neutrophils # (A) 2.7 k/uL (1.3-7.7); Neutrophils % (A) 62 %; Platelet Count 284 k/uL (150-450); RBC 3.01 m/uL (3.80-5.40); RDW 15.2 % (11.5-15.5); WBC 4.3 k/uL (3.8-10.6)
[2018-05-20 08:38] LABS: Calcium 8.5 mg/dL (8.4-10.2); Potassium 4.7 mmol/L (3.5-5.1)
[2018-05-20 09:07] LABS: Vancomycin,Random 20.5 ug/mL
--- NOTE | 2018-05-20 10:15 | P.PN ---
Subjective Patient is seen in follow-up for end-stage renal disease. She is maintained on hemodialysis on a Saturday schedule a permacath. Currently resting in bed. Permacath was malfunctioning and was exchanged on May 18. It was then removed yesterday due to MRSA bacteremia. She is also noted to have UTI with urine culture positive for gram-negative bacilli. She pulled out her peripheral IV yesterday and is therefore not receiving antibiotics. She is considering hospice. Vital signs are stable. General: The patient appeared well nourished and normally developed. HEENT: Head exam is unremarkable. Neck is without jugular venous distension. LUNGS: Lungs are clear to auscultation and percussion. Breath sounds decreased. HEART: Rate and Rhythm are regular. First and second heart sounds normal. No murmurs, rubs or gallops. ABDOMEN: Abdominal exam reveals normal bowel sounds. Non-tender and non- distended. No evidence of peritonitis. EXTREMITITES: No clubbing, cyanosis, or edema. Amputation noted. Objective - Vital Signs Vital signs: Vital Signs Temp 98.5 F 05/20/18 04:53 Pulse 61 05/20/18 04:53 Resp 16 05/20/18 04:53 BP 152/60 05/20/18 04:53 Pulse Ox 93 L 05/20/18 04:53 Intake & Output 05/19/18 05/20/18 05/20/18 18:59 06:59 18:59 Intake Total 250 240 Balance 250 240 Intake: Intake, IV Titration 250 Amount Vancomycin 1,500 mg In 250 Sodium Chloride 0.9% 250 ml @ 125 mls/hr IVPB ONCE ONE Rx#:[id number] Oral 240 Other: Voiding Method Diaper Diaper Diaper Incontinent Incontinent Incontinent # Voids 2 - Labs CBC & Chem 7: 05/20/18 08:01 05/20/18 08:01 Labs: Abnormal Lab Results - Last 24 Hours (Table) 05/19/18 05/19/18 05/19/18 Range/Units 11:20 11:56 12:14 RBC (3.80-5.40) m/uL Hgb (11.4-16.0) gm/dL Hct (34.0-46.0) % Chloride (98-107) mmol/L BUN (7-17) mg/dL Creatinine (0.52-1.04) mg/dL Glucose (74-99) mg/dL POC Glucose (mg/dL) 42 L 50 L 69 L (75-99) mg/dL 05/19/18 05/19/18 05/19/18 Range/Units 16:42 20:03 23:54 RBC (3.80-5.40) m/uL Hgb (11.4-16.0) gm/dL Hct (34.0-46.0) % Chloride (98-107) mmol/L BUN (7-17) mg/dL Creatinine (0.52-1.04) mg/dL Glucose (74-99) mg/dL POC Glucose (mg/dL) 176 H 210 H 123 H (75-99) mg/dL 05/20/18 05/20/18 05/20/18 Range/Units 01:51 07:05 08:01 RBC 3.01 L (3.80-5.40) m/uL Hgb 8.7 L (11.4-16.0) gm/dL Hct 27.9 L (34.0-46.0) % Chloride (98-107) mmol/L BUN (7-17) mg/dL Creatinine (0.52-1.04) mg/dL Glucose (74-99) mg/dL POC Glucose (mg/dL) 134 H 131 H (75-99) mg/dL 05/20/18 Range/Units 08:01 RBC (3.80-5.40) m/uL Hgb (11.4-16.0) gm/dL Hct (34.0-46.0) % Chloride 108 H (98-107) mmol/L BUN 42 H (7-17) mg/dL Creatinine 3.77 H (0.52-1.04) mg/dL Glucose 107 H (74-99) mg/dL POC Glucose (mg/dL) (75-99) mg/dL Microbiology - Last 24 Hours (Table) 05/17/18 05:45 Blood Culture - Preliminary Blood No Growth after 72 hours 05/18/18 19:00 Blood Culture Gram Stain - Preliminary Blood 05/17/18 17:20 Blood Culture Gram Stain - Final Blood Blood Culture - Final Methicillin resist S. aureus 05/18/18 19:00 Blood Culture - Final Blood 05/17/18 05:54 Urine Culture - Final Urine,Catheterized Proteus mirabilis Assessment and Plan Plan: Assessment: 1. End-stage renal disease maintained on hemodialysis on a Saturday schedule. 2. Anemia of chronic kidney disease. Iron deficiency noted. 3. MRSA bacteremia. Possibly the source being permacath which was exchanged on May 18. Currently maintained on IV vancomycin. Infectious disease consulted. 4. UTI. Urine culture positive for Proteus mirabilis. 5. Hypertension with chronic kidney disease. Controlled. 6. Diabetes mellitus. 7. Chronic kidney disease mineral bone disease maintained on PhosLo. 8. Malfunctioning permacath status post exchange in May 18. It was subsequently removed on May 19 due to bacteremia. Plan: Avoid IV iron due to bacteremia. Maintain Aranesp. Continue to monitor labs and volume status closely. Will continue to assess need for dialysis on a daily basis. Patient is considering hospice. If she changes her mind, then she will need a new access for dialysis. Legal guardian will be coming today.
[2018-05-20 11:16] LABS: Glucose,Whole Blood 78 mg/dL (75-99)
[2018-05-20] MEDS: HYDROmorphone 2 MG TAB PO PRN (16:49)
[2018-05-20 17:03] LABS: Glucose,Whole Blood 134 mg/dL (75-99)
--- NOTE | 2018-05-20 17:32 | P.PN ---
Subjective Progress Note Date: 05/20/18 This is a 58-year-old female known to ID service as she has been seen on previous admission and has history of being treated for peripheral vascular disease and osteomyelitis through [facility] in 2013. She is currently residing at [facility]. Patient apparently has had lethargy and general malaise last week and due to this she did not have hemodialysis treatment on Saturday for her end-stage renal disease normally scheduled Saturday and Saturday. On Saturday she only completed 2 hours of the four-hour dialysis. She has not been feeling well with a sore throat and a nonproductive cough. She was treated with Tylenol with Codeine but she was hypoxic with a pulse ox of 8889% on room air and was then brought into [facility] emergency center for evaluation she has been afebrile with normal white count. Her urinalysis was turbid blood moderate leukoesterase large, RBCs 22 and WBCs greater than 182. Patient denies having any pain or burning with urination. C. diff testing was done which was negative and influenza testing for A and B were negative. Blood culture obtained from the right sided permacath came back positive for MRSA and this permacath has been exchanged by Dr. Lopez as of yesterday. She is scheduled for hemodialysis today. Chest x-ray showed no acute cardio pulmonary findings. Urine culture showing greater than 100,000 colonies gram-negative bacilli repeat blood culture was obtained yesterday and is status received. Patient is complaining of pain to the permacath surgical site. 05/20/2018 patient is now somewhat improved. After evaluation yesterday became evident that her hemanalysis There was a source of her sepsis and vascular surgery did present and removed her infected hemodialysis catheter. She's allow the nursing staff to apply IV today. She is much more calm today Objective - Vital Signs Vital signs: Vital Signs Temp 97.1 F L 05/20/18 13:00 Pulse 68 05/20/18 13:00 Resp 20 05/20/18 13:00 BP 110/68 05/20/18 13:00 Pulse Ox 93 L 05/20/18 13:00 Intake & Output 05/19/18 05/20/18 05/20/18 18:59 06:59 18:59 Intake Total 250 240 Balance 250 240 Intake: Intake, IV Titration 250 Amount Vancomycin 1,500 mg In 250 Sodium Chloride 0.9% 250 ml @ 125 mls/hr IVPB ONCE ONE Rx#:[id number] Oral 240 Other: Voiding Method Diaper Diaper Diaper Incontinent Incontinent Incontinent # Voids 2 1 - Exam Gen: This is a 62-year-old obese 58-year-old female she is awake and alert and appears to be comfortable. She is complaining of pain to the right clavicle area. HEENT: Head is atraumatic, normocephalic. Left pupil is round and reactive to light sclerae and icteric. Right thigh has been removed. Mucous members of the mouth are moist. Patient is edentulous. No lesions noted. NECK: Supple. No JVD. No lymphadenopathy. No thyromegaly. Pressure dressing in place to the right clavicle. This was not removed. No breakthrough bleeding. It is less tender today now that the dialysis catheter has been removed LUNGS: Clear to auscultation. No wheezes or rhonchi. No intercostal retractions. HEART: Regular rate and rhythm. No murmur. ABDOMEN: Soft. Bowel sounds are present. No masses. No tenderness. No redness under abdominal folds or groins. EXTREMITIES: Left below the knee amputation noted with no wounds to the stump. Dorsalis pedis is +2 on the right. No wounds noted. NEUROLOGICAL: Patient is awake, alert and oriented x3. No focal neural deficits. - Labs CBC & Chem 7: 05/20/18 08:01 05/20/18 08:01 Labs: Abnormal Lab Results - Last 24 Hours (Table) 05/19/18 05/19/18 05/20/18 Range/Units 20:03 23:54 01:51 RBC (3.80-5.40) m/uL Hgb (11.4-16.0) gm/dL Hct (34.0-46.0) % Chloride (98-107) mmol/L BUN (7-17) mg/dL Creatinine (0.52-1.04) mg/dL Glucose (74-99) mg/dL POC Glucose (mg/dL) 210 H 123 H 134 H (75-99) mg/dL 05/20/18 05/20/18 05/20/18 Range/Units 07:05 08:01 08:01 RBC 3.01 L (3.80-5.40) m/uL Hgb 8.7 L (11.4-16.0) gm/dL Hct 27.9 L (34.0-46.0) % Chloride 108 H (98-107) mmol/L BUN 42 H (7-17) mg/dL Creatinine 3.77 H (0.52-1.04) mg/dL Glucose 107 H (74-99) mg/dL POC Glucose (mg/dL) 131 H (75-99) mg/dL 05/20/18 Range/Units 17:01 RBC (3.80-5.40) m/uL Hgb (11.4-16.0) gm/dL Hct (34.0-46.0) % Chloride (98-107) mmol/L BUN (7-17) mg/dL Creatinine (0.52-1.04) mg/dL Glucose (74-99) mg/dL POC Glucose (mg/dL) 134 H (75-99) mg/dL Microbiology - Last 24 Hours (Table) 05/18/18 19:00 Blood Culture Gram Stain - Preliminary Blood Blood Culture - Preliminary Alpha Hemolytic Streptococcus 05/17/18 05:45 Blood Culture - Preliminary Blood No Growth after 72 hours 05/17/18 17:20 Blood Culture Gram Stain - Final Blood Blood Culture - Final Methicillin resist S. aureus 05/18/18 19:00 Blood Culture - Final Blood Laboratory Results WBC 4.3 k/uL (3.8-10.6) 05/20/18 08:01 RBC 3.01 m/uL (3.80-5.40) L 05/20/18 08:01 Hgb 8.7 gm/dL (11.4-16.0) L 05/20/18 08:01 Hct 27.9 % (34.0-46.0) L 05/20/18 08:01 MCV 92.7 fL (80.0-100.0) 05/20/18 08:01 MCH 28.8 pg (25.0-35.0) 05/20/18 08:01 MCHC 31.1 g/dL (31.0-37.0) 05/20/18 08:01 RDW 15.2 % (11.5-15.5) 05/20/18 08:01 Plt Count 284 k/uL (150-450) 05/20/18 08:01 Neutrophils % 62 % 05/20/18 08:01 Lymphocytes % 24 % 05/20/18 08:01 Monocytes % 8 % 05/20/18 08:01 Eosinophils % 3 % 05/20/18 08:01 Basophils % 1 % 05/20/18 08:01 Neutrophils # 2.7 k/uL (1.3-7.7) 05/20/18 08:01 Lymphocytes # 1.0 k/uL (1.0-4.8) 05/20/18 08:01 Monocytes # 0.3 k/uL (0-1.0) 05/20/18 08:01 Eosinophils # 0.2 k/uL (0-0.7) 05/20/18 08:01 Basophils # 0.0 k/uL (0-0.2) 05/20/18 08:01 Hypochromasia Moderate 05/20/18 08:01 PT 10.1 sec (9.0-12.0) 05/17/18 05:45 INR 1.0 (<1.2) 05/17/18 05:45 APTT 24.0 sec (22.0-30.0) 05/17/18 05:45 Sodium 140 mmol/L (137-145) 05/20/18 08:01 Potassium 4.7 mmol/L (3.5-5.1) 05/20/18 08:01 Chloride 108 mmol/L (98-107) H 05/20/18 08:01 Carbon Dioxide 25 mmol/L (22-30) 05/20/18 08:01 Anion Gap 7 mmol/L 05/20/18 08:01 BUN 42 mg/dL (7-17) H 05/20/18 08:01 Creatinine 3.77 mg/dL (0.52-1.04) H 05/20/18 08:01 Est GFR (CKD-EPI)AfAm 14 (>60 ml/min/1.73 sqM) 05/20/18 08:01 Est GFR (CKD-EPI)NonAf 12 (>60 ml/min/1.73 sqM) 05/20/18 08:01 Glucose 107 mg/dL (74-99) H 05/20/18 08:01 POC Glucose (mg/dL) 134 mg/dL (75-99) H 05/20/18 17:01 POC Glu Coat Padder ID Milagros Crenshaw 05/20/18 17:[address] Glu mg/dL 114 05/17/18 05:45 Hemoglobin A1c 5.6 % (4.0-6.0) 05/17/18 05:45 Plasma Lactic Acid Yonis 1.2 mmol/L (0.7-2.0) 05/17/18 05:45 Calcium 8.5 mg/dL (8.4-10.2) 05/20/18 08:01 Phosphorus 4.8 mg/dL (2.5-4.5) H 05/17/18 15:05 Magnesium 2.1 mg/dL (1.6-2.3) 05/17/18 05:45 Iron 24 ug/dL (50-170) L 05/17/18 15:05 TIBC 188 ug/dL (228-460) L 05/17/18 15:05 Iron Saturation 12.77 (12.00-45.00) 05/17/18 15:05 Ferritin 943.5 ng/mL (10.0-291.0) H 05/17/18 15:05 Total Bilirubin 0.4 mg/dL (0.2-1.3) 05/17/18 05:45 AST 26 U/L (14-36) 05/17/18 05:45 ALT 24 U/L (9-52) 05/17/18 05:45 Alkaline Phosphatase 74 U/L (38-126) 05/17/18 05:45 Total Creatine Kinase 36 U/L (30-135) 05/17/18 05:45 CK-MB (CK-2) 0.4 ng/mL (0.0-2.4) 05/17/18 05:45 CK-MB (CK-2) Rel Index 1.1 05/17/18 05:45 Troponin I <0.012 ng/mL (0.000-0.034) 05/17/18 05:45 NT-Pro-B Natriuret Pep 9070 pg/mL 05/17/18 05:45 Total Protein 6.5 g/dL (6.3-8.2) 05/17/18 05:45 Albumin 3.2 g/dL (3.5-5.0) L 05/17/18 05:45 Urine Color Yellow 05/17/18 05:54 Urine Appearance Turbid (Clear) H 05/17/18 05:54 Urine pH 7.5 (5.0-8.0) 05/17/18 05:54 Ur Specific [place] 1.011 (1.001-1.035) 05/17/18 05:54 Urine Protein 3+ (Negative) H 05/17/18 05:54 Urine Glucose (UA) Negative (Negative) 05/17/18 05:54 Urine Ketones Negative (Negative) 05/17/18 05:54 Urine Blood Moderate (Negative) H 05/17/18 05:54 Urine Nitrite Negative (Negative) 05/17/18 05:54 Urine Bilirubin Negative (Negative) 05/17/18 05:54 Urine Urobilinogen <2.0 mg/dL (<2.0) 05/17/18 05:54 Ur Leukocyte Esterase Large (Negative) H 05/17/18 05:54 Urine RBC 22 /hpf (0-5) H 05/17/18 05:54 Urine WBC >182 /hpf (0-5) H 05/17/18 05:54 Urine WBC Clumps Many /hpf (None) H 05/17/18 05:54 Urine Bacteria Many /hpf (None) H 05/17/18 05:54 Random Vancomycin 20.5 ug/mL 05/20/18 08:01 C. difficile (EIA) Intrp Negative (Negative) 05/18/18 17:41 Influenza Type A RNA Not Detected (Not Detectd) 05/17/18 12:30 Influenza Type B (PCR) Not Detected (Not Detectd) 05/17/18 12:30 Microbiology 05/18/18 19:00 Blood Blood Culture Gram Stain - Preliminary 05/18/18 19:00 Blood Blood Culture - Preliminary Alpha Hemolytic Streptococcus 05/17/18 05:45 Blood Blood Culture - Preliminary No Growth after 72 hours 05/17/18 17:20 Blood Blood Culture Gram Stain - Final 05/17/18 17:20 Blood Blood Culture - Final Methicillin resist S. aureus 05/18/18 19:00 Blood Blood Culture - Final 05/17/18 05:54 Urine,Catheterized Urine Culture - Final Proteus mirabilis 05/17/18 17:20 Blood Blood Culture - Final Assessment and Plan (1) MRSA bacteremia Narrative/Plan: 58-year-old woman is feeling ill at this point in time. Hemodialysis to improve evidence of volume overload is occurring. As noted there are positive blood cultures with likely MRSA. The patient was having a malfunctioning hemodialysis catheter right IJ. She was not having high-grade fevers or chills. Catheter was replaced. Is now having significant pain at that site and evidence of ongoing bacteremia. Recurrent blood cultures have been requested and if are positive will need to have vascular surgery evaluate the current hemodialysis catheter in likely have it removed, and then once is evidence of negative blood cultures reestablish access in a different area. The patient is having significant pain at that site which was worrisome for the infection at the catheter. She fortunately is not hypotensive in tolerating hemodialysis well. There is evidence of gram-negative bacilli and the urinary culture and Rocephin is added pending further culture data. Vancomycin being utilized for the likely MRSA bacteremia. We'll need to have arrangements made for her to receive at least 4 weeks of vancomycin at hemodialysis at the time of her discharge. 05/20/2018 follow blood culture has evidence of alpha hemolytic strep fortunately no further MRSA being isolated. Further blood cultures are requested and once we have negative cultures the next permacath can be applied for her hemodialysis to resume. She is allowing IVAD placed and will continue Rocephin for now vancomycin per pharmacy dosing. Current Visit: Yes Status: Acute Code(s): R78.81 - BACTEREMIA SNOMED Code( s): 12750392064635424
[2018-05-20 20:11] LABS: Glucose,Whole Blood 133 mg/dL (75-99)
[2018-05-20] MEDS ORDERED: VANCOMYCIN 1,500 MG in SODIUM CHLORIDE 0.9% 250 ML IVPB ONE (21:00)
[2018-05-20] MEDS: GABAPENTIN 300 MG CAP PO SCH (21:05)
[2018-05-20] MEDS: CLOPIDOGREL 75 MG TAB PO SCH (21:06)
[2018-05-20] MEDS: PRAVASTATIN SODIUM 20 MG TAB PO SCH (21:06)
[2018-05-20] MEDS: INSULIN DETEMIR 100 UNIT/ML 10 ML VIAL SQ SCH (21:07)
[2018-05-20] MEDS: MELATONIN 5 MG TABLET PO SCH (21:07)
[2018-05-20] MEDS: ALBUTEROL SULFATE 2 MG PO SCH (23:37)
--- NOTE | 2018-05-20 23:40 | PN ---
PROGRESS NOTE DATE OF SERVICE: 05/20/2018. PRESENTING COMPLAINT: Tired. INTERVAL HISTORY: The patient was admitted with metabolic encephalopathy, found to have a clogged dialysis catheter that was yesterday placed by Dr. Lopez. Subsequently because of blood cultures positive for MRSA, Dr. Jerez did talk to Dr. Lopez and the dialysis catheter was then removed. The patient is also being treated for Proteus mirabilis in the urine. The patient did tolerate diet, comfortable. REVIEW OF SYSTEMS: Done for Consul cardiovascular GI pulmonary; relevant findings as above. CURRENT MEDICATIONS: Reviewed, that include IV vancomycin, IV ceftriaxone. EXAMINATION: Temperature 97.1, pulse 58, respirations 20, blood pressure 110/68, pulse ox 93 percent on room air. GENERAL APPEARANCE: Lying in bed, lying awake. EYES: Absent right eye. Normal left eye. NECK: JVD not raised. Mass not palpable. Respiratory effort normal. LUNGS: Decreased breath sounds. CARDIOVASCULAR: 1st and 2nd sounds normal. No edema. ABDOMEN: Soft, nontender. Liver and spleen not palpable. PSYCHIATRY: The patient is able to answer simple questions. INVESTIGATIONS: White count 4.3, hemoglobin 8.7, potassium 4.7. Accu-Cheks are noted. The patient's urine cultures show Proteus mirabilis. Blood cultures from 05/17/2018 shows MRSA and from 05/18/2018 growing alpha hemolytic Streptococcus. ASSESSMENT: 1. Acute metabolic encephalopathy from infection in the blood, now improving. 2. Methicillin-resistant Staphylococcus aureus and alpha hemolytic Streptococcus both growing from the blood culture. Dialysis catheter has been removed for now, the new one that was placed. 3. End-stage kidney disease on hemodialysis. 4. Diabetes mellitus type 2, chronically on insulin, uncontrolled with hypoglycemia. 5. Chronic obstructive pulmonary disease in an ex-smoker. 6. Chronic congestive heart failure from systolic dysfunction, EF 40% to 45% from underlying coronary artery disease. 7. Hypertensive heart disease. 8. Primary osteoarthritis. 9. Mild cognitive impairment from Alzheimer dementia. 10.Depression, not otherwise specified. 11.Coronary artery disease, history prior stent. 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 13.Medical debility, needs transfer with a Marquis lift. 14.Acute urinary tract infection with infection with Proteus mirabilis. PLAN: Continue current medication and treatment plan. Once cultures are negative, then dialysis catheter can be placed again. MMODL / IJN: [id number] /
[2018-05-21] MEDS: HYDROmorphone 2 MG TAB PO PRN ×4 (02:10→22:44)
[2018-05-21] MEDS: BENZOCAINE/MENTHOL LOZENG 1 EACH LOZENGE MUCOUS MEM SCH ×5 (04:54→22:12)
[2018-05-21] MEDS: GENTAMICIN 0.3% OPHTH DROPS 5 ML BTL BOTH EYES SCH ×5 (04:55→22:13)
[2018-05-21 07:18] LABS: Glucose,Whole Blood 76 mg/dL (75-99)
[2018-05-21] MEDS: INSULIN ASPART 100 UNIT/ML 1 ML 10 ML VIAL SQ SCH ×7 (07:33→22:38)
[2018-05-21 08:31] LABS: Calcium 8.5 mg/dL (8.4-10.2); Potassium 4.5 mmol/L (3.5-5.1)
[2018-05-21] MEDS: ESCITALOPRAM 20 MG TAB PO SCH (09:05)
[2018-05-21] MEDS: SODIUM BICARBONATE TAB 650 MG TAB PO SCH ×2 (09:05→22:12)
[2018-05-21] MEDS: ISOSORBIDE MONONITRATE ER 60 MG TAB.ER.24H PO SCH (09:05)
[2018-05-21] MEDS: METOPROLOL TARTRATE 50 MG TAB PO SCH ×2 (09:05→22:12)
[2018-05-21] MEDS: buPROPion 75 MG TAB PO SCH (09:06)
[2018-05-21] MEDS: CALCIUM ACETATE 667 MG CAP PO SCH (09:06)
[2018-05-21] MEDS: amLODIPine 5 MG TAB PO SCH (09:06)
[2018-05-21] MEDS: hydrALAZINE HCL 50 MG TAB PO SCH ×3 (09:07→22:12)
--- NOTE | 2018-05-21 10:45 | P.PN ---
Subjective Patient is seen in follow-up for end-stage renal disease. She is maintained on hemodialysis on a Saturday schedule a permacath. Currently resting in bed. Permacath was malfunctioning and was exchanged on May 18. It was then removed on May 19 due to MRSA bacteremia. She is also noted to have UTI with urine culture positive for Proteus. Denies chest pain or shortness of breath. Hemodynamically stable. Vital signs are stable. General: The patient appeared well nourished and normally developed. HEENT: Head exam is unremarkable. Neck is without jugular venous distension. LUNGS: Lungs are clear to auscultation and percussion. Breath sounds decreased. HEART: Rate and Rhythm are regular. First and second heart sounds normal. No murmurs, rubs or gallops. ABDOMEN: Abdominal exam reveals normal bowel sounds. Non-tender and non- distended. No evidence of peritonitis. EXTREMITITES: No clubbing, cyanosis, or edema. Left BKA noted. Objective - Vital Signs Vital signs: Vital Signs Temp 98.6 F 05/21/18 09:01 Pulse 58 L 05/21/18 09:01 Resp 16 05/21/18 09:01 BP 125/64 05/21/18 09:01 Pulse Ox 96 05/21/18 09:01 Intake & Output 05/20/18 05/21/18 05/21/18 18:59 06:59 18:59 Intake Total 850 Balance 850 Intake: Intake, IV Titration 250 Amount Vancomycin 1,500 mg In 250 Sodium Chloride 0.9% 250 ml @ 125 mls/hr IVPB ONCE ONE Rx#:[id number] Oral 600 Other: Voiding Method Diaper Diaper Diaper Incontinent Incontinent Incontinent # Voids 1 2 - Labs CBC & Chem 7: 05/20/18 08:01 05/21/18 07:36 Labs: Abnormal Lab Results - Last 24 Hours (Table) 05/20/18 05/20/18 05/21/18 Range/Units 17:01 20:05 07:36 BUN 50 H (7-17) mg/dL Creatinine 4.24 H (0.52-1.04) mg/dL POC Glucose (mg/dL) 134 H 133 H (75-99) mg/dL Microbiology - Last 24 Hours (Table) 05/17/18 17:20 Blood Culture Gram Stain - Final Blood Blood Culture - Final Methicillin resist S. aureus 05/20/18 08:01 Blood Culture - Preliminary Blood No Growth after 24 hours 05/17/18 05:45 Blood Culture - Preliminary Blood No Growth after 96 hours 05/19/18 18:30 Blood Culture - Preliminary Blood No Growth after 24 hours 05/18/18 19:00 Blood Culture Gram Stain - Preliminary Blood Blood Culture - Preliminary Alpha Hemolytic Streptococcus Assessment and Plan Plan: Assessment: 1. End-stage renal disease maintained on hemodialysis on a Saturday schedule. 2. Anemia of chronic kidney disease. Iron deficiency noted. 3. MRSA bacteremia. Possibly the source being permacath which was exchanged on May 18. Currently maintained on IV vancomycin. Infectious disease following. 4. UTI. Urine culture positive for Proteus mirabilis. 5. Hypertension with chronic kidney disease. Controlled. 6. Diabetes mellitus. 7. Chronic kidney disease mineral bone disease maintained on PhosLo. 8. Malfunctioning permacath status post exchange in May 18. It was subsequently removed on May 19 due to bacteremia. Plan: Avoid IV iron due to bacteremia. Maintain Aranesp. Continue to monitor labs and volume status closely. Will continue to assess need for dialysis on a daily basis. No urgent need for dialysis today. She needs a dialysis access once cleared by infectious disease.
[2018-05-21 11:22] LABS: Glucose,Whole Blood 120 mg/dL (75-99)
[2018-05-21] MEDS: CHOLECALCIFEROL 1,000 UNIT TAB PO SCH (12:44)
[2018-05-21 16:42] LABS: Glucose,Whole Blood 157 mg/dL (75-99)
[2018-05-21] MEDS: MELATONIN 5 MG TABLET PO SCH (22:12)
[2018-05-21] MEDS: CLOPIDOGREL 75 MG TAB PO SCH (22:13)
[2018-05-21] MEDS: GABAPENTIN 300 MG CAP PO SCH (22:13)
[2018-05-21] MEDS: ALBUTEROL SULFATE 2 MG PO SCH ×3 (22:14→22:19)
[2018-05-21] MEDS: PRAVASTATIN SODIUM 20 MG TAB PO SCH (22:28)
[2018-05-21 22:35] LABS: Glucose,Whole Blood 162 mg/dL (75-99)
[2018-05-21] MEDS: INSULIN DETEMIR 100 UNIT/ML 10 ML VIAL SQ SCH (22:37)
[2018-05-22] MEDS: GENTAMICIN 0.3% OPHTH DROPS 5 ML BTL BOTH EYES SCH ×7 (00:13→23:36)
[2018-05-22] MEDS: BENZOCAINE/MENTHOL LOZENG 1 EACH LOZENGE MUCOUS MEM SCH ×7 (00:13→23:36)
[2018-05-22 02:08] LABS: Glucose,Whole Blood 149 mg/dL (75-99)
--- NOTE | 2018-05-22 06:12 | PN ---
PROGRESS NOTE DATE OF SERVICE: 05/21/2018 PRESENTING COMPLAINT: Tired. INTERVAL HISTORY: This patient admitted with metabolic encephalopathy, found to have a clogged dialysis catheter that was replaced, then removed again because of blood cultures being positive. The patient is otherwise comfortable, tolerating a diet. Patient also treated for UTI with Proteus mirabilis. REVIEW OF SYSTEMS: Done for constitutional, cardiovascular, GI, pulmonary; relevant findings as above. CURRENT MEDICATIONS: Current medications are reviewed that include IV ceftriaxone and vancomycin. PHYSICAL EXAMINATION: On examination, temperature 98, pulse 62, respirations 18, blood pressure 141/74, pulse ox 95% on room air. GENERAL APPEARANCE: Lying in bed, awake. EYES: Absent right eye. Normal left eye. NECK: JVD unable to assess. Mass not palpable. RESPIRATORY: Effort normal. LUNGS: Decreased breath sounds. CARDIOVASCULAR: First and second sounds normal. No edema. ABDOMEN: Soft, nontender. Liver and spleen not palpable. PSYCHIATRY: The patient is able answer simple questions. INVESTIGATIONS: Potassium 4.5, BUN 50, creatinine 4.24. The patient's blood cultures are currently negative from 05/19/2018. ASSESSMENT: 1. Acute metabolic encephalopathy from infection in the blood, now corrected. 2. Methicillin-resistant Staphylococcus aureus and Alpha Hemolytic Streptococcus both growing from blood cultures. Dialysis catheter was placed and then removed pending repeat negative blood cultures. 3. End-stage kidney disease on hemodialysis. 4. Diabetes mellitus type 2, chronically on insulin, uncontrolled with . 5. Chronic obstructive pulmonary disease in an ex-smoker. 6. Chronic congestive heart failure from systolic dysfunction, ejection fraction 40% to 45% from underlying coronary artery disease. 7. Hypertensive heart disease. 8. Primary osteoarthritis. 9. Mild cognitive impairment from Alzheimer's dementia. 10.Depression, not otherwise specified. 11.Coronary artery disease with prior history of stent. 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 13.Medical debility, needs transfer with a Marquis lift. 14.Acute urinary tract infection with infection with Proteus mirabilis. PLAN: Continue with Vanco. Continue with the current antibiotics. Other medications will continue. Once okay with ID, patient can have a repeat dialysis catheter placed. MMODL / IJN: [id number] /
[2018-05-22] MEDS: INSULIN ASPART 100 UNIT/ML 1 ML 10 ML VIAL SQ SCH ×7 (07:37→21:33)
[2018-05-22] MEDS: amLODIPine 5 MG TAB PO SCH (07:45)
[2018-05-22] MEDS: ISOSORBIDE MONONITRATE ER 60 MG TAB.ER.24H PO SCH (07:46)
[2018-05-22] MEDS: ESCITALOPRAM 20 MG TAB PO SCH (07:46)
[2018-05-22] MEDS: buPROPion 75 MG TAB PO SCH (07:46)
[2018-05-22] MEDS: hydrALAZINE HCL 50 MG TAB PO SCH ×3 (07:46→21:52)
[2018-05-22] MEDS: CALCIUM ACETATE 667 MG CAP PO SCH (07:46)
[2018-05-22] MEDS: SODIUM BICARBONATE TAB 650 MG TAB PO SCH ×2 (07:47→21:52)
[2018-05-22] MEDS: SENNOSIDES 8.6 MG TAB PO SCH (07:47)
[2018-05-22] MEDS: METOPROLOL TARTRATE 50 MG TAB PO SCH ×2 (07:47→21:52)
[2018-05-22 07:53] LABS: Glucose,Whole Blood 106 mg/dL (75-99)
[2018-05-22] MEDS: HYDROmorphone 2 MG TAB PO PRN ×3 (09:20→21:28)
[2018-05-22 11:44] LABS: Calcium 8.6 mg/dL (8.4-10.2); Potassium 4.9 mmol/L (3.5-5.1)
[2018-05-22] MEDS ORDERED: LACTULOSE 20 GM/30 ML CUP PO ONE (12:00)
[2018-05-22 12:03] LABS: Glucose,Whole Blood 139 mg/dL (75-99)
--- NOTE | 2018-05-22 12:12 | P.PN ---
Subjective Patient is seen in follow-up for end-stage renal disease. She is maintained on hemodialysis on a Saturday schedule a permacath. Currently resting in bed. Permacath was malfunctioning and was exchanged on May 18. It was then removed on May 19 due to MRSA bacteremia. She is also noted to have UTI with urine culture positive for Proteus. Denies chest pain or shortness of breath. Hemodynamically stable. Vital signs are stable. General: The patient appeared well nourished and normally developed. HEENT: Head exam is unremarkable. Neck is without jugular venous distension. LUNGS: Lungs are clear to auscultation and percussion. Breath sounds decreased. HEART: Rate and Rhythm are regular. First and second heart sounds normal. No murmurs, rubs or gallops. ABDOMEN: Abdominal exam reveals normal bowel sounds. Non-tender and non- distended. No evidence of peritonitis. EXTREMITITES: No clubbing, cyanosis, or edema. Left BKA noted. Objective - Vital Signs Vital signs: Vital Signs Temp 97.0 F L 05/22/18 08:20 Pulse 61 05/22/18 08:20 Resp 16 05/22/18 08:20 BP 141/77 05/22/18 08:20 Pulse Ox 96 05/22/18 08:20 Intake & Output 05/21/18 05/22/18 05/22/18 18:59 06:59 18:59 Intake Total 50 900 480 Balance 50 900 480 Weight 112.5 kg Intake: Intake, IV Titration 50 Amount cefTRIAXone 1,000 mg In 50 Sodium Chloride 0.9% 50 ml @ 100 mls/hr IVPB Q24HR [facility] Rx#:[id number] Oral 900 480 Other: Voiding Method Diaper Diaper Diaper Incontinent Incontinent # Voids 3 # Bowel Movements 1 - Labs CBC & Chem 7: 05/20/18 08:01 05/22/18 07:44 Labs: Abnormal Lab Results - Last 24 Hours (Table) 05/21/18 05/21/18 05/22/18 Range/Units 16:40 22:25 01:54 BUN (7-17) mg/dL Creatinine (0.52-1.04) mg/dL Glucose (74-99) mg/dL POC Glucose (mg/dL) 157 H 162 H 149 H (75-99) mg/dL 05/22/18 05/22/18 05/22/18 Range/Units 07:35 07:44 11:59 BUN 59 H (7-17) mg/dL Creatinine 4.55 H (0.52-1.04) mg/dL Glucose 101 H (74-99) mg/dL POC Glucose (mg/dL) 106 H 139 H (75-99) mg/dL Microbiology - Last 24 Hours (Table) 05/20/18 08:01 Blood Culture - Preliminary Blood No Growth after 48 hours 05/18/18 19:00 Blood Culture Gram Stain - Final Blood Blood Culture - Final Alpha Hemolytic Streptococcus 05/17/18 05:45 Blood Culture - Preliminary Blood No Growth after 120 hours 05/19/18 18:30 Blood Culture - Preliminary Blood No Growth after 48 hours 05/20/18 18:02 Blood Culture - Preliminary Blood No Growth after 24 hours 05/20/18 18:16 Blood Culture - Preliminary Blood No Growth after 24 hours 05/17/18 17:20 Blood Culture Gram Stain - Final Blood Blood Culture - Final Methicillin resist S. aureus Assessment and Plan Plan: Assessment: 1. End-stage renal disease maintained on hemodialysis on a Saturday schedule. 2. Anemia of chronic kidney disease. Iron deficiency noted. 3. MRSA bacteremia. Possibly the source being permacath which was exchanged on May 18. Currently maintained on IV vancomycin. Infectious disease following. 4. UTI. Urine culture positive for Proteus mirabilis. 5. Hypertension with chronic kidney disease. Controlled. 6. Diabetes mellitus. 7. Chronic kidney disease mineral bone disease maintained on PhosLo. 8. Malfunctioning permacath status post exchange in May 18. It was subsequently removed on May 19 due to bacteremia. Plan: Avoid IV iron due to bacteremia. Maintain Aranesp. Continue to monitor labs and volume status closely. Will continue to assess need for dialysis on a daily basis. She has been cleared by infectious disease for permacath placement. Hemodialysis today and again tomorrow.
[2018-05-22] MEDS: CHOLECALCIFEROL 1,000 UNIT TAB PO SCH (13:22)
[2018-05-22 17:09] LABS: Glucose,Whole Blood 127 mg/dL (75-99)
[2018-05-22] MEDS ORDERED: MAGNESIUM CITRATE 296 ML BOTTLE PO ONE (17:36)
--- NOTE | 2018-05-22 17:48 | PN ---
PROGRESS NOTE DATE OF SERVICE: May 22, 2018. PRESENTING COMPLAINT: Tired. INTERVAL HISTORY: Patient admitted with metabolic encephalopathy, found to have a clogged dialysis catheter that was replaced and then removed again because of blood culture being positive. Repeat cultures have been negative. No further fever. The patient has been tolerating a diet. Also patient being treated for UTI. Patient lying in bed, comfortable. REVIEW OF SYSTEMS: Done for constitutional, cardiovascular, GI, pulmonary; relevant findings as above. CURRENT MEDICATIONS: Reviewed that include IV vancomycin and ceftriaxone. PHYSICAL EXAMINATION: VITAL SIGNS: Temperature 99.3, pulse 63, respiratory 18, blood pressure 114/74, pulse ox 96% on room air. GENERAL APPEARANCE: Lying in bed, awake. EYES: Absent right eye. Normal left eye. NECK: JVD unable to assess. Mass not palpable. RESPIRATORY: Effort normal. LUNGS: Decreased breath sounds. CARDIOVASCULAR: 1st and second sounds normal. No edema. ABDOMEN: Soft, nontender. Liver and spleen not palpable. PSYCHIATRY: Patient able to answer simple questions. INVESTIGATIONS: Potassium 4.9. Accu-Cheks are noted. Vancomycin 24.6. ASSESSMENT: 1. Acute metabolic encephalopathy from infection in the blood, now corrected. 2. MRSA and alpha hemolytic Streptococcus, both growing from blood cultures. The dialysis catheter was placed and removed pending repeat negative blood cultures. 3. Constipation. No bowel movement for last 4-5 days. 4. End-stage kidney disease, on hemodialysis. 5. Diabetes mellitus type 2, chronically on insulin, uncontrolled with hyperglycemia and hypoglycemia. 6. Chronic obstructive pulmonary disease in an ex-smoker. 7. Chronic congestive heart failure from systolic dysfunction, EF 40-45 percent, underlying coronary artery disease. 8. Hypertensive heart disease. 9. Primary osteoarthritis. 10.Mild cognitive impairment from Alzheimer's dementia. 11.Depression, not otherwise specified. 12.Coronary artery disease prior history of stent. 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 14.Medical debility, needs transfer with a Marquis left. 15.Acute urinary tract infection with infection with Proteus mirabilis. PLAN: Continue current antibiotics. The patient's blood cultures now have been negative since May 19, 2018. We will check with Dr. Jerez if okay to go ahead and proceed with placement of the dialysis catheter. MMODL / IJN: [id number] /
[2018-05-22] MEDS: ALBUTEROL SULFATE 2 MG PO SCH ×3 (19:18→21:51)
[2018-05-22] MEDS: GABAPENTIN 300 MG CAP PO SCH (21:28)
[2018-05-22] MEDS: PRAVASTATIN SODIUM 20 MG TAB PO SCH (21:31)
[2018-05-22] MEDS: CLOPIDOGREL 75 MG TAB PO SCH (21:31)
[2018-05-22 21:32] LABS: Glucose,Whole Blood 116 mg/dL (75-99)
[2018-05-22] MEDS: MELATONIN 5 MG TABLET PO SCH (21:32)
[2018-05-22] MEDS: INSULIN DETEMIR 100 UNIT/ML 10 ML VIAL SQ SCH (21:32)
[2018-05-23 02:13] LABS: Glucose,Whole Blood 125 mg/dL (75-99)
[2018-05-23] MEDS: BENZOCAINE/MENTHOL LOZENG 1 EACH LOZENGE MUCOUS MEM SCH ×5 (04:14→20:25)
[2018-05-23] MEDS: GENTAMICIN 0.3% OPHTH DROPS 5 ML BTL BOTH EYES SCH ×5 (04:15→20:25)
[2018-05-23] MEDS: HYDROmorphone 2 MG TAB PO PRN ×3 (05:24→20:20)
[2018-05-23] MEDS: INSULIN ASPART 100 UNIT/ML 1 ML 10 ML VIAL SQ SCH ×7 (07:21→21:07)
[2018-05-23 07:28] LABS: Glucose,Whole Blood 75 mg/dL (75-99)
[2018-05-23 08:02] LABS: Calcium 8.8 mg/dL (8.4-10.2); Potassium 5.2 mmol/L (3.5-5.1)
[2018-05-23 08:07] LABS: Vancomycin,Random 19.9 ug/mL
[2018-05-23] MEDS: ALBUTEROL SULFATE 2 MG PO SCH ×4 (08:17→20:29)
[2018-05-23] MEDS: hydrALAZINE HCL 50 MG TAB PO SCH ×3 (08:22→20:27)
[2018-05-23] MEDS: ESCITALOPRAM 20 MG TAB PO SCH (08:22)
[2018-05-23] MEDS: buPROPion 75 MG TAB PO SCH (08:22)
[2018-05-23] MEDS: METOPROLOL TARTRATE 50 MG TAB PO SCH ×2 (08:22→20:26)
[2018-05-23] MEDS: SODIUM BICARBONATE TAB 650 MG TAB PO SCH ×2 (08:22→20:27)
[2018-05-23] MEDS: amLODIPine 5 MG TAB PO SCH (08:22)
[2018-05-23] MEDS: CALCIUM ACETATE 667 MG CAP PO SCH ×2 (08:22→08:26)
[2018-05-23] MEDS: ISOSORBIDE MONONITRATE ER 60 MG TAB.ER.24H PO SCH (08:23)
[2018-05-23] MEDS ORDERED: VANCOMYCIN 1,500 MG in SODIUM CHLORIDE 0.9% 250 ML IVPB ONE (10:00)
[2018-05-23] MEDS: CHOLECALCIFEROL 1,000 UNIT TAB PO SCH (11:03)
--- NOTE | 2018-05-23 11:32 | P.PN ---
Subjective Patient is seen in follow-up for end-stage renal disease. She is maintained on hemodialysis on a Saturday schedule. Currently resting in bed. Permacath was malfunctioning and was exchanged on May 18. It was then removed on May 19 due to MRSA bacteremia. She is also noted to have UTI with urine culture positive for Proteus. Denies chest pain or shortness of breath. Hemodynamically stable. Scheduled for permacath placement today and then hemodialysis this afternoon. Vital signs are stable. General: The patient appeared well nourished and normally developed. HEENT: Head exam is unremarkable. Neck is without jugular venous distension. LUNGS: Lungs are clear to auscultation and percussion. Breath sounds decreased. HEART: Rate and Rhythm are regular. First and second heart sounds normal. No murmurs, rubs or gallops. ABDOMEN: Abdominal exam reveals normal bowel sounds. Non-tender and non- distended. No evidence of peritonitis. EXTREMITITES: No clubbing, cyanosis, or edema. Left BKA noted. Objective - Vital Signs Vital signs: Vital Signs Temp 98.0 F 05/23/18 07:39 Pulse 62 05/23/18 07:39 Resp 16 05/23/18 07:39 BP 151/77 05/23/18 07:39 Pulse Ox 95 05/23/18 07:39 Intake & Output 05/22/18 05/23/18 05/23/18 18:59 06:59 18:59 Intake Total 960 100 Balance 960 100 Weight 115 kg Intake: Oral 960 100 Other: Voiding Method Diaper Diaper Diaper # Voids 1 1 # Bowel Movements 0 - Labs CBC & Chem 7: 05/20/18 08:01 05/23/18 06:54 Labs: Abnormal Lab Results - Last 24 Hours (Table) 05/22/18 05/22/18 05/22/18 Range/Units 07:44 11:59 16:58 Potassium (3.5-5.1) mmol/L BUN 59 H (7-17) mg/dL Creatinine 4.55 H (0.52-1.04) mg/dL Glucose 101 H (74-99) mg/dL POC Glucose (mg/dL) 139 H 127 H (75-99) mg/dL 05/22/18 05/23/18 05/23/18 Range/Units 20:58 02:08 06:54 Potassium 5.2 H (3.5-5.1) mmol/L BUN 65 H (7-17) mg/dL Creatinine 4.65 H (0.52-1.04) mg/dL Glucose (74-99) mg/dL POC Glucose (mg/dL) 116 H 125 H (75-99) mg/dL Microbiology - Last 24 Hours (Table) 05/20/18 08:01 Blood Culture - Preliminary Blood No Growth after 72 hours 05/17/18 05:45 Blood Culture - Final Blood No Growth after 144 hours 05/19/18 18:30 Blood Culture - Preliminary Blood No Growth after 72 hours 05/20/18 18:02 Blood Culture - Preliminary Blood No Growth after 48 hours 05/20/18 18:16 Blood Culture - Preliminary Blood No Growth after 48 hours 05/18/18 19:00 Blood Culture Gram Stain - Final Blood Blood Culture - Final Alpha Hemolytic Streptococcus Assessment and Plan Plan: Assessment: 1. End-stage renal disease maintained on hemodialysis on a Saturday schedule. 2. Anemia of chronic kidney disease. Iron deficiency noted. 3. MRSA bacteremia. Possibly the source being permacath which was exchanged on May 18. Currently maintained on IV vancomycin. Infectious disease following. 4. UTI. Urine culture positive for Proteus mirabilis. 5. Hypertension with chronic kidney disease. Controlled. 6. Diabetes mellitus. 7. Chronic kidney disease mineral bone disease maintained on PhosLo. 8. Malfunctioning permacath status post exchange in May 18. It was subsequently removed on May 19 due to bacteremia. Plan: Avoid IV iron due to bacteremia. Maintain Aranesp. Continue to monitor labs and volume status closely. Scheduled for permacath placement today. Hemodialysis this afternoon and again tomorrow.
[2018-05-23] MEDS ORDERED: DARBEPOETIN ALFA 40 MCG/0.4 ML SYRINGE SQ SCH (12:00)
[2018-05-23 12:04] LABS: Glucose,Whole Blood 78 mg/dL (75-99)
[2018-05-23] MEDS ORDERED: PROPOFOL 10 MG/ML 20 ML VIAL IV ONE (13:45)
[2018-05-23] MEDS ORDERED: IV FLUID CONTINUATION 1,000 ML IV ONE (13:54)
[2018-05-23] MEDS ORDERED: LIDOCAINE 1% INJ 10MG/ML (20 ML MDV) SQ ONE (14:04)
--- NOTE | 2018-05-23 16:55 | IR ---
Fluoroscopy HISTORY: Central venous catheter placement 2.6 minutes fluoroscopy time supplied to the referring clinician. 293 intraoperative C-arm images do cument the procedure. See dictated report from vascular surgery.
[2018-05-23 17:09] LABS: Glucose,Whole Blood 84 mg/dL (75-99)
--- NOTE | 2018-05-23 18:19 | PN ---
PROGRESS NOTE DATE OF SERVICE: 05/23/2018 PRESENTING COMPLAINT: Tired. INTERVAL HISTORY: Patient was admitted with metabolic encephalopathy, found to have a clogged dialysis catheter that was replaced and then removed because blood cultures were positive. Repeat blood cultures have come back negative. Patient was seen by me this morning, due to go down for repeat dialysis catheter placement. Patient also is being treated for a UTI. Otherwise she has been tolerating a diet. Does feel a bit tired, constipated. REVIEW OF SYSTEMS: Done for constitutional, cardiovascular, GI, pulmonary; relevant findings as above. CURRENT MEDICATIONS: Reviewed. They include IV ceftriaxone and IV vancomycin. PHYSICAL EXAMINATION: Temperature 98, pulse 62, respiration 16, blood pressure 151/77, pulse ox 95% on room air. GENERAL APPEARANCE: Lying in bed, awake. EYES: Absent right eye. Normal left eye. NECK: JVD unable to assess. Mass not palpable. RESPIRATORY: Effort normal. LUNGS: Decreased breath sounds. CARDIOVASCULAR: First and second sounds normal. No edema. ABDOMEN: Soft, non-tender. Liver and spleen not palpable. PSYCHIATRY: Patient is able to answer simple questions. INVESTIGATIONS: Accu-Cheks are noted. ASSESSMENT: 1. Acute metabolic encephalopathy from infection in the blood, now corrected. 2. Methicillin-resistant Staphylococcus aeruginosa and alpha hemolytic Streptococcus both growing from blood cultures. Dialysis catheter was replaced and then removed. Patient's repeat cultures are now negative. 3. End-stage kidney disease, on hemodialysis. 4. Diabetes mellitus, type 2, chronically on insulin, uncontrolled with hyperglycemia and hypoglycemia. 5. Chronic obstructive pulmonary disease in an ex-smoker. 6. Chronic congestive heart failure from systolic dysfunction, ejection fraction 40% to 45%, with underlying coronary artery disease. 7. Hypertensive heart disease. 8. Primary osteoarthritis. 9. Mild cognitive impairment from Alzheimer's dementia. 10.Depression not otherwise specified. 11.Coronary artery disease with prior history of stent. 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 13.Medical debility. Requires Marquis lift for transfers. 14.Acute urinary tract infection with Proteus mirabilis. PLAN: Continue current medication and treatment plan. Negative blood cultures since May 19. Did discuss with Dr. Jerez last night; okay to proceed with new dialysis catheter placement. That is supposed to take place today. MMODL / IJN: [id number] /
[2018-05-23] MEDS: CLOPIDOGREL 75 MG TAB PO SCH (20:26)
[2018-05-23] MEDS: GABAPENTIN 300 MG CAP PO SCH (20:26)
[2018-05-23] MEDS: MELATONIN 5 MG TABLET PO SCH (20:26)
[2018-05-23] MEDS: PRAVASTATIN SODIUM 20 MG TAB PO SCH (20:27)
[2018-05-23 21:09] LABS: Glucose,Whole Blood 119 mg/dL (75-99)
--- NOTE | 2018-05-23 22:51 | P.PN ---
Subjective Progress Note Date: 05/23/18 This is a 58-year-old female known to ID service as she has been seen on previous admission and has history of being treated for peripheral vascular disease and osteomyelitis through [facility] in 2013. She is currently residing at [facility]. Patient apparently has had lethargy and general malaise last week and due to this she did not have hemodialysis treatment on Saturday for her end-stage renal disease normally scheduled Saturday and Saturday. On Saturday she only completed 2 hours of the four-hour dialysis. She has not been feeling well with a sore throat and a nonproductive cough. She was treated with Tylenol with Codeine but she was hypoxic with a pulse ox of 8889% on room air and was then brought into [facility] emergency center for evaluation she has been afebrile with normal white count. Her urinalysis was turbid blood moderate leukoesterase large, RBCs 22 and WBCs greater than 182. Patient denies having any pain or burning with urination. C. diff testing was done which was negative and influenza testing for A and B were negative. Blood culture obtained from the right sided permacath came back positive for MRSA and this permacath has been exchanged by Dr. Lopez as of yesterday. She is scheduled for hemodialysis today. Chest x-ray showed no acute cardio pulmonary findings. Urine culture showing greater than 100,000 colonies gram-negative bacilli repeat blood culture was obtained yesterday and is status received. Patient is complaining of pain to the permacath surgical site. 05/20/2018 patient is now somewhat improved. After evaluation yesterday became evident that her hemanalysis There was a source of her sepsis and vascular surgery did present and removed her infected hemodialysis catheter. She's allow the nursing staff to apply IV today. She is much more calm today 05/23/2018 patient has had the hemodialysis catheter replaced today so that she may restart her hemodialysis. Objective - Vital Signs Vital signs: Vital Signs Temp 97.9 F 05/23/18 15:15 Pulse 56 L 05/23/18 15:15 Resp 20 05/23/18 20:35 BP 163/79 05/23/18 15:15 Pulse Ox 92 L 05/23/18 15:15 Intake & Output 05/23/18 05/23/1805/24/18 06:59 18:59 06:59 Intake Total 100 150 Balance 100 150 Weight 115 kg Intake: IV 150 Oral 100 Other: Voiding Method Diaper Diaper Diaper # Voids 1 1 # Bowel Movements 0 - Exam Gen: This is a 62-year-old obese 58-year-old female she is awake and alert and appears to be comfortable. She is complaining of pain to the right clavicle area. HEENT: Head is atraumatic, normocephalic. Left pupil is round and reactive to light sclerae and icteric. Right thigh has been removed. Mucous members of the mouth are moist. Patient is edentulous. No lesions noted. NECK: Supple. No JVD. No lymphadenopathy. No thyromegaly. Pressure dressing in place to the right clavicle. This was not removed. No breakthrough bleeding. It is less tender today now that the dialysis catheter has been removed, new catheter placed today LUNGS: Clear to auscultation. No wheezes or rhonchi. No intercostal retractions. HEART: Regular rate and rhythm. No murmur. ABDOMEN: Soft. Bowel sounds are present. No masses. No tenderness. No redness under abdominal folds or groins. EXTREMITIES: Left below the knee amputation noted with no wounds to the stump. Dorsalis pedis is +2 on the right. No wounds noted. NEUROLOGICAL: Patient is awake, alert and oriented x3. No focal neural deficits. - Labs CBC & Chem 7: 05/20/18 08:01 05/23/18 06:54 Labs: Abnormal Lab Results - Last 24 Hours (Table) 05/23/18 05/23/18 05/23/18 Range/Units 02:08 06:54 21:04 Potassium 5.2 H (3.5-5.1) mmol/L BUN 65 H (7-17) mg/dL Creatinine 4.65 H (0.52-1.04) mg/dL POC Glucose (mg/dL) 125 H 119 H (75-99) mg/dL Microbiology - Last 24 Hours (Table) 05/19/18 18:30 Blood Culture - Preliminary Blood No Growth after 96 hours 05/20/18 18:02 Blood Culture - Preliminary Blood No Growth after 72 hours 05/20/18 18:16 Blood Culture - Preliminary Blood No Growth after 72 hours 05/18/18 19:00 Blood Culture Gram Stain - Final Blood Blood Culture - Final Alpha Hemolytic Streptococcus 05/20/18 08:01 Blood Culture - Preliminary Blood No Growth after 72 hours 05/17/18 05:45 Blood Culture - Final Blood No Growth after 144 hours Laboratory Results WBC 4.3 k/uL (3.8-10.6) 05/20/18 08:01 RBC 3.01 m/uL (3.80-5.40) L 05/20/18 08:01 Hgb 8.7 gm/dL (11.4-16.0) L 05/20/18 08:01 Hct 27.9 % (34.0-46.0) L 05/20/18 08:01 MCV 92.7 fL (80.0-100.0) 05/20/18 08:01 MCH 28.8 pg (25.0-35.0) 05/20/18 08:01 MCHC 31.1 g/dL (31.0-37.0) 05/20/18 08:01 RDW 15.2 % (11.5-15.5) 05/20/18 08:01 Plt Count 284 k/uL (150-450) 05/20/18 08:01 Neutrophils % 62 % 05/20/18 08:01 Lymphocytes % 24 % 05/20/18 08:01 Monocytes % 8 % 05/20/18 08:01 Eosinophils % 3 % 05/20/18 08:01 Basophils % 1 % 05/20/18 08:01 Neutrophils # 2.7 k/uL (1.3-7.7) 05/20/18 08:01 Lymphocytes # 1.0 k/uL (1.0-4.8) 05/20/18 08:01 Monocytes # 0.3 k/uL (0-1.0) 05/20/18 08:01 Eosinophils # 0.2 k/uL (0-0.7) 05/20/18 08:01 Basophils # 0.0 k/uL (0-0.2) 05/20/18 08:01 Hypochromasia Moderate 05/20/18 08:01 PT 10.1 sec (9.0-12.0) 05/17/18 05:45 INR 1.0 (<1.2) 05/17/18 05:45 APTT 24.0 sec (22.0-30.0) 05/17/18 05:45 Sodium 138 mmol/L (137-145) 05/23/18 06:54 Potassium 5.2 mmol/L (3.5-5.1) H 05/23/18 06:54 Chloride 105 mmol/L (98-107) 05/23/18 06:54 Carbon Dioxide 25 mmol/L (22-30) 05/23/18 06:54 Anion Gap 8 mmol/L 05/23/18 06:54 BUN 65 mg/dL (7-17) H 05/23/18 06:54 Creatinine 4.65 mg/dL (0.52-1.04) H 05/23/18 06:54 Est GFR (CKD-EPI)AfAm 11 (>60 ml/min/1.73 sqM) 05/23/18 06:54 Est GFR (CKD-EPI)NonAf 10 (>60 ml/min/1.73 sqM) 05/23/18 06:54 Glucose 79 mg/dL (74-99) 05/23/18 06:54 POC Glucose (mg/dL) 119 mg/dL (75-99) H 05/23/18 21:04 POC Glu Gear Shaper OLEG Rc, Ashley 05/23/18 21:[address] Glu mg/dL 114 05/17/18 05:45 Hemoglobin A1c 5.6 % (4.0-6.0) 05/17/18 05:45 Plasma Lactic Acid Yonis 1.2 mmol/L (0.7-2.0) 05/17/18 05:45 Calcium 8.8 mg/dL (8.4-10.2) 05/23/18 06:54 Phosphorus 4.8 mg/dL (2.5-4.5) H 05/17/18 15:05 Magnesium 2.1 mg/dL (1.6-2.3) 05/17/18 05:45 Iron 24 ug/dL (50-170) L 05/17/18 15:05 TIBC 188 ug/dL (228-460) L 05/17/18 15:05 Iron Saturation 12.77 (12.00-45.00) 05/17/18 15:05 Ferritin 943.5 ng/mL (10.0-291.0) H 05/17/18 15:05 Total Bilirubin 0.4 mg/dL (0.2-1.3) 05/17/18 05:45 AST 26 U/L (14-36) 05/17/18 05:45 ALT 24 U/L (9-52) 05/17/18 05:45 Alkaline Phosphatase 74 U/L (38-126) 05/17/18 05:45 Total Creatine Kinase 36 U/L (30-135) 05/17/18 05:45 CK-MB (CK-2) 0.4 ng/mL (0.0-2.4) 05/17/18 05:45 CK-MB (CK-2) Rel Index 1.1 05/17/18 05:45 Troponin I <0.012 ng/mL (0.000-0.034) 05/17/18 05:45 NT-Pro-B Natriuret Pep 9070 pg/mL 05/17/18 05:45 Total Protein 6.5 g/dL (6.3-8.2) 05/17/18 05:45 Albumin 3.2 g/dL (3.5-5.0) L 05/17/18 05:45 Urine Color Yellow 05/17/18 05:54 Urine Appearance Turbid (Clear) H 05/17/18 05:54 Urine pH 7.5 (5.0-8.0) 05/17/18 05:54 Ur Specific Stephan 1.011 (1.001-1.035) 05/17/18 05:54 Urine Protein 3+ (Negative) H 05/17/18 05:54 Urine Glucose (UA) Negative (Negative) 05/17/18 05:54 Urine Ketones Negative (Negative) 05/17/18 05:54 Urine Blood Moderate (Negative) H 05/17/18 05:54 Urine Nitrite Negative (Negative) 05/17/18 05:54 Urine Bilirubin Negative (Negative) 05/17/18 05:54 Urine Urobilinogen <2.0 mg/dL (<2.0) 05/17/18 05:54 Ur Leukocyte Esterase Large (Negative) H 05/17/18 05:54 Urine RBC 22 /hpf (0-5) H 05/17/18 05:54 Urine WBC >182 /hpf (0-5) H 05/17/18 05:54 Urine WBC Clumps Many /hpf (None) H 05/17/18 05:54 Urine Bacteria Many /hpf (None) H 05/17/18 05:54 Random Vancomycin 19.9 ug/mL 05/23/18 06:54 C. difficile (EIA) Intrp Negative (Negative) 05/18/18 17:41 Influenza Type A RNA Not Detected (Not Detectd) 05/17/18 12:30 Influenza Type B (PCR) Not Detected (Not Detectd) 05/17/18 12:30 Microbiology 05/19/18 18:30 Blood Blood Culture - Preliminary No Growth after 96 hours 05/20/18 18:02 Blood Blood Culture - Preliminary No Growth after 72 hours 05/20/18 18:16 Blood Blood Culture - Preliminary No Growth after 72 hours 05/18/18 19:00 Blood Blood Culture Gram Stain - Final 05/18/18 19:00 Blood Blood Culture - Final Alpha Hemolytic Streptococcus 05/20/18 08:01 Blood Blood Culture - Preliminary No Growth after 72 hours 05/17/18 05:45 Blood Blood Culture - Final No Growth after 144 hours 05/17/18 17:20 Blood Blood Culture Gram Stain - Final 05/17/18 17:20 Blood Blood Culture - Final Methicillin resist S. aureus 05/18/18 19:00 Blood Blood Culture - Final 05/17/18 05:54 Urine,Catheterized Urine Culture - Final Proteus mirabilis 05/17/18 17:20 Blood Blood Culture - Final Assessment and Plan (1) MRSA bacteremia Narrative/Plan: 58-year-old woman is feeling ill at this point in time. Hemodialysis to improve evidence of volume overload is occurring. As noted there are positive blood cultures with likely MRSA. The patient was having a malfunctioning hemodialysis catheter right IJ. She was not having high-grade fevers or chills. Catheter was replaced. Is now having significant pain at that site and evidence of ongoing bacteremia. Recurrent blood cultures have been requested and if are positive will need to have vascular surgery evaluate the current hemodialysis catheter in likely have it removed, and then once is evidence of negative blood cultures reestablish access in a different area. The patient is having significant pain at that site which was worrisome for the infection at the catheter. She fortunately is not hypotensive in tolerating hemodialysis well. There is evidence of gram-negative bacilli and the urinary culture and Rocephin is added pending further culture data. Vancomycin being utilized for the likely MRSA bacteremia. We'll need to have arrangements made for her to receive at least 4 weeks of vancomycin at hemodialysis at the time of her discharge. 05/20/2018 follow blood culture has evidence of alpha hemolytic strep fortunately no further MRSA being isolated. Further blood cultures are requested and once we have negative cultures the next permacath can be applied for her hemodialysis to resume. She is allowing IVAD placed and will continue Rocephin for now vancomycin per pharmacy dosing. 05/23/2018 patient's bacteremia is cleared and now the PermCath has been applied alternative site from the infected right anterior chest wall. Hemodialysis will restart. She will need to have vancomycin for at least 4 weeks a hemodialysis with the placement of the new catheter. Current Visit: Yes Status: Acute Code(s): R78.81 - BACTEREMIA SNOMED Code( s): 15276806411104701
[2018-05-24] MEDS: GENTAMICIN 0.3% OPHTH DROPS 5 ML BTL BOTH EYES SCH ×4 (00:07→12:11)
[2018-05-24] MEDS: INSULIN DETEMIR 100 UNIT/ML 10 ML VIAL SQ SCH (00:08)
[2018-05-24] MEDS: HYDROmorphone 2 MG TAB PO PRN ×2 (00:08→09:01)
[2018-05-24] MEDS: BENZOCAINE/MENTHOL LOZENG 1 EACH LOZENGE MUCOUS MEM SCH ×4 (00:27→12:10)
[2018-05-24 02:35] LABS: Glucose,Whole Blood 134 mg/dL (75-99)
[2018-05-24 02:36] VITALS: RESP 16
[2018-05-24 07:27] LABS: Glucose,Whole Blood 99 mg/dL (75-99)
[2018-05-24 08:06] VITALS: PULSE 58
[2018-05-24] MEDS: SENNOSIDES 8.6 MG TAB PO SCH (08:49)
[2018-05-24] MEDS: buPROPion 75 MG TAB PO SCH (08:49)
[2018-05-24] MEDS: hydrALAZINE HCL 50 MG TAB PO SCH (08:49)
[2018-05-24] MEDS: SODIUM BICARBONATE TAB 650 MG TAB PO SCH (08:49)
[2018-05-24] MEDS: ESCITALOPRAM 20 MG TAB PO SCH (08:49)
[2018-05-24] MEDS: METOPROLOL TARTRATE 50 MG TAB PO SCH (08:50)
[2018-05-24] MEDS: CALCIUM ACETATE 667 MG CAP PO SCH (08:50)
[2018-05-24] MEDS: CHOLECALCIFEROL 1,000 UNIT TAB PO SCH (08:50)
[2018-05-24] MEDS: amLODIPine 5 MG TAB PO SCH (08:50)
[2018-05-24] MEDS: ALBUTEROL SULFATE 2 MG PO SCH ×2 (08:50→12:11)
[2018-05-24] MEDS: ISOSORBIDE MONONITRATE ER 60 MG TAB.ER.24H PO SCH (08:50)
[2018-05-24] MEDS: INSULIN ASPART 100 UNIT/ML 1 ML 10 ML VIAL SQ SCH ×4 (08:51→12:09)
[2018-05-24 09:08] LABS: Calcium 8.2 mg/dL (8.4-10.2); Potassium 4.7 mmol/L (3.5-5.1)
[2018-05-24] MEDS ORDERED: diphenhydrAMINE 25 MG CAP PO PRN (11:33)
[2018-05-24 12:00] LABS: Glucose,Whole Blood 123 mg/dL (75-99)
--- NOTE | 2018-05-24 13:02 | DS ---
DISCHARGE SUMMARY DATE OF ADMISSION: 05/19/2018 DATE OF DISCHARGE: 05/24/2018 FINAL DIAGNOSES: 1. Acute sepsis with methicillin-resistant Staphylococcus aeruginosa and alpha hemolytic Streptococcus, both positive in blood cultures. Could be from infected dialysis catheter. 2. Acute metabolic encephalopathy from sepsis, present on admission. 3. End-stage kidney disease, on hemodialysis. 4. Diabetes mellitus, type 2, chronically on insulin, uncontrolled with hyper- and hypoglycemia. 5. Chronic obstructive pulmonary disease in an ex-smoker. 6. Chronic congestive heart failure from systolic dysfunction, ejection fraction 40% to 45%, from underlying coronary artery disease. 7. Hypertensive heart disease. 8. Primary osteoarthritis. 9. Mild cognitive impairment from Alzheimer's dementia. 10.Depression not otherwise specified. 11.Coronary artery disease with prior history of stent. 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 13.Medical debility. Requires Marquis lift for transfer. 14.Acute urinary tract infection with Proteus mirabilis; completed course of antibiotics. CONSULTATIONS: 1. Dr. Ansari from Nephrology. 2. Dr. Jerez from Infectious Disease. 3. Dr. Lopez from Vascular Surgery. HOSPITAL COURSE: This patient presented with confusion and was found to have positive blood cultures both with MRSA and alpha hemolytic Streptococcus. Patient's dialysis catheter was replaced and had to be removed again because of cultures coming back positive. Repeat blood cultures became negative from 05/19/2018. Dr. Jerez cleared the patient and Dr. Lopez did place a new hemodialysis catheter on 05/23/2018. Patient got dialyzed today. Doing well. Patient will get 4 more weeks of vancomycin with hemodialysis. PHYSICAL EXAMINATION: Temperature 98.1, pulse 58, respiration 16, blood pressure 142/63, pulse ox 98% on room air. LUNGS: Fair air entry. CARDIOVASCULAR: First and second sounds normal. Patient has absent right eye. INVESTIGATIONS: Potassium 4.7, BUN 37, creatinine 2.99. DISCHARGE MEDICATIONS: 1. Lopressor 50 mg b.i.d. 2. PhosLo 667 mg p.o. daily. 3. Pravachol 10 mg p.o. at bedtime. 4. Hydralazine 50 mg p.o. t.i.d. 5. Imdur ER 60 mg a day. 6. Nitrostat 0.4 sublingually q.5 p.r.n. 7. Vitamin D3 2000 units p.o. daily. 8. Norvasc 5 mg p.o. daily. 9. Lexapro 20 mg p.o. daily. 10.Melatonin 5 mg p.o. at bedtime. 11.Senna 8.6 mg p.o. q.48 hours. 12.Plavix 75 mg p.o. at bedtime. 13.Cranberry 450 mg p.o. at bedtime. 14.Promethazine 12.5 p.o. q.6 p.r.n. 15.Wellbutrin 150 mg p.o. daily. 16.Neurontin 300 mg at bedtime. 17.Milk of Magnesia 2400 mg p.o. at bedtime p.r.n. 18.Albuterol 2 mg p.o. q.i.d. 19.Cold-Eaze Lozenge 1 tablet p.o. q.4. 20.Aranesp 40 mcg subcutaneously on Fridays. 21.Sodium bicarb 650 mg b.i.d. 22.Tylenol with codeine 1 tablet q.4 p.r.n. for pain. 23.Garamycin 0.3% two drops both eyes q.4 for 7 days. 24.Dilaudid 2 mg q.6 p.r.n. for pain. 25.Humalog 4 units subcutaneously before meals t.i.d. 26.Accu-Cheks per scale before meals and at bedtime. 27.Lantus 20 units subcutaneously at bedtime. 28.Vancomycin for 4 weeks, to be followed by Nephrology. DISPOSITION: [facility]. Follow up with Dr. Nobles at the [facility]. Discussion and discharge planning, coordination more than 35 minutes. MMODL / IJN: [id number] /
--- NOTE | 2018-05-24 13:08 | OP ---
OPERATIVE REPORT PREOPERATIVE DIAGNOSIS: Acute and chronic renal failure. PROCEDURE: Ultrasound-guided right IJ under local and IV sedation. This patient has a history of chronic renal failure. Patient had a dialysis catheter placed in the past, and blood cultures were positive. Catheter was removed and ID and Nephrology want us to place a catheter for dialysis. The patient was brought to the candlemaking laborer. Right side of the neck and chest was prepped and draped in a sterile manner. Ultrasound-guided micropuncture in right internal jugular vein. dilator was advanced and guidewire was passed. There was some difficulty in passing the guidewire. We did the superior vena cavogram on the table and found that the vena cava was patent. Because of recurrent dialysis catheter placement, there was concern. After that we could pass the guidewire down to the inferior vena cava and a tunnel was created. Through the tunnel we brought a 23 cm dialysis catheter. Sheath was advanced on the top of the guidewire. Through the sheath we introduced the dialysis catheter. Tip of the catheter in superior vena cava and atrium. Sheath was removed, flushed with heparin saline and hep-locked and incision was closed with Vicryl and nylon. Dressing applied. Patient tolerated the procedure well. MMODL / IJN: [id number] /
--- NOTE | 2018-05-24 13:47 | P.PN ---
Subjective Progress Note Date: 05/24/18 (Nephrology) Principal diagnosis: Bacteremia End-stage renal disease patient MWF had MRSA bacteremia and Proteus UTI catheter was exchanged yesterday. Objective - Vital Signs Vital signs: Vital Signs Temp 98.1 F 05/24/18 07:08 Pulse 58 L 05/24/18 07:08 Resp 16 05/24/18 07:47 BP 142/63 05/24/18 07:08 Pulse Ox 98 05/24/18 07:08 Intake & Output 05/23/18 05/24/18 05/24/18 18:59 06:59 18:59 Intake Total 150 600 Balance 150 600 Weight 114.5 kg Intake: IV 150 Oral 600 Other: Voiding Method Diaper Diaper Diaper # Voids 1 2 1 # Bowel Movements 0 1 - Exam No acute distress Right jugular permacath S1-S2 heard Lungs clear Left BKA - Labs CBC & Chem 7: 05/20/18 08:01 05/24/18 08:30 Labs: Abnormal Lab Results - Last 24 Hours (Table) 05/23/18 05/24/18 05/24/18 Range/Units 21:04 02:15 08:30 BUN 37 H (7-17) mg/dL Creatinine 2.99 H (0.52-1.04) mg/dL POC Glucose (mg/dL) 119 H 134 H (75-99) mg/dL Calcium 8.2 L (8.4-10.2) mg/dL 05/24/18 Range/Units 11:33 BUN (7-17) mg/dL Creatinine (0.52-1.04) mg/dL POC Glucose (mg/dL) 123 H (75-99) mg/dL Calcium (8.4-10.2) mg/dL Microbiology - Last 24 Hours (Table) 05/20/18 08:01 Blood Culture - Preliminary Blood No Growth after 96 hours 05/19/18 18:30 Blood Culture - Preliminary Blood No Growth after 96 hours 05/20/18 18:02 Blood Culture - Preliminary Blood No Growth after 72 hours 05/20/18 18:16 Blood Culture - Preliminary Blood No Growth after 72 hours 05/18/18 19:00 Blood Culture Gram Stain - Final Blood Blood Culture - Final Alpha Hemolytic Streptococcus Assessment and Plan Assessment: #1 MRSA bacteremia and Proteus UTI #2 end-stage renal disease MWF #3 hypertension with ESRD #4 anemia with ESRD #5 CKD with metabolic bone disease Plan: #1 permacath exchange yesterday plan hemodialysis on Saturday #2 Aranesp and phosphate binders #3 antibiotics by infectious diseases
[2018-05-24 14:58] VITALS: BP 152/72; TEMP 98.3
== END 2018-05-24 15:07 | DRG 314 ==
LOC: EC 05:08 → 4MS4W 07:15 → 3NMEDONC 07:59 → OBSVTOIN 05-19 15:49 → 4MS4W 05-21 18:10
PROVIDERS: ADMIT Hospitalist; ATTEND Hospitalist
PROC: 02H633Z Insertion of Infusion Device into Right Atrium, Percutaneous Approach (ICD-10-PCS; 2018-05-18)
PROC: 0J2TXYZ Change Other Device in Trunk Subcutaneous Tissue and Fascia, External Approach (ICD-10-PCS; principal; 2018-05-18 14:13)
PROC: 5A1D70Z Performance of Urinary Filtration, Intermittent, Less than 6 Hours Per Day (ICD-10-PCS; 2018-05-19)
PROC: 02HV33Z Insertion of Infusion Device into Superior Vena Cava, Percutaneous Approach (ICD-10-PCS; 2018-05-24)
DX: T82.7XXA Infection and inflammatory reaction due to other cardiac and vascular devices, implants and grafts, initial encounter (principal); A41.02 Sepsis due to Methicillin resistant Staphylococcus aureus; G93.41 Metabolic encephalopathy; N18.6 End stage renal disease; N39.0 Urinary tract infection, site not specified; I13.2 Hypertensive heart and chronic kidney disease with heart failure and with stage 5 chronic kidney disease, or end stage renal disease; I50.22 Chronic systolic (congestive) heart failure; T82.41XA Breakdown (mechanical) of vascular dialysis catheter, initial encounter; N17.9 Acute kidney failure, unspecified; Y82.8 Other medical devices associated with adverse incidents; B96.4 Proteus (mirabilis) (morganii) as the cause of diseases classified elsewhere; D63.1 Anemia in chronic kidney disease; E11.22 Type 2 diabetes mellitus with diabetic chronic kidney disease; E11.41 Type 2 diabetes mellitus with diabetic mononeuropathy; E11.51 Type 2 diabetes mellitus with diabetic peripheral angiopathy without gangrene; E11.65 Type 2 diabetes mellitus with hyperglycemia; E61.1 Iron deficiency; E78.5 Hyperlipidemia, unspecified; E88.89 Other specified metabolic disorders; F02.80 Dementia in other diseases classified elsewhere, unspecified severity, without behavioral disturbance, psychotic disturbance, mood disturbance, and anxiety; F32.9 Major depressive disorder, single episode, unspecified; G30.9 Alzheimer's disease, unspecified; F41.9 Anxiety disorder, unspecified; H10.9 Unspecified conjunctivitis; I25.10 Atherosclerotic heart disease of native coronary artery without angina pectoris; I25.2 Old myocardial infarction; J44.9 Chronic obstructive pulmonary disease, unspecified; K59.00 Constipation, unspecified; M06.9 Rheumatoid arthritis, unspecified; M19.91 Primary osteoarthritis, unspecified site; R09.02 Hypoxemia; Y71.2 Prosthetic and other implants, materials and accessory cardiovascular devices associated with adverse incidents; Y83.8 Other surgical procedures as the cause of abnormal reaction of the patient, or of later complication, without mention of misadventure at the time of the procedure; Z79.4 Long term (current) use of insulin; Z79.899 Other long term (current) drug therapy; Z82.5 Family history of asthma and other chronic lower respiratory diseases; Z86.14 Personal history of Methicillin resistant Staphylococcus aureus infection; Z86.73 Personal history of transient ischemic attack (TIA), and cerebral infarction without residual deficits; Z87.891 Personal history of nicotine dependence; Z89.512 Acquired absence of left leg below knee; Z90.01 Acquired absence of eye; Z90.710 Acquired absence of both cervix and uterus; Z91.15 Patient's noncompliance with renal dialysis; Z91.81 History of falling; Z99.2 Dependence on renal dialysis; R53.81 Other malaise; Z88.0 Allergy status to penicillin; E11.649 Type 2 diabetes mellitus with hypoglycemia without coma
CPT/HCPCS: 36415; 36558; 36580; 71045; 71046; 76937; 77001; 80048; 80053; 80202; 81001; 82550; 82553; 82728; 83036; 83540; 83550; 83605; 83735; 83880; 84100; 84484; 85025; 85610; 85730; 87040; 87077; 87086; 87186; 87324; 87502; 90935; 93005; 96365; 99285

== ENCOUNTER 2018-05-29 06:18 | Inpatient (IN) | payer OTHER ==
--- NOTE | 2018-05-29 07:25 | ED ---
General Adult HPI - General Chief complaint: Recheck/Abnormal Lab/Rx Stated complaint: poss infection Time Seen by Provider: 05/29/18 07:00 Source: patient, EMS, RN notes reviewed Mode of arrival: EMS Limitations: no limitations - History of Present Illness Initial comments: This is a 62-year-old female who had a port placed in her right internal jugular on Saturday. Patient was brought in because it was hurting her and there was some indication at the area might be red. Patient herself states the only reason she thinks she is here because catheter hurt. Patient states she is already taking Tylenol fours and Tylenol. Patient denies any fever. Patient denies any chills per patient denies difficulty breathing shortness of breath. Patient denies any nausea vomiting or diarrhea. Patient has abdominal pain. Patient denies any headache patient denies numbness weakness. Patient denies any lightheadedness or dizziness. Patient denies any cough or shortness of breath or chest pain. - Related Data Home Medications Medication Instructions Recorded Confirmed Calcium Acetate [PhosLo] 667 mg PO W/SUPPER 11/10/15 05/29/18 Pravastatin Sodium [Pravachol] 10 mg PO HS 11/10/15 05/29/18 hydrALAZINE HCL [Apresoline] 50 mg PO TID@0800,1200,1800 11/10/15 05/29/18 Cholecalciferol [Vitamin D3] 2,000 unit PO DAILY 05/25/16 05/29/18 Escitalopram [Lexapro] 20 mg PO DAILY 06/17/16 05/29/18 Melatonin 5 mg PO HS 02/08/17 05/29/18 Sennosides [Senna] 8.6 mg PO Q48H 12/08/17 05/29/18 Clopidogrel [Plavix] 75 mg PO HS 01/27/18 05/29/18 Cranberry Fruit Concentrate 450 mg PO HS 01/27/18 05/29/18 [Cranberry] Promethazine HCl 12.5 mg PO Q6H PRN 01/27/18 05/29/18 Magnesium Hydroxide [Milk of 2,400 mg PO HS PRN 02/21/18 05/29/18 Magnesia] Albuterol Sulfate 2 mg PO QID 05/17/18 05/29/18 Darbepoetin Jc [Aranesp] 40 mcg SQ FR 05/17/18 05/29/18 Sodium Bicarbonate 650 mg PO BID@0800,1600 05/17/18 05/29/18 Cold-Eeze Lozenge 1 lozenge PO Q4H PRN 05/29/18 05/29/18 Metoprolol Tartrate [Lopressor] 50 mg PO BID@0800,1600 05/29/18 05/29/18 buPROPion HCL [Wellbutrin SR] 150 mg PO HS 05/29/18 05/29/18 Previous Rx's Medication Instructions Recorded Isosorbide Mononitrate ER [Imdur] 60 mg PO DAILY #1 tab 11/21/15 Nitroglycerin Sl Tabs [Nitrostat] 0.4 mg SUBLINGUAL Q5M PRN #0 tab 11/21/15 amLODIPine [Norvasc] 5 mg PO DAILY #30 tab 05/26/16 Gabapentin [Neurontin] 300 mg PO HS #0 01/30/18 Acetaminophen-Codeine 300-30mg 1 tab PO Q4H PRN #14 tab 05/24/18 [Tylenol w/codeine #3] Gentamicin 0.3% Ophth Soln 2 drops BOTH EYES Q4HR 7 Days ml 05/24/18 [Garamycin 0.3% Ophth Soln] HYDROmorphone [Dilaudid] 2 mg PO Q6H PRN #10 tab 05/24/18 INSULIN LISPRO (HumaLOG) [humaLOG] 4 units SQ AC-TID #0 05/24/18 Insulin Glargine [Lantus] 20 unit SQ HS #0 05/24/18 Allergies Allergy/AdvReac Type Severity Reaction Status Date / Time doxycycline calcium Allergy Rash/Hives Verified 05/29/18 09:08 [From Vibramycin] doxycycline hyclate Allergy Rash/Hives Verified 05/29/18 09:08 [From Vibramycin] doxycycline monohydrate Allergy Rash/Hives Verified 05/29/18 09:08 [From Vibramycin] nalbuphine HCl [From Nubain] Allergy Rash/Hives Verified 05/29/18 09:08 oxycodone HCl [From Tylox] Allergy Rash/Hives Verified 05/29/18 09:08 Tetracyclines Allergy Rash/Hives Verified 05/29/18 09:08 wool Allergy Rash/Hives Verified 05/29/18 09:08 Review of Systems ROS Statement: Those systems with pertinent positive or pertinent negative responses have been documented in the HPI. ROS Other: All systems not noted in ROS Statement are negative. Past Medical History Past Medical History: Coronary Artery Disease (CAD), Heart Failure, COPD, CVA/ TIA, Dementia, Diabetes Mellitus, Eye Disorder, Hyperlipidemia, Hypertension, Myocardial Infarction ([place]), Osteoarthritis (OA), Renal Disease, Rheumatoid Arthritis (RA), Skin Disorder, Vascular Disorder Additional Past Medical History / Comment(s): UTI/pyelonephritis with sepsis, IDDM type II,hx of falls CKD stage III, PAD, 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 Last Myocardial Infarction Date:: 1987 History of Any Multi-Drug Resistant Organisms: ESBL, MRSA Date of last positivie culture/infection: 01/09/18 ESBL 05/17/18 MRSA MDRO Source:: ESBL URINE/ MRSA BLOOD Past Surgical History: Cholecystectomy, Heart Catheterization With Stent, Hernia Repair, Hysterectomy, Tubal Ligation Additional Past Surgical History / Comment(s): Abdominal SX. RT EYE REMOVED 2 YEAR AGO, 05-25-14 LT BELOW KNEE AMP, rt chest wall hemodualysis cath Past Anesthesia/Blood Transfusion Reactions: Motion Sickness Additional Past Anesthesia/Blood Transfusion Reaction / Comment(s): stated has had blood transfusion in past-no reaction to it Date of Last Stent Placement:: 04/2014 Past Psychological History: Anxiety, Depression Smoking Status: Former smoker Past Alcohol Use History: None Reported Past Drug Use History: None Reported - Past Family History Father Family Medical History: CVA/TIA Mother Family Medical History: COPD General Exam - General Exam Comments Initial Comments: GENERAL: Patient is well-developed and well-nourished. Patient is nontoxic and well- hydrated and is in no acute distress ENT: Neck is soft and supple. No significant lymphadenopathy is noted. Oropharynx is clear. Moist mucous membranes. Patient has some hardness in her neck on the right side where the catheter was placed. EYES: The sclera were anicteric and conjunctiva were pink and moist. Extraocular movements were intact and pupils were equal round and reactive to light. Eyelids were unremarkable. PULMONARY: Unlabored respirations. Good breath sounds bilaterally. No audible rales rhonchi or wheezing was noted. CARDIOVASCULAR: There is a regular rate and rhythm without any murmurs gallops or rubs. ABDOMEN: Soft and nontender with normal bowel sounds. SKIN: Skin is clear with no lesions or rashes and otherwise unremarkable. NEUROLOGIC: Patient is alert and oriented x3. Cranial nerves II through XII are grossly intact. Motor and sensory are also intact. Normal speech, volume and content. Symmetrical smile. MUSCULOSKELETAL: Normal extremities with adequate strength and full range of motion. LYMPHATICS: No significant lymphadenopathy is noted PSYCHIATRIC: Normal psychiatric evaluation. Limitations: no limitations Course Vital Signs 05/29/18 05/29/18 05/29/18 06:50 07:25 08:55 Temperature 98.6 F 98.3 F Pulse Rate 66 64 63 Respiratory 24 18 18 Rate Blood Pressure 147/100 149/76 154/66 O2 Sat by Pulse 97 98 98 Oximetry 05/29/18 11:17 Temperature Pulse Rate 63 Respiratory 18 Rate Blood Pressure 161/80 O2 Sat by Pulse 96 Oximetry Medical Decision Making - Medical Decision Making EKG shows normal sinus rhythm at 64 bpm UT interval is 204 QRS is 94 Q-T intervals 462 QTC is 476. No ST segment elevation or depression. Ultrasound showed a DVT in the internal jugular vein. He stated the patient heparin immediately. I spoke with Dr. Mcneill agreed to admit the patient I spoke with Dr. Lopez he agrees to be on consult for the patient. I wrote admission orders I consulted Dr. Humphrey and I continue the heparin on the floor. - Lab Data Result diagrams: 05/29/18 07:25 05/29/18 07:25 Lab Results 05/29/18 05/29/18 05/29/18 Range/Units 07:25 07:25 07:25 WBC 3.7 L (3.8-10.6) k/uL RBC 2.85 L (3.80-5.40) m/uL Hgb 8.4 L (11.4-16.0) gm/dL Hct 26.6 L (34.0-46.0) % MCV 93.3 (80.0-100.0) fL MCH 29.5 (25.0-35.0) pg MCHC 31.7 (31.0-37.0) g/dL RDW 15.3 (11.5-15.5) % Plt Count 227 (150-450) k/uL Neutrophils % 59 % Lymphocytes % 29 % Monocytes % 7 % Eosinophils % 2 % Basophils % 1 % Neutrophils # 2.2 (1.3-7.7) k/uL Lymphocytes # 1.1 (1.0-4.8) k/uL Monocytes # 0.3 (0-1.0) k/uL Eosinophils # 0.1 (0-0.7) k/uL Basophils # 0.0 (0-0.2) k/uL Hypochromasia Moderate PT (9.0-12.0) sec INR (<1.2) APTT (22.0-30.0) sec Sodium 140 (137-145) mmol/L Potassium 4.5 (3.5-5.1) mmol/L Chloride 106 (98-107) mmol/L Carbon Dioxide 26 (22-30) mmol/L Anion Gap 8 mmol/L BUN 49 H (7-17) mg/dL Creatinine 3.97 H (0.52-1.04) mg/dL Est GFR (CKD-EPI)AfAm 13 (>60 ml/min/1.73 sqM) Est GFR (CKD-EPI)NonAf 12 (>60 ml/min/1.73 sqM) Glucose 170 H (74-99) mg/dL Plasma Lactic Acid Yonis 1.3 (0.7-2.0) mmol/L Calcium 8.7 (8.4-10.2) mg/dL Total Bilirubin 0.2 (0.2-1.3) mg/dL AST 31 (14-36) U/L ALT 25 (9-52) U/L Alkaline Phosphatase 68 (38-126) U/L Total Protein 6.3 (6.3-8.2) g/dL Albumin 3.1 L (3.5-5.0) g/dL 05/29/18 Range/Units 07:25 WBC (3.8-10.6) k/uL RBC (3.80-5.40) m/uL Hgb (11.4-16.0) gm/dL Hct (34.0-46.0) % MCV (80.0-100.0) fL MCH (25.0-35.0) pg MCHC (31.0-37.0) g/dL RDW (11.5-15.5) % Plt Count (150-450) k/uL Neutrophils % % Lymphocytes % % Monocytes % % Eosinophils % % Basophils % % Neutrophils # (1.3-7.7) k/uL Lymphocytes # (1.0-4.8) k/uL Monocytes # (0-1.0) k/uL Eosinophils # (0-0.7) k/uL Basophils # (0-0.2) k/uL Hypochromasia PT 9.9 (9.0-12.0) sec INR 1.0 (<1.2) APTT 23.2 (22.0-30.0) sec Sodium (137-145) mmol/L Potassium (3.5-5.1) mmol/L Chloride (98-107) mmol/L Carbon Dioxide (22-30) mmol/L Anion Gap mmol/L BUN (7-17) mg/dL Creatinine (0.52-1.04) mg/dL Est GFR (CKD-EPI)AfAm (>60 ml/min/1.73 sqM) Est GFR (CKD-EPI)NonAf (>60 ml/min/1.73 sqM) Glucose (74-99) mg/dL Plasma Lactic Acid Yonis (0.7-2.0) mmol/L Calcium (8.4-10.2) mg/dL Total Bilirubin (0.2-1.3) mg/dL AST (14-36) U/L ALT (9-52) U/L Alkaline Phosphatase (38-126) U/L Total Protein (6.3-8.2) g/dL Albumin (3.5-5.0) g/dL Disposition Clinical Impression: DVT (deep venous thrombosis) Disposition: ADMITTED IP TO THIS HOSP Referrals: Jose Nobles DO [Primary Care Provider] - 1-2 days Time of Disposition: 11:32
[2018-05-29 07:45] LABS: Basophils % (A) 1 %; Eosinophils # (A) 0.1 k/uL (0-0.7); Eosinophils % (A) 2 %; HCT 26.6 % (34.0-46.0); HGB 8.4 gm/dL (11.4-16.0); Hypochromasia Moderate; Lymphocytes # (A) 1.1 k/uL (1.0-4.8); Lymphocytes % (A) 29 %; MCH 29.5 pg (25.0-35.0); MCHC 31.7 g/dL (31.0-37.0); MCV 93.3 fL (80.0-100.0); Mean Platelet Volume 6.8; Monocytes # (A) 0.3 k/uL (0-1.0); Monocytes % (A) 7 %; Neutrophils # (A) 2.2 k/uL (1.3-7.7); Neutrophils % (A) 59 %; Platelet Count 227 k/uL (150-450); RBC 2.85 m/uL (3.80-5.40); RDW 15.3 % (11.5-15.5); WBC 3.7 k/uL (3.8-10.6)
[2018-05-29 07:50] LABS: Partial Thromboplastin Time 23.2 sec (22.0-30.0); Prothrombin Time 9.9 sec (9.0-12.0)
[2018-05-29 08:01] LABS: Albumin 3.1 g/dL (3.5-5.0); Calcium 8.7 mg/dL (8.4-10.2); Potassium 4.5 mmol/L (3.5-5.1); Total Bilirubin 0.2 mg/dL (0.2-1.3); Total Protein 6.3 g/dL (6.3-8.2)
--- NOTE | 2018-05-29 10:31 | US ---
EXAMINATION TYPE: US venous doppler duplex UE RT DATE OF EXAM: 05/29/2018 COMPARISON: Chest x-ray 05/18/2018 CLINICAL HISTORY: Pain. SIDE PERFORMED: RIght Morbidly obese patient with severe neck pain, patient had difficulty letting examiner touch her neck. Could not do compression pictures in neck Right Arm: Patient has right internal jugular central venous catheter. There is some non-occluding th rombus surrounding port seen in IJV, subclavian very proximal appears patient as well as distal, unab le to visualize mid due to bandaging. Grayscale, color doppler, spectral doppler imaging performed of the deep veins of the upper extremiti es. Low-level internal echoes present within the right internal jugular vein which shows some distention and luminal shadowing compatible with intravenous catheter. Radial veins, ulnar veins are compressibl e and patent as is the cephalic vein, axillary vein, visualized portions of subclavian and brachial v eins. IMPRESSION: Deep venous thrombosis right internal jugular vein
[2018-05-29] MEDS ORDERED: HEPARIN SODIUM,PORCINE 10,000 UNIT/ML 1 ML VIAL IV ONE (10:42)
[2018-05-29] MEDS: HEPARIN SOD,PORK IN 0.45% NACL 25,000 UNIT in 0.45% NACL 1 500ML.BAG IV SCH (11:26)
[2018-05-29] MEDS ORDERED: SODIUM CHLORIDE 0.9% 1,000 ML IV ONE (11:32)
[2018-05-29] MEDS ORDERED: HYDROmorphone 1 MG/ML 1 ML SYRINGE IVP STA (11:54)
[2018-05-29] MEDS ORDERED: MAGNESIUM HYDROXIDE 2,400 MG/10 ML CUP PO PRN (12:31)
[2018-05-29] MEDS ORDERED: BENZOCAINE/MENTHOL LOZENG 1 EACH LOZENGE MUCOUS MEM PRN (12:31)
[2018-05-29] MEDS ORDERED: PROMETHAZINE 25 MG TAB PO PRN (12:31)
[2018-05-29] MEDS ORDERED: NITROGLYCERIN SL TABS 0.4 MG TAB SUBLINGUAL PRN (12:31)
[2018-05-29] MEDS ORDERED: SENNOSIDES 8.6 MG TAB PO SCH (12:45)
[2018-05-29 14:04] VITALS: BMI 36.2
--- NOTE | 2018-05-29 14:06 | P.NPCON ---
History of Present Illness - Reason for Consult end stage renal disease - History of Present Illness Reason for consultation: End-stage renal disease History of present illness: Patient is a 62-year-old female seen in renal consultation for end-stage renal disease. Patient is maintained on hemodialysis on a Saturday schedule via permacath. Patient was recently admitted earlier this month and was noted to have MRSA bacteremia. Patient had a new permacath placed during that admission. Patient states she's been having pain at the site of the catheter since it was inserted. No fever or chills. No vomiting or diarrhea. Denies chest pain or shortness of breath. Patient was discharged on IV vancomycin which she was receiving as an outpatient with dialysis as well. She is afebrile. Hemodynamically stable. She did have a Doppler done which revealed a deep venous thrombosis of the right IJ vein. She is currently maintained on IV heparin. Vascular surgery was also consulted. Patient states she did not go to hemodialysis yesterday due to not feeling well. Vital signs are stable. General: The patient appeared well nourished and normally developed. HEENT: Head exam is unremarkable. Neck is without jugular venous distension. LUNGS: Lungs are clear to auscultation and percussion. Breath sounds decreased. HEART: Rate and Rhythm are regular. First and second heart sounds normal. No murmurs, rubs or gallops. ABDOMEN: Abdominal exam reveals normal bowel sounds. Non-tender and non- distended. No evidence of peritonitis. EXTREMITITES: No clubbing, cyanosis, or edema. Left BKA noted. Past Medical History Past Medical History: Coronary Artery Disease (CAD), Heart Failure, COPD, CVA/ TIA, Dementia, Diabetes Mellitus, Eye Disorder, Hyperlipidemia, Hypertension, Myocardial Infarction ([place]), Osteoarthritis (OA), Renal Disease, Rheumatoid Arthritis (RA), Skin Disorder, Vascular Disorder Additional Past Medical History / Comment(s): UTI/pyelonephritis with sepsis, IDDM type II,hx of falls CKD stage III, PAD, 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 Last Myocardial Infarction Date:: 1987 History of Any Multi-Drug Resistant Organisms: ESBL, MRSA Date of last positivie culture/infection: 01/09/18 ESBL 05/17/18 MRSA MDRO Source:: ESBL URINE/ MRSA BLOOD Past Surgical History: Cholecystectomy, Heart Catheterization With Stent, Hernia Repair, Hysterectomy, Tubal Ligation Additional Past Surgical History / Comment(s): Abdominal SX. RT EYE REMOVED 2 YEAR AGO, 05-25-14 LT BELOW KNEE AMP, rt chest wall hemodualysis cath Past Anesthesia/Blood Transfusion Reactions: Motion Sickness Additional Past Anesthesia/Blood Transfusion Reaction / Comment(s): stated has had blood transfusion in past-no reaction to it Date of Last Stent Placement:: 04/2014 Past Psychological History: Anxiety, Depression Smoking Status: Former smoker Past Alcohol Use History: None Reported Past Drug Use History: None Reported - Past Family History Father Family Medical History: CVA/TIA Mother Family Medical History: COPD Medications and Allergies Home Medications Medication Instructions Recorded Confirmed Type Calcium Acetate [PhosLo] 667 mg PO W/SUPPER 11/10/15 05/29/18 History Pravastatin Sodium [Pravachol] 10 mg PO HS 11/10/15 05/29/18 History hydrALAZINE HCL [Apresoline] 50 mg PO TID@0800,1200,1800 11/10/15 05/29/18 History Isosorbide Mononitrate ER [Imdur] 60 mg PO DAILY #1 tab 11/21/15 05/29/18 Rx Nitroglycerin Sl Tabs [Nitrostat] 0.4 mg SUBLINGUAL Q5M PRN #0 tab 11/21/1508/15 Rx Cholecalciferol [Vitamin D3] 2,000 unit PO DAILY 05/25/16 05/29/18 History amLODIPine [Norvasc] 5 mg PO DAILY #30 tab 05/26/16 05/29/18 Rx Escitalopram [Lexapro] 20 mg PO DAILY 06/17/16 05/29/18 History Melatonin 5 mg PO HS 02/08/17 05/29/18 History Sennosides [Senna] 8.6 mg PO Q48H 12/08/17 05/29/18 History Clopidogrel [Plavix] 75 mg PO HS 01/27/18 05/29/18 History Cranberry Fruit Concentrate 450 mg PO HS 01/27/18 05/29/18 History [Cranberry] Promethazine HCl 12.5 mg PO Q6H PRN 01/27/18 05/29/18 History Gabapentin [Neurontin] 300 mg PO HS #0 01/30/18 05/29/18 Rx Magnesium Hydroxide [Milk of 2,400 mg PO HS PRN 02/21/18 05/29/18 History Magnesia] Albuterol Sulfate 2 mg PO QID 05/17/18 05/29/18 History Darbepoetin Jc [Aranesp] 40 mcg SQ FR 05/17/18 05/29/18 History Sodium Bicarbonate 650 mg PO BID@0800,1600 05/17/18 05/29/18 History Acetaminophen-Codeine 300-30mg 1 tab PO Q4H PRN #14 tab 05/24/18 05/29/18 Rx [Tylenol w/codeine #3] Gentamicin 0.3% Ophth Soln 2 drops BOTH EYES Q4HR 7 Days ml 05/24/18 05/29/18 Rx [Garamycin 0.3% Ophth Soln] HYDROmorphone [Dilaudid] 2 mg PO Q6H PRN #10 tab 05/24/18 05/29/18 Rx INSULIN LISPRO (HumaLOG) [humaLOG] 4 units SQ AC-TID #0 05/24/18 05/29/18 Rx Insulin Glargine [Lantus] 20 unit SQ HS #0 05/24/18 05/29/18 Rx Cold-Eeze Lozenge 1 lozenge PO Q4H PRN 05/29/18 05/29/18 History Metoprolol Tartrate [Lopressor] 50 mg PO BID@0800,1600 05/29/18 05/29/18 History buPROPion HCL [Wellbutrin SR] 150 mg PO HS 05/29/18 05/29/18 History Allergies Allergy/AdvReac Type Severity Reaction Status Date / Time doxycycline calcium Allergy Rash/Hives Verified 05/29/18 09:08 [From Vibramycin] doxycycline hyclate Allergy Rash/Hives Verified 05/29/18 09:08 [From Vibramycin] doxycycline monohydrate Allergy Rash/Hives Verified 05/29/18 09:08 [From Vibramycin] nalbuphine HCl [From Nubain] Allergy Rash/Hives Verified 05/29/18 09:08 oxycodone HCl [From Tylox] Allergy Rash/Hives Verified 05/29/18 09:08 Tetracyclines Allergy Rash/Hives Verified 05/29/18 09:08 wool Allergy Rash/Hives Verified 05/29/18 09:08 Physical Exam Vitals: Vital Signs Temp Pulse Resp BP Pulse Ox 05/29/18 13:30 98.5 F 62 18 163/76 96 05/29/18 11:33 98.3 F 63 18 143/66 05/29/18 11:17 63 18 161/80 96 05/29/18 08:55 63 18 154/66 98 05/29/18 07:25 98.3 F 64 18 149/76 98 05/29/18 06:50 98.6 F 66 24 147/100 97 Intake and Output 05/28/18 05/29/18 05/29/18 22:59 06:59 14:59 Other: Weight 117.934 kg Results - Lab Results Most recent lab results Calcium 8.7 mg/dL (8.4-10.2) 05/29/18 07:25 05/29/18 07:25 05/29/18 07:25 Assessment and Plan Plan: Assessment: 1. End-stage renal disease maintained on hemodialysis on a Saturday schedule via permacath. 2. MRSA bacteremia status post removal of prior permacath. She had a new dialysis catheter inserted subsequently. 3. Anemia of chronic kidney disease. 4. Hypertension with chronic kidney disease. 5. Right IJ DVT maintained on IV heparin. Vascular surgery following. 6. Chronic kidney disease mineral bone disease maintained on PhosLo. 7. Insulin-dependent diabetes mellitus. Plan: Hemodialysis today and again tomorrow. Patient missed yesterday's treatment. Add Aranesp. Check phosphorus level. Vancomycin needs to be resumed. I will give her 1 g IV today. Thank you for the consultation. I will continue to follow the patient with you during her hospital stay.
[2018-05-29] MEDS: Acetaminophen-Codeine 300-30mg TAB PO PRN ×2 (14:08→22:58)
[2018-05-29] MEDS: amLODIPine 5 MG TAB PO SCH (14:26)
[2018-05-29] MEDS: ALBUTEROL 2 MG PO SCH ×2 (14:27→18:16)
[2018-05-29 15:20] LABS: Phosphorus 5.4 mg/dL (2.5-4.5)
[2018-05-29 15:25] LABS: Vancomycin,Random 10.9 ug/mL
[2018-05-29] MEDS ORDERED: VANCOMYCIN IV PER PHARMACY 1 EACH MISC MISCELLANE ONE (15:30)
[2018-05-29] MEDS: METOPROLOL TARTRATE 50 MG TAB PO SCH ×3 (15:36→15:44)
[2018-05-29] MEDS: GENTAMICIN 0.3% OPHTH DROPS 5 ML BTL BOTH EYES SCH ×4 (15:40→23:05)
[2018-05-29] MEDS: SODIUM BICARBONATE TAB 650 MG TAB PO SCH (15:40)
[2018-05-29] MEDS: CHOLECALCIFEROL 1,000 UNIT TAB PO SCH (15:40)
[2018-05-29] MEDS: ISOSORBIDE MONONITRATE ER 60 MG TAB.ER.24H PO SCH (15:40)
[2018-05-29] MEDS: ESCITALOPRAM 20 MG TAB PO SCH (15:40)
[2018-05-29] MEDS: VANCOMYCIN IV PER PHARMACY 1 EACH MISC MISCELLANE NR (15:41)
[2018-05-29] MEDS ORDERED: VANCOMYCIN 1,500 MG in SODIUM CHLORIDE 0.9% 250 ML IVPB ONE (16:00)
[2018-05-29] MEDS: INSULIN ASPART 100 UNIT/ML 1 ML 10 ML VIAL SQ SCH ×3 (18:18→23:02)
[2018-05-29 18:20] LABS: Glucose,Whole Blood 104 mg/dL (75-99)
[2018-05-29] MEDS: hydrALAZINE HCL 50 MG TAB PO SCH (18:29)
[2018-05-29] MEDS: CALCIUM ACETATE 667 MG CAP PO SCH (18:29)
[2018-05-29] MEDS: HYDROmorphone 2 MG TAB PO PRN (18:29)
[2018-05-29 19:54] LABS: Glucose,Whole Blood 148 mg/dL (75-99)
--- NOTE | 2018-05-29 20:03 | CONS ---
CONSULTATION This is a 62 a year old female known to me for the past as outpatient. She came with acute chronic failure. We put a dialysis catheter and then she was positive for blood culture and catheter was removed. We waited for 3 days and when the culture was negative. I was consulted for placement of the dialysis catheter. The patient has history of MRSA bacteremia post removal of the prior PermCath. She is on vancomycin under care of Dr. Jerez. The patient also history of hypertension, chronic kidney disease, insulin-dependent diabetes mellitus. The patient came to the emergency room complaining of pain in the right side of the neck. The patient has a very low threshold for the pain. There is some slight tenderness noted along the tunnel of the right side of the neck. However, chest is clear. Abdomen is soft. Femoral pulses are present. The white cell count is normal. The patient had a ultrasound of the neck which showed non occluding thrombus around the catheter in the internal jugular vein. The patient is started on heparin and the patient is going for dialysis today. We will continue with heparin. We will re-evaluate with ultrasound and we will discuss with Nephrology for further care. We will continue with the vancomycin. I will follow with you. MMODL / IJN: [id number] /
[2018-05-29] MEDS ORDERED: NON-FORMULARY DRUG (Cranberry Fruit Concentrate [Cranberry] 450 MG) PO SCH (21:00)
[2018-05-29 22:54] LABS: Appearance,Urine Cloudy (Clear); Bilirubin,Urine Negative (Negative); Blood,Urine Small (Negative); Color,Urine Yellow; Glucose,Urine (UA) 2+ (Negative); Hyaline Casts,Urine 3 /lpf (0-2); Ketones,Urine Negative (Negative); Leukocyte Esterase,Urine Large (Negative); Nitrite,Urine Negative (Negative); Protein,Urine 3+ (Negative); RBC,Urine 13 /hpf (0-5); Squamous Epithelial Cell,Urine 1 /hpf (0-4); Urobilinogen,Urine <2.0 mg/dL (<2.0); WBC,Urine >182 /hpf (0-5)
[2018-05-29] MEDS: PRAVASTATIN SODIUM 20 MG TAB PO SCH (22:57)
[2018-05-29] MEDS: CLOPIDOGREL 75 MG TAB PO SCH (22:58)
[2018-05-29] MEDS: GABAPENTIN 300 MG CAP PO SCH (22:58)
[2018-05-29] MEDS: buPROPion SR 150 MG TABLET.ER PO SCH (22:59)
[2018-05-29] MEDS: MELATONIN 5 MG TABLET PO SCH (23:02)
--- NOTE | 2018-05-29 23:10 | CT ---
EXAMINATION TYPE: CT neck chest w con DATE OF EXAM: 05/29/2018 10:54 PM COMPARISON: HISTORY: suspected vena cava DVT CT DLP: 1064.9 mGycm Automated exposure control for dose reduction was used. CONTRAST: CT scan of the neck and chest is performed following with IV Contrast, patient injected with 80 mL of Isovue 300. Axial images are obtained, coronal and sagittal reformatted images are reviewed. FINDINGS: There is normal contrast opacification of the carotid arteries. There is normal branching pattern of the great vessels on the aortic arch. There is right jugular catheter. The tip is at the lower superi or vena cava. Heart size is normal. There is small pericardial effusion posteriorly. There is incompl ete contrast filling of the superior vena cava from the level of the entrance of the catheter into th e jugular vein extending down to the level of the thyroid gland in the lower jugular vein. I see no e vidence of thrombus in the innominate vein. Thyroid gland appears normal. There is no evidence of a p haryngeal mass. Prevertebral soft tissues are prominent due to the medial position of the carotid arteries and jugula r veins. Epiglottis appears normal. I see no evidence of a pharyngeal mass. The trachea appears santana l. I see no filling defects in the pulmonary arteries. Thoracic aorta shows no evidence of aneurysm or d issection. There is coronary artery calcification. There is minimal pleural thickening at the lung ba ses. There is mild linear density at the lung bases consistent with subsegmental atelectasis. There a re no hilar masses. There is spurring in the thoracic spine. I see no bony destructive process. There is no mediastinal adenopathy. I see no cervical adenopathy. The parotid glands are symmetric. Subman dibular salivary glands are symmetric. IMPRESSION: Subsegmental atelectasis at the lung bases. There is some thrombus involving a 4 cm segm ent of the jugular vein from the level of the entrance of the catheter at the jugular vein. Minute pericardial effusion. Atherosclerotic vascular disease. No evidence of pulmonary embolism.
--- NOTE | 2018-05-29 23:30 | HP ---
HISTORY AND PHYSICAL DATE OF ADMISSION: 05/29/2018 DATE OF SERVICE: 05/29/2018 PRESENTING COMPLAINT: Pain around the right hemodialysis catheter site. HISTORY OF PRESENTING COMPLAINT: This is a 62-year-old patient who is a resident of [facility]. Chronic stable medical conditions include end-stage kidney disease, on hemodialysis, COPD, chronic congestive heart failure, left below-knee amputation, peripheral artery disease, hypertension, osteoarthritis, mild cognitive impairment, depression, coronary artery disease, absent right eye. The patient was recently in the hospital, was found to have MRSA sepsis and had replacement of the right hemodialysis catheter. She was discharged 4 days ago to receive another few days of vancomycin with hemodialysis. The patient continued to complain of pain in the right neck at the hemodialysis catheter site and presented to the ER yet again. Doppler ultrasound did confirm occlusion of the right internal jugular vein. Later dialysis was attempted and there was not any blood flow. Dr. Ansari from Nephrology and Dr. Lopez from Vascular Surgery saw the patient. He has ordered a further CT scan of the neck and the upper chest. REVIEW OF SYSTEMS: CONSTITUTIONAL: Tired. HEENT: Absent right eye. RESPIRATORY: None. CARDIOVASCULAR: None. GASTROINTESTINAL: None. GENITOURINARY: None. MUSCULOSKELETAL: Pain in the joints. DERMATOLOGICAL: None. HEMATOLOGICAL: None. LYMPHATICS: None. PSYCHIATRY: Forgetful. NEUROLOGICAL: None. PAST MEDICAL HISTORY: 1. Coronary artery disease with stent. 2. Congestive heart failure. 3. COPD. 4. Cognitive impairment. 5. Diabetes. 6. Hyperlipidemia. 7. Absent right eye. 8. Hypertension. 9. Osteoarthritis. 10.Rheumatoid arthritis. 11.End-stage kidney disease, on hemodialysis. 12.Peripheral artery disease. 13.Left below-knee amputation. 14.Right foot neuropathy. PAST SURGICAL HISTORY: 1. Cholecystectomy. 2. Cardiac cath with stent. 3. Hernia repair. 4. Hysterectomy. 5. Tubal ligation. 6. Right eye removed 2 years ago. 7. Left below-knee amputation. PSYCH HISTORY: Anxiety and depression. SOCIAL HISTORY: Resident of [facility]. Normally needs to be transferred from wheelchair with a Marquis left. The patient smoked for 42 years, 2 packs a day; stopped smoking over 11 years ago. ALLERGIES: 1. DOXYCYCLINE. 2. NUBAIN. 3. OXYCODONE (TYLOX). 4. TETRACYCLINE. 5. WOOL. HOME MEDICATIONS: 1. Sodium bicarb 650 mg p.o. b.i.d. 2. Aranesp 40 mcg subcutaneously on Saturday. 3. Cranberry 450 mg p.o. at bedtime. 4. Cold-Eeze Lozenge q.4 p.r.n. 5. Tylenol #3 one tablet p.o. q.4 p.r.n. 6. Senna 8.6 mg q.48 hours. 7. Promethazine 12.5 mg q.6 p.r.n. 8. Nitrostat 0.4 sublingually q.5 p.r.n. 9. Milk of Magnesia 2400 mg p.o. at bedtime. 10.Dilaudid 2 mg q.6 p.r.n. 11.Garamycin 0.3% two drops both eyes q.4. 12.Albuterol 2 mg p.o. q.i.d. 13.Hydralazine 50 mg p.o. t.i.d. 14.Humalog 4 units subcutaneously before meals t.i.d. 15.Lopressor 50 mg p.o. b.i.d. 16.Wellbutrin SR 150 mg p.o. at bedtime. 17.Pravachol 10 mg at bedtime. 18.Plavix 75 mg p.o. at bedtime. 19.Vitamin D3 2000 units p.o. daily. 20.PhosLo 667 mg p.o. with supper. 21.Norvasc 5 mg p.o. daily. 22.Melatonin 5 mg p.o. at bedtime. 23.Lantus 20 units subcutaneously at bedtime. 24.Neurontin 300 mg at bedtime. 25.Lexapro 20 mg p.o. daily. 26.Imdur ER 60 mg p.o. daily. PHYSICAL EXAMINATION: Temperature 97, pulse 74, respiration 16, blood pressure 109/72, pulse ox 97% on room air. GENERAL APPEARANCE: Well built; BMI 36.3. Lying in bed, awake. EYES: Absent right eye. Normal left eye. HEENT: External appearance of nose and ears normal. Oral cavity normal. NECK: JVD unable to assess. Mass not palpable. RESPIRATORY: Effort normal. LUNGS: Diminished breath sounds. CARDIOVASCULAR: First and second sounds normal. No edema. ABDOMEN: Soft, non-tender. Liver and spleen not palpable. LYMPHATIC: No lymph node palpable in neck or axillae. PSYCHIATRY: Patient is able to answer simple questions. Mood and affect slightly anxious. NEUROLOGICAL: Absent right eye. No facial asymmetry. Power and sensation grossly intact. EXTREMITIES: Left below-knee amputation. CHEST WALL: Right chest wall hemodialysis catheter. INVESTIGATIONS: White count 3.7, hemoglobin 8.4, BUN 49, creatinine 3.97, potassium 4.5. Vancomycin level 10.9. Doppler ultrasound showing occlusion of the right internal jugular vein. ASSESSMENT: 1. Acute occlusion of the right internal jugular vein where hemodialysis catheter was placed close to a week ago. 2. Coronary artery disease with prior history of stent. 3. End-stage kidney disease, on hemodialysis with right chest wall hemodialysis catheter. 4. Diabetes mellitus, type 2, chronically on insulin. 5. Chronic obstructive pulmonary disease in an ex-smoker. 6. Chronic congestive heart failure from systolic dysfunction, ejection fraction 40% to 45%, from coronary artery disease. 7. Hypertensive heart disease. 8. Primary osteoarthritis. 9. Mild to moderate cognitive impairment from Alzheimer's dementia. 10.Depression not otherwise specified. 11.Coronary artery disease with prior history of stent. 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 13.Chronic medical debility. Patient needs a Marquis lift. 14.Left below-knee amputation. PLAN: Home medications are resumed. Patient could not get hemodialyzed yesterday. Dr. Lopez has ordered a CT scan of the chest and neck for further determination access. Prognosis is guarded. MMODL / IJN: [id number] /
--- NOTE | 2018-05-29 23:44 | P.CONS ---
History of Present Illness - Reason for Consult Consult date: 05/29/18 - Chief Complaint pain left shoulder - History of Present Illness This is a 58-year-old female known to ID service as she has been seen on previous admission and has history of being treated for peripheral vascular disease and osteomyelitis through [facility] in 2013. She is currently residing at [facility]. Patient apparently has had lethargy and general malaise last week and due to this she did not have hemodialysis treatment on Saturday for her end-stage renal disease normally scheduled Saturday and Saturday. On Saturday she only completed 2 hours of the four-hour dialysis. She has not been feeling well with a sore throat and a nonproductive cough. She was treated with Tylenol with Codeine but she was hypoxic with a pulse ox of 8889% on room air and was then brought into [facility] emergency center for evaluation she has been afebrile with normal white count. Her urinalysis was turbid blood moderate leukoesterase large, RBCs 22 and WBCs greater than 182. Patient denies having any pain or burning with urination. C. diff testing was done which was negative and influenza testing for A and B were negative. Blood culture obtained from the right sided permacath came back positive for MRSA. She had the hemodialysis catheter repositioned and blood cultures cleared. Receiving Vancomycin at dialysis but failed to go to dialysis yesterday, and today the pain worsened and she was admitted. Was not able to have dialysis due to catheter malfunction , is plans for new site. Review of Systems Constitutional: Reports chills, Reports fatigue, Reports fever, Reports lethargy , Reports malaise, Reports weakness, Denies anorexia, Denies poor appetite Eyes: denies blurred vision, denies pain Ears, nose, mouth and throat: Reports sore throat, Denies dental pain, Denies dysphagia, Denies headache, Denies mouth pain Cardiovascular: Denies chest pain, Denies dyspnea on exertion, Denies leg edema , Denies lightheadedness, Denies shortness of breath, Denies syncope Respiratory: Reports cough, Reports cough with sputum, Denies congestion, Denies dyspnea, Denies excessive sputum, Denies hemoptysis, Denies wheezing Gastrointestinal: Denies abdominal pain, Denies diarrhea, Denies nausea, Denies vomiting Genitourinary: Denies dysuria, Denies hematuria, Denies urinary frequency Musculoskeletal: Denies myalgias Integumentary: Denies pruritus, Denies rash, Denies wounds Neurological: Denies numbness, Denies weakness Psychiatric: Denies anxiety, Denies depression Endocrine: Denies fatigue, Denies weight change Past Medical History Past Medical History: Coronary Artery Disease (CAD), Heart Failure, COPD, CVA/ TIA, Dementia, Diabetes Mellitus, Eye Disorder, Hyperlipidemia, Hypertension, Myocardial Infarction (CA), Osteoarthritis (OA), Renal Disease, Rheumatoid Arthritis (RA), Skin Disorder, Vascular Disorder Additional Past Medical History / Comment(s): UTI/pyelonephritis with sepsis, IDDM type II,hx of falls CKD stage III, PAD, 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 Last Myocardial Infarction Date:: 1987 History of Any Multi-Drug Resistant Organisms: ESBL, MRSA Year Discovered:: 01/09/18 ESBL 05/17/18 MRSA MDRO Source:: ESBL URINE/ MRSA BLOOD Past Surgical History: Cholecystectomy, Heart Catheterization With Stent, Hernia Repair, Hysterectomy, Tubal Ligation Additional Past Surgical History / Comment(s): Abdominal SX. RT EYE REMOVED 2 YEAR AGO, 05-25-14 LT BELOW KNEE AMP, rt chest wall hemodualysis cath Past Anesthesia/Blood Transfusion Reactions: Motion Sickness Additional Past Anesthesia/Blood Transfusion Reaction / Comm: stated has had blood transfusion in past-no reaction to it Date of Last Stent Placement:: 04/2014 Past Psychological History: Anxiety, Depression Additional Psychological History / Comment(s): Patient was a smoker 2 packs per day since the age of 17yrs.stated she quit when she was 59. Patient does have history of marijuana use but none since residing at [facility]. She has been there since at least 2011. She has lived in the past in [facility] and worked dealing cards in [employer]. Smoking Status: Former smoker Past Alcohol Use History: None Reported Past Drug Use History: None Reported - Past Family History Father Family Medical History: CVA/TIA Mother Family Medical History: COPD Medications and Allergies Home Medications and Allergies Comment(s): Current Medications Acetaminophen/Codeine Phosphate (Tylenol #3) 1 each PO Q4H PRN PRN Reason: Pain Last Admin: 05/29/18 22:58 Dose: 1 each Amlodipine Besylate (Norvasc) 5 mg PO DAILY [facility] Last Admin: 05/29/18 14:26 Dose: Not Given Benzocaine/Menthol (Cepacol Lozenge) 1 each MUCOUS MEM Q4H PRN PRN Reason: GENERALIZED ANXETY DISORDER Bupropion HCl (Wellbutrin Sr) 150 mg PO HS [facility] Last Admin: 05/29/18 22:59 Dose: 150 mg Calcium Acetate (Phoslo) 667 mg PO W/SUPPER [facility] Last Admin: 05/29/18 18:29 Dose: 667 mg Cholecalciferol (Vitamin D3) 2,000 unit PO 1200 [facility] Last Admin: 05/29/18 15:40 Dose: 2,000 unit Clopidogrel Bisulfate (Plavix) 75 mg PO [facility] Last Admin: 05/29/18 22:58 Dose: 75 mg Darbepoetin Jc (Aranesp) 40 mcg SQ FR [facility] Escitalopram Oxalate (Lexapro) 20 mg PO DAILY [facility] Last Admin: 05/29/18 15:40 Dose: 20 mg Gabapentin (Neurontin) 300 mg PO [facility] Last Admin: 05/29/18 22:58 Dose: 300 mg Gentamicin Sulfate (Gentamicin 0.3% [facility]) 2 drops BOTH EYES Q4HR [facility] Last Admin: 05/29/18 23:05 Dose: 2 drops Hydralazine HCl (Apresoline) 50 mg PO TID@0800,1200,1800 [facility] Last Admin: 05/29/18 18:29 Dose: 50 mg Hydromorphone HCl (Dilaudid) 2 mg PO Q6H PRN PRN Reason: Pain Last Admin: 05/29/18 18:29 Dose: 2 mg Heparin Sodium/Sodium Chloride (25,000 unit/ Sodium Chloride) 500 mls @ 42.45 mls/hr IV .[id number] [facility]; Protocol Last Titration: 05/29/18 23:03 Dose: 0 units/kg/hr, 0 mls/hr Insulin Aspart (Novolog) 0 unit SQ ACHS [facility]; Protocol Last Admin: 05/29/18 23:02 Dose: 1 unit Insulin Aspart (Novolog) 4 unit SQ AC-TID [facility] Last Admin: 05/29/18 18:18 Dose: Not Given Insulin Detemir (Levemir) 20 unit SQ [facility] Isosorbide Mononitrate (Imdur) 60 mg PO DAILY [facility] Last Admin: 05/29/18 15:40 Dose: 60 mg Magnesium Hydroxide (Milk Of Magnesia) 2,400 mg PO HS PRN PRN Reason: Constipation Melatonin (Melatonin) 5 mg PO HS [facility] Last Admin: 05/29/18 23:02 Dose: 5 mg Metoprolol Tartrate (Lopressor) 50 mg PO BID@0800,1600 [facility] Last Admin: 05/29/18 15:44 Dose: 50 mg Miscellaneous Information (Pharmacy To Dose Iv Vancomycin) 0 each MISCELLANE DIRECTED NR Stop: 06/27/18 15:46 Last Admin: 05/29/18 15:41 Dose: Not Given Nitroglycerin (Nitrostat) 0.4 mg SUBLINGUAL Q5M PRN PRN Reason: Chest Pain Patients Own Med (Albuterol 2 Mg) 2 mg PO QID [facility] Last Admin: 05/29/18 18:16 Dose: Not Given Pravastatin Sodium (Pravachol) 10 mg PO HS [facility] Last Admin: 05/29/18 22:57 Dose: 10 mg Promethazine HCl (Phenergan) 12.5 mg PO Q6H PRN PRN Reason: Nausea And Vomiting Senna (Senokot) 8.6 mg PO Q48H [facility] Sodium Bicarbonate (Sodium Bicarbonate Tab) 650 mg PO BID@0800,1600 [facility] Last Admin: 05/29/18 15:40 Dose: 650 mg Home Medications Medication Instructions Recorded Confirmed Type Calcium Acetate [PhosLo] 667 mg PO W/SUPPER 11/10/15 05/29/18 History Pravastatin Sodium [Pravachol] 10 mg PO HS 11/10/15 05/29/18 History hydrALAZINE HCL [Apresoline] 50 mg PO TID@0800,1200,1800 11/10/15 05/29/18 History Isosorbide Mononitrate ER [Imdur] 60 mg PO DAILY #1 tab 11/21/15 05/29/18 Rx Nitroglycerin Sl Tabs [Nitrostat] 0.4 mg SUBLINGUAL Q5M PRN #0 tab 11/21/1508/15 Rx Cholecalciferol [Vitamin D3] 2,000 unit PO DAILY 05/25/16 05/29/18 History amLODIPine [Norvasc] 5 mg PO DAILY #30 tab 05/26/16 05/29/18 Rx Escitalopram [Lexapro] 20 mg PO DAILY 06/17/16 05/29/18 History Melatonin 5 mg PO HS 02/08/17 05/29/18 History Sennosides [Senna] 8.6 mg PO Q48H 12/08/17 05/29/18 History Clopidogrel [Plavix] 75 mg PO HS 01/27/18 05/29/18 History Cranberry Fruit Concentrate 450 mg PO HS 01/27/18 05/29/18 History [Cranberry] Promethazine HCl 12.5 mg PO Q6H PRN 01/27/18 05/29/18 History Gabapentin [Neurontin] 300 mg PO HS #0 01/30/18 05/29/18 Rx Magnesium Hydroxide [Milk of 2,400 mg PO HS PRN 02/21/18 05/29/18 History Magnesia] Albuterol Sulfate 2 mg PO QID 05/17/18 05/29/18 History Darbepoetin Jc [Aranesp] 40 mcg SQ FR 05/17/18 05/29/18 History Sodium Bicarbonate 650 mg PO BID@0800,1600 05/17/18 05/29/18 History Acetaminophen-Codeine 300-30mg 1 tab PO Q4H PRN #14 tab 05/24/18 05/29/18 Rx [Tylenol w/codeine #3] Gentamicin 0.3% Ophth Soln 2 drops BOTH EYES Q4HR 7 Days ml 05/24/18 05/29/18 Rx [Garamycin 0.3% Ophth Soln] HYDROmorphone [Dilaudid] 2 mg PO Q6H PRN #10 tab 05/24/18 05/29/18 Rx INSULIN LISPRO (HumaLOG) [humaLOG] 4 units SQ AC-TID #0 05/24/18 05/29/18 Rx Insulin Glargine [Lantus] 20 unit SQ HS #0 05/24/18 05/29/18 Rx Cold-Eeze Lozenge 1 lozenge PO Q4H PRN 05/29/18 05/29/18 History Metoprolol Tartrate [Lopressor] 50 mg PO BID@0800,1600 05/29/18 05/29/18 History buPROPion HCL [Wellbutrin SR] 150 mg PO HS 05/29/18 05/29/18 History Allergies Allergy/AdvReac Type Severity Reaction Status Date / Time doxycycline calcium Allergy Rash/Hives Verified 05/29/18 09:08 [From Vibramycin] doxycycline hyclate Allergy Rash/Hives Verified 05/29/18 09:08 [From Vibramycin] doxycycline monohydrate Allergy Rash/Hives Verified 05/29/18 09:08 [From Vibramycin] nalbuphine HCl [From Nubain] Allergy Rash/Hives Verified 05/29/18 09:08 oxycodone HCl [From Tylox] Allergy Rash/Hives Verified 05/29/18 09:08 Tetracyclines Allergy Rash/Hives Verified 05/29/18 09:08 wool Allergy Rash/Hives Verified 05/29/18 09:08 Physical Exam Vitals: Vital Signs Temp Pulse Pulse Resp BP BP Pulse Ox 05/29/18 20:00 98.2 F 61 18 123/64 98 05/29/18 16:00 97.0 F L 74 16 109/72 97 05/29/18 13:30 98.5 F 62 18 163/76 96 05/29/18 11:33 98.3 F 63 18 143/66 05/29/18 11:17 63 18 161/80 96 05/29/18 08:55 63 18 154/66 98 05/29/18 07:25 98.3 F 64 18 149/76 98 05/29/18 06:50 98.6 F 66 24 147/100 97 Intake and Output 05/29/18 05/29/18 05/30/18 14:59 22:59 06:59 Intake Total 493.128 Balance 493.128 Intake: Intake, IV Titration 493.128 Amount Heparin Sod,Pork in 0.45% 493.128 NaCl 25,000 unit In 0.45 % NaCl 1 500ml.bag @ 18 UNITS/KG/HR 42.45 mls/hr IV .[id number] [facility] Rx#: [id number] Other: Weight 117.934 kg Gen: This is a 62-year-old obese 58-year-old female she is awake and alert and appears to be comfortable. She is complaining of worsening pain to the right clavicle area. HEENT: Head is atraumatic, normocephalic. Left pupil is round and reactive to light sclerae and icteric. Right thigh has been removed. Mucous members of the mouth are moist. Patient is edentulous. No lesions noted. NECK: Supple. No JVD. No lymphadenopathy. No thyromegaly. Pressure dressing in place to the right clavicle. This was not removed. No breakthrough bleeding. LUNGS: Clear to auscultation. No wheezes or rhonchi. No intercostal retractions. HEART: Regular rate and rhythm. No murmur. ABDOMEN: Soft. Bowel sounds are present. No masses. No tenderness. No redness under abdominal folds or groins. EXTREMITIES: Left below the knee amputation noted with no wounds to the stump. Dorsalis pedis is +2 on the right. No wounds noted. NEUROLOGICAL: Patient is awake, alert and oriented x3. vision is poor Results Results: Laboratory Results WBC 3.7 k/uL (3.8-10.6) L 05/29/18 07:25 RBC 2.85 m/uL (3.80-5.40) L 05/29/18 07:25 Hgb 8.4 gm/dL (11.4-16.0) L 05/29/18 07:25 Hct 26.6 % (34.0-46.0) L 05/29/18 07:25 MCV 93.3 fL (80.0-100.0) 05/29/18 07:25 MCH 29.5 pg (25.0-35.0) 05/29/18 07:25 MCHC 31.7 g/dL (31.0-37.0) 05/29/18 07:25 RDW 15.3 % (11.5-15.5) 05/29/18 07:25 Plt Count 227 k/uL (150-450) 05/29/18 07:25 Neutrophils % 59 % 05/29/18 07:25 Lymphocytes % 29 % 05/29/18 07:25 Monocytes % 7 % 05/29/18 07:25 Eosinophils % 2 % 05/29/18 07:25 Basophils % 1 % 05/29/18 07:25 Neutrophils # 2.2 k/uL (1.3-7.7) 05/29/18 07:25 Lymphocytes # 1.1 k/uL (1.0-4.8) 05/29/18 07:25 Monocytes # 0.3 k/uL (0-1.0) 05/29/18 07:25 Eosinophils # 0.1 k/uL (0-0.7) 05/29/18 07:25 Basophils # 0.0 k/uL (0-0.2) 05/29/18 07:25 Hypochromasia Moderate 05/29/18 07:25 PT 9.9 sec (9.0-12.0) 05/29/18 07:25 INR 1.0 (<1.2) 05/29/18 07:25 APTT 141.2 sec (22.0-30.0) H* 05/29/18 21:51 Sodium 140 mmol/L (137-145) 05/29/18 07:25 Potassium 4.5 mmol/L (3.5-5.1) 05/29/18 07:25 Chloride 106 mmol/L (98-107) 05/29/18 07:25 Carbon Dioxide 26 mmol/L (22-30) 05/29/18 07:25 Anion Gap 8 mmol/L 05/29/18 07:25 BUN 49 mg/dL (7-17) H 05/29/18 07:25 Creatinine 3.97 mg/dL (0.52-1.04) H 05/29/18 07:25 Est GFR (CKD-EPI)AfAm 13 (>60 ml/min/1.73 sqM) 05/29/18 07:25 Est GFR (CKD-EPI)NonAf 12 (>60 ml/min/1.73 sqM) 05/29/18 07:25 Glucose 170 mg/dL (74-99) H 05/29/18 07:25 POC Glucose (mg/dL) 148 mg/dL (75-99) H 05/29/18 19:51 POC Glu [employer] Extingu[employer] Lisa Sharp 05/29/18 19:51 Plasma Lactic Acid Yonis 1.3 mmol/L (0.7-2.0) 05/29/18 07:25 Calcium 8.7 mg/dL (8.4-10.2) 05/29/18 07:25 Phosphorus 5.4 mg/dL (2.5-4.5) H 05/29/18 14:55 Total Bilirubin 0.2 mg/dL (0.2-1.3) 05/29/18 07:25 AST 31 U/L (14-36) 05/29/18 07:25 ALT 25 U/L (9-52) 05/29/18 07:25 Alkaline Phosphatase 68 U/L (38-126) 05/29/18 07:25 Total Protein 6.3 g/dL (6.3-8.2) 05/29/18 07:25 Albumin 3.1 g/dL (3.5-5.0) L 05/29/18 07:25 Urine Color Yellow 05/29/18 22:25 Urine Appearance Cloudy (Clear) H 05/29/18 22:25 Urine pH 8.0 (5.0-8.0) 05/29/18 22:25 Ur Specific [place] 1.010 (1.001-1.035) 05/29/18 22:25 Urine Protein 3+ (Negative) H 05/29/18 22:25 Urine Glucose (UA) 2+ (Negative) H 05/29/18 22:25 Urine Ketones Negative (Negative) 05/29/18 22:25 Urine Blood Small (Negative) H 05/29/18 22:25 Urine Nitrite Negative (Negative) 05/29/18 22:25 Urine Bilirubin Negative (Negative) 05/29/18 22:25 Urine Urobilinogen <2.0 mg/dL (<2.0) 05/29/18 22:25 Ur Leukocyte Esterase Large (Negative) H 05/29/18 22:25 Urine RBC 13 /hpf (0-5) H 05/29/18 22:25 Urine WBC >182 /hpf (0-5) H 05/29/18 22:25 Ur Squamous Epith Cells 1 /hpf (0-4) 05/29/18 22:25 Hyaline Casts 3 /lpf (0-2) H 05/29/18 22:25 Random Vancomycin 10.9 ug/mL 05/29/18 14:55 Group A Strep Rapid Negative (Negative) 05/29/18 17:47 CBC & Chem 7: 05/29/18 07:25 05/29/18 07:25 Labs: Abnormal Lab Results - Last 24 Hours (Table) 05/29/18 05/29/18 05/29/18 Range/Units 07:25 07:25 14:55 WBC 3.7 L (3.8-10.6) k/uL RBC 2.85 L (3.80-5.40) m/uL Hgb 8.4 L (11.4-16.0) gm/dL Hct 26.6 L (34.0-46.0) % APTT (22.0-30.0) sec BUN 49 H (7-17) mg/dL Creatinine 3.97 H (0.52-1.04) mg/dL Glucose 170 H (74-99) mg/dL POC Glucose (mg/dL) (75-99) mg/dL Phosphorus 5.4 H (2.5-4.5) mg/dL Albumin 3.1 L (3.5-5.0) g/dL Urine Appearance (Clear) Urine Protein (Negative) Urine Glucose (UA) (Negative) Urine Blood (Negative) Ur Leukocyte Esterase (Negative) Urine RBC (0-5) /hpf Urine WBC (0-5) /hpf Hyaline Casts (0-2) /lpf 05/29/18 05/29/18 05/29/18 Range/Units 18:18 19:51 21:51 WBC (3.8-10.6) k/uL RBC (3.80-5.40) m/uL Hgb (11.4-16.0) gm/dL Hct (34.0-46.0) % APTT 141.2 H* (22.0-30.0) sec BUN (7-17) mg/dL Creatinine (0.52-1.04) mg/dL Glucose (74-99) mg/dL POC Glucose (mg/dL) 104 H 148 H (75-99) mg/dL Phosphorus (2.5-4.5) mg/dL Albumin (3.5-5.0) g/dL Urine Appearance (Clear) Urine Protein (Negative) Urine Glucose (UA) (Negative) Urine Blood (Negative) Ur Leukocyte Esterase (Negative) Urine RBC (0-5) /hpf Urine WBC (0-5) /hpf Hyaline Casts (0-2) /lpf 05/29/18 Range/Units 22:25 WBC (3.8-10.6) k/uL RBC (3.80-5.40) m/uL Hgb (11.4-16.0) gm/dL Hct (34.0-46.0) % APTT (22.0-30.0) sec BUN (7-17) mg/dL Creatinine (0.52-1.04) mg/dL Glucose (74-99) mg/dL POC Glucose (mg/dL) (75-99) mg/dL Phosphorus (2.5-4.5) mg/dL Albumin (3.5-5.0) g/dL Urine Appearance Cloudy H (Clear) Urine Protein 3+ H (Negative) Urine Glucose (UA) 2+ H (Negative) Urine Blood Small H (Negative) Ur Leukocyte Esterase Large H (Negative) Urine RBC 13 H (0-5) /hpf Urine WBC >182 H (0-5) /hpf Hyaline Casts 3 H (0-2) /lpf Assessment and Plan (1) MRSA bacteremia Narrative/Plan: 62 year old woman with multiple medical troubles has recently been hospitalized with MRSA sepsis from dialysis catheter and history of noncompliance with the dialysis. Now again has pain at the catheter site and has been seen by vascular surgery with plans for further surgery for access tomorrow. Continue vancomycin per pharmacy dosing with follow up blood cultures. Current Visit: No Status: Acute Code(s): R78.81 - BACTEREMIA SNOMED Code(s ): 46692999430034636 (2) Infection of dialysis vascular access Current Visit: Yes Status: Acute Code(s): T82.7XXA - INFECT/INFLM REACT D/T OTH CARDI/VASC DEV/IMPLNT/GRFT, INIT SNOMED Code(s): 46325605
[2018-05-30] MEDS: INSULIN DETEMIR 100 UNIT/ML 10 ML VIAL SQ SCH ×2 (00:04→21:29)
[2018-05-30] MEDS: GENTAMICIN 0.3% OPHTH DROPS 5 ML BTL BOTH EYES SCH ×6 (00:05→21:30)
[2018-05-30] MEDS: HEPARIN SOD,PORK IN 0.45% NACL 25,000 UNIT in 0.45% NACL 1 500ML.BAG IV SCH ×3 (00:38→23:57)
[2018-05-30] MEDS: HYDROmorphone 2 MG TAB PO PRN (03:51)
[2018-05-30] MEDS: ALBUTEROL 2 MG PO SCH (03:52)
[2018-05-30] MEDS: INSULIN ASPART 100 UNIT/ML 1 ML 10 ML VIAL SQ SCH ×7 (06:29→21:29)
[2018-05-30 06:30] LABS: Glucose,Whole Blood 103 mg/dL (75-99)
[2018-05-30] MEDS: METOPROLOL TARTRATE 50 MG TAB PO SCH ×2 (08:58→21:30)
[2018-05-30] MEDS: hydrALAZINE HCL 50 MG TAB PO SCH ×2 (08:58→12:23)
[2018-05-30] MEDS: SODIUM BICARBONATE TAB 650 MG TAB PO SCH ×3 (08:58→17:57)
[2018-05-30] MEDS: Acetaminophen-Codeine 300-30mg TAB PO PRN ×2 (08:59→12:36)
[2018-05-30] MEDS: ESCITALOPRAM 20 MG TAB PO SCH (08:59)
[2018-05-30] MEDS: SENNOSIDES 8.6 MG TAB PO SCH (08:59)
[2018-05-30] MEDS: ISOSORBIDE MONONITRATE ER 60 MG TAB.ER.24H PO SCH (08:59)
[2018-05-30] MEDS: amLODIPine 5 MG TAB PO SCH (08:59)
[2018-05-30] MEDS: CHOLECALCIFEROL 1,000 UNIT TAB PO SCH (08:59)
[2018-05-30 11:28] LABS: Glucose,Whole Blood 131 mg/dL (75-99)
[2018-05-30] MEDS ORDERED: DARBEPOETIN ALFA 40 MCG/0.4 ML SYRINGE SQ SCH (12:00)
[2018-05-30] MEDS ORDERED: SODIUM CHLORIDE 0.9% 500 ML 500 ML IV ONE (13:05)
[2018-05-30] MEDS ORDERED: MIDAZOLAM 2 MG/2 ML VIAL ONE ×3 (13:10→14:04)
[2018-05-30] MEDS ORDERED: MIDAZOLAM 2 MG/2 ML VIAL IVP ONE ×2 (13:11→14:09)
[2018-05-30] MEDS ORDERED: LIDOCAINE 1% INJ 10MG/ML (20 ML MDV) ONE ×3 (13:13→13:47)
[2018-05-30] MEDS ORDERED: LIDOCAINE 1% (PF) 10MG/ML VIAL SQ ONE (13:15)
[2018-05-30] MEDS ORDERED: fentaNYL (PF) 50 MCG/ML 2 ML AMP ONE (13:21)
[2018-05-30] MEDS: fentaNYL (PF) 50 MCG/ML 2 ML AMP IVP ONE ×2 (13:23→13:25)
[2018-05-30] MEDS: MIDAZOLAM 2 MG/2 ML VIAL IVP ONE ×2 (13:29→13:43)
[2018-05-30] MEDS ORDERED: HEPARIN SODIUM 1,000 UN/ML (10ML VL) ONE (14:09)
[2018-05-30] MEDS ORDERED: IOPAMIDOL-250 100ML BTL IV ONE (14:10)
[2018-05-30 16:55] LABS: Glucose,Whole Blood 137 mg/dL (75-99)
[2018-05-30] MEDS: VANCOMYCIN IV PER PHARMACY 1 EACH MISC MISCELLANE NR (17:42)
[2018-05-30] MEDS ORDERED: VANCOMYCIN 1,500 MG in SODIUM CHLORIDE 0.9% 250 ML IVPB ONE (18:00)
--- NOTE | 2018-05-30 18:22 | PN ---
PROGRESS NOTE Patient is seen for followup for end-stage renal disease. She is seen this morning. Patient is lying in bed. She is comfortable. She is scheduled for new catheter placement this afternoon. Patient is also scheduled for hemodialysis today after the new catheter is placed. She had a CT of the neck and chest which showed no evidence of PE. There was DVT noted of the right IJ. Patient is being followed by Vascular Surgery. She had been on IV heparin, which is now discontinued. On examination this morning, blood pressure is 138/71, heart rate 63 per minute. Patient is afebrile. EXAMINATION OF THE HEART: S1, S2. EXAMINATION OF LUNGS: Bilateral breath sounds are heard. ABDOMEN: Soft, non-tender. Examination of lower extremities shows no significant edema. CAR[employer] GR[employer]ER exam is grossly intact. LABS: We have a random vancomycin level of 22.5. Potassium was 4.5 on 05/29/2018 and hemoglobin was 8.4 g/dL at that time. ASSESSMENT: 1. End-stage renal disease, on hemodialysis on a Saturday, Saturday, Saturday schedule. Patient will be dialyzed today after her new catheter is placed. 2. History of methicillin-resistant Staphylococcus aeruginosa bacteremia, maintained on vancomycin. Repeat blood cultures have been negative. She had the bacteremia on her last admission. 3. Right IJ deep venous thrombosis, status post IV heparin, being followed by Vascular Surgery. 4. Chronic kidney disease mineral bone disorder, maintained on PhosLo. PLAN: Hemodialysis today. We will discuss with Vascular regarding long-term anticoagulation. Since patient had a catheter in the IJ, she may not need long-term anticoagulation. MMODL / IJN: [id number] /
[2018-05-30 20:53] LABS: Glucose,Whole Blood 179 mg/dL (75-99)
[2018-05-30] MEDS: PRAVASTATIN SODIUM 20 MG TAB PO SCH (21:28)
[2018-05-30] MEDS: CLOPIDOGREL 75 MG TAB PO SCH (21:28)
[2018-05-30] MEDS: buPROPion SR 150 MG TABLET.ER PO SCH (21:28)
[2018-05-30] MEDS: MELATONIN 5 MG TABLET PO SCH (21:29)
[2018-05-30] MEDS: CALCIUM ACETATE 667 MG CAP PO SCH (21:29)
[2018-05-30] MEDS: GABAPENTIN 300 MG CAP PO SCH (21:30)
--- NOTE | 2018-05-30 22:19 | PN ---
PROGRESS NOTE DATE OF SERVICE: 05/30/2018 PRESENTING COMPLAINT: Clot in the internal jugular vein. INTERVAL HISTORY: This patient, who was on hemodialysis, was found to have a 4 cm right internal jugular vein thrombosis. Patient had the old hemodialysis catheter removed and a new one was placed in the right groin. The patient may have hemodialysis later today. Otherwise, patient is tolerating a diet. Lying in bed. REVIEW OF SYSTEMS: Done for constitutional, cardiovascular, GI, pulmonary; relevant findings as above. CURRENT MEDICATIONS: Reviewed. They include IV heparin and vancomycin. PHYSICAL EXAMINATION: Temperature 98.3, pulse 63, respiration 18, blood pressure 121/68, pulse ox 93% on room air. GENERAL APPEARANCE: Lying in bed, awake. EYES: Absent right eye. Normal left eye. NECK: JVD not raised. Mass not palpable. RESPIRATORY: Effort normal. LUNGS: Decreased breath sounds. CARDIOVASCULAR: First and second sounds normal. No edema. ABDOMEN: Soft, non-tender. Liver and spleen not palpable. CHEST WALL: Dressing over the right upper chest wall. EXTREMITIES: Left below-knee amputation. INVESTIGATIONS: Accu-Cheks are noted. ASSESSMENT: 1. Acute occlusion of the right internal jugular vein. The hemodialysis catheter has now been removed. The clot is about 4 cm. 2. Coronary artery disease with prior history of stent. 3. IV heparin monitoring. 4. End-stage kidney disease, on hemodialysis, with a right groin hemodialysis catheter. 5. Diabetes mellitus, type 2, chronically on insulin. 6. Chronic obstructive pulmonary disease in an ex-smoker. 7. Chronic congestive heart failure from systolic dysfunction, ejection fraction 40% to 45%, with coronary artery disease. 8. Hypertensive heart disease. 9. Primary osteoarthritis. 10.Mild to moderate cognitive impairment from Alzheimer's dementia. 11.Depression not otherwise specified. 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 13.Chronic medical debility. Patient needs a Marquis lift. 14.Left below-knee amputation. PLAN: Hemodialysis per Nephrology. Other medication and treatment plan is to continue. IV heparin to continue. Care was discussed with the patient. Will follow. MMODL / IJN: [id number] /
--- NOTE | 2018-05-30 22:46 | P.PN ---
Subjective Progress Note Date: 05/30/18 This is a 58-year-old female known to ID service as she has been seen on previous admission and has history of being treated for peripheral vascular disease and osteomyelitis through [facility] in 2013. She is currently residing at [facility]. Patient apparently has had lethargy and general malaise last week and due to this she did not have hemodialysis treatment on Saturday for her end-stage renal disease normally scheduled Saturday and Saturday. On Saturday she only completed 2 hours of the four-hour dialysis. She has not been feeling well with a sore throat and a nonproductive cough. She was treated with Tylenol with Codeine but she was hypoxic with a pulse ox of 8889% on room air and was then brought into [facility] emergency center for evaluation she has been afebrile with normal white count. Her urinalysis was turbid blood moderate leukoesterase large, RBCs 22 and WBCs greater than 182. Patient denies having any pain or burning with urination. C. diff testing was done which was negative and influenza testing for A and B were negative. Blood culture obtained from the right sided permacath came back positive for MRSA. She had the hemodialysis catheter repositioned and blood cultures cleared. Receiving Vancomycin at dialysis but failed to go to dialysis yesterday, and today the pain worsened and she was admitted. Was not able to have dialysis due to catheter malfunction , is plans for new site. 05/30/2018 patient is feeling better. With removal of Is having no further fevers or chi The right femoral site is without For hemodialysis today. Objective - Vital Signs Vital signs: Vital Signs Temp 97.1 F L 05/30/18 20:00 Pulse 63 05/30/18 12:00 Resp 16 05/30/18 20:00 BP 132/65 05/30/18 20:00 Pulse Ox 99 05/30/18 20:00 Intake & Output 05/30/18 05/30/18 05/31/18 06:59 18:59 06:59 Intake Total 833.128 851.697 Output Total 1600 Balance -766.872 851.697 Weight 81 kg Intake: IV 140 150 Heparin Sod,Pork in 0.45% 140 NaCl 25,000 unit In 0.45 % NaCl 1 500ml.bag @ 18 UNITS/KG/HR 42.45 mls/hr IV .[id number] [facility] Rx#: [id number] Intake, IV Titration 693.128 359.697 Amount Heparin Sod,Pork in 0.45% 493.128 359.697 NaCl 25,000 unit In 0.45 % NaCl 1 500ml.bag @ 18 UNITS/KG/HR 42.45 mls/hr IV .[id number] [facility] Rx#: [id number] Sodium Chloride 0.9% 1, 75 000 ml @ 75 mls/hr IV . [id number] [facility] Rx#:[id number] Vancomycin 1,500 mg In 125 Sodium Chloride 0.9% 250 ml @ 125 mls/hr IVPB ONCE ONE Rx#:[id number] Oral 342 Output: Urine 1600 Other: Voiding Method Diaper Diaper Diaper Incontinent Incontinent Incontinent # Voids 1 2 # Bowel Movements 2 - Exam Gen: This is a 62-year-old obese 58-year-old female she is awake and alert and appears to be comfortable. She is complaining of worsening pain to the right clavicle area. HEENT: Head is atraumatic, normocephalic. Left pupil is round and reactive to light sclerae and icteric. enucleated right eye Mucous members of the mouth are moist. Patient is edentulous. No lesions noted. NECK: Supple. No JVD. No lymphadenopathy. No thyromegaly. Pressure dressing in place to the right clavicle. This was not removed. No breakthrough bleeding. LUNGS: Clear to auscultation. No wheezes or rhonchi. No intercostal retractions. HEART: Regular rate and rhythm. No murmur. ABDOMEN: Soft. Bowel sounds are present. No masses. No tenderness. No redness under abdominal folds or groins. EXTREMITIES: Left below the knee amputation noted with no wounds to the stump. Dorsalis pedis is +2 on the right. No wounds noted. NEUROLOGICAL: Patient is awake, alert and oriented x3. vision is poor The right anterior chest wall is now much less tender since removal of the hemodialysis catheter. She no longer cries out in pain when the area is manipulated. There is no expressible purulence. The right femoral site is without tenderness. - Labs CBC & Chem 7: 05/29/18 07:25 05/29/18 07:25 Labs: Abnormal Lab Results - Last 24 Hours (Table) 05/29/18 05/29/18 05/30/18 Range/Units 21:51 22:25 05:43 APTT 141.2 H* 71.1 H (22.0-30.0) sec POC Glucose (mg/dL) (75-99) mg/dL Urine Appearance Cloudy H (Clear) Urine Protein 3+ H (Negative) Urine Glucose (UA) 2+ H (Negative) Urine Blood Small H (Negative) Ur Leukocyte Esterase Large H (Negative) Urine RBC 13 H (0-5) /hpf Urine WBC >182 H (0-5) /hpf Hyaline Casts 3 H (0-2) /lpf 05/30/18 05/30/18 05/30/18 Range/Units 06:29 11:26 16:50 APTT (22.0-30.0) sec POC Glucose (mg/dL) 103 H 131 H 137 H (75-99) mg/dL Urine Appearance (Clear) Urine Protein (Negative) Urine Glucose (UA) (Negative) Urine Blood (Negative) Ur Leukocyte Esterase (Negative) Urine RBC (0-5) /hpf Urine WBC (0-5) /hpf Hyaline Casts (0-2) /lpf 05/30/18 Range/Units 20:51 APTT (22.0-30.0) sec POC Glucose (mg/dL) 179 H (75-99) mg/dL Urine Appearance (Clear) Urine Protein (Negative) Urine Glucose (UA) (Negative) Urine Blood (Negative) Ur Leukocyte Esterase (Negative) Urine RBC (0-5) /hpf Urine WBC (0-5) /hpf Hyaline Casts (0-2) /lpf Microbiology - Last 24 Hours (Table) 05/29/18 07:25 Blood Culture - Preliminary Blood No Growth after 24 hours 05/29/18 17:47 Group A Strep Throat Culture - Preliminary Throat 05/29/18 22:25 Urine Culture - Preliminary Urine,Catheterized Laboratory Results WBC 3.7 k/uL (3.8-10.6) L 05/29/18 07:25 RBC 2.85 m/uL (3.80-5.40) L 05/29/18 07:25 Hgb 8.4 gm/dL (11.4-16.0) L 05/29/18 07:25 Hct 26.6 % (34.0-46.0) L 05/29/18 07:25 MCV 93.3 fL (80.0-100.0) 05/29/18 07:25 MCH 29.5 pg (25.0-35.0) 05/29/18 07:25 MCHC 31.7 g/dL (31.0-37.0) 05/29/18 07:25 RDW 15.3 % (11.5-15.5) 05/29/18 07:25 Plt Count 227 k/uL (150-450) 05/29/18 07:25 Neutrophils % 59 % 05/29/18 07:25 Lymphocytes % 29 % 05/29/18 07:25 Monocytes % 7 % 05/29/18 07:25 Eosinophils % 2 % 05/29/18 07:25 Basophils % 1 % 05/29/18 07:25 Neutrophils # 2.2 k/uL (1.3-7.7) 05/29/18 07:25 Lymphocytes # 1.1 k/uL (1.0-4.8) 05/29/18 07:25 Monocytes # 0.3 k/uL (0-1.0) 05/29/18 07:25 Eosinophils # 0.1 k/uL (0-0.7) 05/29/18 07:25 Basophils # 0.0 k/uL (0-0.2) 05/29/18 07:25 Hypochromasia Moderate 05/29/18 07:25 PT 9.9 sec (9.0-12.0) 05/29/18 07:25 INR 1.0 (<1.2) 05/29/18 07:25 APTT 71.1 sec (22.0-30.0) H 05/30/18 05:43 Sodium 140 mmol/L (137-145) 05/29/18 07:25 Potassium 4.5 mmol/L (3.5-5.1) 05/29/18 07:25 Chloride 106 mmol/L (98-107) 05/29/18 07:25 Carbon Dioxide 26 mmol/L (22-30) 05/29/18 07:25 Anion Gap 8 mmol/L 05/29/18 07:25 BUN 49 mg/dL (7-17) H 05/29/18 07:25 Creatinine 3.97 mg/dL (0.52-1.04) H 05/29/18 07:25 Est GFR (CKD-EPI)AfAm 13 (>60 ml/min/1.73 sqM) 05/29/18 07:25 Est GFR (CKD-EPI)NonAf 12 (>60 ml/min/1.73 sqM) 05/29/18 07:25 Glucose 170 mg/dL (74-99) H 05/29/18 07:25 POC Glucose (mg/dL) 179 mg/dL (75-99) H 05/30/18 20:51 POC Glu Wire Loop Machine Operator ID Paola Goode 05/30/18 20:51 Plasma Lactic Acid Yonis 1.3 mmol/L (0.7-2.0) 05/29/18 07:25 Calcium 8.7 mg/dL (8.4-10.2) 05/29/18 07:25 Phosphorus 5.4 mg/dL (2.5-4.5) H 05/29/18 14:55 Total Bilirubin 0.2 mg/dL (0.2-1.3) 05/29/18 07:25 AST 31 U/L (14-36) 05/29/18 07:25 ALT 25 U/L (9-52) 05/29/18 07:25 Alkaline Phosphatase 68 U/L (38-126) 05/29/18 07:25 Total Protein 6.3 g/dL (6.3-8.2) 05/29/18 07:25 Albumin 3.1 g/dL (3.5-5.0) L 05/29/18 07:25 Urine Color Yellow 05/29/18 22:25 Urine Appearance Cloudy (Clear) H 05/29/18 22:25 Urine pH 8.0 (5.0-8.0) 05/29/18 22:25 Ur Specific [place] 1.010 (1.001-1.035) 05/29/18 22:25 Urine Protein 3+ (Negative) H 05/29/18 22:25 Urine Glucose (UA) 2+ (Negative) H 05/29/18 22:25 Urine Ketones Negative (Negative) 05/29/18 22:25 Urine Blood Small (Negative) H 05/29/18 22:25 Urine Nitrite Negative (Negative) 05/29/18 22:25 Urine Bilirubin Negative (Negative) 05/29/18 22:25 Urine Urobilinogen <2.0 mg/dL (<2.0) 05/29/18 22:25 Ur Leukocyte Esterase Large (Negative) H 05/29/18 22:25 Urine RBC 13 /hpf (0-5) H 05/29/18 22:25 Urine WBC >182 /hpf (0-5) H 05/29/18 22:25 Ur Squamous Epith Cells 1 /hpf (0-4) 05/29/18 22:25 Hyaline Casts 3 /lpf (0-2) H 05/29/18 22:25 Random Vancomycin 22.5 ug/mL 05/30/18 05:43 Group A Strep Rapid Negative (Negative) 05/29/18 17:47 Microbiology 05/29/18 07:25 Blood Blood Culture - Preliminary No Growth after 24 hours 05/29/18 17:47 Throat Group A Strep Throat Culture - Preliminary 05/29/18 22:25 Urine,Catheterized Urine Culture - Preliminary Assessment and Plan (1) MRSA bacteremia Narrative/Plan: 62 year old woman with multiple medical troubles has recently been hospitalized with MRSA sepsis from dialysis catheter and history of noncompliance with the dialysis. Now again has pain at the catheter site and has been seen by vascular surgery with plans for further surgery for access tomorrow. Continue vancomycin per pharmacy dosing with follow up blood cultures. 04/29/2019 patient is feeling considerably better since the removal of the dialysis catheter from the right IJ site. New site in the right groin is without difficulty and hemodialysis is planned for today. Overall she's feeling better. We'll plan at least a 4 week course of intravenous antibiotic therapy with vancomycin and her hemodialysis sessions. He to work with nephrology to ensure that this is occurring at the site. Current Visit: No Status: Acute Code(s): R78.81 - BACTEREMIA SNOMED Code(s ): 91677943492271533 (2) Infection of dialysis vascular access Current Visit: Yes Status: Acute Code(s): T82.7XXA - INFECT/INFLM REACT D/T OTH CARDI/VASC DEV/IMPLNT/GRFT, INIT SNOMED Code(s): 67290272
[2018-05-31] MEDS: hydrALAZINE HCL 50 MG TAB PO SCH ×4 (00:05→16:18)
[2018-05-31] MEDS: GENTAMICIN 0.3% OPHTH DROPS 5 ML BTL BOTH EYES SCH ×6 (00:05→20:39)
[2018-05-31 05:45] LABS: Glucose,Whole Blood 141 mg/dL (75-99)
[2018-05-31] MEDS ORDERED: HEPARIN SODIUM,PORCINE 5,000 UNIT/ML 1 ML VIAL IV PRN (06:45)
[2018-05-31] MEDS ORDERED: HEPARIN SODIUM,PORCINE 10,000 UNIT/ML 1 ML VIAL IV ONE (06:45)
[2018-05-31] MEDS ORDERED: HEPARIN SOD,PORK IN 0.45% NACL 25,000 UNIT in 0.45% NACL 1 500ML.BAG IV SCH (06:45)
[2018-05-31] MEDS: INSULIN ASPART 100 UNIT/ML 1 ML 10 ML VIAL SQ SCH ×7 (07:03→20:32)
--- NOTE | 2018-05-31 07:47 | PCN ---
PROCEDURE NOTE PREOP DIAGNOSIS: Acute chronic renal failure with thrombosis of the right jugular vein. PROCEDURE: 1. Placement of a tunnel catheter 28 cm ultrasound-guided right femoral approach. 2. Removal of the catheter, right jugular. This patient brought to the crime lab analyst. Right groin was prepped and draped for pressure manner. This patient had a dialysis catheter placed, found to be have a clot in the jugular vein and the catheter was not working. Ultrasound-guided micropuncture introduced right common femoral vein and micropuncture guidewire was passed and 4- Swiss dilator was advanced on the top of the guidewire. After that, we created a tunnel, through the tunnel a 28 cm cuffed catheter was brought to the groin incision area and a guidewire was passed through the catheter and then we placed a dilator on the top of the guidewire. Then placed the sheath on the top of the guidewire. Through the sheath we introduced the dialysis catheter. Sheath was removed and the catheter was flushed with heparin, saline and hep-locked. There was a decent flow noted of both sides of the catheter and incision was closed with Vicryl and nylon. Dressing applied. Right side of the chest and neck was prepped and draped in sterile manner. 1% lidocaine was infiltrated. A small incision was made at the site of the catheter. Catheter removed. Pressure was held. Patient was transferred to the recovery room in satisfactory condition. WHIT / TYLOR: [id number] /
[2018-05-31 08:02] LABS: Basophils % (A) 1 %; Eosinophils # (A) 0.1 k/uL (0-0.7); Eosinophils % (A) 3 %; HCT 26.5 % (34.0-46.0); HGB 8.1 gm/dL (11.4-16.0); Hypochromasia Marked; Lymphocytes % (A) 25 %; MCH 29.2 pg (25.0-35.0); MCHC 30.4 g/dL (31.0-37.0); Mean Platelet Volume 6.6; Monocytes # (A) 0.3 k/uL (0-1.0); Monocytes % (A) 6 %; Neutrophils # (A) 2.6 k/uL (1.3-7.7); Neutrophils % (A) 63 %; Platelet Count 204 k/uL (150-450); RBC 2.76 m/uL (3.80-5.40); RDW 15.4 % (11.5-15.5); WBC 4.1 k/uL (3.8-10.6)
[2018-05-31 08:18] LABS: Partial Thromboplastin Time 22.6 sec (22.0-30.0); Prothrombin Time 9.9 sec (9.0-12.0)
[2018-05-31] MEDS: Acetaminophen-Codeine 300-30mg TAB PO PRN ×2 (08:23→23:03)
[2018-05-31] MEDS: METOPROLOL TARTRATE 50 MG TAB PO SCH ×2 (08:25→16:18)
[2018-05-31] MEDS: amLODIPine 5 MG TAB PO SCH (08:25)
[2018-05-31] MEDS: ISOSORBIDE MONONITRATE ER 60 MG TAB.ER.24H PO SCH (08:25)
[2018-05-31] MEDS: ESCITALOPRAM 20 MG TAB PO SCH (08:25)
[2018-05-31] MEDS: CHOLECALCIFEROL 1,000 UNIT TAB PO SCH (08:25)
[2018-05-31 10:49] LABS: Glucose,Whole Blood 104 mg/dL (75-99)
[2018-05-31] MEDS: ALBUTEROL 2 MG PO SCH ×4 (11:45→16:12)
[2018-05-31] MEDS: VANCOMYCIN IV PER PHARMACY 1 EACH MISC MISCELLANE NR (16:11)
[2018-05-31] MEDS: SODIUM BICARBONATE TAB 650 MG TAB PO SCH (16:19)
[2018-05-31] MEDS: CALCIUM ACETATE 667 MG CAP PO SCH (16:19)
[2018-05-31 16:26] LABS: Glucose,Whole Blood 146 mg/dL (75-99)
--- NOTE | 2018-05-31 17:14 | P.PN ---
Subjective Progress Note Date: 05/31/18 This is a 58-year-old female known to ID service as she has been seen on previous admission and has history of being treated for peripheral vascular disease and osteomyelitis through [facility] in 2013. She is currently residing at [facility]. Patient apparently has had lethargy and general malaise last week and due to this she did not have hemodialysis treatment on Saturday for her end-stage renal disease normally scheduled Saturday and Saturday. On Saturday she only completed 2 hours of the four-hour dialysis. She has not been feeling well with a sore throat and a nonproductive cough. She was treated with Tylenol with Codeine but she was hypoxic with a pulse ox of 8889% on room air and was then brought into [facility] emergency center for evaluation she has been afebrile with normal white count. Her urinalysis was turbid blood moderate leukoesterase large, RBCs 22 and WBCs greater than 182. Patient denies having any pain or burning with urination. C. diff testing was done which was negative and influenza testing for A and B were negative. Blood culture obtained from the right sided permacath came back positive for MRSA. She had the hemodialysis catheter repositioned and blood cultures cleared. Receiving Vancomycin at dialysis but failed to go to dialysis yesterday, and today the pain worsened and she was admitted. Was not able to have dialysis due to catheter malfunction , is plans for new site. 05/30/2018 patient is feeling better. With removal of Is having no further fevers or chills The right femoral site is without For hemodialysis today 05/31/2018 reveals the patient to be feeling further improved. Pain to the right anterior chest wall is generally resolved with removal of the catheter. Tolerating hemodialysis well. Other new complaints at this present time except urinalysis is been found to be abnormal urine culture pending.. Objective - Vital Signs Vital signs: Vital Signs Temp 98.5 F 05/31/18 04:00 Pulse 63 05/31/18 16:00 Resp 16 05/31/18 16:00 BP 153/72 05/31/18 16:00 Pulse Ox 96 05/31/18 16:00 Intake & Output 05/30/18 05/31/18 05/31/18 18:59 06:59 18:59 Intake Total 851.697 552.84 Balance 851.697 552.84 Weight 60 kg Intake: IV 150 Intake, IV Titration 359.697 132.84 Amount Heparin Sod,Pork in 0.45% 132.84 NaCl 25,000 unit In 0.45 % NaCl 1 500ml.bag @ 18 UNITS/KG/HR 21.6 mls/hr IV .[id number] [facility] Rx#: [id number] Heparin Sod,Pork in 0.45% 359.697 NaCl 25,000 unit In 0.45 % NaCl 1 500ml.bag @ 18 UNITS/KG/HR 42.45 mls/hr IV .[id number] [facility] Rx#: [id number] Oral 342 420 Other: Voiding Method Diaper Diaper Diaper Incontinent Incontinent Incontinent # Voids 2 2 - Exam Gen: This is a 62-year-old obese 58-year-old female she is awake and alert and appears to be comfortable. She is complaining of worsening pain to the right clavicle area. HEENT: Head is atraumatic, normocephalic. Left pupil is round and reactive to light sclerae and icteric. enucleated right eye Mucous members of the mouth are moist. Patient is edentulous. No lesions noted. NECK: Supple. No JVD. No lymphadenopathy. No thyromegaly. Pressure dressing in place to the right clavicle. This was not removed. No breakthrough bleeding. LUNGS: Clear to auscultation. No wheezes or rhonchi. No intercostal retractions. HEART: Regular rate and rhythm. No murmur. ABDOMEN: Soft. Bowel sounds are present. No masses. No tenderness. No redness under abdominal folds or groins. EXTREMITIES: Left below the knee amputation noted with no wounds to the stump. Dorsalis pedis is +2 on the right. No wounds noted. NEUROLOGICAL: Patient is awake, alert and oriented x3. vision is poor The right anterior chest wall is now much less tender since removal of the hemodialysis catheter. She no longer cries out in pain when the area is manipulated. There is no expressible purulence. The right femoral site is without tenderness. - Labs CBC & Chem 7: 05/31/18 07:41 05/29/18 07:25 Labs: Abnormal Lab Results - Last 24 Hours (Table) 05/30/18 05/31/18 05/31/18 Range/Units 20:51 05:44 07:41 RBC 2.76 L (3.80-5.40) m/uL Hgb 8.1 L (11.4-16.0) gm/dL Hct 26.5 L (34.0-46.0) % MCHC 30.4 L (31.0-37.0) g/dL APTT (22.0-30.0) sec POC Glucose (mg/dL) 179 H 141 H (75-99) mg/dL 05/31/18 05/31/18 05/31/18 Range/Units 10:46 13:26 16:25 RBC (3.80-5.40) m/uL Hgb (11.4-16.0) gm/dL Hct (34.0-46.0) % MCHC (31.0-37.0) g/dL APTT 31.3 H (22.0-30.0) sec POC Glucose (mg/dL) 104 H 146 H (75-99) mg/dL Microbiology - Last 24 Hours (Table) 05/29/18 07:25 Blood Culture - Preliminary Blood No Growth after 48 hours 05/29/18 22:25 Urine Culture - Preliminary Urine,Catheterized Gram Neg Bacilli Laboratory Results WBC 4.1 k/uL (3.8-10.6) 05/31/18 07:41 RBC 2.76 m/uL (3.80-5.40) L 05/31/18 07:41 Hgb 8.1 gm/dL (11.4-16.0) L 05/31/18 07:41 Hct 26.5 % (34.0-46.0) L 05/31/18 07:41 MCV 96.0 fL (80.0-100.0) 05/31/18 07:41 MCH 29.2 pg (25.0-35.0) 05/31/18 07:41 MCHC 30.4 g/dL (31.0-37.0) L 05/31/18 07:41 RDW 15.4 % (11.5-15.5) 05/31/18 07:41 Plt Count 204 k/uL (150-450) 05/31/18 07:41 Neutrophils % 63 % 05/31/18 07:41 Lymphocytes % 25 % 05/31/18 07:41 Monocytes % 6 % 05/31/18 07:41 Eosinophils % 3 % 05/31/18 07:41 Basophils % 1 % 05/31/18 07:41 Neutrophils # 2.6 k/uL (1.3-7.7) 05/31/18 07:41 Lymphocytes # 1.0 k/uL (1.0-4.8) 05/31/18 07:41 Monocytes # 0.3 k/uL (0-1.0) 05/31/18 07:41 Eosinophils # 0.1 k/uL (0-0.7) 05/31/18 07:41 Basophils # 0.0 k/uL (0-0.2) 05/31/18 07:41 Hypochromasia Marked 05/31/18 07:41 PT 9.9 sec (9.0-12.0) 05/31/18 07:41 INR 1.0 (<1.2) 05/31/18 07:41 APTT 31.3 sec (22.0-30.0) H 05/31/18 13:26 Sodium 140 mmol/L (137-145) 05/29/18 07:25 Potassium 4.5 mmol/L (3.5-5.1) 05/29/18 07:25 Chloride 106 mmol/L (98-107) 05/29/18 07:25 Carbon Dioxide 26 mmol/L (22-30) 05/29/18 07:25 Anion Gap 8 mmol/L 05/29/18 07:25 BUN 49 mg/dL (7-17) H 05/29/18 07:25 Creatinine 3.97 mg/dL (0.52-1.04) H 05/29/18 07:25 Est GFR (CKD-EPI)AfAm 13 (>60 ml/min/1.73 sqM) 05/29/18 07:25 Est GFR (CKD-EPI)NonAf 12 (>60 ml/min/1.73 sqM) 05/29/18 07:25 Glucose 170 mg/dL (74-99) H 05/29/18 07:25 POC Glucose (mg/dL) 146 mg/dL (75-99) H 05/31/18 16:25 POC Glu Rivet Passer Anai Izaguirre 05/31/18 16:25 Plasma Lactic Acid Yonis 1.3 mmol/L (0.7-2.0) 05/29/18 07:25 Calcium 8.7 mg/dL (8.4-10.2) 05/29/18 07:25 Phosphorus 5.4 mg/dL (2.5-4.5) H 05/29/18 14:55 Total Bilirubin 0.2 mg/dL (0.2-1.3) 05/29/18 07:25 AST 31 U/L (14-36) 05/29/18 07:25 ALT 25 U/L (9-52) 05/29/18 07:25 Alkaline Phosphatase 68 U/L (38-126) 05/29/18 07:25 Total Protein 6.3 g/dL (6.3-8.2) 05/29/18 07:25 Albumin 3.1 g/dL (3.5-5.0) L 05/29/18 07:25 Urine Color Yellow 05/29/18 22:25 Urine Appearance Cloudy (Clear) H 05/29/18 22:25 Urine pH 8.0 (5.0-8.0) 05/29/18 22:25 Ur Specific [place] 1.010 (1.001-1.035) 05/29/18 22:25 Urine Protein 3+ (Negative) H 05/29/18 22:25 Urine Glucose (UA) 2+ (Negative) H 05/29/18 22:25 Urine Ketones Negative (Negative) 05/29/18 22:25 Urine Blood Small (Negative) H 05/29/18 22:25 Urine Nitrite Negative (Negative) 05/29/18 22:25 Urine Bilirubin Negative (Negative) 05/29/18 22:25 Urine Urobilinogen <2.0 mg/dL (<2.0) 05/29/18 22:25 Ur Leukocyte Esterase Large (Negative) H 05/29/18 22:25 Urine RBC 13 /hpf (0-5) H 05/29/18 22:25 Urine WBC >182 /hpf (0-5) H 05/29/18 22:25 Ur Squamous Epith Cells 1 /hpf (0-4) 05/29/18 22:25 Hyaline Casts 3 /lpf (0-2) H 05/29/18 22:25 Random Vancomycin 22.5 ug/mL 05/30/18 05:43 Group A Strep Rapid Negative (Negative) 05/29/18 17:47 Microbiology 05/29/18 07:25 Blood Blood Culture - Preliminary No Growth after 48 hours 05/29/18 22:25 Urine,Catheterized Urine Culture - Preliminary Gram Neg Bacilli 05/29/18 17:47 Throat Group A Strep Throat Culture - Preliminary Assessment and Plan (1) MRSA bacteremia Narrative/Plan: 62 year old woman with multiple medical troubles has recently been hospitalized with MRSA sepsis from dialysis catheter and history of noncompliance with the dialysis. Now again has pain at the catheter site and has been seen by vascular surgery with plans for further surgery for access tomorrow. Continue vancomycin per pharmacy dosing with follow up blood cultures. 05/30/2018 patient is feeling considerably better since the removal of the dialysis catheter from the right IJ site. New site in the right groin is without difficulty and hemodialysis is planned for today. Overall she's feeling better. We'll plan at least a 4 week course of intravenous antibiotic therapy with vancomycin and her hemodialysis sessions. Discharge planning to work with nephrology to ensure that this is occurring at the site. 05/31/2018 reveals the patient to have stability to improvement. She will need the multiweek course of antibiotic therapy at dialysis for her sepsis related to dialysis catheter. However bacilli is now found in the urine ceftriaxone was added pending further culture results. Current Visit: No Status: Acute Code(s): R78.81 - BACTEREMIA SNOMED Code(s ): 05312848905061113 (2) Infection of dialysis vascular access Current Visit: Yes Status: Acute Code(s): T82.7XXA - INFECT/INFLM REACT D/T OTH CARDI/VASC DEV/IMPLNT/GRFT, INIT SNOMED Code(s): 11825025
--- NOTE | 2018-05-31 17:26 | PN ---
PROGRESS NOTE DATE OF SERVICE: 05/31/18. PRESENTING COMPLAINT: Right internal jugular vein clot. INTERVAL HISTORY: This patient is on hemodialysis with recent MRSA blood infection, presented with a 4 cm blood clot in the right internal jugular vein. Dialysis catheter was malfunctioning and was removed and right femoral catheter was placed. The patient was hemodialyzed yesterday. Comfortable, lying in bed, tolerating her meals. REVIEW OF SYSTEMS: Done for constitutional, cardiovascular, GI, pulmonary; relevant findings as above. CURRENT MEDICATIONS: Reviewed that include vancomycin with hemodialysis. PHYSICAL EXAMINATION: Temperature 98.5, pulse 62, respiratory 18, blood pressure 138/75, pulse ox 96 percent on room air. GENERAL APPEARANCE: Lying in bed, awake. EYES: Absent right eye. Normal left eye. NECK: JVD unable to assess. Mass not palpable. RESPIRATORY: Effort normal. Lungs, decreased breath sounds. CARDIOVASCULAR: First and second sounds, no edema. ABDOMEN: Soft, nontender. Liver and spleen not palpable. CHEST WALL: Dressing over the right upper chest wall. EXTREMITIES: Left below-knee amputation. Right femoral hemodialysis catheter. INVESTIGATIONS: White count 4.1, hemoglobin 8.1. ASSESSMENT: 1. Acute occlusion of the right internal jugular vein. Hemodialysis catheter has now been removed. 2. Coronary artery disease with prior history of stent. 3. IV heparin monitoring. 4. End-stage kidney disease on hemodialysis right groin hemodialysis catheter. 5. Diabetes mellitus type 2, chronically on insulin. 6. Chronic obstructive pulmonary disease in an ex-smoker. 7. Chronic congestive heart failure from systolic dysfunction, EF 40-45 percent and coronary artery disease. 8. Hypertensive heart disease. 9. Primary osteoarthritis. 10.Mild to moderate cognitive impairment from Alzheimer's dementia. 11.Depression, not otherwise specified. 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 13.Chronic medical debility. Patient needs a Marquis left. 14.Left below-knee amputation. PLAN: Patient should be able to be switched over to the newer oral anticoagulants. Will check in renal failure which one can be used. Care was discussed with the patient. MMODL / IJN: [id number] /
[2018-05-31 20:32] LABS: Glucose,Whole Blood 123 mg/dL (75-99)
[2018-05-31] MEDS: CLOPIDOGREL 75 MG TAB PO SCH (20:39)
[2018-05-31] MEDS: GABAPENTIN 300 MG CAP PO SCH (20:39)
[2018-05-31] MEDS: buPROPion SR 150 MG TABLET.ER PO SCH (20:39)
[2018-05-31] MEDS: APIXABAN 2.5 MG TABLET PO SCH (20:39)
[2018-05-31] MEDS: PRAVASTATIN SODIUM 20 MG TAB PO SCH (20:40)
[2018-05-31] MEDS: INSULIN DETEMIR 100 UNIT/ML 10 ML VIAL SQ SCH (20:40)
[2018-05-31] MEDS: MELATONIN 5 MG TABLET PO SCH (20:40)
[2018-05-31] MEDS: HYDROmorphone 2 MG TAB PO PRN (20:47)
[2018-06-01] MEDS: GENTAMICIN 0.3% OPHTH DROPS 5 ML BTL BOTH EYES SCH ×6 (00:18→20:43)
[2018-06-01] MEDS: HYDROmorphone 2 MG TAB PO PRN ×3 (04:16→20:40)
[2018-06-01 06:05] LABS: Basophils % (A) 1 %; Eosinophils # (A) 0.1 k/uL (0-0.7); Eosinophils % (A) 4 %; HCT 26.3 % (34.0-46.0); HGB 8.1 gm/dL (11.4-16.0); Hypochromasia Moderate; Lymphocytes # (A) 1.2 k/uL (1.0-4.8); Lymphocytes % (A) 33 %; MCH 29.3 pg (25.0-35.0); MCHC 30.7 g/dL (31.0-37.0); MCV 95.4 fL (80.0-100.0); Mean Platelet Volume 6.9; Monocytes # (A) 0.3 k/uL (0-1.0); Monocytes % (A) 7 %; Neutrophils % (A) 55 %; Platelet Count 197 k/uL (150-450); RBC 2.76 m/uL (3.80-5.40); RDW 15.4 % (11.5-15.5); WBC 3.8 k/uL (3.8-10.6)
[2018-06-01 06:32] LABS: Glucose,Whole Blood 118 mg/dL (75-99)
[2018-06-01 06:36] LABS: Potassium 5.3 mmol/L (3.5-5.1)
[2018-06-01] MEDS: INSULIN ASPART 100 UNIT/ML 1 ML 10 ML VIAL SQ SCH ×7 (07:04→20:57)
--- NOTE | 2018-06-01 07:05 | PN ---
PROGRESS NOTE Patient is seen for followup for end-stage renal disease. The patient has had a femoral catheter placed. She was dialyzed last night. She is being anticoagulated for right IJ DVT. The patient is also maintained on antibiotics in the form of vancomycin for MRSA bacteremia. She is being followed by ID. Source was the catheter. EXAMINATION: Today, patient is comfortable, awake. She is not in any acute distress. Blood pressure was 146/68, heart rate 64 per minute. Patient is afebrile. Examination of the heart: S1, S2. Examination of the lungs: Bilateral breath sounds are heard. Abdomen is soft, nontender. Examination lower extremities shows no significant edema. Skin exam is grossly intact. LABS: Show hemoglobin this morning 8.1 g/dL. The electrolytes are not available from today. ASSESSMENT: 1. End-stage renal disease, on hemodialysis on a Saturday, Saturday, Saturday schedule. We will arrange for hemodialysis on Saturday. Currently patient is has a right femoral PermCath. 2. Right internal jugular deep venous thrombosis, maintained on anticoagulation. 3. Methicillin-resistant Staphylococcus aureus bacteremia. Source was the catheter, which is now removed. 4. Anemia with no active bleeding noted. Patient will be maintained on Aranesp. She is currently on 40 mcg. I will increase that to 60 mcg. 5. Hypertension, currently controlled. 6. Dyslipidemia. PLAN: Increase Aranesp, DC sodium bicarb and continue antibiotics and check electrolytes in a.m. MMODL / IJN: [id number] /
[2018-06-01] MEDS: ALBUTEROL 2 MG PO SCH ×5 (08:50→17:26)
[2018-06-01] MEDS: ESCITALOPRAM 20 MG TAB PO SCH (08:56)
[2018-06-01] MEDS: SENNOSIDES 8.6 MG TAB PO SCH (08:56)
[2018-06-01] MEDS: ISOSORBIDE MONONITRATE ER 60 MG TAB.ER.24H PO SCH (08:56)
[2018-06-01] MEDS: amLODIPine 5 MG TAB PO SCH (08:57)
[2018-06-01] MEDS: METOPROLOL TARTRATE 50 MG TAB PO SCH ×2 (08:57→17:26)
[2018-06-01] MEDS: hydrALAZINE HCL 50 MG TAB PO SCH ×3 (08:57→17:26)
[2018-06-01] MEDS: APIXABAN 2.5 MG TABLET PO SCH ×2 (08:57→20:36)
[2018-06-01 11:28] LABS: Glucose,Whole Blood 133 mg/dL (75-99)
[2018-06-01] MEDS: CHOLECALCIFEROL 1,000 UNIT TAB PO SCH (12:20)
--- NOTE | 2018-06-01 14:59 | PN ---
PROGRESS NOTE Patient is seen for followup for end-stage renal disease. She is currently lying in bed. She is comfortable. Patient denies any significant complaints. She will be dialyzed tomorrow. There are plans for possible discharge is well tomorrow to detention. PHYSICAL EXAMINATION: Blood pressure is 164/75, heart rate 60 per minute. She is afebrile. Examination shows patient is fairly euvolemic with no evidence of edema. Examination of the lower extremities show right femoral catheter is in place. The patient still has a dressing on at the site of removal of her right IJ PermCath. She is maintained on anticoagulation. The Eliquis was started yesterday. The patient had been on IV heparin as inpatient during her hospitalization. LABS SHOW: Sodium 138, potassium 5.3, BUN 61, serum creatinine 4.4, hemoglobin 8.1 g/dL. ASSESSMENT: 1. End-stage renal disease, on hemodialysis on a Saturday, Saturday, Saturday schedule. The patient will be dialyzed tomorrow. Currently, she has a right femoral catheter, which is a PermCath. 2. MRSA bacteremia status post removal of right IJ PermCath. 3. Right internal jugular deep venous thrombosis, maintained on anticoagulation. 4. Mild hyperkalemia. Expect improvement with hemodialysis in a.m. 5. Anemia of chronic disease maintained on Aranesp. PLAN: Hemodialysis in a.m. The patient can be discharged post dialysis tomorrow. WHIT / TYLOR: [id number] /
[2018-06-01] MEDS: VANCOMYCIN IV PER PHARMACY 1 EACH MISC MISCELLANE NR (16:39)
[2018-06-01 16:43] LABS: Glucose,Whole Blood 153 mg/dL (75-99)
[2018-06-01] MEDS: CALCIUM ACETATE 667 MG CAP PO SCH (17:26)
--- NOTE | 2018-06-01 19:38 | PN ---
PROGRESS NOTE DATE OF SERVICE: 06/01/2018. PRESENTING COMPLAINT: Right internal jugular vein clot. INTERVAL HISTORY: The patient on hemodialysis with recent MRSA blood infection, presented with 4 cm blood clot right internal jugular vein. Hemodialysis catheter was removed as it was malfunctioning and the right femoral catheter was placed. The patient also started on Zosyn for UTI. The patient was dialyzed yesterday. Comfortable tolerating a diet. No new issues. REVIEW OF SYSTEMS: Done for constitutional, cardiovascular, GI, pulmonary; relevant findings as above. CURRENT MEDICATIONS: Reviewed that include Eliquis, IV ceftriaxone. EXAMINATION: VITAL SIGNS: Afebrile, pulse 52, respiratory 18, blood pressure 148/78, pulse ox 95% on room air. GENERAL APPEARANCE: Lying in bed, comfortable. EYES: Right eye is absent. Normal left eye. NECK: JVD unable to assess. Mass not palpable. RESPIRATORY: Effort normal. LUNGS: Decreased breath sounds. CARDIOVASCULAR: 1st and 2nd sounds normal. No edema. ABDOMEN: Soft, nontender. Liver and spleen not palpable. Dressing over the right chest wall. EXTREMITIES: Left below-knee amputation. Right groin femoral hemodialysis catheter. INVESTIGATIONS: White count 3.8, hemoglobin 8.1. Urine culture catheter is growing Pseudomonas aeruginosa. ASSESSMENT: 1. Acute occlusion of the right internal jugular vein, hemodialysis catheter was removed. 2. Coronary artery disease with prior history of stent. 3. End-stage kidney disease on hemodialysis right groin hemodialysis catheter. 4. Diabetes mellitus type 2, chronically on insulin. 5. Chronic obstructive pulmonary disease in an ex-smoker. 6. Chronic congestive heart failure from systolic dysfunction EF 40-45 percent from coronary artery disease. 7. Hypertensive heart disease. 8. Primary osteoarthritis. 9. Mild to moderate cognitive impairment from Alzheimer's dementia. 10.Depression, not otherwise specified. 11.Absent right eye. 12.Chronic medical debility. Patient needs a Marquis left. 13.Left below-knee amputation. 14.Acute urinary tract infection from cystitis from Pseudomonas aeruginosa. PLAN: The patient is switched, the patient now on Eliquis. The patient also will be switched to antibiotic for Pseudomonas aeruginosa by Dr. Jerez. MMODL / IJN: [id number] /
[2018-06-01] MEDS: buPROPion SR 150 MG TABLET.ER PO SCH (20:35)
[2018-06-01] MEDS: PRAVASTATIN SODIUM 20 MG TAB PO SCH (20:35)
[2018-06-01] MEDS: GABAPENTIN 300 MG CAP PO SCH (20:35)
[2018-06-01] MEDS: CLOPIDOGREL 75 MG TAB PO SCH (20:36)
[2018-06-01] MEDS: MELATONIN 5 MG TABLET PO SCH (20:36)
[2018-06-01 20:46] LABS: Glucose,Whole Blood 131 mg/dL (75-99)
[2018-06-01] MEDS: INSULIN DETEMIR 100 UNIT/ML 10 ML VIAL SQ SCH (20:57)
[2018-06-02] MEDS ORDERED: cloNIDine HCL 0.1 MG TAB PO STA (00:02)
[2018-06-02] MEDS: GENTAMICIN 0.3% OPHTH DROPS 5 ML BTL BOTH EYES SCH ×6 (00:03→21:25)
[2018-06-02] MEDS: ALBUTEROL 2 MG PO SCH ×4 (00:03→17:57)
[2018-06-02 06:05] LABS: Glucose,Whole Blood 127 mg/dL (75-99)
[2018-06-02] MEDS: INSULIN ASPART 100 UNIT/ML 1 ML 10 ML VIAL SQ SCH ×7 (06:14→21:35)
[2018-06-02] MEDS: hydrALAZINE HCL 50 MG TAB PO SCH ×3 (07:03→17:49)
[2018-06-02 07:12] LABS: Basophils % (A) 1 %; Eosinophils # (A) 0.1 k/uL (0-0.7); Eosinophils % (A) 3 %; HCT 26.1 % (34.0-46.0); HGB 8.2 gm/dL (11.4-16.0); Hypochromasia Slight; Lymphocytes # (A) 1.2 k/uL (1.0-4.8); Lymphocytes % (A) 27 %; MCH 29.5 pg (25.0-35.0); MCHC 31.5 g/dL (31.0-37.0); MCV 93.6 fL (80.0-100.0); Mean Platelet Volume 6.8; Monocytes # (A) 0.3 k/uL (0-1.0); Monocytes % (A) 6 %; Neutrophils # (A) 2.6 k/uL (1.3-7.7); Neutrophils % (A) 60 %; Platelet Count 199 k/uL (150-450); RBC 2.79 m/uL (3.80-5.40); RDW 15.6 % (11.5-15.5); WBC 4.3 k/uL (3.8-10.6)
[2018-06-02] MEDS: METOPROLOL TARTRATE 50 MG TAB PO SCH ×2 (08:50→17:49)
[2018-06-02] MEDS: amLODIPine 5 MG TAB PO SCH (08:51)
[2018-06-02] MEDS: ISOSORBIDE MONONITRATE ER 60 MG TAB.ER.24H PO SCH (08:51)
[2018-06-02] MEDS: APIXABAN 2.5 MG TABLET PO SCH ×2 (08:51→21:24)
[2018-06-02] MEDS: ESCITALOPRAM 20 MG TAB PO SCH (08:51)
[2018-06-02] MEDS: HYDROmorphone 2 MG TAB PO PRN ×2 (09:00→14:35)
--- NOTE | 2018-06-02 10:24 | IR ---
EXAMINATION TYPE: IR cvc insert non tunneled DATE OF EXAM: 05/30/2018 COMPARISON: NONE HISTORY: Dialysis catheter placement Fluoroscopy support supplied to the referring clinician. See dictated report from vascular surgery, 7.5 minutes fluoroscopy time, 813 intraoperative images
[2018-06-02] MEDS ORDERED: TOBRAMYCIN PER PHARMACY MISCELLANE PRN (11:21)
[2018-06-02 11:43] LABS: Glucose,Whole Blood 90 mg/dL (75-99)
[2018-06-02] MEDS ORDERED: TOBRAMYCIN SULFATE IVPB SCH (12:00)
[2018-06-02] MEDS ORDERED: SODIUM CHLORIDE 0.9% IVPB SCH (12:00)
[2018-06-02] MEDS: CHOLECALCIFEROL 1,000 UNIT TAB PO SCH (12:38)
--- NOTE | 2018-06-02 13:08 | PN ---
PROGRESS NOTE Patient is seen for followup for end-stage renal disease. She will be dialyzed today. She is comfortable. She denies any significant complaints. PHYSICAL EXAMINATION: On examination, blood pressure is 146/70, heart rate 57 per minute. Patient is afebrile. EXAMINATION OF THE HEART: S1, S2. EXAMINATION OF THE LUNGS: Bilateral breath sounds are heard. Abdomen is soft, nontender. Examination of lower extremities shows no significant edema. LABS: Labs show hemoglobin 8.2 g/dL. Serum potassium was 5.3 yesterday. ASSESSMENT: 1. End-stage renal disease, on hemodialysis on a Saturday, Saturday, Saturday schedule for hemodialysis today. Currently, patient has a right femoral PermCath. 2. Methicillin-resistant Staphylococcus aureus bacteremia, status post discontinuation of IJ PermCath maintained on vancomycin, being followed by Infectious Disease. 3. Urinary tract infection with Pseudomonas. 4. Anemia of chronic disease. No active bleeding noted. 5. Hypertension, currently controlled. PLAN: Hemodialysis today. Continue vancomycin and hopefully, we can use Fortaz possibly for the Pseudomonas, which can be given with dialysis every other day so that patient will not need a PICC line. Further recommendations from ID, currently pending. MMODL / IJN: [id number] /
[2018-06-02 15:26] LABS: Hemoglobin A1C 5.3 % (4.0-6.0)
[2018-06-02] MEDS ORDERED: VANCOMYCIN 1,500 MG in SODIUM CHLORIDE 0.9% 250 ML IVPB ONE (16:00)
[2018-06-02 16:34] LABS: Glucose,Whole Blood 110 mg/dL (75-99)
[2018-06-02] MEDS: VANCOMYCIN IV PER PHARMACY 1 EACH MISC MISCELLANE NR (16:37)
[2018-06-02] MEDS: CALCIUM ACETATE 667 MG CAP PO SCH (17:49)
--- NOTE | 2018-06-02 20:25 | PN ---
PROGRESS NOTE DATE OF SERVICE: 06/02/18. PRESENTING COMPLAINT: Right internal jugular vein clot. INTERVAL HISTORY: Patient on hemodialysis, recent MRSA blood infection, presented with 4 cm blood clot in the right internal vein. Has now been on Eliquis. The patient already has a new hemodialysis catheter in the right groin. Also has been treated for UTI. The patient is comfortable, tolerating a diet. No fever. No chills. Hemodialysis today. REVIEW OF SYSTEMS: Done for constitutional, cardiovascular, GI, pulmonary; relevant findings as above. CURRENT MEDICATIONS: Reviewed that include Eliquis, Vancomycin and tobramycin. EXAMINATION: Afebrile, pulse 54, respiration 20, blood pressure 118/65, pulse ox 95% on room air. GENERAL APPEARANCE: Sitting in bed, comfortable. EYES: Right eye is absent. Normal left eye. NECK: JVD unable to assess. Mass not palpable. RESPIRATORY: Effort normal. Lungs decreased breath sounds. CARDIOVASCULAR: 1st and 2nd sounds, no edema. ABDOMEN: Soft, nontender. Liver and spleen not palpable. Dressing over the right chest wall. EXTREMITIES: Left below-knee amputation. Right groin femoral hemodialysis catheter. INVESTIGATIONS: White count 4.3, hemoglobin 8.2. Accu-Cheks are noted. ASSESSMENT: 1. Acute DVT of the right internal jugular vein, now on Eliquis. 2. Coronary artery disease with prior history of stent. 3. End-stage kidney disease on hemodialysis, right groin hemodialysis catheter. 4. Diabetes mellitus type 2, chronically on insulin. 5. Chronic obstructive pulmonary disease in an ex-smoker. 6. Chronic congestive heart failure from systolic dysfunction EF 40-45 percent from coronary artery disease. 7. Hypertensive heart disease. 8. Primary osteoarthritis. 9. Mild to moderate cognitive impairment from Alzheimer's dementia. The patient has a legal guardian. 10.Depression, not otherwise specified. 11.Absent right eye. 12.Chronic medical debility, patient needs a Marquis left. 13.Left below-knee amputation. 14.Acute urinary tract infection from cystitis from Pseudomonas aeruginosa. PLAN: I spoke to Dr. Jerez. Patient will need gentamicin and/or tobramycin. I spoke to the F Dione. Also spoke to Dr. Wilkerson from Nephrology. Will see if the [facility] will give the antibiotic during hemodialysis. We do not want to put in another IV access in this patient. Will need only 2 to 3 probably doses of this antibiotic. Will try to coordinate this and hopefully patient can be discharged accordingly. Total time spent today was about 40 minutes with over 25 minutes of discussion. WHIT / JEREMYN: [id number] /
[2018-06-02 21:13] LABS: Glucose,Whole Blood 121 mg/dL (75-99)
[2018-06-02] MEDS: MELATONIN 5 MG TABLET PO SCH (21:24)
[2018-06-02] MEDS: GABAPENTIN 300 MG CAP PO SCH (21:24)
[2018-06-02] MEDS: CLOPIDOGREL 75 MG TAB PO SCH (21:24)
[2018-06-02] MEDS: PRAVASTATIN SODIUM 20 MG TAB PO SCH (21:24)
[2018-06-02] MEDS: buPROPion SR 150 MG TABLET.ER PO SCH (21:25)
[2018-06-02] MEDS: INSULIN DETEMIR 100 UNIT/ML 10 ML VIAL SQ SCH (21:50)
--- NOTE | 2018-06-02 22:36 | P.PN ---
Subjective Progress Note Date: 06/02/18 This is a 58-year-old female known to ID service as she has been seen on previous admission and has history of being treated for peripheral vascular disease and osteomyelitis through [facility] in 2013. She is currently residing at [facility]. Patient apparently has had lethargy and general malaise last week and due to this she did not have hemodialysis treatment on Saturday for her end-stage renal disease normally scheduled Saturday and Saturday. On Saturday she only completed 2 hours of the four-hour dialysis. She has not been feeling well with a sore throat and a nonproductive cough. She was treated with Tylenol with Codeine but she was hypoxic with a pulse ox of 8889% on room air and was then brought into [facility] emergency center for evaluation she has been afebrile with normal white count. Her urinalysis was turbid blood moderate leukoesterase large, RBCs 22 and WBCs greater than 182. Patient denies having any pain or burning with urination. C. diff testing was done which was negative and influenza testing for A and B were negative. Blood culture obtained from the right sided permacath came back positive for MRSA. She had the hemodialysis catheter repositioned and blood cultures cleared. Receiving Vancomycin at dialysis but failed to go to dialysis yesterday, and today the pain worsened and she was admitted. Was not able to have dialysis due to catheter malfunction , is plans for new site. 05/30/2018 patient is feeling better. With removal of Is having no further fevers or chills The right femoral site is without For hemodialysis today 05/31/2018 reveals the patient to be feeling further improved. Pain to the right anterior chest wall is generally resolved with removal of the catheter. Tolerating hemodialysis well. Other new complaints at this present time except urinalysis is been found to be abnormal urine culture pending. 06/02/2018 patient continues to have some improvement. Looks forward to going back to her usual residence. The recent blood culture has evidence of the MRSA with plans on completing the many week course of antibiotics because of the catheter related infection and her ongoing IV access. There is evidence also of the urinary tract infection and sensitive to pseudomonas tobramycin was initiated in hospital. Objective - Vital Signs Vital signs: Vital Signs Temp 99.6 F 06/02/18 20:00 Pulse 63 11/05/18 20:00 Resp 18 06/02/18 20:00 BP 157/74 06/02/18 20:00 Pulse Ox 92 L 06/02/18 20:00 Intake & Output 06/02/18 06/02/18 06/03/18 06:59 18:59 06:59 Intake Total 410 Balance 410 Weight 63.5 kg Intake: Intake, IV Titration 50 Amount cefTRIAXone 1,000 mg In 50 Sodium Chloride 0.9% 50 ml @ 100 mls/hr IVPB Q24HR [facility] Rx#:[id number] Oral 360 Other: Voiding Method Diaper Diaper Diaper # Voids 1 2 1 # Bowel Movements 1 - Exam Gen: This is a 62-year-old obese 58-year-old female she is awake and alert and appears to be comfortable. She is complaining of worsening pain to the right clavicle area. HEENT: Head is atraumatic, normocephalic. Left pupil is round and reactive to light sclerae and icteric. enucleated right eye Mucous members of the mouth are moist. Patient is edentulous. No lesions noted. NECK: Supple. No JVD. No lymphadenopathy. No thyromegaly. Pressure dressing in place to the right clavicle. This was not removed. No breakthrough bleeding. LUNGS: Clear to auscultation. No wheezes or rhonchi. No intercostal retractions. HEART: Regular rate and rhythm. No murmur. ABDOMEN: Soft. Bowel sounds are present. No masses. No tenderness. No redness under abdominal folds or groins. EXTREMITIES: Left below the knee amputation noted with no wounds to the stump. Dorsalis pedis is +2 on the right. No wounds noted. NEUROLOGICAL: Patient is awake, alert and oriented x3. vision is poor The right anterior chest wall is now much less tender since removal of the hemodialysis catheter. She no longer cries out in pain when the area is manipulated. There is no expressible purulence. The right femoral site is without tenderness. - Labs CBC & Chem 7: 06/02/18 06:37 06/01/18 05:35 Labs: Abnormal Lab Results - Last 24 Hours (Table) 06/02/18 06/02/18 06/02/18 Range/Units 06:04 06:37 16:27 RBC 2.79 L (3.80-5.40) m/uL Hgb 8.2 L (11.4-16.0) gm/dL Hct 26.1 L (34.0-46.0) % RDW 15.6 H (11.5-15.5) % POC Glucose (mg/dL) 127 H 110 H (75-99) mg/dL 06/02/18 Range/Units 20:59 RBC (3.80-5.40) m/uL Hgb (11.4-16.0) gm/dL Hct (34.0-46.0) % RDW (11.5-15.5) % POC Glucose (mg/dL) 121 H (75-99) mg/dL Microbiology - Last 24 Hours (Table) 05/29/18 07:25 Blood Culture - Preliminary Blood No Growth after 96 hours Laboratory Results WBC 4.3 k/uL (3.8-10.6) 06/02/18 06:37 RBC 2.79 m/uL (3.80-5.40) L 06/02/18 06:37 Hgb 8.2 gm/dL (11.4-16.0) L 06/02/18 06:37 Hct 26.1 % (34.0-46.0) L 06/02/18 06:37 MCV 93.6 fL (80.0-100.0) 06/02/18 06:37 MCH 29.5 pg (25.0-35.0) 06/02/18 06:37 MCHC 31.5 g/dL (31.0-37.0) 06/02/18 06:37 RDW 15.6 % (11.5-15.5) H 06/02/18 06:37 Plt Count 199 k/uL (150-450) 06/02/18 06:37 Neutrophils % 60 % 06/02/18 06:37 Lymphocytes % 27 % 06/02/18 06:37 Monocytes % 6 % 06/02/18 06:37 Eosinophils % 3 % 06/02/18 06:37 Basophils % 1 % 06/02/18 06:37 Neutrophils # 2.6 k/uL (1.3-7.7) 06/02/18 06:37 Lymphocytes # 1.2 k/uL (1.0-4.8) 06/02/18 06:37 Monocytes # 0.3 k/uL (0-1.0) 06/02/18 06:37 Eosinophils # 0.1 k/uL (0-0.7) 06/02/18 06:37 Basophils # 0.0 k/uL (0-0.2) 06/02/18 06:37 Hypochromasia Slight 06/02/18 06:37 PT 9.9 sec (9.0-12.0) 05/31/18 07:41 INR 1.0 (<1.2) 05/31/18 07:41 APTT 31.3 sec (22.0-30.0) H 05/31/18 13:26 Sodium 138 mmol/L (137-145) 06/01/18 05:35 Potassium 5.3 mmol/L (3.5-5.1) H 06/01/18 05:35 Chloride 109 mmol/L (98-107) H 06/01/18 05:35 Carbon Dioxide 21 mmol/L (22-30) L 06/01/18 05:35 Anion Gap 8 mmol/L 06/01/18 05:35 BUN 61 mg/dL (7-17) H 06/01/18 05:35 Creatinine 4.44 mg/dL (0.52-1.04) H 06/01/18 05:35 Est GFR (CKD-EPI)AfAm 12 (>60 ml/min/1.73 sqM) 06/01/18 05:35 Est GFR (CKD-EPI)NonAf 10 (>60 ml/min/1.73 sqM) 06/01/18 05:35 Glucose 98 mg/dL (74-99) 06/01/18 05:35 POC Glucose (mg/dL) 121 mg/dL (75-99) H 06/02/18 20:59 POC Glu [employer] Technician ID Heather Streeter Candy 06/02/18 20:[address] Glu mg/dL 105 06/01/18 05:35 Hemoglobin A1c 5.3 % (4.0-6.0) 06/01/18 05:35 Plasma Lactic Acid Yonis 1.3 mmol/L (0.7-2.0) 05/29/18 07:25 Calcium 9.0 mg/dL (8.4-10.2) 06/01/18 05:35 Phosphorus 5.4 mg/dL (2.5-4.5) H 05/29/18 14:55 Total Bilirubin 0.2 mg/dL (0.2-1.3) 05/29/18 07:25 AST 31 U/L (14-36) 05/29/18 07:25 ALT 25 U/L (9-52) 05/29/18 07:25 Alkaline Phosphatase 68 U/L (38-126) 05/29/18 07:25 Total Protein 6.3 g/dL (6.3-8.2) 05/29/18 07:25 Albumin 3.1 g/dL (3.5-5.0) L 05/29/18 07:25 Urine Color Yellow 05/29/18 22:25 Urine Appearance Cloudy (Clear) H 05/29/18 22:25 Urine pH 8.0 (5.0-8.0) 05/29/18 22:25 Ur Specific [place] 1.010 (1.001-1.035) 05/29/18 22:25 Urine Protein 3+ (Negative) H 05/29/18 22:25 Urine Glucose (UA) 2+ (Negative) H 05/29/18 22:25 Urine Ketones Negative (Negative) 05/29/18 22:25 Urine Blood Small (Negative) H 05/29/18 22:25 Urine Nitrite Negative (Negative) 05/29/18 22:25 Urine Bilirubin Negative (Negative) 05/29/18 22:25 Urine Urobilinogen <2.0 mg/dL (<2.0) 05/29/18 22:25 Ur Leukocyte Esterase Large (Negative) H 05/29/18 22:25 Urine RBC 13 /hpf (0-5) H 05/29/18 22:25 Urine WBC >182 /hpf (0-5) H 05/29/18 22:25 Ur Squamous Epith Cells 1 /hpf (0-4) 05/29/18 22:25 Hyaline Casts 3 /lpf (0-2) H 05/29/18 22:25 Vancomycin Trough 18.0 ug/mL 06/02/18 06:37 Random Vancomycin 22.5 ug/mL 05/30/18 05:43 Group A Strep Rapid Negative (Negative) 05/29/18 17:47 Microbiology 05/29/18 07:25 Blood Blood Culture - Preliminary No Growth after 96 hours 05/29/18 17:47 Throat Group A Strep Throat Culture - Final 05/29/18 22:25 Urine,Catheterized Urine Culture - Final Pseudomonas aeruginosa Assessment and Plan (1) MRSA bacteremia Narrative/Plan: 62 year old woman with multiple medical troubles has recently been hospitalized with MRSA sepsis from dialysis catheter and history of noncompliance with the dialysis. Now again has pain at the catheter site and has been seen by vascular surgery with plans for further surgery for access tomorrow. Continue vancomycin per pharmacy dosing with follow up blood cultures. 05/30/2018 patient is feeling considerably better since the removal of the dialysis catheter from the right IJ site. New site in the right groin is without difficulty and hemodialysis is planned for today. Overall she's feeling better. We'll plan at least a 4 week course of intravenous antibiotic therapy with vancomycin and her hemodialysis sessions. Discharge planning to work with nephrology to ensure that this is occurring at the site. 05/31/2018 reveals the patient to have stability to improvement. She will need the multiweek course of antibiotic therapy at dialysis for her sepsis related to dialysis catheter. However gram negative bacilli is now found in the urine ceftriaxone was added pending further culture results. 06/02/2018 patient does continue improved. No further positive blood cultures are noted. Prior MRSA was noted. Pseudomonas aeruginosa found and urine culture antibiotic therapy is altered to tobramycin while in hospital. If fortunately is also susceptible to gentamicin Mitrovich and then be utilized at the dialysis center, can be provided from the extended care. She has no other available IV access. Current Visit: No Status: Acute Code(s): R78.81 - BACTEREMIA SNOMED Code(s ): 69249810500780559 (2) Infection of dialysis vascular access Current Visit: Yes Status: Acute Code(s): T82.7XXA - INFECT/INFLM REACT D/T OTH CARDI/VASC DEV/IMPLNT/GRFT, INIT SNOMED Code(s): 24125969
[2018-06-03] MEDS: HYDROmorphone 2 MG TAB PO PRN ×2 (00:11→09:01)
[2018-06-03] MEDS: ALBUTEROL 2 MG PO SCH ×3 (00:46→13:15)
[2018-06-03] MEDS: GENTAMICIN 0.3% OPHTH DROPS 5 ML BTL BOTH EYES SCH ×5 (00:46→16:40)
[2018-06-03 06:03] LABS: Glucose,Whole Blood 120 mg/dL (75-99)
[2018-06-03] MEDS: INSULIN ASPART 100 UNIT/ML 1 ML 10 ML VIAL SQ SCH ×4 (06:13→12:13)
[2018-06-03 06:18] LABS: Anisocytosis Slight; Basophils # (A) 0.1 k/uL (0-0.2); Basophils % (A) 1 %; Eosinophils # (A) 0.1 k/uL (0-0.7); Eosinophils % (A) 3 %; HGB 8.2 gm/dL (11.4-16.0); Hypochromasia Slight; Lymphocytes # (A) 1.2 k/uL (1.0-4.8); Lymphocytes % (A) 30 %; MCH 29.3 pg (25.0-35.0); MCHC 31.5 g/dL (31.0-37.0); Mean Platelet Volume 6.7; Monocytes # (A) 0.3 k/uL (0-1.0); Monocytes % (A) 7 %; Neutrophils # (A) 2.3 k/uL (1.3-7.7); Neutrophils % (A) 57 %; Platelet Count 195 k/uL (150-450); RBC 2.79 m/uL (3.80-5.40)
[2018-06-03] MEDS: METOPROLOL TARTRATE 50 MG TAB PO SCH ×2 (09:00→16:27)
[2018-06-03] MEDS: amLODIPine 5 MG TAB PO SCH (09:00)
[2018-06-03] MEDS: CHOLECALCIFEROL 1,000 UNIT TAB PO SCH (09:00)
[2018-06-03] MEDS: ESCITALOPRAM 20 MG TAB PO SCH (09:00)
[2018-06-03] MEDS: ISOSORBIDE MONONITRATE ER 60 MG TAB.ER.24H PO SCH (09:00)
[2018-06-03] MEDS: hydrALAZINE HCL 50 MG TAB PO SCH ×2 (09:00→12:13)
[2018-06-03] MEDS: SENNOSIDES 8.6 MG TAB PO SCH (09:00)
[2018-06-03] MEDS: APIXABAN 2.5 MG TABLET PO SCH (09:00)
[2018-06-03 12:18] LABS: Glucose,Whole Blood 102 mg/dL (75-99)
[2018-06-03] MEDS: VANCOMYCIN IV PER PHARMACY 1 EACH MISC MISCELLANE NR (13:15)
[2018-06-03 15:58] VITALS: BP 165/77; PULSE 61; RESP 20; TEMP 98.3
[2018-06-03 16:35] LABS: Glucose,Whole Blood 134 mg/dL (75-99)
--- NOTE | 2018-06-03 17:12 | DS ---
DISCHARGE SUMMARY DATE OF ADMISSION: 05/29/2018 DATE OF DISCHARGE: 06/03/2018. FINAL DIAGNOSES: 1. Acute deep vein thrombosis of the right internal jugular vein secondary to hemodialysis catheter. The catheter is now removed. 2. Coronary artery disease, prior history of stent. 3. End-stage kidney disease on hemodialysis right groin hemodialysis catheter. 4. Diabetes mellitus type 2, chronically on insulin. 5. Chronic obstructive pulmonary disease in an ex-smoker. 6. Chronic congestive heart failure from systolic dysfunction EF 40-45 percent from coronary artery disease. 7. Hypertensive heart disease. 8. Primary osteoarthritis. 9. Mild to moderate cognitive impairment from Alzheimer's dementia. Patient has a legal guardian. 10.Depression, not otherwise specified. 11.Absent right eye. 12.Chronic medical debility patient needs a Marquis lift. 13.Chronic left below-knee amputation. 14.Acute urinary tract infection from cystitis from Pseudomonas aeruginosa, present on admission. 15.Acute sepsis with MRSA and hemolytic Streptococcus with positive blood cultures from last admission that was on May 19, 2018. The patient is on 4 weeks of vancomycin since May 24, 2018. HOSPITAL COURSE: This patient who was here from 05/19/2018 until 05/24/2018 following acute sepsis with positive blood cultures with MRSA and Alpha Hemolytic strep. Hemodialysis catheter was removed and a new one was placed after the blood cultures were negative. The patient came to the catheter site, found to have a DVT in the internal jugular vein on the right side. The catheter was again removed and it was placed in the right groin. The patient initially was put on IV heparin then switched over to Eliquis after discussion with Dr. Wilkerson. The patient also on this admission found to have a UTI with Pseudomonas and the patient will be put on tobramycin, switched to gentamicin for discharge. She will get this with hemodialysis to get this for 2 weeks, total of 2 weeks. The pharmacy will monitor the levels and gentamicin will be given accordingly. PHYSICAL EXAMINATION: Temperature 98.3, pulse 50, respiration 20, blood pressure 165/77, pulse ox 96% on room air. Lungs decreased breath sounds. The patient has got absent right eye. INVESTIGATIONS: White count 4, hemoglobin 8.2. CONSULTATIONS: Dr. Wilkerson from Nephrology, Dr. Jerez from Infectious Disease. DISCHARGE MEDICATIONS: 1. PhosLo 667 mg p.o. with supper. 2. Pravachol 10 mg p.o. at bedtime. 3. Hydralazine 50 mg p.o. t.i.d. 4. Imdur ER 60 mg p.o. daily. 5. Nitrostat 0.4 sublingual q.5 p.r.n. 6. Vitamin D3 2000 units p.o. daily. 7. Norvasc 5 mg p.o. daily. 8. 20 mg p.o. daily. 9. Melatonin 5 mg p.o. q.h.s. 10.Senna 8.6 mg q.48 hours. 11.Plavix 75 mg p.o. q.h.s. 12.Cranberry 450 mg p.o. q.h.s. 13.Promethazine hydrochlorothiazide 12.5 p.o. q.6h p.r.n. 14.Neurontin 300 mg p.o. q.h.s. 15.Milk of magnesia 2500 mg p.o. q.h.s. p.r.n. 16.Albuterol sulfate 2 mg p.o. q.i.d. 17. 40 mcg subcu on Saturday. 18.Sodium bicarb 650 mg p.o. b.i.d. 19. 0.3% two drops both eyes q.4 hours 7 days. 20.Humalog 4 units subcu a.c. t.i.d. 21.Lantus 20 units subcu q.h.s. 22. q.4h p.r.n. 23.Lopressor 50 mg p.o. b.i.d. 24.Wellbutrin SR 150 mg p.o. q.h.s. 25.Vancomycin to be given with hemodialysis for a total of 4 weeks from May 24, 2018. 26.Tylenol #3 one tablet q.4h p.r.n. 27.Eliquis 2.5 mg p.o. b.i.d. 28.Dilaudid 2 mg p.o. q.6h p.r.n. for pain. 29.Accu-Cheks q.a.c. and q.h.s. p.r.n. 30.Gentamicin to be given as per levels per pharmacy to dose for the next 2 weeks. DISPOSITION: [facility]. FOLLOW UP: Dr. Nobles in the ECF. Follow up with Dr. Jerez in 2 weeks. The patient to maintain hemodialysis schedule. Labs, CBC, BMP with hemodialysis. Vanco trough and Gent trough as ordered by Dr. Jerez and pharmacy to dose and given with hemodialysis. Discussion and discharge planning more than 35 minutes. Care was discussed with Dr. Wilkerson today. Copy to Dr. Nobles. MMODL / IJN: [id number] /
--- NOTE | 2018-06-03 21:36 | PN ---
PROGRESS NOTE The patient is seen for followup for end-stage renal disease. She will be dialyzed tomorrow. However, there are plans for discharge. Patient will be receiving antibiotics at hemodialysis, therefore we will not be placing a PICC line. On examination this morning, patient is sleepy. She is arousable. She is not in any acute distress. Blood pressure was 134/64, heart rate 59 per minute. Patient is afebrile. Examination shows patient is euvolemic with no evidence of edema bilateral lower extremities. Her right femoral catheter is in place. Abdomen is soft, nontender. LAB: Show hemoglobin 8.2 from today. ASSESSMENT: 1. End-stage renal disease, on hemodialysis on a Saturday, Saturday, Saturday schedule currently via left femoral PermCath. 2. MRSA bacteremia status post removal of IJ PermCath. 3. Deep vein thrombosis, right IJ, maintained on anticoagulation. 4. Anemia, multifactorial. No evidence of active bleeding noted. 5. Chronic kidney disease mineral bone disorder. 6. MRSA bacteremia. Maintained on vancomycin. The patient may also need Gent as a synergistic agent. 7. Urinary tract infection with Pseudomonas. The patient will be maintained on gentamicin as an outpatient. PLAN: The patient will be discharged and she will have hemodialysis in a.m. MMODL / IJN: [id number] /
--- NOTE | 2018-06-03 23:00 | P.PN ---
Subjective Progress Note Date: 06/03/18 This is a 58-year-old female known to ID service as she has been seen on previous admission and has history of being treated for peripheral vascular disease and osteomyelitis through [facility] in 2013. She is currently residing at [facility]. Patient apparently has had lethargy and general malaise last week and due to this she did not have hemodialysis treatment on Saturday for her end-stage renal disease normally scheduled Saturday and Saturday. On Saturday she only completed 2 hours of the four-hour dialysis. She has not been feeling well with a sore throat and a nonproductive cough. She was treated with Tylenol with Codeine but she was hypoxic with a pulse ox of 8889% on room air and was then brought into [facility] emergency center for evaluation she has been afebrile with normal white count. Her urinalysis was turbid blood moderate leukoesterase large, RBCs 22 and WBCs greater than 182. Patient denies having any pain or burning with urination. C. diff testing was done which was negative and influenza testing for A and B were negative. Blood culture obtained from the right sided permacath came back positive for MRSA. She had the hemodialysis catheter repositioned and blood cultures cleared. Receiving Vancomycin at dialysis but failed to go to dialysis yesterday, and today the pain worsened and she was admitted. Was not able to have dialysis due to catheter malfunction , is plans for new site. 05/30/2018 patient is feeling better. With removal of Is having no further fevers or chills The right femoral site is without For hemodialysis today 05/31/2018 reveals the patient to be feeling further improved. Pain to the right anterior chest wall is generally resolved with removal of the catheter. Tolerating hemodialysis well. Other new complaints at this present time except urinalysis is been found to be abnormal urine culture pending. 06/02/2018 patient continues to have some improvement. Looks forward to going back to her usual residence. The recent blood culture has evidence of the MRSA with plans on completing the many week course of antibiotics because of the catheter related infection and her ongoing IV access. There is evidence also of the urinary tract infection and sensitive to pseudomonas tobramycin was initiated in hospital. 06/03/2018 case is discussed with the fresh work wrapper layer. Objective - Vital Signs Vital signs: Vital Signs Temp 98.3 F 06/03/18 15:54 Pulse 61 06/03/18 15:54 Resp 20 06/03/18 15:54 BP 165/77 06/03/18 15:54 Pulse Ox 96 06/03/18 15:54 Intake & Output 06/03/18 06/03/18 06/04/18 06:59 18:59 06:59 Intake Total 480 810 Balance 480 810 Weight 80.5 kg Intake: Oral 480 810 Other: Voiding Method Diaper Diaper # Voids 1 # Bowel Movements 1 - Exam Gen: This is a 62-year-old obese 58-year-old female she is awake and alert and appears to be comfortable. She is complaining of worsening pain to the right clavicle area. HEENT: Head is atraumatic, normocephalic. Left pupil is round and reactive to light sclerae and icteric. enucleated right eye Mucous members of the mouth are moist. Patient is edentulous. No lesions noted. NECK: Supple. No JVD. No lymphadenopathy. No thyromegaly. Pressure dressing in place to the right clavicle. This was not removed. No breakthrough bleeding. LUNGS: Clear to auscultation. No wheezes or rhonchi. No intercostal retractions. HEART: Regular rate and rhythm. No murmur. ABDOMEN: Soft. Bowel sounds are present. No masses. No tenderness. No redness under abdominal folds or groins. EXTREMITIES: Left below the knee amputation noted with no wounds to the stump. Dorsalis pedis is +2 on the right. No wounds noted. NEUROLOGICAL: Patient is awake, alert and oriented x3. vision is poor The right anterior chest wall is now much less tender since removal of the hemodialysis catheter. She no longer cries out in pain when the area is manipulated. There is no expressible purulence. The right femoral site is without tenderness. - Labs CBC & Chem 7: 06/03/18 05:40 06/01/18 05:35 Labs: Abnormal Lab Results - Last 24 Hours (Table) 06/03/18 06/03/18 06/03/18 Range/Units 05:40 05:57 12:08 RBC 2.79 L (3.80-5.40) m/uL Hgb 8.2 L (11.4-16.0) gm/dL Hct 26.0 L (34.0-46.0) % RDW 16.0 H (11.5-15.5) % POC Glucose (mg/dL) 120 H 102 H (75-99) mg/dL 06/03/18 Range/Units 16:32 RBC (3.80-5.40) m/uL Hgb (11.4-16.0) gm/dL Hct (34.0-46.0) % RDW (11.5-15.5) % POC Glucose (mg/dL) 134 H (75-99) mg/dL Microbiology - Last 24 Hours (Table) 05/29/18 07:25 Blood Culture - Preliminary Blood No Growth after 120 hours Laboratory Results WBC 4.0 k/uL (3.8-10.6) 06/03/18 05:40 RBC 2.79 m/uL (3.80-5.40) L 06/03/18 05:40 Hgb 8.2 gm/dL (11.4-16.0) L 06/03/18 05:40 Hct 26.0 % (34.0-46.0) L 06/03/18 05:40 MCV 93.0 fL (80.0-100.0) 06/03/18 05:40 MCH 29.3 pg (25.0-35.0) 06/03/18 05:40 MCHC 31.5 g/dL (31.0-37.0) 06/03/18 05:40 RDW 16.0 % (11.5-15.5) H 06/03/18 05:40 Plt Count 195 k/uL (150-450) 06/03/18 05:40 Neutrophils % 57 % 06/03/18 05:40 Lymphocytes % 30 % 06/03/18 05:40 Monocytes % 7 % 06/03/18 05:40 Eosinophils % 3 % 06/03/18 05:40 Basophils % 1 % 06/03/18 05:40 Neutrophils # 2.3 k/uL (1.3-7.7) 06/03/18 05:40 Lymphocytes # 1.2 k/uL (1.0-4.8) 06/03/18 05:40 Monocytes # 0.3 k/uL (0-1.0) 06/03/18 05:40 Eosinophils # 0.1 k/uL (0-0.7) 06/03/18 05:40 Basophils # 0.1 k/uL (0-0.2) 06/03/18 05:40 Hypochromasia Slight 06/03/18 05:40 Anisocytosis Slight 06/03/18 05:40 PT 9.9 sec (9.0-12.0) 05/31/18 07:41 INR 1.0 (<1.2) 05/31/18 07:41 APTT 31.3 sec (22.0-30.0) H 05/31/18 13:26 Sodium 138 mmol/L (137-145) 06/01/18 05:35 Potassium 5.3 mmol/L (3.5-5.1) H 06/01/18 05:35 Chloride 109 mmol/L (98-107) H 06/01/18 05:35 Carbon Dioxide 21 mmol/L (22-30) L 06/01/18 05:35 Anion Gap 8 mmol/L 06/01/18 05:35 BUN 61 mg/dL (7-17) H 06/01/18 05:35 Creatinine 4.44 mg/dL (0.52-1.04) H 06/01/18 05:35 Est GFR (CKD-EPI)AfAm 12 (>60 ml/min/1.73 sqM) 06/01/18 05:35 Est GFR (CKD-EPI)NonAf 10 (>60 ml/min/1.73 sqM) 06/01/18 05:35 Glucose 98 mg/dL (74-99) 06/01/18 05:35 POC Glucose (mg/dL) 134 mg/dL (75-99) H 06/03/18 16:32 POC Glu Rail Director OLEG Lisa Villegas 06/03/18 16:[address] Glu mg/dL 105 06/01/18 05:35 Hemoglobin A1c 5.3 % (4.0-6.0) 06/01/18 05:35 Plasma Lactic Acid Yonis 1.3 mmol/L (0.7-2.0) 05/29/18 07:25 Calcium 9.0 mg/dL (8.4-10.2) 06/01/18 05:35 Phosphorus 5.4 mg/dL (2.5-4.5) H 05/29/18 14:55 Total Bilirubin 0.2 mg/dL (0.2-1.3) 05/29/18 07:25 AST 31 U/L (14-36) 05/29/18 07:25 ALT 25 U/L (9-52) 05/29/18 07:25 Alkaline Phosphatase 68 U/L (38-126) 05/29/18 07:25 Total Protein 6.3 g/dL (6.3-8.2) 05/29/18 07:25 Albumin 3.1 g/dL (3.5-5.0) L 05/29/18 07:25 Urine Color Yellow 05/29/18 22:25 Urine Appearance Cloudy (Clear) H 05/29/18 22:25 Urine pH 8.0 (5.0-8.0) 05/29/18 22:25 Ur Specific [place] 1.010 (1.001-1.035) 05/29/18 22:25 Urine Protein 3+ (Negative) H 05/29/18 22:25 Urine Glucose (UA) 2+ (Negative) H 05/29/18 22:25 Urine Ketones Negative (Negative) 05/29/18 22:25 Urine Blood Small (Negative) H 05/29/18 22:25 Urine Nitrite Negative (Negative) 05/29/18 22:25 Urine Bilirubin Negative (Negative) 05/29/18 22:25 Urine Urobilinogen <2.0 mg/dL (<2.0) 05/29/18 22:25 Ur Leukocyte Esterase Large (Negative) H 05/29/18 22:25 Urine RBC 13 /hpf (0-5) H 05/29/18 22:25 Urine WBC >182 /hpf (0-5) H 05/29/18 22:25 Ur Squamous Epith Cells 1 /hpf (0-4) 05/29/18 22:25 Hyaline Casts 3 /lpf (0-2) H 05/29/18 22:25 Vancomycin Trough 18.0 ug/mL 06/02/18 06:37 Random Vancomycin 22.5 ug/mL 05/30/18 05:43 Group A Strep Rapid Negative (Negative) 05/29/18 17:47 Microbiology 05/29/18 07:25 Blood Blood Culture - Preliminary No Growth after 120 hours 05/29/18 17:47 Throat Group A Strep Throat Culture - Final 05/29/18 22:25 Urine,Catheterized Urine Culture - Final Pseudomonas aeruginosa Assessment and Plan (1) MRSA bacteremia Narrative/Plan: 62 year old woman with multiple medical troubles has recently been hospitalized with MRSA sepsis from dialysis catheter and history of noncompliance with the dialysis. Now again has pain at the catheter site and has been seen by vascular surgery with plans for further surgery for access tomorrow. Continue vancomycin per pharmacy dosing with follow up blood cultures. 05/30/2018 patient is feeling considerably better since the removal of the dialysis catheter from the right IJ site. New site in the right groin is without difficulty and hemodialysis is planned for today. Overall she's feeling better. We'll plan at least a 4 week course of intravenous antibiotic therapy with vancomycin and her hemodialysis sessions. Discharge planning to work with nephrology to ensure that this is occurring at the site. 05/31/2018 reveals the patient to have stability to improvement. She will need the multiweek course of antibiotic therapy at dialysis for her sepsis related to dialysis catheter. However gram negative bacilli is now found in the urine ceftriaxone was added pending further culture results. 06/02/2018 patient does continue improved. No further positive blood cultures are noted. Prior MRSA was noted. Pseudomonas aeruginosa found and urine culture antibiotic therapy is altered to tobramycin while in hospital. If fortunately is also susceptible to gentamicin and then be utilized at the dialysis center, can be provided from the extended care. She has no other available IV access. 06/03/2018 the case is discussed with her fresh work wrapper layer. She is evidence of the recent MRSA infection as well as some pseudomonas in her urine. We'll transition tobramycin to gentamicin so this can be utilized for synergy with the vancomycin for the staphylococcal infection and achieve treatment of the pseudomonas urinary tract infection. Orders are sent to the extended care facility. Status: Acute Code(s): R78.81 - BACTEREMIA SNOMED Code(s): 25890101203183087 (2) Infection of dialysis vascular access Status: Acute Code(s): T82.7XXA - INFECT/INFLM REACT D/T OTH CARDI/VASC DEV/ IMPLNT/GRFT, INIT SNOMED Code(s): 51522742
== END 2018-06-03 17:45 | DRG 314 ==
LOC: EC 06:18 → 3SCARD 11:32
PROVIDERS: ADMIT Hospitalist; ATTEND Hospitalist
PROC: 5A1D70Z Performance of Urinary Filtration, Intermittent, Less than 6 Hours Per Day (ICD-10-PCS; 2018-05-29)
PROC: 06HY33Z Insertion of Infusion Device into Lower Vein, Percutaneous Approach (ICD-10-PCS; principal; 2018-05-31)
DX: T82.868A Thrombosis due to vascular prosthetic devices, implants and grafts, initial encounter (principal); N18.6 End stage renal disease; I50.22 Chronic systolic (congestive) heart failure; I13.2 Hypertensive heart and chronic kidney disease with heart failure and with stage 5 chronic kidney disease, or end stage renal disease; I82.C11 Acute embolism and thrombosis of right internal jugular vein; N30.00 Acute cystitis without hematuria; T82.7XXA Infection and inflammatory reaction due to other cardiac and vascular devices, implants and grafts, initial encounter; E11.22 Type 2 diabetes mellitus with diabetic chronic kidney disease; E11.41 Type 2 diabetes mellitus with diabetic mononeuropathy; E11.51 Type 2 diabetes mellitus with diabetic peripheral angiopathy without gangrene; E87.5 Hyperkalemia; G30.9 Alzheimer's disease, unspecified; B96.5 Pseudomonas (aeruginosa) (mallei) (pseudomallei) as the cause of diseases classified elsewhere; F32.9 Major depressive disorder, single episode, unspecified; D63.1 Anemia in chronic kidney disease; F02.80 Dementia in other diseases classified elsewhere, unspecified severity, without behavioral disturbance, psychotic disturbance, mood disturbance, and anxiety; E78.5 Hyperlipidemia, unspecified; I25.10 Atherosclerotic heart disease of native coronary artery without angina pectoris; J44.9 Chronic obstructive pulmonary disease, unspecified; F41.9 Anxiety disorder, unspecified; M06.9 Rheumatoid arthritis, unspecified; M19.91 Primary osteoarthritis, unspecified site; M89.9 Disorder of bone, unspecified; I25.2 Old myocardial infarction; Z99.2 Dependence on renal dialysis; Z91.15 Patient's noncompliance with renal dialysis; Z79.02 Long term (current) use of antithrombotics/antiplatelets; Z79.4 Long term (current) use of insulin; Z79.899 Other long term (current) drug therapy; Z91.81 History of falling; Z89.512 Acquired absence of left leg below knee; Z86.14 Personal history of Methicillin resistant Staphylococcus aureus infection; Z86.19 Personal history of other infectious and parasitic diseases; Z90.49 Acquired absence of other specified parts of digestive tract; Z95.5 Presence of coronary angioplasty implant and graft; Z90.710 Acquired absence of both cervix and uterus; Z90.01 Acquired absence of eye; Z86.73 Personal history of transient ischemic attack (TIA), and cerebral infarction without residual deficits; Z87.440 Personal history of urinary (tract) infections; Z87.891 Personal history of nicotine dependence; Z88.1 Allergy status to other antibiotic agents; Z88.5 Allergy status to narcotic agent; Z91.048 Other nonmedicinal substance allergy status; Z82.3 Family history of stroke; Z82.5 Family history of asthma and other chronic lower respiratory diseases; Y83.8 Other surgical procedures as the cause of abnormal reaction of the patient, or of later complication, without mention of misadventure at the time of the procedure
CPT/HCPCS: 36415; 36558; 70491; 71260; 76937; 77001; 80048; 80053; 80202; 81001; 83036; 83605; 84100; 85025; 85610; 85730; 87040; 87077; 87081; 87086; 87186; 87430; 90935; 93005; 96365; 96366; 96375; 96376; 99285